=== PATIENT | female | born 1990 | race Hispanic/Latino ===

== ENCOUNTER 2018-09-20 14:11 | Inpatient (IN) | payer OTHER ==
[2018-09-23] MEDS ORDERED: METHYLERGONOVINE 0.2MG/ML AMP IM PRN ×2 (06:29→21:23)
[2018-09-23] MEDS ORDERED: CARBOPROST TROME 250 MCG/ML IM PRN ×2 (06:29→21:23)
[2018-09-23] MEDS ORDERED: PENICILLIN 5 MU in NA CHLORIDE 0.9% 100 ML IV ONE (06:29)
[2018-09-23] MEDS ORDERED: Ringers Lactate 1,000 ML IV PRN (06:29)
[2018-09-23] MEDS ORDERED: BUTORPHANOL 1 MG/ML INJ IV PRN (06:29)
[2018-09-23] MEDS ORDERED: PROMETHAZINE 25 MG/ML VIAL IV PRN (06:29)
[2018-09-23] MEDS ORDERED: PENICILLIN G POT 5 MU/100 ML BAG IV ONE (07:00)
[2018-09-23] MEDS ORDERED: Ringers Lactate 1,000 ML IV SCH (07:00)
[2018-09-23] MEDS ORDERED: OXYTOCIN/LR 20 UNIT/1,000 ML BAG IV SCH ×2 (07:00→22:00)
[2018-09-23 07:01] LABS: RPR Titer ND
[2018-09-23 07:04] LABS: Urine Appearance CLOUDY; Urine Bilirubin NEGATIVE (NEG); Urine Blood NEGATIVE (NEG); Urine Color YELLOW; Urine Glucose NEGATIVE (NEG); Urine Protein 1+ (NEG); Urine Specific Gravity 1.025 (1.005-1.030); Urine pH 6.5 (5.0-7.0)
[2018-09-23 07:11] LABS: Absolute Lymphocytes (CBC) 1.9 K/uL (0.7-4.9); Absolute Monocytes 0.8 K/uL (0.1-1.3); Absolute Neutrophil 6.7 K/uL (1.8-8.0); Basophils % 0.3 % (0-1.3); Eosinophils % 0.7 % (0-4.4); Monocytes % 8.7 % (3.3-12.3); RBC Red Blood Cell Count 4.43 M/uL (3.86-4.86)
[2018-09-23 07:25] LABS: Urine Bacteria 20-50 /HPF (<20); Urine Culture Reflex Order REFLEXED; Urine Microscopic Reflex ORDER UMIC; Urine Mucus 2+ /HPF (NONE SEEN); Urine RBC <5 /HPF (NONE SEEN)
--- NOTE | 2018-09-23 07:46 | P.PN ---
Date of Service: 09/23/18 Unable to perform AROM, pt unable to relax and vtx, minus 3 station. Will begin pitocin and attempt to AROM in an hour or two. First dose of PCN almost complete.
[2018-09-23 08:09] VITALS: BMI 33.9
[2018-09-23] MEDS ORDERED: FENTANYL CITR 100 MCG/2 ML IV ONE (10:23)
[2018-09-23] MEDS ORDERED: ROPIVACAINE HCL 100 ML IV PRN (10:23)
[2018-09-23] MEDS ORDERED: ROPIVACAINE HCL 2 MG/ML 100ML IV ONE (10:24)
[2018-09-23] MEDS ORDERED: PENICILLIN 2.5 MU in NA CHLORIDE 0.9% 100 ML IV SCH ×2 (10:30→11:00)
[2018-09-23] MEDS ORDERED: ROPIVACAINE HCL 20 ML ONE (10:58)
--- NOTE | 2018-09-23 12:53 | P.PN ---
CX now 4cm, 85% effaced, vtx still, minus 2 station with no descent. Will observe for progress.
--- NOTE | 2018-09-23 15:07 | P.PN ---
CX 5+cm, 90% effaced, vtx minus 2, reactive FHT's. Will continue induction and observe for continued progress.
[2018-09-23] MEDS ORDERED: LIDOCAINE 1% MPF 30 ML VIAL ONE (16:44)
[2018-09-23] MEDS ORDERED: METHYLERGONOVINE 0.2MG/ML AMP IM ONE (16:45)
[2018-09-23] MEDS ORDERED: CARBOPROST TROME 250 MCG/ML IM ONE (16:45)
[2018-09-23] MEDS ORDERED: CEFAZOLIN 2 GM in NA CHLORIDE 0.9% 100 ML IVPB SCH (19:25)
--- NOTE | 2018-09-23 19:30 | P.PN ---
Complete, pushing x2+ hours with no progress last 90 minutes. Vtx remains 0 station. Will proceed with for ftp, secondary to cpd.
[2018-09-23] MEDS ORDERED: NA CIT/CITRIC AC 30 ML ORAL UDC PO ONE (19:34)
[2018-09-23] MEDS ORDERED: METOCLOPRAMIDE 10 MG/2mL INJ IV SCH (20:00)
[2018-09-23] MEDS ORDERED: LIDOCAINE 2% MPF 5 ML VIAL ONE (20:05)
[2018-09-23] MEDS ORDERED: MORPHINE SULFATE/PF 1 MG/ML (10 ML AMP) ONE (20:17)
[2018-09-23] MEDS ORDERED: OXYTOCIN 10 UNIT/ML ML IV ONE (20:21)
[2018-09-23] MEDS ORDERED: LIDOCAINE 1% MPF 5 ML VIAL ONE (20:24)
[2018-09-23] MEDS ORDERED: PROPOFOL 200 MG/20 ML VIAL IV ONE (20:29)
[2018-09-23] MEDS ORDERED: SUCCINYLCHOLINE 20 MG/ML (10 ML) IV ONE ×2 (20:30→20:44)
[2018-09-23] MEDS ORDERED: ONDANSETRON 4 MG/2 ML VIAL ONE (20:39)
[2018-09-23] MEDS ORDERED: FENTANYL CITR 250 MCG/5 ML ONE (20:46)
[2018-09-23] MEDS ORDERED: Oxycodone HCl/Acetaminophen 1 TAB TAB PO PRN (21:23)
[2018-09-23] MEDS ORDERED: METHYLERGONOVINE 0.2 MG TAB PO PRN (21:23)
[2018-09-23] MEDS ORDERED: ONDANSETRON 4 MG (ODT) TAB PO PRN (21:23)
--- NOTE | 2018-09-23 21:27 | P.BOP ---
Preoperative diagnosis: 39+ week , failure to progress in labor, cpd Postoperative diagnosis: same, viable Line Controller: Milana Esparza Estimated blood loss: 1000ml Specimen: placenta Anesthesia: General Complications: None Drain(s): Urinary catheter Transferred to: Other (271) Condition: Good (271)
[2018-09-23] MEDS ORDERED: KETOROLAC 30 MG/ML INJ IV PRN (21:31)
[2018-09-23 23:24] LABS: RPR (Rapid Plasma Reagin) NON-REACT (NON-REACT)
[2018-09-24] MEDS: Oxycodone HCl/Acetaminophen 1 TAB TAB PO PRN ×3 (02:15→12:45)
[2018-09-24] MEDS ORDERED: Ringers Lactate 1,000 ML IV ONE (05:12)
[2018-09-24 05:42] LABS: Absolute Lymphocytes (CBC) 1.6 K/uL (0.7-4.9); Absolute Monocytes 1.5 K/uL (0.1-1.3); Absolute Neutrophil 12.7 K/uL (1.8-8.0); Basophils % 0.1 % (0-1.3); Eosinophils % 0.1 % (0-4.4); Hematocrit 35.2 % (36.0-45.0); Lymphocytes % 10.3 % (15.3-44.8); MPV 8.9 fL (7.6-11.3); Monocytes % 9.6 % (3.3-12.3)
--- NOTE | 2018-09-24 06:00 | P.PN ---
S- No complaints O-Afeb, vs stable, po h/h, bandage dry, abdomen not distended A-Satisfactory P-Post op care discussed. Ambulate, advance diet today.
[2018-09-24] MEDS ORDERED: FAMOTIDINE 20 MG/2 ML VIAL IV ONE (09:00)
--- NOTE | 2018-09-24 16:26 | OP ---
Surgeon: Terry Swanson MD Preoperative Diagnosis: Forty week , failure to progress in labor secondary to suspected ce phalopelvic disproportion. Procedure: General endotracheal anesthesia, primary section, delivery of viable female infa nt, macrosomic female . Postoperative Diagnosis: Forty week , failure to progress in labor secondary to suspected c ephalopelvic disproportion. Description Of Procedure: After the patient had progressed to complete cervical dilatation, had seco nd stage of labor of 2+ hours, vertex remained at no lower than 0 station, and because of this and declining mother's expulsive efforts, the patient has been counseled regarding the need for cathy nelly section secondary to failure to progress in labor with cephalopelvic disproportion. After the patient received 2 g of Ancef for antibiotic prophylaxis and with Roche catheter in place, she was prepped and draped in the usual fashion for abdominal surgery. Testing of the epidural anest hesia revealed it was not adequate for surgical anesthesia, so a general endotracheal anesthesia was employed. After this was instituted, a Pfannenstiel skin incision was made, carried down to the fasc ia, fascia incised with a combination of sharp and blunt dissection. This was from the und erlying rectus muscles. These were divided in the midline. The peritoneum identified and incised. Vesicouterine peritoneum incised. A low-transverse uterine incision was made. An 8-pound 15-ounce f emale , 9 and 9, was delivered with vertex deep in the pelvis, was easily elevated. Cord was clamped, cut, and the infant placed in a warmer. Cord blood was obtained. The placenta was man ually removed. The uterus was then exteriorized. The uterus was closed in 2 layers of unlocked runn ing suture of 0 Vicryl. Second layer used to imbricate the first. Good hemostasis was noted. Bladd er flap was reapproximated with running suture of 3-0 Vicryl. The uterus was returned to the periton eal cavity, which was cleaned of amniotic fluid, debris, and blood clot. The rectus muscles were harriett roximated in the midline with simple sutures of 0 Vicryl. The fascia was closed by running suture of #1 Vicryl from either margin to the middle. The skin was closed with subcutaneous sutures, interrup nadia sutures of 3-0 Vicryl, subdermal suture of 3-0 Vicryl, and subcuticular suture of 4-0 Monocryl. The patient was awakened, extubated, and taken to recovery room in satisfactory condition with Roche catheter in place. Estimated total blood loss was 1000 mL. She was given methargen IM post infant d elivery to ensure good contracture of the uterus after obstructed labor. Pet Feeder Surgeon: Dr. Esparza. Anesthesia: Dr. Delvis Toussaint. KOMAL/GONZALEZ Voice ID: [id number] Report ID: [id number]
[2018-09-24] MEDS: IBUPROFEN 200 MG TAB PO PRN ×2 (17:27→23:48)
[2018-09-25] MEDS: IBUPROFEN 200 MG TAB PO PRN (07:50)
--- NOTE | 2018-09-25 13:55 | DS ---
Final Hospital Discharge Diagnosis: 40 week , section for failure to progress in l abor with failure of descent. Complications: None. Procedures: Artificial rupture of membranes. Pitocin induction of labor. Placement of epidural cat heter. General endotracheal anesthesia. Primary section. Delivery of viable female , macrosomic female infant. Hospital Course: The patient is a 28-year-old female, 1, para 0, at 40 weeks gestat ion, admitted for induction at term secondary to favorable cervix and concerns about cephalopelvic di sproportion and macrosomia. She ended up with a primary section after 2-1/2 hours, se cond stage of labor and failure of descent and delivered an 8-pound 15-ounce female infant, 9 a nd 9 with general anesthesia when epidural anesthesia was not satisfactory. Lab work during this hos pital stay included an admission hemoglobin and hematocrit of 14.0 and 41.0, dismissal 12.0 and 35.2. She is Rh positive blood type and rubella immune. She will be dismissed with a prescription for Ty lenol No. 3 #15 for pain relief, to be seen back in my office in 1 week with usual post vaginal and p ost section activity restrictions, to continue taking her iron and vitamins. KOAML/GONZALEZ Voice ID: [id number] Report ID: [id number]
[2018-09-25 16:41] VITALS: BP 147/90; TEMP 97.4
[2018-09-25 21:23] LABS: HBsAG Nonreactive (Nonreactive)
== END 2018-09-25 17:40 | disposition home or self-care (01) | DRG 788 ==
LOC: 2ND-WC 09-23 06:25
PROVIDERS: ADMIT Specialist; ATTEND Specialist
PROC: 10907ZC Drainage of Amniotic Fluid, Therapeutic from Products of Conception, Via Natural or Artificial Opening (ICD-10-PCS; 2018-09-23)
PROC: 3E033VJ Introduction of Other Hormone into Peripheral Vein, Percutaneous Approach (ICD-10-PCS; 2018-09-23)
PROC: 10D00Z1 Extraction of Products of Conception, Low, Open Approach (ICD-10-PCS; principal; 2018-09-23 20:00)
DX: O62.0 Primary inadequate contractions (principal); O32.4XX0 Maternal care for high head at term, not applicable or unspecified; Z3A.40 40 weeks gestation of pregnancy; Z37.0 Single live birth
CPT/HCPCS: 36415; 81003; 81015; 85025; 86592; 86850; 86900; 86901; 87086; 87088; 87340; 88307; J0330; J2210; J2405; J2590; J2704; J2765; J2795; J3010

== ENCOUNTER 2020-11-16 15:13 | Emergency (ER) | payer SELFPAY ==
--- OUTSIDE RECORDS SUMMARY | 2020-11-16 15:15 | XMS REPORT | Continuity of Care Document ---
:1990 Author Organization [facility] t Address [address] [place] [address] Care Team Providers Name Role Phone Daniela Mckinnon MD Attending Clinician Problems This patient has no known problems. Allergies, Adverse Reactions, Alerts This patient has no known allergies or adverse reactions. Medications This patient has no known medications. Procedures This patient has no known procedures. Encounters Start End Encounter Admission Attending Care Care Encounter Source Date/Time Date/Time Type Type Clinicians Facility Department ID 2020-02-03 2020-02-03 Case [facility] [id number] 00:00:00 00:00:00 Management Sonia Ballard [id number] Amanda [id number] Juanita [phone] [facility] 134 Building 2020-02-01 2020-02-01 Office [facility] [id number] 11:20:04 12:15:55 Visit Sonia Ballard [id number] [place] [id number] Juanita [phone] [address] Results This patient has no known results.
--- NOTE | 2020-11-16 15:53 | ER ---
Nurse's Notes [facility] [place], [place] Name: Rosalva De La Rosa Age: 30 yrs Sex: Female : 1990 Arrival Date: 11/16/2020 Time: 15:14 Bed 27 Private MD: Diagnosis: Presentation: 11/16 15:25 Chief complaint: Patient states: Covid+ 11/12/2020. S/S started 11/07/2020. SOB with ca1 talking, breathing. Reports cough, worsening. No fever. Coronavirus screen: Client denies travel out of the [place] in the last 14 days. Client reports previous positive COVID test result. Date of collection: November 12, 2020 Staff notified of need for isolation. Ebola Screen: Patient negative for fever greater than or equal to 101.5 degrees Fahrenheit, and additional compatible Ebola Virus Disease symptoms Patient denies exposure to infectious person. Patient denies travel to an Ebola-affected area in the 21 days before illness onset. No symptoms or risks identified at this time. Initial Sepsis Screen: Does the patient meet any 2 criteria? No. Patient's initial sepsis screen is negative. Does the patient have a suspected source of infection? No. Patient's initial sepsis screen is negative. Risk Assessment: Do you want to hurt yourself or someone else? Patient reports no desire to harm self or others. Onset of symptoms was November 07, 2020. 15:25 Method Of Arrival: Wheelchair ca1 15:25 Method Of Arrival: Wheelchair ca1 15:25 Acuity: VELVET 2 ca1 15:51 Note Norma states, she left and went to [place]. ca1 BARN HAND: 15:29 LMP 10/24/2020 ca1 Historical: - Allergies: 15:29 No Known Allergies; ca1 - PMHx: 15:29 None; ca1 - PSHx: 15:29 None; ca1 - Immunization history:: Flu vaccine is up to date. - Social history:: Smoking status: Patient denies any tobacco usage or history of. Vital Signs: 15:25 BP 107 / 88; Pulse 137; Resp 20 S; Temp 98.5(TE); Pulse Ox 97% on R/A; Weight 95.25 kg ca1 (R); Height 5 ft. 8 in. (172.72 cm) (R); Pain 6/10; 15:25 Body Mass Index 31.93 (95.25 kg, 172.72 cm) ca1 ED Course: 15:14 Patient arrived in ED. am2 15:29 Triage completed. ca1 15:29 Arm band placed on right wrist. ca1 15:48 Ashley Smallwood, RN is Primary Nurse. vg1 15:51 Patient's name was called from ER lobby. No response. Unable to locate patient. Will ca1 disposition as left without being seen by a provider. Administered Medications: No medications were administered Outcome: 15:52 Patient left the ED. ca1 Signatures: Shelbi Patterson am2 Sharyn Tovar RN RN ca1 Ashley Smallwood, RN RN vg1
[2020-11-16 15:57] VITALS: BP 107/88; TEMP 98.5; O2SAT 97
== END 2020-11-16 15:52 | disposition left against medical advice (07) ==
LOC: ER 15:13
DX: Z53.21 Procedure and treatment not carried out due to patient leaving prior to being seen by health care provider (principal)
CPT/HCPCS: 99281

== ENCOUNTER 2020-11-19 11:44 | Inpatient (IN) | payer OTHER ==
--- OUTSIDE RECORDS SUMMARY | 2020-11-19 11:47 | XMS REPORT | Continuity of Care Document ---
:1990 Author Organization [facility] t Address [address] [place] [address] Care Team Providers Name Role Phone Daniela [...] Clinicians Facility Department ID 2020-02-03 2020-02-03 Case [facility] [id number] 00:00:00 00:00:00 Management Sonia Ballard [id number] [place] [id number] Juanita [phone] [facility] 134 Building 2020-02-01 2020-02-01 Office [facility] [id number] 11:20:04 12:15:55 Visit Sonia Ballard [id number] [place] [id number] Juanita [phone] [address] Results This patient has no known results.
[2020-11-19] MEDS ORDERED: ACETAMINOPHEN 500 MG TAB ONE (12:30)
[2020-11-19] MEDS ORDERED: NA CHLORIDE 0.9% 1,000 ML ONE (12:30)
--- NOTE | 2020-11-19 12:37 | EDPHYS ---
Physician Documentation [facility] Name: Rosalva De La Rosa Age: 30 yrs Sex: Female : 1990 Arrival Date: 11/19/2020 Time: 11:46 Bed 23 Private MD: ED Physician Celso Russo HPI: 11/19 12:37 This 30 yrs old Female presents to ER via Wheelchair with complaints of Covid jr8 + SOB, Fatigue. 12:37 The patient has shortness of breath at rest. Onset: The symptoms/episode began/occurred jr8 gradually, 7 day(s) ago, and became worse and became persistent. Duration: The symptoms are continuous. The patient's shortness of breath is aggravated by talking, walking. Associated signs and symptoms: Pertinent positives: non-productive cough, fever. Severity of symptoms: At their worst the symptoms were moderate in the emergency department the symptoms are unchanged. The patient has not experienced similar symptoms in the past. The patient has been recently seen by a physician:. Diagnosed with covid a week ago. Saw Celeste this past Thursday and was prescribed steroids and Abx. Came today for worsening of shortness of breath. Patient febrile with tachycardia, tachypnea, and hypoxia upon arrival . Historical: - Allergies: 12:03 No Known Allergies; ll1 - PMHx: 12:03 None; ll1 - PSHx: 12:03 None; ll1 - Immunization history:: Flu vaccine is up to date. - Social history:: Smoking status: Patient denies any tobacco usage or history of. ROS: 12:37 Eyes: Negative for injury, pain, redness, and discharge, ENT: Negative for injury, jr8 pain, and discharge, Neck: Negative for injury, pain, and swelling, Cardiovascular: Negative for chest pain, palpitations, and edema, Abdomen/GI: Negative for abdominal pain, nausea, vomiting, diarrhea, and constipation, Back: Negative for injury and pain, MS/Extremity: Negative for injury and deformity, Skin: Negative for injury, rash, and discoloration, Neuro: Negative for headache, weakness, numbness, tingling, and seizure. 12:37 Constitutional: Positive for fever, malaise. 12:37 Respiratory: Positive for cough, dyspnea on exertion, shortness of breath. Exam: 12:37 Eyes: Pupils equal round and reactive to light, extra-ocular motions intact. Lids and jr8 lashes normal. Conjunctiva and sclera are non-icteric and not injected. Cornea within normal limits. Periorbital areas with no swelling, redness, or edema. ENT: Nares patent. No nasal discharge, no septal abnormalities noted. Tympanic membranes are normal and external auditory canals are clear. Oropharynx with no redness, swelling, or masses, exudates, or evidence of obstruction, uvula midline. Mucous membranes moist. Neck: Trachea midline, no thyromegaly or masses palpated, and no cervical lymphadenopathy. Supple, full range of motion without nuchal rigidity, or vertebral point tenderness. No Meningismus. Abdomen/GI: Soft, non-tender, with normal bowel sounds. No distension or tympany. No guarding or rebound. No evidence of tenderness throughout. Back: No spinal tenderness. No costovertebral tenderness. Full range of motion. Skin: Warm, dry with normal turgor. Normal color with no rashes, no lesions, and no evidence of cellulitis. MS/ Extremity: Pulses equal, no cyanosis. Neurovascular intact. Full, normal range of motion. Neuro: Awake and alert, GCS 15, oriented to person, place, time, and situation. Cranial nerves II-XII grossly intact. Motor strength 5/5 in all extremities. Sensory grossly intact. 12:37 Constitutional: The patient appears alert, awake, obviously ill. 12:37 Cardiovascular: Rate: tachycardic, Rhythm: regular, Pulses: Pulses are 2+ in right radial artery and left radial artery. Heart sounds: normal, normal S1and S2, no S3 or S4, no murmur, no rub, no gallop, Edema: is not appreciated. 12:37 Respiratory: mild respiratory distress is noted, Respirations: tachypnea, that is moderate, Breath sounds: are clear throughout, no bronchial sounds, no decreased breath sounds, no rales, rhonchi, no stridor, no wheezing, Respiratory rate: 40 Vital Signs: 12:00 BP 104 / 80; Pulse 114; Resp 28; Pulse Ox 90% on 3 lpm NC; vg1 12:03 BP 115 / 76; Pulse 135; Resp 40; Temp 101.7; Pulse Ox 88% on R/A; Weight 95.25 kg; ll1 Height 5 ft. 8 in. (172.72 cm); 13:00 BP 99 / 64; Pulse 104; Resp 24; Pulse Ox 91% on 3 lpm NC; vg1 13:36 Temp 98.8; vg1 13:45 BP 98 / 68; Pulse 89; Resp 34; Pulse Ox 97% on 3 lpm NC; vg1 14:30 BP 103 / 68; Pulse 86; Resp 26; Pulse Ox 97% on 3 lpm NC; vg1 15:15 BP 97 / 67; Pulse 85; Resp 16; Pulse Ox 96% on 3 lpm NC; vg1 16:18 BP 100 / 68; Pulse 84; Resp 26; Pulse Ox 94% on 3 lpm NC; vg1 19:10 BP 109 / 76; Pulse 114; Resp 28; Temp 98.4; Pulse Ox 94% on 3 lpm NC; vg1 12:03 Body Mass Index 31.93 (95.25 kg, 172.72 cm) ll1 MDM: 11:59 Patient medically screened. jr8 12:40 Data reviewed: vital signs, nurses notes, lab test result(s), EKG, radiologic studies, jr8 plain films. Data interpreted: Pulse oximetry: on room air is 88 %. Interpretation: hypoxia. Counseling: I had a detailed discussion with the patient and/or guardian regarding: the historical points, exam findings, and any diagnostic results supporting the discharge/admit diagnosis, lab results, radiology results, the need for further work-up and treatment in the hospital. 11/19 12:04 Order name: BNP [facility] 11/19 12:04 Order name: Blood Culture Adult (2) [facility] 11/19 12:04 Order name: BMP [facility] 11/19 12:04 Order name: C-Reactive Protein [facility] 11/19 12:04 Order name: CBC with Diff [facility] 11/19 12:04 Order name: D-Dimer [facility] 11/19 12:04 Order name: Ferritin [facility] 11/19 12:04 Order name: Flu [facility] 11/19 12:04 Order name: Lactate [facility] 11/19 12:04 Order name: LFT's [facility] 11/19 12:04 Order name: Procalcitonin [facility] 11/19 12:04 Order name: PT-INR [facility] 11/19 12:04 Order name: Ptt, Activated; Complete Time: 13:16 [facility] 11/19 12:04 Order name: Troponin (emerg Dept Use Only); Complete Time: 14:13 8 11/19 12:05 Order name: NT PRO-BNP; Complete Time: 14:13 EDMS 11/19 12:05 Order name: Blood Culture EDID 11/19 12:05 Order name: Basic Metabolic Panel; Complete Time: 14:13 EDMS 11/19 12:05 Order name: C-Reactive Protein; Complete Time: 14:13 EDMS 11/19 12:05 Order name: CBC with Automated Diff; Complete Time: 13:28 EDMS 11/19 12:05 Order name: D-Dimer; Complete Time: 13:16 EDMS 11/19 12:05 Order name: Ferritin; Complete Time: 14:13 MS 11/19 12:05 Order name: Lactate; Complete Time: 13:16 EDMS 11/19 12:05 Order name: Liver (Hepatic) Function; Complete Time: 14:13 MS 11/19 12:05 Order name: Procalcitonin; Complete Time: 14:13 EDMS 11/19 12:05 Order name: Protime (+INR); Complete Time: 13:16 EDMS 11/19 13:02 Order name: CBC Smear Scan; Complete Time: 13:28 EDMS 11/19 13:42 Order name: COVID-19/FLU A+B; Complete Time: 14:13 MS 11/19 13:48 Order name: C-Reactive Protein [facility] 11/19 12:04 Order name: CXR XRAY; Complete Time: 14:45 [facility] 11/19 12:04 Order name: EKG; Complete Time: 12:06 [facility] 11/19 12:04 Order name: Cardiac monitoring; Complete Time: 12:44 8 11/19 12:04 Order name: Droplet/Contact Precautions; Complete Time: 12:44 [facility] 11/19 12:04 Order name: EKG - Nurse/Tech; Complete Time: 12:45 [facility] 11/19 12:04 Order name: IV Start; Complete Time: 12:45 [facility] 11/19 12:04 Order name: Labs collected and sent; Complete Time: 12:45 [facility] 11/19 12:04 Order name: O2 Per Protocol; Complete Time: 12:45 [facility] 11/19 12:04 Order name: O2 Sat Monitoring; Complete Time: 12:45 [facility] 11/19 12:04 Order name: Urine Dipstick-Ancillary (obtain specimen); Complete Time: 14:58 [facility] 11/19 13:17 Order name: CT Chest For PE Angio [facility] 11/19 13:48 Order name: CONS Physician Consult [facility] 11/19 13:48 Order name: Heart Healthy [facility] 11/19 13:48 Order name: C-Reactive Protein [facility] 11/19 13:48 Order name: CBC with Automated Diff [facility] 11/19 13:48 Order name: CBC with Automated Diff [facility] 11/19 13:48 Order name: Comprehensive Metabolic Panel [facility] 11/19 13:48 Order name: Comprehensive Metabolic Panel [facility] 11/19 13:48 Order name: Ferritin [facility] 11/19 13:48 Order name: Ferritin [facility] 11/19 14:36 Order name: CT; Complete Time: 14:45 EDID 11/19 14:42 Order name: Diet Regular; Complete Time: 14:42 [facility] 11/19 15:09 Order name: Urine Dipstick--Ancillary (enter results) 11/19 15:09 Order name: Urine --Ancillary (enter results) 11/19 15:36 Order name: Urine --Ancillary; Complete Time: 15:42 EDID 11/19 15:36 Order name: Urine Dipstick-Ancillary; Complete Time: 15:42 EDID 11/19 15:58 Order name: Lactate Sepsis 2 HR Follow-up; Complete Time: 16:40 EDMS Administered Medications: 12:44 Drug: Tylenol 1000 mg Route: PO; vg1 13:36 Follow up: Response: Temperature is decreased vg1 12:44 Drug: NS 0.9% 1000 ml Route: IV; Rate: 1000 ml; Site: right wrist; vg1 13:35 Follow up: IV Status: Completed infusion vg1 12:50 Drug: SOLU-Medrol 125 mg Route: IVP; Site: right wrist; vg1 13:35 Follow up: Response: No adverse reaction vg1 Disposition: 11/20 07:25 Co-signature as Attending Physician, Celso Russo MD. rn Disposition: 11/19/20 12:37 Hospitalization ordered by Lucy Viera for Inpatient Admission. Preliminary diagnosis are Pneumonia due to SARS-associated coronavirus, Acute respiratory failure with hypoxia. - Bed requested for Telemetry/MedSurg (Inpatient). - Status is Inpatient Admission. vg1 - Condition is Fair. - Problem is new. - Symptoms have improved. Signatures: Dispatcher [employer] EDMS Mine Love Celso Russo MD MD rn Jarerll, SHAHRAM Velasquez RN ss Craig Browne, PA PA jr8 Ashley Smallwood, SHAHRAM RN vg1 Bhavani Roland RN RN ll1 Corrections: (The following items were deleted from the chart) 11/19 12:47 12:05 Influenza Screen (A ordered. EDMS EDMS 12:47 12:06 CORONAVIRUS+MR.LAB.BRZ ordered. EDID EDMS 16:52 12:37 Hospitalization Ordered by Lucy Viera MD for Inpatient Admission. Preliminary ss diagnosis is Pneumonia due to SARS-associated coronavirus; Acute respiratory failure with hypoxia. Bed requested for Telemetry/MedSurg (Inpatient). Status is Inpatient Admission. Condition is Fair. Problem is new. Symptoms have improved. jr8 18:43 16:52 11/19/2020 12:37 Hospitalization Ordered by Lucy Viera MD for Inpatient bd Admission. Preliminary diagnosis is Pneumonia due to SARS-associated coronavirus; Acute respiratory failure with hypoxia. Bed requested for [facility] ER HOLD. Status is Inpatient Admission. Condition is Fair. Problem is new. Symptoms have improved. 18:44 18:43 11/19/2020 12:37 Hospitalization Ordered by Lucy Viera MD for Inpatient bd Admission. Preliminary diagnosis is Pneumonia due to SARS-associated coronavirus; Acute respiratory failure with hypoxia. Bed requested for Telemetry/MedSurg (Inpatient). Status is Inpatient Admission. Condition is Fair. Problem is new. Symptoms have improved. bd 20:10 18:44 11/19/2020 12:37 Hospitalization Ordered by Lucy Viera MD for Inpatient vg1 Admission. Preliminary diagnosis is Pneumonia due to SARS-associated coronavirus; Acute respiratory failure with hypoxia. Bed requested for Telemetry/MedSurg (Inpatient). Status is Inpatient Admission. Condition is Fair. Problem is new. Symptoms have improved. bd
--- NOTE | 2020-11-19 12:37 | ER ---
Nurse's Notes [facility] Name: Rosalva De La Rosa Age: 30 yrs Sex: Female : 1990 Arrival Date: 11/19/2020 Time: 11:46 Bed 23 Private MD: Diagnosis: Pneumonia due to SARS-associated coronavirus;Acute respiratory failure with hypoxia Presentation: 11/19 12:03 Chief complaint: Patient states: Covid positive since November 12. Symptoms began ll1 11/07/20. Went to [place] Thursday, steroids/antibiotics/inhaler not helping. SOB worse with exertion. + fever still. Coronavirus screen: Client denies travel out of the [place] in the last 14 days. cough unrelated to allergies, difficulty breathing, fatigue, fever, headache, muscle pain, shortness of breath, Client presents with at least one sign or symptom that may indicate coronavirus-19. Standard/surgical mask placed on the client. Ebola Screen: Patient denies travel to an Ebola-affected area in the 21 days before illness onset. Initial Sepsis Screen: Does the patient meet any 2 criteria? RR > 20 per min. Temp <36.0*C (96.8*F)) or > 38.3*C (100.9*F). HR > 90 bpm. Does the patient have a suspected source of infection? Yes: Productive cough/pneumonia If YES to both, name of provider notified: Craig APPLE. Risk Assessment: Do you want to hurt yourself or someone else? Patient reports no desire to harm self or others. Onset of symptoms was November 07, 2020. 12:03 Method Of Arrival: Wheelchair ll1 12:03 Acuity: VELVET 2 ll1 Historical: - Allergies: 12:03 No Known Allergies; ll1 - PMHx: 12:03 None; ll1 - PSHx: 12:03 None; ll1 - Immunization history:: Flu vaccine is up to date. - Social history:: Smoking status: Patient denies any tobacco usage or history of. Screenin:18 Abuse screen: Denies threats or abuse. Nutritional screening: No deficits noted. vg1 Tuberculosis screening: No symptoms or risk factors identified. Fall Risk No fall in past 12 months (0 pts). No secondary diagnosis (0 pts). IV access (20 points). Ambulatory Aid- None/Bed Rest/Nurse Assist (0 pts). Gait- Normal/Bed Rest/Wheelchair (0 pts) Mental Status- Oriented to own ability (0 pts). Total Resendez Fall Scale indicates No Risk (0-24 pts). Assessment: 12:00 General: Appears in no apparent distress. uncomfortable, Behavior is calm, cooperative. vg1 Pain: Complains of pain in pain with breathing Pain currently is 8 out of 10 on a pain scale. Neuro: Level of Consciousness is awake, alert, obeys commands, Oriented to person, place, time, situation. Cardiovascular: Patient's skin is warm and dry. Respiratory: Airway is patent Respiratory effort is even, labored, Respiratory pattern is regular, symmetrical, Breath sounds with crackles in right posterior middle lobe Breath sounds are diminished in right posterior lower lobe. Respiratory: Reports shortness of breath cough that is pain with cough. GI: Reports diarrhea, nausea, vomiting. : No signs and/or symptoms were reported regarding the genitourinary system. EENT: No signs and/or symptoms were reported regarding the EENT system. Derm: Skin is intact, is healthy with good turgor. Musculoskeletal: Circulation, motion, and sensation intact. 14:46 Reassessment: Patient appears in no apparent distress at this time. No changes from vg1 previously documented assessment. Patient and/or family updated on plan of care and expected duration. Pain level reassessed. Patient is alert, oriented x 3, equal unlabored respirations, skin warm/dry/pink. 15:37 Reassessment: Patient appears in no apparent distress at this time. No changes from vg1 previously documented assessment. Patient and/or family updated on plan of care and expected duration. Pain level reassessed. Patient is alert, oriented x 3, equal unlabored respirations, skin warm/dry/pink. Vital Signs: 12:00 BP 104 / 80; Pulse 114; Resp 28; Pulse Ox 90% on 3 lpm NC; vg1 12:03 BP 115 / 76; Pulse 135; Resp 40; Temp 101.7; Pulse Ox 88% on R/A; Weight 95.25 kg; ll1 Height 5 ft. 8 in. (172.72 cm); 13:00 BP 99 / 64; Pulse 104; Resp 24; Pulse Ox 91% on 3 lpm NC; vg1 13:36 Temp 98.8; vg1 13:45 BP 98 / 68; Pulse 89; Resp 34; Pulse Ox 97% on 3 lpm NC; vg1 14:30 BP 103 / 68; Pulse 86; Resp 26; Pulse Ox 97% on 3 lpm NC; vg1 15:15 BP 97 / 67; Pulse 85; Resp 16; Pulse Ox 96% on 3 lpm NC; vg1 16:18 BP 100 / 68; Pulse 84; Resp 26; Pulse Ox 94% on 3 lpm NC; vg1 19:10 BP 109 / 76; Pulse 114; Resp 28; Temp 98.4; Pulse Ox 94% on 3 lpm NC; vg1 12:03 Body Mass Index 31.93 (95.25 kg, 172.72 cm) ll1 ED Course: 11:46 Patient arrived in ED. ds1 11:58 Ashley Smallwood RN is Primary Nurse. vg1 11:58 Arm band placed on Patient placed in an exam room, on a stretcher. ll1 11:59 Craig Browne PA is PHCP. jr8 11:59 Celso Russo MD is Attending Physician. jr8 12:05 Triage completed. ll1 12:30 Inserted saline lock: 22 gauge in right wrist, using aseptic technique. Blood collected.vg1 12:30 Initial lab(s) drawn, by me, sent to lab. First set of blood cultures drawn by me. vg1 12:36 Lucy Viera MD is Hospitalizing Provider. jr8 12:45 First set of blood cultures drawn Second set of blood cultures drawn by me. vg1 13:14 Notified Nurse Practitioner and/or Physician Russet Repairer of a critical lab result(s), ss [id number]. 13:18 Patient has correct armband on for positive identification. Placed in gown. Bed in low vg1 position. Call light in reach. Side rails up X2. 13:48 CXR XRAY In Process Unspecified. EDMS 13:56 X-ray completed. Portable x-ray completed in exam room. Patient tolerated procedure sw well. 13:[address] via stretcher. vg1 15:37 Repeat lab(s) drawn. by ED staff, sent to lab. vg1 19:14 Primary Nurse role handed off by Ashley Smallwood, RN mw2 19:34 Ashley Smallwood, RN is Primary Nurse. vg1 19:42 No provider procedures requiring assistance completed. Patient admitted, IV remains in vg1 place. Administered Medications: 12:44 Drug: Tylenol 1000 mg Route: PO; vg1 13:36 Follow up: Response: Temperature is decreased vg1 12:44 Drug: NS 0.9% 1000 ml Route: IV; Rate: 1000 ml; Site: right wrist; vg1 13:35 Follow up: IV Status: Completed infusion vg1 12:50 Drug: SOLU-Medrol 125 mg Route: IVP; Site: right wrist; vg1 13:35 Follow up: Response: No adverse reaction vg1 Outcome: 12:37 Decision to Hospitalize by Provider. jr8 19:41 Admitted to Med/surg accompanied by tech, via wheelchair, room 407, with oxygen, with vg1 chart, Report called to SHAHRAM Torre 19:41 Condition: good 19:41 Instructed on the need for admit. 20:10 Patient left the ED. vg1 Signatures: Dispatcher [employer] EDID Rylee Gaona dsEva Ku RN RN Craig Browne PA PA jr8 Nelly Gonzales MyKena mw2 Ashley Smallwood, SHAHRAM RN vg1 Bhavani Roland RN RN ll1 Corrections: (The following items were deleted from the chart) 15:39 15:15 BP 97 / 67; Pulse 85bpm; Resp 24bpm; Pulse Ox 96% 3 lpm Nasal Cannula; vg1 vg1 19:38 19:16 Reassessment: Critical Result, glucose 469 vg1 vg1
[2020-11-19 12:52] LABS: Absolute Lymphocytes (CBC) 0.7 K/uL (0.7-4.9); Basophils % 0.1 % (0-1.3); Hematocrit 42.1 % (36.0-45.0); Lymphocytes % 6.9 % (15.3-44.8); RBC Red Blood Cell Count 4.63 M/uL (3.86-4.86)
[2020-11-19] MEDS ORDERED: METHYLPREDNISOLONE 125 MG INJ ONE (13:05)
[2020-11-19 13:12] LABS: Protime INR 1.06
[2020-11-19 13:24] LABS: Blood Morphology Comment NOT SEEN (NOT SEEN); Platelet Estimate ADEQ; White Blood Cell Scan OK (OK)
[2020-11-19] MEDS ORDERED: ACETAMINOPHEN 500 MG TAB PO PRN (13:35)
[2020-11-19] MEDS ORDERED: ONDANSETRON 4 MG/2 ML VIAL IV PRN (13:35)
[2020-11-19 13:40] LABS: ALT/SGPT 26 U/L (12-78); AST/SGOT 11 U/L (15-37); Albumin 3.3 g/dL (3.4-5.0); Alkaline Phosphatase 38 U/L (45-117); BUN Blood Urea Nitrogen 10 mg/dL (7-18); Bicarbonate 25 mmol/L (21-32); Bilirubin Direct 0.1 mg/dL (0-0.2); Bilirubin Total 0.4 mg/dL (0.2-1.0); Ferritin 131.9 ng/mL (8-388); Glucose Level 131 mg/dL (74-106); NT PRO-BNP 45 pg/mL (<125); Potassium 3.8 mmol/L (3.5-5.1); Protein, Total 8.4 g/dL (6.4-8.2); Sodium Level 137 mmol/L (136-145); Troponin (Emerg Dept Use Only) < 0.02 ng/mL (0.0-0.045)
[2020-11-19 13:42] LABS: SARS-COV-2 RT PCR POSITIVE (NEGATIVE)
[2020-11-19] MEDS: ALBUTEROL 2.5 MG/3 ML NEB SOL NEB SCH ×2 (14:00→21:15)
[2020-11-19] MEDS: IPRATROPIUM BROM 0.5MG/2.5ML NEB SCH ×2 (14:00→21:15)
--- NOTE | 2020-11-19 14:25 | RAD REPORT ---
EXAM DESCRIPTION: Dorie Single View11/19/2020 1:48 pm CLINICAL HISTORY: Shortness breath COMPARISON: none FINDINGS: Moderate bilateral pulmonary opacities. Heart is normal sized IMPRESSION: Moderate bilateral pulmonary opacities may indicate Covid pneumonia
--- NOTE | 2020-11-19 14:36 | RAD REPORT ---
EXAM DESCRIPTION: CT - Chest For Pe Angio - 11/19/2020 2:20 pm CLINICAL HISTORY: Shortness of breath COMPARISON: None. TECHNIQUE: Dynamically enhanced axial 3 mm thick images of the chest were obtained during administra tion of <100> mL Isovue 370 IV contrast. Coronal and oblique reconstruction images were generated and reviewed. Exam utilizes a protocol for optimal evaluation of pulmonary arterial tree. Maximum intensity projections 3D imaging was utilized All CT scans are performed using dose optimization technique as appropriate and may include automated exposure control or mA/KV adjustment according to patient size. FINDINGS: A pulmonary embolus is not seen. A thoracic aortic aneurysm is not noted. A pleural effusion is not seen. A pericardial effusion is not seen. Moderate bilateral alveolar lung opacities Fatty liver IMPRESSION: Negative for a pulmonary embolism. Moderate bilateral alveolar lung opacities may indicate Covid pneumonia
[2020-11-19 15:36] LABS: Urine Blood 3+ (NEG); Urine Glucose NEGATIVE (NEG); Urine Protein 1+ (NEG); Urine Specific Gravity 1.015 (1.005-1.030)
[2020-11-19 18:06] VITALS: BMI 31.9
[2020-11-19] MEDS: METHYLPREDNISOLONE 40 MG INJ IV SCH (21:10)
[2020-11-19] MEDS: FAMOTIDINE 20 MG/2 ML VIAL IV SCH (21:11)
[2020-11-19] MEDS: APIXABAN 5 MG TABLET PO SCH (21:11)
[2020-11-20] MEDS: ALBUTEROL 2.5 MG/3 ML NEB SOL NEB SCH ×2 (02:25→07:18)
[2020-11-20] MEDS: IPRATROPIUM BROM 0.5MG/2.5ML NEB SCH ×4 (02:25→20:35)
[2020-11-20 04:07] LABS: Absolute Lymphocytes (CBC) 0.9 K/uL (0.7-4.9); Basophils % 0.1 % (0-1.3); Hematocrit 38.4 % (36.0-45.0); Lymphocytes % 9.5 % (15.3-44.8); RBC Red Blood Cell Count 4.24 M/uL (3.86-4.86)
[2020-11-20 04:23] LABS: ALT/SGPT 22 U/L (12-78); AST/SGOT 11 U/L (15-37); Alkaline Phosphatase 33 U/L (45-117); BUN Blood Urea Nitrogen 12 mg/dL (7-18); Bicarbonate 25 mmol/L (21-32); Bilirubin Total 0.3 mg/dL (0.2-1.0); Ferritin 132.3 ng/mL (8-388); Glucose Level 174 mg/dL (74-106); Potassium 3.9 mmol/L (3.5-5.1); Protein, Total 7.7 g/dL (6.4-8.2); Sodium Level 139 mmol/L (136-145)
--- NOTE | 2020-11-20 06:21 | EKG ---
Test Date: 2020-11-19 Test Time: 11:40:09 Blend Technician: LELIA MEASUREMENT RESULTS: Intervals: Rate: 108 DC: 138 QRSD: 76 QT: 336 QTc: 450 Burden: P: 13 DC: 138 QRS: 40 T: 29 INTERPRETIVE STATEMENTS: Sinus tachycardia Otherwise normal ECG No previous ECG available for comparison Electronically Signed On 11-20-20 06:19:43 CDT by Ray Plunkett
--- NOTE | 2020-11-20 07:24 | RAD REPORT ---
EXAM DESCRIPTION: RAD - Chest Single View - 11/20/2020 7:03 am CLINICAL HISTORY: PNEUMONIA COMPARISON: November 19 TECHNIQUE: AP portable chest image was obtained 11/20/2020 7:03 am . FINDINGS: Moderate severity bilateral airspace opacification not substantially different from compar cecelia. No progressive disease. Heart and vasculature are normal. No measurable pleural effusion and no pneumothorax. No acute bony abnormality seen. No acute aortic findings suspected. IMPRESSION: Stable bilateral pneumonia pattern.
[2020-11-20] MEDS: METHYLPREDNISOLONE 40 MG INJ IV SCH ×2 (09:53→20:42)
[2020-11-20] MEDS: APIXABAN 5 MG TABLET PO SCH ×2 (09:54→20:41)
[2020-11-20] MEDS: FAMOTIDINE 20 MG/2 ML VIAL IV SCH ×2 (09:54→20:42)
[2020-11-20] MEDS ORDERED: ALBUTEROL 2.5 MG/3 ML NEB SOL NEB PRN (12:42)
--- NOTE | 2020-11-20 12:42 | P.CNS ---
Date of Consult: 11/20/20 Reason for Consult: Haley virus pneumonia Chief Complaint: Shortness of breath and cough History of Present Illness: Patient is 30 years of age complaining of worsening dyspnea for the past 7 days in addition to cough diagnosed with haley virus a week ago she went to [facility] emergency room and was prescribed steroids and antibiotics came in worse still coughing Allergies No Known Allergies Allergy (Unverified 10/06/11 16:11) Home Medications: Escitalopram [Lexapro] 10 mg PO DAILYPRN PRN 11/20/20 - Social History Alcohol use: No CD- Drugs: No Caffeine use: Yes Place of Residence: Home Review of Systems General: Weakness Respiratory: Cough, Shortness of Breath Physical Examination Temp Pulse Resp BP Pulse Ox 96.8 F 64 26 H 103/70 96 11/20/20 08:00 11/20/20 08:00 11/20/20 08:00 11/20/20 08:00 11/20/20 08:00 General: Other (Deferred due to active haley virus) Laboratory Data (last 24 hrs) 11/19/20 12:30: PT 12.2, INR 1.06, APTT 24.6 11/19/20 12:30: WBC 10.40, Hgb 14.1, Hct 42.1, Plt Count 231 11/19/20 12:30: Sodium 137, Potassium 3.8, BUN 10, Creatinine 0.65, Glucose 131 H, Total Bilirubin 0.4, AST 11 L, ALT 26, Alkaline Phosphatase 38 L - Problems (1) Acute respiratory failure due to severe acute respiratory syndrome cor onavirus 2 (SARS-CoV-2) infection Current Visit: Yes Status: Acute Plan: Patient admitted with acute respiratory failure from haley virus continue with steroids REMDesmir chemistries reviewed chest x-ray consistent with haley virus pneumonia oxygenation satisfactory chemistries reviewed
[2020-11-20] MEDS: MORPHINE 2 MG/ML SYR IV PRN (20:43)
[2020-11-20] MEDS: DULERA 200/5 (MOMETASONE/FORMOTEROL) INHALER IH SCH (20:49)
[2020-11-21] MEDS: IPRATROPIUM BROM 0.5MG/2.5ML NEB SCH ×4 (02:30→20:00)
[2020-11-21] MEDS: METHYLPREDNISOLONE 40 MG INJ IV SCH (09:06)
[2020-11-21] MEDS: DULERA 200/5 (MOMETASONE/FORMOTEROL) INHALER IH SCH ×2 (09:06→21:00)
[2020-11-21] MEDS: MORPHINE 2 MG/ML SYR IV PRN ×3 (09:06→23:39)
[2020-11-21] MEDS: APIXABAN 5 MG TABLET PO SCH ×2 (09:07→20:52)
[2020-11-21] MEDS: FAMOTIDINE 20 MG/2 ML VIAL IV SCH ×2 (09:07→20:52)
--- NOTE | 2020-11-21 10:17 | P.HP ---
Certification for Inpatient Patient admitted to: Inpatient With expected LOS: >2 Midnights Patient will require the following post-hospital care: None Practitioner: I am a practitioner with admitting privileges, knowledge of patient current condition, hospital course, and medical plan of care. Services: Services provided to patient in accordance with Admission requirements found in Title 42 Section 412.3 of the Code of Federal Regulations Patient History Date of Service: 11/19/20 Reason for admission: Shortness of breath and cough History of Present Illness: Patient is a 30-year-old female came to the hospital with difficulty breathing. Patient was found have COVID-19 pneumonia. Patient was started on IV steroids. She is a little hypoxic. However, she does recover well. Patient is taking very short shallow breaths. She has a questionable history of asthma in the past. However, she is not needed treatment for quite a while. I will go ahead and put her on some neb treatments and see if that helps her. Continue IV steroids. Some pain medication as well. Allergies No Known Allergies Allergy (Unverified 10/06/11 16:11) Home Medications: Escitalopram [Lexapro] 10 mg PO DAILYPRN PRN 11/20/20 - Past Medical/Surgical History -: Asthma Past Surgical History: Patient denies surgical history - Family History Father Family History: Reviewed- Non-Contributory - Social History Smoking Status: Never smoker Alcohol use: No CD- Drugs: No Caffeine use: Yes Place of Residence: Home Review of Systems 10-point ROS is otherwise unremarkable Physical Examination - Vital Signs Temperature: 97 F Blood Pressure: 115/79 Pulse: 61 Respirations: 30 Pulse Ox (%): 93 - Physical Exam General: Alert, In no apparent distress, Oriented x3 HEENT: Atraumatic, PERRLA, Mucous membr. moist/pink, EOMI, Sclerae nonicteric Neck: Supple, 2+ carotid pulse no bruit, No LAD, Without JVD or thyroid abnormality Respiratory: Diminished, Other (Short shallow breaths with some mild wheezing) Cardiovascular: Regular rate/rhythm, Normal S1 S2, No murmurs Gastrointestinal: Normal bowel sounds, Soft and benign, Non-distended, No tenderness Musculoskeletal: No clubbing, No swelling, No tenderness Integumentary: No rashes Neurological: Normal gait, Normal speech, Normal strength at 5/5 x4 extr, Normal tone, Sensation intact, Cranial nerves 3-12 intact, Normal affect Lymphatics: No axilla or inguinal lymphadenopathy Assessment & Plan - Problems (Diagnosis) (1) Pneumonia due to COVID-19 virus Current Visit: Yes Status: Acute (2) History of asthma Current Visit: Yes Status: Acute (3) Acute respiratory failure due to severe acute respiratory syndrome coronavirus 2 (SARS-CoV-2) infection Current Visit: Yes Status: Acute - Plan 1. Continue with IV steroids 2. Monitor inflammatory markers 3. Repeat chest x-ray is symptoms are progressively worsening 4. O2 per protocol 5. Pulmonary consultation 6. Continue with albuterol inhaler therapy; also supportive care 7. Monitor LFTs 8. GI and DVT prophylaxis Discharge Plan: Home Plan to discharge in: Greater than 2 days - Advance Directives Does patient have a Living Will: No Does patient have a Durable POA for Healthcare: No - Code Status/Comfort Care Code Status Assessed: Yes Code Status: Full Code Critical Care: No Time Spent Managing PTS Care (In Minutes): 50
--- NOTE | 2020-11-21 10:19 | P.PN ---
Subjective Date of Service: 11/20/20 Subjective: No new changes, No C/O voiced, Improving Review of Systems 10-point ROS is otherwise unremarkable Physical Examination - Vital Signs Temperature: 97 F Blood Pressure: 115/79 Pulse: 61 Respirations: 30 Pulse Ox (%): 93 - Physical Exam General: Alert, In no apparent distress, Oriented x3 Respiratory: Diminished, Expiratory wheezes Cardiovascular: Regular rate/rhythm, Normal S1 S2, No murmurs Gastrointestinal: Normal bowel sounds, Soft and benign, Non-distended, No tenderness Musculoskeletal: No clubbing, No swelling, No tenderness Integumentary: No rashes Neurological: Sensation intact, Cranial nerves 3-12 intact - Studies Medications List Reviewed: Yes Assessment & Plan - Problems (Diagnosis) (1) Pneumonia due to COVID-19 virus Current Visit: Yes Status: Acute (2) History of asthma Current Visit: Yes Status: Acute (3) Acute respiratory failure due to severe acute respiratory syndrome coronavirus 2 (SARS-CoV-2) infection Current Visit: Yes Status: Acute - Plan Continue with plan of care as mentioned below but will also start nebulizer treatments and morphine for pain; encouraged incentive spirometers use 1. Continue with IV steroids 2. Monitor inflammatory markers 3. Repeat chest x-ray is symptoms are progressively worsening 4. O2 per protocol 5. Pulmonary consultation 6. Continue with albuterol inhaler therapy; also supportive care 7. Monitor LFTs 8. GI and DVT prophylaxis - Advance Directives Does patient have a Living Will: No Does patient have a Durable POA for Healthcare: No - Code Status/Comfort Care Code Status: Full Code
[2020-11-21 11:48] LABS: Absolute Lymphocytes (CBC) 0.9 K/uL (0.7-4.9); Hematocrit 40.8 % (36.0-45.0); Lymphocytes % 8.3 % (15.3-44.8); MPV 7.8 fL (7.6-11.3); RBC Red Blood Cell Count 4.48 M/uL (3.86-4.86)
[2020-11-21 12:15] LABS: ALT/SGPT 22 U/L (12-78); AST/SGOT 7 U/L (15-37); Alkaline Phosphatase 36 U/L (45-117); BUN Blood Urea Nitrogen 18 mg/dL (7-18); Bicarbonate 25 mmol/L (21-32); Bilirubin Total 0.3 mg/dL (0.2-1.0); Ferritin 127.1 ng/mL (8-388); Glucose Level 142 mg/dL (74-106); Magnesium 2.6 mg/dL (1.8-2.4); NT PRO-BNP 80 pg/mL (<125); Potassium 4.4 mmol/L (3.5-5.1); Protein, Total 7.7 g/dL (6.4-8.2); Sodium Level 141 mmol/L (136-145)
[2020-11-21] MEDS: AZITHROMYCIN IV 250 MG in NA CHLORIDE 0.9% 250 ML IVPB SCH (20:00)
[2020-11-21] MEDS: CEFTRIAXONE/SWI 1gm 1 GM/10 ML SYR IV SCH (20:52)
[2020-11-21] MEDS ORDERED: AZITHROMYCIN 500 MG INJ IVPB ONE (22:14)
[2020-11-21] MEDS ORDERED: NA CHLORIDE 0.9% 250 ML ONE (22:35)
[2020-11-22] MEDS: IPRATROPIUM BROM 0.5MG/2.5ML NEB SCH ×4 (02:00→20:40)
[2020-11-22] MEDS ORDERED: CEFTRIAXONE 1 GM/NS 50 ML 1 GM/50 ML BAG IV SCH (09:00)
[2020-11-22] MEDS: FAMOTIDINE 20 MG/2 ML VIAL IV SCH ×2 (09:23→20:16)
[2020-11-22] MEDS: APIXABAN 5 MG TABLET PO SCH ×2 (09:23→20:17)
[2020-11-22] MEDS: MORPHINE 2 MG/ML SYR IV PRN ×2 (09:24→18:01)
[2020-11-22] MEDS: DULERA 200/5 (MOMETASONE/FORMOTEROL) INHALER IH SCH ×2 (09:25→20:17)
[2020-11-22] MEDS: CEFTRIAXONE/SWI 1gm 1 GM/10 ML SYR IV SCH (18:00)
--- NOTE | 2020-11-22 19:51 | RAD REPORT ---
EXAM DESCRIPTION: Ribs Right - 11/22/2020 7:11 pm CLINICAL HISTORY: pleuritic chest pain COMPARISON: Chest Single View dated 11/20/2020; Chest For Pe Angio dated 11/19/2020 FINDINGS: No displaced rib fracture is evident. No non-displaced rib fracture suspected. No aggressive rib lesion. No underlying pneumothorax, effusion, infiltrate or pulmonary contusion. IMPRESSION: Negative right rib series.
[2020-11-22] MEDS: AZITHROMYCIN IV 250 MG in NA CHLORIDE 0.9% 250 ML IVPB SCH (20:16)
[2020-11-22] MEDS: METHYLPREDNISOLONE 125 MG INJ IV SCH (20:16)
[2020-11-22] MEDS: BENZONATATE 100 MG CAP PO PRN (22:29)
[2020-11-23] MEDS ORDERED: FENTANYL CITR 100 MCG/2 ML IV ONE (01:01)
[2020-11-23] MEDS: METHYLPREDNISOLONE 125 MG INJ IV SCH ×3 (01:21→20:29)
[2020-11-23] MEDS: IPRATROPIUM BROM 0.5MG/2.5ML NEB SCH ×2 (01:33→08:40)
--- NOTE | 2020-11-23 05:55 | P.PN ---
Date of Service: 11/21/20 Subjective Subjective: A lot of pleuritic chest pain. Otherwise, no new changes, No C/O voiced, Improving Review of Systems 10-point ROS is otherwise unremarkable Physical Examination - Vital Signs Reviewed - Physical Exam General: Alert, In no apparent distress, Oriented x3 Respiratory: Diminished, Expiratory wheezes Cardiovascular: Regular rate/rhythm, Normal S1 S2, No murmurs Gastrointestinal: Normal bowel sounds, Soft and benign, Non-distended, No tenderness Musculoskeletal: No clubbing, No swelling, No tenderness Integumentary: No rashes Neurological: Sensation intact, Cranial nerves 3-12 intact - Studies Medications List Reviewed: Yes Assessment & Plan - Problems (Diagnosis) (1) Pneumonia due to COVID-19 virus Current Visit: Yes Status: Acute (2) History of asthma Current Visit: Yes Status: Acute (3) Acute respiratory failure due to severe acute respiratory syndrome coronavirus 2 (SARS-CoV-2) infection Current Visit: Yes Status: Acute - Plan Continue with plan of care as mentioned below but will also start nebulizer treatments and morphine for pain; encouraged incentive spirometers use 1. Continue with IV steroids 2. Monitor inflammatory markers 3. Repeat chest x-ray is symptoms are progressively worsening 4. O2 per protocol 5. Pulmonary consultation 6. Continue with albuterol inhaler therapy; also supportive care 7. Monitor LFTs 8. Morphine for pain 9. GI and DVT prophylaxis
--- NOTE | 2020-11-23 05:56 | P.PN ---
Date of Service: 11/22/20 Subjective Subjective: Patient was some point tenderness underneath the breast. Will get a rib x-ray to make sure there is no fracture from her coughing. She is only taking some short shallow breaths. She does feel much better. Review of Systems 10-point ROS is otherwise unremarkable Physical Examination - Vital Signs Reviewed - Physical Exam General: Alert, In no apparent distress, Oriented x3 Respiratory: End-expiratory wheezing Cardiovascular: Regular rate/rhythm, Normal S1 S2, No murmurs Gastrointestinal: Normal bowel sounds, Soft and benign, Non-distended, No tenderness Musculoskeletal: Point tenderness underneath the breast and below the collar bone Integumentary: No rashes Neurological: Sensation intact, Cranial nerves 3-12 intact - Studies Medications List Reviewed: Yes Assessment & Plan - Problems (Diagnosis) (1) Pneumonia due to COVID-19 virus Current Visit: Yes Status: Acute (2) History of asthma Current Visit: Yes Status: Acute (3) Acute respiratory failure due to severe acute respiratory syndrome coron avirus 2 (SARS-CoV-2) infection Current Visit: Yes Status: Acute - Plan Continue with plan of care as mentioned below but will also start nebulizer treatments and morphine for pain; encouraged incentive spirometers use 1. Continue with IV steroids 2. Monitor inflammatory markers 3. Repeat chest x-ray and also do rib x-rays 4. O2 per protocol 5. Pulmonary consultation appreciated 6. Continue with albuterol inhaler therapy; also supportive care 7. Monitor LFTs 8. Morphine for pain 9. GI and DVT prophylaxis
--- NOTE | 2020-11-23 08:36 | RAD REPORT ---
EXAM DESCRIPTION: RAD - Chest Single View - 11/23/2020 5:49 am CLINICAL HISTORY: pneumonia Chest pain. COMPARISON: Chest Single View dated 11/20/2020; Chest Single View dated 11/19/2020 FINDINGS: Portable technique limits examination quality. Since 11/20/2020, slight improvement is seen in lung aeration bilaterally. The heart is upper limit n ormal in size. No displaced fractures. IMPRESSION: Slight improvement in lung aeration is seen since comparative study.
[2020-11-23] MEDS: ALBUTEROL 2.5 MG/3 ML NEB SOL NEB SCH ×2 (08:40→13:00)
[2020-11-23] MEDS: MORPHINE 2 MG/ML SYR IV PRN ×2 (09:32→19:07)
[2020-11-23] MEDS: FAMOTIDINE 20 MG/2 ML VIAL IV SCH (09:32)
[2020-11-23] MEDS: APIXABAN 5 MG TABLET PO SCH ×2 (09:33→20:29)
[2020-11-23] MEDS: DULERA 200/5 (MOMETASONE/FORMOTEROL) INHALER IH SCH ×2 (09:33→20:30)
--- NOTE | 2020-11-23 09:34 | P.PN ---
Date of Service: 11/23/20 seen today. looks well. has less sob and chest discomfort. CXR shows better aeration in lung bar. Review of Systems 10-point ROS is otherwise unremarkable Physical Examination - Vital Signs Reviewed - Physical Exam General: Alert, In no apparent distress, Oriented x3 Respiratory: reduced air entry globally. Cardiovascular: Regular rate/rhythm, Normal S1 S2, No murmurs Gastrointestinal: Normal bowel sounds, Soft and benign, Non-distended, No tenderness Musculoskeletal: Point tenderness underneath the breast and below the collar bone Integumentary: No rashes Neurological: Sensation intact, Cranial nerves 3-12 intact - Studies Medications List Reviewed: Yes Assessment & Plan - Problems (Diagnosis) (1) Pneumonia due to COVID-19 virus Current Visit: Yes Status: Acute (2) History of asthma Current Visit: Yes Status: Acute (3) Acute respiratory failure due to severe acute respiratory syndrome coronavirus 2 (SARS-CoV-2) infection Current Visit: Yes Status: Acute - Plan Much improved symptom zambrano. CXR shows better aeration. we will continue steroid and remdesivir. we will continue other supportive care with pain control and breathing treatment. incentive spirometry will be continued. GI and DVT prophylaxis
[2020-11-23] MEDS ORDERED: IVERMECTIN 3 MG TABLET PO ONE (12:00)
--- NOTE | 2020-11-23 12:23 | P.PN ---
Subjective Date of Service: 11/23/20 Chief Complaint: Respiratory failure from aaron virus Subjective: Improving (Patient is improving although the nurse states that she is significant desaturation on slight movement) Review of Systems Respiratory: Shortness of Breath Physical Examination - Vital Signs Temperature: 96.5 F Blood Pressure: 107/67 Pulse: 76 Respirations: 16 Pulse Ox (%): 94 - Studies Medications List Reviewed: Yes Assessment & Plan - Problems (Diagnosis) (1) Acute respiratory failure due to severe acute respiratory syndrome coronavirus 2 (SARS-CoV-2) infection Current Visit: Yes Status: Acute Plan: Respiratory failure patient is subjectively improving will have the nurse ambulate the patient did patient did not qualify rupesh. I have added a dose of ivermectin oxygen ordered Dc antibiotics still continues to complain of cough possible discharge tomorrow she is able to ambulate on oxygen another dose of ivermectin at home continue with steroids and low-dose anticoagulation right now saturation is satisfactory on 2 L of nasal cannula oxygen
[2020-11-24] MEDS: MORPHINE 2 MG/ML SYR IV PRN ×2 (00:25→08:59)
[2020-11-24] MEDS: BENZONATATE 100 MG CAP PO PRN ×2 (00:34→08:59)
[2020-11-24] MEDS: ALBUTEROL 2.5 MG/3 ML NEB SOL NEB SCH (08:43)
[2020-11-24] MEDS: METHYLPREDNISOLONE 125 MG INJ IV SCH (08:58)
[2020-11-24] MEDS: APIXABAN 5 MG TABLET PO SCH (08:59)
[2020-11-24] MEDS: DULERA 200/5 (MOMETASONE/FORMOTEROL) INHALER IH SCH (09:03)
[2020-11-24 12:24] VITALS: BP 105/67; TEMP 97.3
--- NOTE | 2020-11-24 12:48 | P.DS ---
Admission Date: 11/19/20 Discharge Date: 11/24/20 Disposition: ROUTINE DISCHARGE Discharge Condition: FAIR Reason for Admission: Respiratory failure from aaron virus Brief History of Present Illness: See HPI Hospital Course: 30-year-old female with remote history of asthma but not on any medication admitted for shortness of breath with intermittent wheezing. Noted with covid pneumonia . She has intermittent hypoxia requiring supplemental oxygen. Her hospital course was complicated with intermittent palpitations while ambulating. O2 need has been weaned down to 2 L / min now. She was not a candidate for Remdesivir but did receive doses of ivermectin. She will be discharged home on home oxygen continuation of p.o. steroids. She will follow with Pulmonary in outpatient in 2-3 days. Vital Signs/Physical Exam: Temp Pulse Resp BP Pulse Ox 97.3 F 74 24 H 105/67 95 11/24/20 12:00 11/24/20 12:00 11/24/20 12:00 11/24/20 12:00 11/24/20 12:00 General: Alert, In no apparent distress, Oriented x3, Cooperative HEENT: Atraumatic, Normocephalic, PERRLA Neck: Supple, 2+ carotid pulse no bruit, JVD not distended Respiratory: Clear to auscultation bilaterally, Normal air movement Cardiovascular: No edema, Regular rate/rhythm, Normal S1 S2 Capillary refill: <2 Seconds Gastrointestinal: Normal bowel sounds, Soft and benign, Non-distended, No tenderness Musculoskeletal: No clubbing, No swelling Neurological: Normal speech, Normal strength at 5/5 x4 extr, Cranial nerves 3-12 intact Laboratory Data at Discharge: WBC 11.30 K/uL (4.3-10.9) H D 11/21/20 11:12 Hgb 13.5 g/dL (12.0-15.0) 11/21/20 11:12 Hct 40.8 % (36.0-45.0) 11/21/20 11:12 Plt Count 337 K/uL (152-406) D 11/21/20 11:12 PT 12.2 SECONDS (9.5-12.5) 11/19/20 12:30 INR 1.06 11/19/20 12:30 APTT 24.6 SECONDS (24.3-36.9) 11/19/20 12:30 Sodium 141 mmol/L (136-145) 11/21/20 11:12 Potassium 4.4 mmol/L (3.5-5.1) 11/21/20 11:12 BUN 18 mg/dL (7-18) 11/21/20 11:12 Creatinine 0.50 mg/dL (0.55-1.3) L 11/21/20 11:12 Glucose 142 mg/dL (74-106) H 11/21/20 11:12 Magnesium 2.6 mg/dL (1.8-2.4) H 11/21/20 11:12 Total Bilirubin 0.3 mg/dL (0.2-1.0) 11/21/20 11:12 AST 7 U/L (15-37) L 11/21/20 11:12 ALT 22 U/L (12-78) 11/21/20 11:12 Alkaline Phosphatase 36 U/L (45-117) L 11/21/20 11:12 Home Medications: Escitalopram [Lexapro*] 10 mg PO DAILYPRN PRN 11/20/20 Benzonatate [Tessalon Perle*] 100 mg PO TID PRN #30 cap 11/24/20 Dexamethasone [Decadron] 6 mg PO DAILY #5 tablet 11/24/20 New Medications: Dexamethasone [Decadron] 6 mg PO DAILY #5 tablet Benzonatate [Tessalon Perle*] 100 mg PO TID PRN #30 cap PRN Reason: Cough Physician Discharge Instructions: - do light activity as tolerated - wear oxygen continuously for now until follow with Pulmonary team Diet: Regular Activity: Ad mina Followup: Aaron Morrow MD [ACTIVE - CAN ADMIT] - 2-3 Days Time spent managing pt's care (in minutes): 35
[2020-11-24 13:22] VITALS: O2SAT 97
[2020-11-24 13:40] LABS: BUN Blood Urea Nitrogen 17 mg/dL (7-18); Bicarbonate 24 mmol/L (21-32); Glucose Level 153 mg/dL (74-106); Magnesium 2.6 mg/dL (1.8-2.4); Potassium 4.1 mmol/L (3.5-5.1); Sodium Level 139 mmol/L (136-145)
[2020-11-24] MEDS ORDERED: ALBUTEROL 2.5 MG/3 ML NEB SOL NEB SCH (14:00)
== END 2020-11-24 14:46 | disposition home or self-care (01) | DRG 177 ==
LOC: ER 11:44 → ERHOLD 13:36 → 4TH 19:43
PROVIDERS: ADMIT Hospitalist; ATTEND Internal Medicine
DX: U07.1 COVID-19 (principal); J96.01 Acute respiratory failure with hypoxia; J12.82 Pneumonia due to coronavirus disease 2019; R00.0 Tachycardia, unspecified; J45.909 Unspecified asthma, uncomplicated; Z79.899 Other long term (current) drug therapy
CPT/HCPCS: 0240U; 36415; 71045; 71275; 80048; 80053; 80076; 81003; 81025; 82728; 83605; 83735; 83880; 84145; 84484; 85025; 85379; 85610; 85730; 86140; 87040; 93005; 94640; 96361; 96374; 99285; J0456; J0696; J2270; J2920; J2930; J3010; J7030; J7050; J7606; Q9967

== ENCOUNTER 2021-04-29 05:57 | Emergency (ER) | payer OTHER ==
--- OUTSIDE RECORDS SUMMARY | 2021-04-29 06:00 | XMS REPORT | Continuity of Care Document ---
:1990 Author Organization [facility] t Address [address] [place] [address] [address] [place] [address] Care Team Providers Name Role Phone Pratibha VERA L Attending Clinician Problems Condition Condition Condition Status Onset Resolution Last Treating Co mments Source Name Details Category Date Date Treatment Clinician Date Migraine Migraine Problem Active [facility] 03[facility]14 da 00:00: [facility] 00 Group Allergies, Adverse Reactions, Alerts This patient has no known allergies or adverse reactions. Social History Smoking Status Start Date Stop Date Source Never Smoker [facility] Medications Ordered Filled Start Stop Current Ordering Indication Dosage Frequency Signature Comments Components Source Medication Medication Date Date Medication? Clinician (SIG) Name Name sumatriptan sumatriptan No sumatripta [facility] 100 mg 100 mg n 100 mg da tablet TAKE tablet TAKE tablet Medical 1 TABLET BY 1 TABLET BY TAKE 1 Group MOUTH EVERY MOUTH EVERY TABLET BY DAY IF DAY IF MOUTH NEEDED FOR NEEDED FOR EVERY DAY MIGRAINE MIGRAINE IF NEEDED FOR MIGRAINE Vital Signs Vital Name Observation Time Observation Value Comments Source BP Diastolic 2021-03-14 00:00:00 70 mm[Hg] [facility] Height 2021-03-14 00:00:00 68 [in_i] [facility] BMI (Body Mass 2021-03-14 00:00:00 33.2 kg/m2 [facility]) Group BP Systolic 2021-03-14 00:00:00 122 mm[Hg] [facility] Body Weight 2021-03-14 00:00:00 218.2 [lb_av] [facility] Procedures This patient has no known procedures. Plan of Care Planned Activity Planned Date Details Comments Source Diagnostic Test 2021-03-14 iron + total [facility] 00:00:00 iron-binding Group capacity (TIBC), serum [code = iron + total iron-binding capacity (TIBC), serum] Diagnostic Test 2021-03-14 vitamin B12, serum [facility] Pending 00:00:00 [code = vitamin Group B12, serum] Diagnostic Test 2021-03-14 ferritin, serum or [facility] Pending 00:00:00 plasma [code = Group ferritin, serum or plasma] Diagnostic Test 2021-03-14 folate, serum [facility] 00:00:00 [code = folate, Group serum] Diagnostic Test 2021-03-14 retic count, blood [facility] Pending 00:00:00 [code = retic Group count, blood] Diagnostic Test 2021-03-14 CBC w/ auto diff [facility]ending 00:00:00 [code = CBC w/ Group auto diff] Diagnostic Test 2021-03-14 TSH, serum or [facility] 00:00:00 plasma [code = Group TSH, serum or plasma] Diagnostic Test 2021-03-14 CMP, serum or [facility] 00:00:00 plasma [code = Group CMP, serum or plasma] Diagnostic Test 2021-03-14 lipid panel, serum [facility] Pending 00:00:00 [code = lipid Group panel, serum] Diagnostic Test 2021-03-14 HbA1c (hemoglobin [facility] Pending 00:00:00 A1c), blood [code Group = HbA1c (hemoglobin A1c), blood] Diagnostic Test 2021-03-14 prealbumin, serum [facility] Pending 00:00:00 [code = Group prealbumin, serum] Encounters Start End Encounter Admission Attending Care Care Encounter Source Date/Time Date/Time Type Type Clinicians Facility Department ID 2021-03-14 2021-03-14 Efrain CABRERA [place] - [id number] [facility] 00:00:00 00:00:00 Terry Pritchard MD: [facility] [address], [place] [address] , Ph. [phone] 2020-02-03 2020-02-03 [facility] [id number] 00:00:00 00:00:00 Management Sonia Ballard [id number] [place] [id number] Professio [phone] nal [address] Building 2020-02-01 2020-02-01 Office Ad, [facility] [id number] 11:20:04 12:15:55 Visit Sonia Ballard [id number] [place] [phone] [facility] [address] Building Results This patient has no known results.
[2021-04-29 07:11] LABS: Absolute Lymphocytes (CBC) 1.5 K/uL (0.7-4.9); Basophils % 0.4 % (0-1.3); Hematocrit 41.3 % (36.0-45.0); Lymphocytes % 19.6 % (15.3-44.8); MPV 7.9 fL (7.6-11.3); RBC Red Blood Cell Count 4.58 M/uL (3.86-4.86)
[2021-04-29 07:19] LABS: Urine Blood 3+ (Negative); Urine Glucose Negative (Negative); Urine Protein 1+ (Negative); Urine Specific Gravity 1.025 (1.005-1.030); Urine pH 5.5 (5.0-7.0)
[2021-04-29 07:22] LABS: ALT/SGPT 78 U/L (12-78); AST/SGOT 25 U/L (15-37); Albumin 3.6 g/dL (3.4-5.0); Alkaline Phosphatase 70 U/L (45-117); BUN Blood Urea Nitrogen 10 mg/dL (7-18); Bicarbonate 25 mmol/L (21-32); Bilirubin Direct 0.1 mg/dL (0-0.2); Bilirubin Total 0.4 mg/dL (0.2-1.0); Glucose Level 130 mg/dL (74-106); Lipase 84 U/L (73-393); Potassium 3.7 mmol/L (3.5-5.1); Protein, Total 7.1 g/dL (6.4-8.2); Sodium Level 139 mmol/L (136-145)
--- NOTE | 2021-04-29 07:50 | RAD REPORT ---
EXAM DESCRIPTION: CT - Abdomen Pelvis W Contrast - 04/29/2021 7:43 am CLINICAL HISTORY: ABD PAIN, left flank pain, nausea and vomiting progressive since prior day, persis tent diarrhea over 3 weeks COMPARISON: No comparisons TECHNIQUE: Biphasic, helical CT imaging of the abdomen and pelvis was performed following 100 ml non -ionic IV contrast. No oral contrast was administered. All CT scans are performed using dose optimization technique as appropriate and may include automated exposure control or mA/KV adjustment according to patient size. FINDINGS: No suspicious findings in the lung bases. Patient has pronounced diffuse fatty infiltration of the liver. No focal liver lesion or portal vein abnormality. There is spared parenchyma near the keenan hepatis. Pancreas and spleen show no suspiciou s findings. Gallbladder and biliary tree are also without suspicious finding. Gallstones can be occul t. Symmetric renal function is seen with no hydronephrosis or suspicious renal mass. No pyelonephritis o r acute parenchymal process. No bladder abnormalities. No adrenal abnormalities. Uterus and ovaries a re unremarkable. No dilated bowel loops or bowel wall thickening. Appendix is normal. There are several fluid-filled s mall bowel loops in a nonspecific pattern. No free air, free fluid or inflammatory stranding. No bul ky lymphadenopathy, mass or abdominal wall hernia seen. The patient does have numerous small mesenter ic lymph nodes present, greater in number than typically seen. No suspicious bony findings. IMPRESSION: Patient has a mesenteric adenitis or nonspecific enteritis pattern with numerous small m esenteric lymph nodes greater in number than typically seen. No appendicitis, bowel obstruction or other emergent process.
[2021-04-29 08:25] LABS: Urine Specific Gravity/Preg 1.025 (1.005-1.030)
--- NOTE | 2021-04-29 09:17 | ER ---
Nurse's Notes [facility] Name: Rosalva De La Rosa Age: 31 yrs Sex: Female : 1990 Arrival Date: 04/29/2021 Time: 05:58 Bed 23 Private MD: Diagnosis: Abdominal pain, Generalized;Diarrhea, unspecified;Nonspecific mesenteric lymphadenitis Presentation: 04/29 06:34 Chief complaint: Patient states: she is having left lower back pain which started this bb morning but she has had diarrhea x 3 weeks and vomiting which started two weeks ago. She is having difficulty eating but this morning the pain in her back got worse denies dysuria. She was scheduled for an EGD but it was cancelled due to Covid. Coronavirus screen: At this time, the client does not indicate any symptoms associated with coronavirus-19. Ebola Screen: No symptoms or risks identified at this time. Initial Sepsis Screen: Does the patient meet any 2 criteria? No. Patient's initial sepsis screen is negative. Does the patient have a suspected source of infection? No. Patient's initial sepsis screen is negative. Risk Assessment: Do you want to hurt yourself or someone else? Patient reports no desire to harm self or others. Onset of symptoms was March 2021. 06:34 Method Of Arrival: Ambulatory bb 06:34 Acuity: VELVET 3 bb Triage Assessment: 06:38 General: Appears in no apparent distress. uncomfortable, Behavior is calm, cooperative. bb Pain: Complains of pain in back Pain currently is 9 out of 10 on a pain scale. Neuro: Level of Consciousness is awake, alert, obeys commands, Oriented to person, place, time, situation. Cardiovascular: Capillary refill < 3 seconds Patient's skin is warm and dry. Respiratory: Respiratory effort is even, unlabored. GI: Abdomen is distended, Reports lower abdominal pain, upper abdominal pain, diarrhea, vomiting. : Denies burning with urination. Derm: Skin is pink, warm \T\ dry. Musculoskeletal: Circulation, motion, and sensation intact. 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 - Social history:: Smoking status: Patient denies any tobacco usage or history of. - Family history:: not pertinent. - Code Status:: Full code unknown. Screenin:37 Abuse screen: Denies threats or abuse. Denies injuries from another. Nutritional aj2 screening: No deficits noted. Tuberculosis screening: No symptoms or risk factors identified. Fall Risk None identified. Assessment: 07:30 General: Appears in no apparent distress. uncomfortable, well groomed, well nourished. aj2 Vital Signs: 06:34 BP 123 / 89; Pulse 76; Resp 18 S; Temp 98.4(O); Pulse Ox 97% on R/A; Weight 95.25 kg bb (R); Height 5 ft. 8 in. (172.72 cm) (R); Pain 9/10; 07:30 BP 123 / 89; Pulse 76; Resp 20; Temp 98.4; Pulse Ox 98% ; aj2 06:34 Body Mass Index 31.93 (95.25 kg, 172.72 cm) bb ED Course: 05:58 Patient arrived in ED. wm 06:38 Triage completed. bb 06:38 Arm band placed on. bb 06:49 Craig Browne PA is PHCP. jr8 06:49 Cedrick Owens MD is Attending Physician. jr8 06:55 Initial lab(s) drawn, by dc, sent to lab. Inserted saline lock: 20 gauge in left bb antecubital area, using aseptic technique. Blood collected. 07:00 Urine collected: clean catch specimen, clear. bb 07:30 Mile Tamayo is Primary Nurse. aj2 07:37 Patient has correct armband on for positive identification. aj2 07:37 No provider procedures requiring assistance completed. Patient did not have IV access aj2 during this emergency room visit. 07:43 CT Abd/Pelvis - IV Contrast Only In Process Unspecified. EDMS 08:03 Urine --Ancillary Sent. aj2 08:17 Urine --Ancillary (enter results) Sent. aj2 Administered Medications: No medications were administered Outcome: 09:17 Discharge ordered by . jr8 10:19 Discharged to home ambulatory. iw 10:19 Condition: good 10:19 Discharge instructions given to patient, Instructed on discharge instructions, follow up and referral plans. medication usage, Demonstrated understanding of instructions, follow-up care, medications, Prescriptions given X 4. 10:20 Patient left the ED. iw Signatures: Dispatcher [employer] Natalie Galvan RN RN bb Williams, Irene, RN RN iw Roszak, Josh, PA PA jr8 Frida Bolivar Angelea aj2
--- NOTE | 2021-04-29 09:17 | EDPHYS ---
Physician Documentation [facility] Name: Rosalva De La Rosa Age: 31 yrs Sex: Female : 1990 Arrival Date: 04/29/2021 Time: 05:58 Bed 23 Private MD: ED Physician Cedrick Owens HPI: 04/29 07:20 This 31 yrs old Female presents to ER via Ambulatory with complaints of jr8 Abdominal Pain, Nausea/Vomiting/Diarrhea. 07:20 The patient presents with abdominal pain. Onset: The symptoms/episode began/occurred jr8 acutely, today. The symptoms do not radiate. Associated signs and symptoms: Pertinent positives: nausea, vomiting, and diarrhea. The symptoms are described as sharp. Modifying factors: The symptoms are alleviated by nothing, the symptoms are aggravated by nothing. Severity of pain: At its worst the pain was moderate in the emergency department the pain is unchanged. The patient has not experienced similar symptoms in the past. The patient has not recently seen a physician. This is a 31-year-old female that presented to the emergency room with sudden onset left flank pain that started this morning. Patient stated for the past 4 weeks has been having nausea vomiting and diarrhea. Was scheduled for a colonoscopy but had to be canceled secondary to Covid flare. Patient stated that she originally started with bowel movement problems after having Covid. Denies blood or mucus in the stools but consistently has watery stools without change. Denies urinary symptoms.. 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 - Social history:: Smoking status: Patient denies any tobacco usage or history of. - Family history:: not pertinent. - Code Status:: Full code unknown. ROS: 07:20 Eyes: Negative for injury, pain, redness, and discharge, ENT: Negative for injury, jr8 pain, and discharge, Neck: Negative for injury, pain, and swelling, Cardiovascular: Negative for chest pain, palpitations, and edema, Respiratory: Negative for shortness of breath, cough, wheezing, and pleuritic chest pain, MS/Extremity: Negative for injury and deformity, Skin: Negative for injury, rash, and discoloration, Neuro: Negative for headache, weakness, numbness, tingling, and seizure. 07:20 Abdomen/GI: Positive for abdominal pain, nausea, vomiting, and diarrhea. 07:20 Back: Positive for flank pain, on the left. Exam: 07:20 Cardiovascular: Regular rate and rhythm with a normal S1 and S2. No gallops, murmurs, jr8 or rubs. Normal PMI, no JVD. No pulse deficits. Respiratory: Lungs have equal breath sounds bilaterally, clear to auscultation and percussion. No rales, rhonchi or wheezes noted. No increased work of breathing, no retractions or nasal flaring. Skin: Warm, dry with normal turgor. Normal color with no rashes, no lesions, and no evidence of cellulitis. MS/ Extremity: Pulses equal, no cyanosis. Neurovascular intact. Full, normal range of motion. Neuro: Awake and alert, GCS 15, oriented to person, place, time, and situation. Cranial nerves II-XII grossly intact. Motor strength 5/5 in all extremities. Sensory grossly intact. 07:20 Constitutional: The patient appears alert, awake, uncomfortable. 07:20 Abdomen/GI: Inspection: obese Bowel sounds: active, all quadrants, Palpation: soft, in all quadrants, mild abdominal tenderness, in the right upper quadrant and right lower quadrant, mass, is not appreciated, rebound tenderness, is not appreciated, voluntary guarding, is not appreciated, involuntary guarding, is not appreciated, no appreciated organomegaly, Indicators: McBurney's point is not tender, Echevarria's sign is negative, Liver: tenderness, is not appreciated. 07:20 Back: pain, that is moderate, of the left flank, ROM is normal, normal spinal alignment noted, CVA tenderness, that is moderate, is noted on the left. Vital Signs: 06:34 BP 123 / 89; Pulse 76; Resp 18 S; Temp 98.4(O); Pulse Ox 97% on R/A; Weight 95.25 kg bb (R); Height 5 ft. 8 in. (172.72 cm) (R); Pain 9/10; 07:30 BP 123 / 89; Pulse 76; Resp 20; Temp 98.4; Pulse Ox 98% ; aj2 06:34 Body Mass Index 31.93 (95.25 kg, 172.72 cm) bb MDM: 06:50 Patient medically screened. jr8 08:52 Data reviewed: vital signs, nurses notes, lab test result(s), radiologic studies, CT jr8 scan. Data interpreted: Pulse oximetry: on room air is 98 %. Interpretation: normal. 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 08:53 Differential diagnosis: appendicitis, diverticulitis, Dysmenorrhea, Endometriosis, jr8 Irritable bowel syndrome, non-specific abd pain, Ovarian Torsion, Pelvic Inflammatory Disease, Pyelonephritis, Tubal Ovarian Abcess, Ureterolithiasis, urinary tract infection. ED course: Discussed with patient that there was no acute findings of infectious or obstructive pathology on the CT. There was several nonspecific lymph node enlargement without the mesentery. Patient was unable to provide stool sample. Vitals have remained hemodynamically stable. No active vomiting. Discussed with patient that at this point would put her on antibiotics as this has not been done for her diarrhea. Needs to continue to follow-up with GI. If patient were to worsen or new symptoms were to develop that she return to the emergency room for reevaluation. Patient good with this plan at this time.. 04/29 06:48 Order name: Basic Metabolic Panel 04/29 06:48 Order name: CBC with Diff 04/29 06:48 Order name: Hepatic Function 04/29 06:48 Order name: Lipase; Complete Time: 07:23 04/29 06:48 Order name: Basic Metabolic Panel; Complete Time: 07:23 EDMS 04/29 06:48 Order name: CBC with Automated Diff; Complete Time: 08:47 EDMS 04/29 06:48 Order name: IV Saline Lock; Complete Time: 06:59 04/29 06:48 Order name: Labs collected and sent; Complete Time: 06:58 04/29 06:48 Order name: Urine Dipstick-Ancillary (obtain specimen); Complete Time: 07:21 bb 04/29 06:48 Order name: CT Abd/Pelvis - IV Contrast Only; Complete Time: 08:00 04/29 06:48 Order name: Liver (Hepatic) Function; Complete Time: 07:23 EDMS 04/29 07:19 Order name: Urine Dipstick-Ancillary; Complete Time: 07:23 EDMI 04/29 07:22 Order name: Urine --Ancillary (enter results) 04/29 07:22 Order name: Urine --Ancillary; Complete Time: 08:47 EDMS 04/29 06:48 Order name: Urine Test (obtain specimen); Complete Time: 07:21 bb Administered Medications: No medications were administered Disposition Summary: 04/29/21 09:17 Discharge Ordered Location: Home jr8 Problem: new jr8 Symptoms: have improved jr8 Condition: Stable jr8 Diagnosis - Abdominal pain, Generalized jr8 - Diarrhea, unspecified jr8 - Nonspecific mesenteric lymphadenitis jr8 Followup: jr8 - With: Private Physician - When: 2 - 3 days - Reason: Recheck today's complaints, Continuance of care, Re-evaluation by your physician Discharge Instructions: - Discharge Summary Sheet jr8 - Abdominal Pain, Adult jr8 - Diarrhea, Adult jr8 Forms: - Medication Reconciliation Form jr8 - Thank You Letter jr8 - Antibiotic Education jr8 - Prescription Opioid Use jr8 Prescriptions: - Cipro 500 mg Oral Tablet - take 1 tablet by ORAL route every 12 hours for 10 days; 20 tablet; Refills: 0, jr8 Product Selection Permitted - Flagyl 500 mg Oral Tablet - take 1 tablet by ORAL route every 6 hours for 10 days; 40 tablet; Refills: 0, jr8 Product Selection Permitted - promethazine 25 mg Oral Tablet - take 1 tablet by ORAL route every 6 hours As needed; 20 tablet; Refills: 0, jr8 Product Selection Permitted - dicyclomine 20 mg Oral Tablet - take 1 tablet by ORAL route 3 times per day As needed; 20 tablet; Refills: 0, jr8 Product Selection Permitted Signatures: Dispatcher [employer] Natalie Galvan RN RN bb Craig Browne PA PA jr8 Mile Tamayo
[2021-04-29 10:27] VITALS: BP 123/89; TEMP 98.4
[2021-04-29 10:28] VITALS: O2SAT 98
== END 2021-04-29 10:20 | disposition home or self-care (01) ==
LOC: ER 05:57
DX: I88.0 Nonspecific mesenteric lymphadenitis (principal); R19.7 Diarrhea, unspecified; Z86.16 Personal history of COVID-19; Z87.898 Personal history of other specified conditions
CPT/HCPCS: 85025; 80048; 36415; 81025; 80076; 81003; 83690; 74177; 99284; Q9967

== ENCOUNTER 2022-07-08 12:13 | Emergency (ER) | payer OTHER ==
--- OUTSIDE RECORDS SUMMARY | 2022-07-08 12:17 | XMS REPORT | Continuity of Care Document ---
:1990 Author Organization [facility] t Address [address] [place] [address] Care Team Providers Name Role Phone Unknown, Physician Primary Care Physician Unavailable IHDE_G Attending Clinician Unavailable Buck Powell Attending Clinician Unavailable Myranda Pelaez RN Attending Clinician Unavailable Olive Fagan RN Attending Clinician Unavailable Sia Cobos MD Attending Clinician Doctor Unassigned, [place] Attending Clinician Unavailable Zayra Greene MD Attending Clinician GOOD YANG Attending Clinician Unavailable GOOD YANG Attending Clinician Unavailable KUNAL SPENCER Attending Clinician Unavailable SIA COBOS Attending Clinician Unavailable SONIA MCKINNON Attending Clinician Unavailable Sonia Mckinnon MD Attending Clinician IHDE_G Admitting Clinician Unavailable Buck Powell Admitting Clinician Unavailable Payers Payer Name Policy Type Policy Number Effective Date Expiration Date S ource AETNA CHOICE POS [id number] 2018 00:00:00 II AETNA [id number] 2018 00:00:00 Problems Condition Condition Condition Status Onset Resolution Last Treating Co mments Source Name Details Category Date Date Treatment Clinician Date Migraine Migraine Problem Active [place] 7-15 da 00:00: Medical 00 Group Obesity Obesity Disease Active Univers (BMI (BMI 6-03 ity of 30-39.9) 30-39.9) 00:00: [place] 00 Medical Branch Family Family Disease Active Univers history of history of 7 it y of colon colon 00:00: [place] cancer cancer 00 Medical Branch Enlarged Enlarged Disease Active Unive rs thyroid thyroid 7 ity of 00:00: [place] 00 Medical Branch General General Disease Active 2013-08 Overview: Univ ers counseling counseling 0-29 Formattin ity of and advice and advice 00:00: g of this [place] for for 00 note Medical contracept contracept might be Branch luis armando luis armando different management management from the original. 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 UTI UTI Disease Active 2013-08 Univers (urinary (urinary 0-29 ity of tract tract 00:00: [place] infection) infection) 00 Me dical Branch Hematuria Hematuria Disease Active 2013-08 Uni vers 0-29 ity of 00:00: [place] 00 Medical Branch Dysuria Dysuria Disease Active 2013-08 Univers 0-28 ity of 00:00: [place] 00 Medical Branch Allergies, Adverse Reactions, Alerts Allergy Allergy Status Severity Reaction(s) Onset Inactive Treating Comm ents Source Name Type Date Date Clinician No Known DA Active [facility] All[facility]ie 719 [facility] 00[facility] [place] NO KNOWN Drug Active Univers ALLERGIE Class ity of S [place] [facility] Social History Social Habit Start Date Stop Date Quantity Comments Source History SDOH University o f Alcohol Frequency [place] M edical [facility] History SDOH University o f Alcohol Std [place] Medical Drinks Branch History SDOH University o f Alcohol Binge [place] [facility] ASSERTION [facility] Exposure to 2022-01-05 2022-02-04 Not sure [facility] SARS-CoV-2 00:00:00 13:42:00 (event) Cigarette 2021-11-21 2021-11-21 [facility] pack-years 00:00:00 00:00:00 Tobacco use and 2021-11-21 2021-11-21 Smokeless tobacco [facility] exposure 00:00:00 00:00:00 non-user Alcohol intake 2021-11-21 2021-11-21 Ex-drinker [facility] 00:00:00 00:00:00 (finding) Alcohol Comment 2013-08-03 2013-08-03 socially Universit y of 00:00:00 00:00:00 [facility] Sex Assigned At [birth year] [facility] 00:00:00 00:00:00 Smoking Status Start Date Stop Date Source Never smoked tobacco [facility] Medications Ordered Filled Start Stop Current Ordering Indication Dosage Frequency Signature Comments Components Source Medication Medication Date Date Medication? Clinician (SIG) Name Name Yes Take by [facility]-Min-Fe 3-24 mouth. Health Fum-FA-DHA 11:26: ( 1 23 PO) Yes Take by [facility]-Min-Fe 3-24 mouth. Health Fum-FA-DHA 11:26: ( 1 23 PO) Yes Take by [facility] MV-Min-Fe 3-24 mouth. Health Fum-FA-DHA 11:26: ( 1 23 PO) Yes Take by [facility] MV-Min-Fe 3-24 mouth. Health Fum-FA-DHA 11:26: ( 1 23 PO) Acetaminoph Yes 500mg Take 500 U T en (TYLENOL 3-24 mg by Health PO) 11:26: mouth. 08 Acetaminoph 2021-0 Yes 500mg Take 500 U T en (TYLENOL 3-24 mg by Health PO) 11:26: mouth. 08 Acetaminoph 2021-0 Yes 500mg Take 500 U T en (TYLENOL 3-24 mg by Health PO) 11:26: mouth. 08 Acetaminoph 2021-0 Yes 500mg Take 500 U T en (TYLENOL 3-24 mg by Health PO) 11:26: mouth. 08 cetirizine- 2020-2021- No 1{tbl} Q.5D Take 1 U T pseudoephed 05-24 tablet by Shantanu paz 00:00: 04:59 mouth (ZyrTEC-D) 00 :00 twice a 5-120 MG 12 day. hr tablet cetirizine- 2021- No 1{tbl} Q.5D Take 1 U T pseudoephed 05-24 tablet by He alth rine 00:00: 04:59 mouth (ZyrTEC-D) 00 :00 twice a 5-120 MG 12 day. hr tablet cetirizine- 2021- No 1{tbl} Q.5D Take 1 U T pseudoephed 05-24 tablet by He alth rine 00:00: 04:59 mouth (ZyrTEC-D) 00 :00 twice a 5-120 MG 12 day. hr tablet cetirizine- 2021- No 1{tbl} Q.5D Take 1 U T pseudoephed 05-24 tablet by He alth rine 00:00: 04:59 mouth (ZyrTEC-D) 00 :00 twice a 5-120 MG 12 day. hr tablet metroNIDAZO 2020-0 Yes [id number] 500mg Take 1 Univers LE 500 mg 6-05 tablet by ity o f tablet 00:00: mouth [place] 00 every 12 Medical (twelve) Branch hours. metroNIDAZO 2020-0 Yes [id number] 500mg Take 1 Univers LE 500 mg 6-05 tablet by ity o f tablet 00:00: mouth [place] 00 every 12 Medical (twelve) Branch hours. SUMATRIPTAN 2020-0 Yes Take by Uni vers SUCCINATE 6-03 mouth. ity of ORAL 12:00: [place] 00 Medical Branch SUMATRIPTAN 2020-0 Yes Take by Uni vers SUCCINATE 6-03 mouth. ity of ORAL 12:00: [place] 00 Medical Branch [facility] 2013-0 Yes [id number] [facility] 7days ity of Supply 00:00: [place] (PRO-CEPTIO 00 Medical N) [facility] Branch Counts [facility]- Yes [id number] [facility]HS [facility] 5-12 7days ity of Supply 00:00: [place] (PRO-CEPTIO 00 Medical N) [facility] Branch escitalopra escitalopra No escitalopr [place] 10 mg m 10 mg am 10 mg da tablet tablet tablet Medical Group sumatriptan sumatriptan No sumatripta [place] 100 mg 100 mg n 100 mg da tablet TAKE tablet TAKE tablet Medical 1 TABLET BY 1 TABLET BY TAKE 1 Group MOUTH EVERY MOUTH EVERY TABLET BY DAY IF DAY IF MOUTH NEEDED FOR NEEDED FOR EVERY DAY MIGRAINE MIGRAINE IF NEEDED FOR MIGRAINE sumatriptan sumatriptan No sumatripta [place] 100 mg 100 mg n 100 mg da tablet TAKE tablet TAKE tablet Medical 1 TABLET BY 1 TABLET BY TAKE 1 Group MOUTH EVERY MOUTH EVERY TABLET BY DAY IF DAY IF MOUTH NEEDED FOR NEEDED FOR EVERY DAY MIGRAINE MIGRAINE IF NEEDED FOR MIGRAINE Immunizations Ordered Filled Immunization Date Status Comments Sourc e Immunization Name Name [facility] 2017-03-27 Completed University of 00:00:00 [facility] 2017-03-27 Completed University 00:00:00 [facility] 2010-08-31 Completed University 00:00:00 [facility] 2010-08-31 Completed University 00:00:00 [facility] 2009-05-31 Completed University 00:00:00 [facility] 2009-05-31 Completed [facility] 00:00:00 [facility] Vital Signs Vital Name Observation Time Observation Value Comments Source BP Diastolic 2022-05-22 00:00:00 70 [facility]Hg[facility] Height 2022-05-22 00:00:00 68 [facility]in_i[facility] BMI (Body Mass 2022-05-22 00:00:00 31.9 kg/m2 [facility] 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 Index) Group BP Systolic 2022-05-22 00:00:00 120 mm[Hg] [facility] Body Weight 2022-05-22 00:00:00 209.5 [lb_av] [facility] Systolic blood 2021-11-21 16:22:00 116 mm[facility]Hg[facility] Diastolic blood 2021-11-21 16:22:00 78 mm[Hg] [facility] Heart rate 2021-11-21 16:22:00 96 [facility] Body temperature 2021-11-21 16:22:00 36.67 [facility] Body height 2021-11-21 16:22:00 172.7 cm [facility] Body weight 2021-11-21 16:22:00 [facility].054 [facility] BMI 2021-11-21 16:22:00 33.20 kg/m2 [facility] Oxygen saturation in 2021-11-21 16:22:00 98 /min [facility] Arterial blood by Pulse oximetry BP Diastolic 2021-03-14 00:00:00 70 mm[Hg] [facility] Height 2021-03-14 00:00:00 68 [in_i] [facility] BMI (Body Mass 2021-03-14 00:00:00 33.2 kg/m2 [facility] 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 Pending 00:00:00 plasma [code = Group ferritin, serum or plasma] Diagnostic Test 2022-05-22 folate, serum [facility] Twan peñaloza Pending 00:00:00 [code = folate, Group serum] Diagnostic Test 2022-05-22 retic count, blood [facility] 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 Pending 00:00:00 [code = retic Group count, blood] Diagnostic Test 2022-05-22 CBC w/ auto diff [facility] [facility] Pending 00:00:00 [code = CBC w/ Group auto diff] Diagnostic Test 2022-05-22 TSH, serum or [facility] edical Pending 00:00:00 plasma [code = Group TSH, serum or plasma] Diagnostic Test 2022-05-22 CMP, serum or [facility] ed[facility] Pending 00:00:00 plasma [code = Group CMP, serum or plasma] Diagnostic Test 2022-05-22 lipid panel, serum [facility] 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 Pending 00:00:00 [code = lipid Group panel, serum] Diagnostic Test 2022-05-22 HbA1c (hemoglobin [facility] [facility] Pending 00:00:00 A1c), blood [code Group = HbA1c (hemoglobin A1c), blood] Diagnostic Test 2022-05-22 prealbumin, serum [facility] Pending 00:00:00 [code = Group prealbumin, serum] Instructions [facility] Encounters Start End Encounter Admission Attending Care Care Encounter Source Date/Time Date/Time Type Type Clinicians Facility Department ID 2021-10-03 Outpatient [facility] [id number] [place] 11:45:52 Health 2022-05-22 2022-05-22 Outpatient IHDE_G [facility] [id number] [place] 00:00:00 00:00:00 0922 da Medical Group 2022-05-22 2022-05-22 Efrain [facility] [place] - [id number] M atagor 00:00:00 00:00:00 Terry Pritchard MD: Medical Medica [address], [place] [address] , Ph. [phone] 2022-05-19 2022-05-19 Outpatient IHDE_G [facility] [id number] [place] 00:00:00 00:00:00 0919 da Medical Group 2022-03-18 2022-03-21 Inpatient NORMAN Wagner [facility] [id number] [facility] 13:40:00 16:05:00 [place], [id number] Woman' [facility] 2022-03-18 2022-03-21 Inpatient NORMAN Wagner [facility] [id number] [facility] 13:40:00 16:05:00 [place], 02 Woman' [facility] 2022-02-12 2022-02-12 Telephone Benigno Myranda GERALD [id number] [place] 00:00:00 00:00:00 Myranda Pelaez RENNY [id number] Health STATION [id number] BUILDING [id number] 2022-02-11 2022-02-11 Telephone Olive Fagan GERALD 1.2.84 0.114 [id number] [place] 00:00:00 00:00:00 Olive Fagan [id number] Health STATION [id number] [facility] [id number] 2022-01-30 2022-01-30 Telephone Olive Fagan GERALD 1.2.84 0.114 [id number] [place] 00:00:00 00:00:00 Olive Fagan [id number] Health STATION [id number] [facility] [id number] 2022-01-22 2022-01-22 Outpatient NORMAN Wagner [facility] [id number] [facility] 13:30:00 13:30:00 Mass, 16 Woman' s [facility] 2021-12-04 2021-12-04 Telephone Papito Sia [facility] 1.2.840.11 [id number] [facility] 00:00:00 00:00:00 ANTONIA [id number] it y of W[place] 4[place]7.2.686 [place] [id number] [facility] 134 Branch 2021-12-04 2021-12-04 Orders Doctor PRISCILLA [id number] Univers 00:00:00 00:00:00 Only Unassigned, MEEK [id number] ity of [place] [facility] 4.2.7.2.686 Jer as [id number] [facility] 009 Branch 2021-11-21 2021-11-21 Consult GERALD Greene 1.2.840.114 [id number] [place] 11:00:00 12:46:23 Zayra LAWSON 350.1.13.58 [facility] 9.2.7.2.686 BUILDING [id number] 2021-07-31 2021-07-31 Outpatient IHDE_G MMG [facility] [id number] [place] 00:00:00 00:00:00 1201 Medical Group 2021-06-20 2021-06-20 Outpatient IHDE_G MMG [facility] [id number] [place] 02:04:00 02:04:00 1021 Medical Group 2021-05-16 2021-05-16 Outpatient IHDE_G MMG [facility] [id number] [place] 02:08:00 02:08:00 0916 Medical [facility] 2021-04-11 2021-04-11 Outpatient IHDE_G MMG [facility] [id number] [place] 01:21:00 01:21:00 0812 da Medical Group 2021-03-15 2021-03-15 Outpatient IHDE_G MMG G [id number] [place] 12:24:00 12:24:00 0716 Medical Group 2021-03-14 2021-03-14 Efrain IHDE_G [place]G [place] - [id number] [place] 00:00:00 00:00:00 Terry Becerra 0715 aleyda Ahumada MD: Medical Medica [address], [place] [address] , Ph. [phone] 2021-03-11 2021-03-[address] [facility] [id number] Univers 10:00:00 10:00:00 GOOD YANG [facility] 2021-03-06 2021-03-06 Outpatient IHDE_G MMG MMG [id number] [place] 12:05:00 12:05:00 0707 Medical [facility] 2020-11-29 2020-11-[address] [facility] [id number] Univers 08:00:00 08:00:00 KUNAL schroeder [facility] 2020-09-13 2020-09-13 [address] [facility] [id number] Univers 15:00:00 15:00:00 itsami [facility] 2020-05-25 2020-05-25 Outpatient R ADUM, [facility] [id number] Univers 15:30:00 15:30:00 SONIA schroeder [facility] 2020-05-23 2020-05-23 Outpatient R ADUM, [facility] [id number] Univers 11:00:00 11:00:00 SONIA itsami [facility] 2020-05-15 2020-05-15 Outpatient R ADUM, [facility] [id number] Univers 09:30:00 09:30:00 SONIA schroeder [facility] 2020-02-17 2020-02-17 Outpatient R ADUM, [facility] [id number] Univers 09:00:00 09:00:00 SONIA schroeder [facility] 2020-02-13 2020-02-13 Outpatient R ADUM, [facility] [id number] Univers 10:00:00 10:00:00 SONIA schroeder [facility] 2020-02-08 2020-02-08 Outpatient R ADUM, [facility] [id number] Univers 13:00:00 13:00:00 SONIA sami [facility] 2020-02-03 2020-02-03 [facility] 1.2.840.114 [id number] 00:00:00 00:00:00 Management Sonia Daniela Ballard [id number] [place] 4.2.7.2.686 Professio [id number] [address] 2020-02-01 2020-02-01 Outpatient R ADUM, [facility] [id number] Univers 15:00:00 15:00:00 SONIA sami [facility] 2020-02-01 2020-02-01 Office Ad, [facility] 1.2.840.114 [id number] 11:20:04 12:15:55 Visit Sonia Suarez Nellie 350.1.13.10 [place] [id number] Professio [id number] [address] 2020-02-01 2020-02-01 Outpatient R ADUM, [facility] [id number] Univers 11:00:00 11:00:00 SONIA schroeder of [facility] Results Test Description Test Time Test Comments Results Result Comments Source SURGICAL 2022-04-08 16:34:00 Test Item Value Reference Range Interpretation Oli cuello SURGICAL RUN DATE: (test 04/08/22 [facility] - [facility]ator y PAGE 1 RUN TIME: 1635 Specimen Inquiry RUN USER: INTERFACE code = PATIENT: MAMADOU FERRISNEREYDA SANDRINE ACCT #: [id number] LOC: VAN U #: [id number] AGE/SX: 32/F ROOM: [facility] RE03/18/22SHELLEY DR: Buck Powell : 89 BED: A DIS: 03/21/22 STATUS: DIS IN TLOC: SPEC #: [id number] RECD: STATUS: NERISSA SANFORD #: [id number] JASEN: 03/18/221624 SUBM DR: Buck Powell MD ENTERED: SP TYPE: SURGICAL OTHR DR: DOES_NOT KNOW ORDERED: ANATOMIC SPEC/3, SPEC TRACK, 45387/2, 81140/2, 64294/2, 20510 COPIES TO: DOES_NOT KNOW Buck Powell MD 1 [facility] # [id number] [place], [place] [id number] PROCEDURES: [id number] (03/19/22902) [id number] (03/19/22) 21638 (04/08) 37783 (04/08/22) TISSUES: A. PLACENTA, THIRD TRIMESTER (28 + WEEKS) B. FALLOPIAN TUBE, RI GHT C. FALLOPIAN TUBE, LEFT FINAL DIAGNOSIS A. TWIN PLACENTA, DELIVERY: - Diamniotic dichorionic twin placenta present as two separate discs - Weight Placenta "A" 556 grams; Weight Placenta "B" 509 gram s - Large for gestational age A. Placenta "A" - Third trimester villous development, at early term - Trivascular umbilical cord, no pathologic alteration - Chorioamnionic membranes, no pathologic alt eration - Placental weight 556 g A. Placenta "B" - Third trimester villous development, at term - Triva scular umbilical cord, no pathologic alteration - Chorioamnionic membranes, no pathologic alteration - P lacental weight 509 g B. FALLOPIAN TUBE, RIGHT, EXCISION: - Complete luminal cross-section present - Hemangioma, benign CONTINU ED ON NEXT PAGE RUN DATE: 04/08/22 [facility] - [facility] y PAGE 2 RUN TIME: 1635 Specimen Inquiry RUN USER: INTERFACE SPEC #: [id number] PATIENT: NEREYDA FERRIS ANID #[id number] (Continued) FINAL DIAGNOSIS (Continued) C. FALLOPIAN TUBE, LEFT, EXCISION: - complete luminal cross-section present Note:A combined twin placent a weight of 1065 grams corresponds to above the 90th percentile forcombined twin placental weight at 37 weeks. GROSS DESCRIPTION A. Received in formalin is a twin placenta with the separate placental discs cate suring 28 x22 x 2.3 cm in aggregate, 1065 grams in aggregate grossly thick shared membranes. There aren o vascular anastomosis present. Twin A (1 clamp): The placental disk for twin A has a 31 cm in length x 1.2 cm in diameter with eccentricinsertion 5 cm from the placental edge, three vessel cord and has 4 coils per 10 cm ofcord. The membranes are ramirez and translucent with marginal insertion. The placental dis c hasa blue surface and a complete maternal surface. The placental disk is ovoid, [id number] x 14 x 2.3 cm, and weighs 556 grams without the membranes and cord. The surface isblue with unremark able vasculature. Serial sectioning of the disc shows ramirez-red beefy cutsurface. Twin B (2 clamps ): The placental disk for twin B has a 39 cm in length x 1.1 cm in diameter, centrallyinserted 5 cm from the placental edge, three vessel cord with 5 coils per 10 cm of cord.The membranes are ramirez and transl ucent with marginal insertion ruptured at the placentaledge. The placental disc has a blue surfac e and a complete maternal surface. Theplacental disk is ovoid, measures 16 x 14 x 2.3 cm, and weighs 509 grams without themembranes and cord. The surface is blue with unremarkable vasculature. Se rialsectioning of the disc shows ramirez-red beefy cut surface. Sections code: A1: Shared Membrane A2: Twin "A" Membrane and Cord A3-A4: Twin A Placenta Cross Section A5: Twin "B" Cord and Membrane A6-A7: Twi n B Placenta Cross Section B. Received in formalin labeled with patient's name and , designated "Ri ght FallopianTube" consists of a fimbriated fallopian tube measuring 4.3 cm in total length x 1.0 cm ind iameter. The specimen is sectioned, revealing a pinpoint lumen. The specimen is submittedrepresentatively in B1. C. Received in formalin labeled with patient's name and , designated "Left FallopianTu be" consists of a fimbriated fallopian tube measuring 4.3 cm in total length x 0.9 cm indiameter. The spe cimen is sectioned, revealing a pinpoint lumen. The specimen is submittedrepresentatively in C1. (ARACELI 04/03/22) CONT INUED ON NEXT PAGE RUN DATE: 04/08/22 [facility] - [facility] y PAGE 3 RUN TIME: 1635 Specimen Inquiry RUN USER: INTERFACE SPEC #: [id number] PATIENT: NEREYDA FERRIS ANID #[id number] (Continued) GROSS DESCRIPTION (Continued ) Technical component performed at [employer],[id number] , [place] [address] Unless gross only, the diagnosis is based upon microscopic examination.Immunohistochemistry: This test was developed and its performance characteristicsdetermined by this laboratory. It has not been approved nor does it ne ed approval by [place] FDA. Appropriate positive and negative controls are reviewed and judged to beacc eptable. This laboratory is certified under the Clinical Laboratory ImprovementAmendments (CLIA- 88) as qualified to perform high complexity clinical laboratory testing. MICROSCOPIC DESCRIPTION The right fallopian tube has a 2 x 1 mm well circumscribed proliferation of bland spindledand rounded ce lls in a fibrous stroma around vascular channels. Immunohistochemistry wasperformed to clarify the diagnosis, and demonstrates CD31(+) staining along the channelsand negative staining for calretinin and CK AE1/3. The endothelial cells lining thechannels show minimal atypia, and abnormal anastomoses are not seen. Mitotic activity isabsent. The lesion is not infiltrative. These results confirm the diagnosi s of benignvascular proliferation, hemangioma. CLINICAL INFORMATION IUP @ 37.0 WEEKS, REPEAT C/S, GDM- INSULIN, 2 CLAMPS ON BABY B Signed SIGNATURE ON FILE Christopher Hobson 04/08/22 1634 END OF REPORT [id number] 06:52:00 Test Item Value Reference Range Interpretation Comments GLUBED (test code = GLUBED) 85 mg/dL 65-110 N [id number] 22:13:00 Test Item Value Reference Range Interpretation Comments GLUBED (test code = GLUBED) 136 mg/dL 65-110 H [id number] 17:05:00 Test Item Value Reference Range Interpretation Comments GLUBED (test code = GLUBED) 166 mg/dL 65-110 H [id number] 11:51:00 Test Item Value Reference Range Interpretation Comments GLUBED (test code = GLUBED) 108 mg/dL 65-110 N [id number] 06:41:00 Test Item Value Reference Range Interpretation Comments GLUBED (test code = GLUBED) 87 mg/dL 65-110 N [id number] 23:44:00 Test Item Value Reference Range Interpretation Comments GLUBED (test code = GLUBED) 170 mg/dL 65-110 H [id number] 14:36:00 Test Item Value Reference Range Interpretation Comments GLUBED (test code = GLUBED) 162 mg/dL 65-110 H CBC W/AUTO [id number] 09:41:00 Test Item Value Reference Range Interpretation Comments WHITE BLOOD CELL (test code = WBC) 7.5 K/mm3 6.5-12.3 N RED BLOOD CELL (test code = RBC) 3.06 M/mm3 3.51-4.69 L HEMOGLOBIN (test code = HGB) 9.3 g/dL 10.1-13.8 L HEMATOCRIT (test code = HCT) 28.1 % 32.5-41.8 L MEAN CELL VOLUME (test code = MCV) 91.8 fL 84.6-96.6 N MEAN CELL HGB (test code = MCH) 30.4 pg 27.3-33.9 N MEAN CELL HGB CONCETRATION (test 33.1 gm/dL 32.0-34.2 N code = MCHC) RED CELL DISTRIBUTION WIDTH (test 17.5 % 12.2-16.3 H code = RDW) PLATELET COUNT (test code = PLT) 140 K/mm3 134-363 N MEAN PLATELET VOLUME (test code = 10.5 fL 9.2-12.7 N MPV) NEUTROPHIL % (test code = NT%) 75.0 % 57.9-77.3 N LYMPHOCYTE % (test code = LY%) 15.0 % 14.5-29.7 N MONOCYTE % (test code = MO%) 8.4 % 3.6-10.2 N EOSINOPHIL % (test code = EO%) 1.2 % 0.0-3.0 N BASOPHIL % (test code = BA%) 0.1 % 0.1-0.9 N NEUTROPHIL # (test code = NT#) 5.6 K/mm3 LYMPHOCYTE # (test code = LY#) 1.1 K/mm3 MONOCYTE # (test code = MO#) 0.6 K/mm3 EOSINOPHIL # (test code = EO#) 0.09 K/mm3 BASOPHIL # (test code = BA#) 0.0 K/mm3 RBC MORPHOLOGY REQUIRED (test code NORMAL NORMAL = RBCM) PLATELET MORPHOLOGY REQUIRED (test NORMAL NORMAL code = PLTMR) [id number] 09:39:00 Test Item Value Reference Range Interpretation Comments GLUBED (test code = GLUBED) 153 mg/dL 65-110 H [id number] 07:18:00 Test Item Value Reference Range Interpretation Comments GLUBED (test code = GLUBED) 152 mg/dL 65-110 H [id number] 02:30:00 Test Item Value Reference Range Interpretation Comments GLUBED (test code = GLUBED) 164 mg/dL 65-110 H - XR CHEST 2 [id number] 00:00:00 [facility] SANDRINE : 1990 Sex: F Patient Name: NEREYDA FERRIS Unit No: [id number] EXAMS: CPT CODE: [id number] XR CHEST 2 V [id number] PROCEDURE INFORMATION: Exam: XR Chest Exam date and time: 03/19/2022 11:05 AM Age: 32 years old Clinical indication: Dyspnea; Additional info: Dyspnea on exertion, S/P TECHNIQUE: Imaging protocol: Radiologic exam of the chest. Views: 2 views. PA and Lateral COMPARISON: No relevant prior studies amy ilable. FINDINGS: Lungs: There are normal lung volumes without consolidation or interstitial oppacities. Pleural spaces: Unremarkable. No pleural effusion. No pneumothorax. Heart/Mediastinum: The cardiac silhouette is not enlarged. Bones/joints: No acute abnormality seen. IMPRESSION: No acute cardiopulmonary findings at 1153 Reported and signed by: Benitez Skelton MD CC: Buck So MD Technologist: MARITA MARINELLI RT(R) Trnscrbd D/ (1153) GCD.CPS Orig Print D/T: S: 03/19/2022 (1154) [facility] NAME: NEREYDA FERRIS Radiology Department PHYS: [id number] - Buck Powell [address] : 1990 AGE: 32 SEX: F [place], [place] [address] LOC: [id number] PHONE #: [phone] EXAM DATE: 03/19/2022 STATUS: ADM IN FAX #: [phone] RAD NO: Page 1 Signed [id number] 14:14:00 Test Item Value Reference Range Interpretation Comments GLUBED (test code = GLUBED) 80 mg/dL 65-110 N AG HEPATITIS B [id number] 13:55:00 Test Item Value Reference Range Interpretation Comments AG HEPATITIS B SURFACE (test code NONREACTIVE NONREACTIVE = HBSAG) AB HEPATITIS C [id number] 13:55:00 Test Item Value Reference Range Interpretation Comments AB HEPATITIS C (test code = NONREACTIVE NONREACTIVE HCVAB) SIGNAL TO CUTOFF (test code = 0.15 <0.80 N CUTOFF) AB [id number] 13:55:00 Test Item Value Reference Range Interpretation Comments AB TREPONEMA (test code = TREPAB) NONREACTIVE NONREACTIVE AB HIV 1 13:55:00 Test Item Value Reference Range Interpretation Comments AB HIV 1 2 (test NONREACTIVE NONREACTIVE Done by [facility] code = [id number]) 4th Gen HIV Ag/Ab Combo Screen COVID 19 Asymptomatic IH [id number] 13:23:00 Test Item Value Reference Range Interpretation Comments COVID 19 NEGATIVE NEGATIVE This test has b een Asymptomatic IH AG authorize d only for the (test code = detection ofpro teins from COVNONPUIAG) SARS-CoV-2, not for any other viruses orpathogens. Ne gative results should be treated as presumptive andconfirmed wi th a molecular assay , if necessary for patientmanageme nt. Negative result s do not rule out COVID- 19 andshould not b e used as the sole basis for treatment orpat ient management deci sions, including infec tion controldecision s. Negative result s should be considered i n thecontext of a patient's recent exposure s, history and thepresence of clinical signs and symptoms consis tent withCOVID-19. T his test has not been FD A cleared or approved; th e test hasbeen authori jessee by FDA under an Emerge ncy Use Authorization(E UA) for use by laborato swapna certified under the CLIA thatmeet the re quirements to perform mode rate, high or waivedcomple xity tests. This tricia t is authorized for use at thePoint of Car e (POC), i.e., in patien t care settingsoperati ng under a CLIA Certificat e of Waiver, Certifi robert ofCompliance, o r Certificate of Accreditation. This test is only authori zed for the duration of thedeclaration that circumstances e xist justifying theauthorizatio n of emergency use o f in vitro diagnostic test sfor detection and/o r diagnosis of CO VID-19 under Acnnweh90 4(b)(1) of the Act, 21 U.S .C. 360bbb-3(b)(1), unless theauthorizatio n is terminated or r evoked sooner. URINALYSIS W/O [id number] 13:00:00 Test Item Value Reference Range Interpretation Comments UA GLUCOSE DIPSTICK (test code = NEGATIVE NEG DGLUU) UA KETONE DIPSTICK (test code = NEGATIVE NEG KETU) UA PROTEIN DIPSTICK (test code = 1+ NEG A PROU) IS NURSE PERFORMING TEST? NCBC W/AUTO [id number] 12:48:00 Test Item Value Reference Range Interpretation Comments WHITE BLOOD CELL (test code = WBC) 7.0 K/mm3 6.5-12.3 N RED BLOOD CELL (test code = RBC) 3.96 M/mm3 3.51-4.69 N HEMOGLOBIN (test code = HGB) 12.1 g/dL 10.1-13.8 N HEMATOCRIT (test code = HCT) 37.3 % 32.5-41.8 N MEAN CELL VOLUME (test code = MCV) 94.2 fL 84.6-96.6 N MEAN CELL HGB (test code = MCH) 30.6 pg 27.3-33.9 N MEAN CELL HGB CONCETRATION (test 32.4 gm/dL 32.0-34.2 N code = MCHC) RED CELL DISTRIBUTION WIDTH (test 17.6 % 12.2-16.3 H code = RDW) PLATELET COUNT (test code = PLT) 191 K/mm3 134-363 N MEAN PLATELET VOLUME (test code = 10.8 fL 9.2-12.7 N MPV) NEUTROPHIL % (test code = NT%) 72.9 % 57.9-77.3 N LYMPHOCYTE % (test code = LY%) 18.1 % 14.5-29.7 N MONOCYTE % (test code = MO%) 7.7 % 3.6-10.2 N EOSINOPHIL % (test code = EO%) 0.7 % 0.0-3.0 N BASOPHIL % (test code = BA%) 0.3 % 0.1-0.9 N NEUTROPHIL # (test code = NT#) 5.1 K/mm3 LYMPHOCYTE # (test code = LY#) 1.3 K/mm3 MONOCYTE # (test code = MO#) 0.5 K/mm3 EOSINOPHIL # (test code = EO#) 0.05 K/mm3 BASOPHIL # (test code = BA#) 0.0 K/mm3 RBC MORPHOLOGY REQUIRED (test code NORMAL NORMAL = RBCM) PLATELET MORPHOLOGY REQUIRED (test NORMAL NORMAL code = PLTMR)
[2022-07-08 12:50] LABS: Absolute Lymphocytes (CBC) 2.7 K/uL (0.7-4.9); Hematocrit 42.3 % (36.0-45.0); Lymphocytes % 22.7 % (15.3-44.8); MCV 92.4 fL (80-100); MPV 7.7 fL (7.6-11.3); RBC Red Blood Cell Count 4.58 M/uL (3.86-4.86)
[2022-07-08] MEDS ORDERED: ONDANSETRON 4 MG/2 ML VIAL ONE (13:00)
[2022-07-08] MEDS ORDERED: KETOROLAC 30 MG/ML INJ ONE (13:00)
[2022-07-08] MEDS ORDERED: NA CHLORIDE 0.9% 1,000 ML ONE (13:01)
[2022-07-08 13:08] LABS: Albumin 3.8 g/dL (3.4-5.0); Bilirubin Total 0.4 mg/dL (0.2-1.0); Potassium 3.8 mmol/L (3.5-5.1)
[2022-07-08] MEDS ORDERED: MORPHINE 4 MG/ML SYR ONE (14:01)
[2022-07-08 14:06] LABS: Urine Blood 3+ (Negative); Urine Glucose Negative (Negative); Urine Protein 2+ (Negative); Urine Specific Gravity >=1.030 (1.005-1.030); Urine pH 5.5 (5.0-7.0)
--- NOTE | 2022-07-08 14:32 | RAD REPORT ---
EXAM DESCRIPTION: CTAbdomen Pelvis W Contrast - 07/08/2022 2:16 pm CLINICAL HISTORY: Abdominal pain. abd pain COMPARISON: Abdomen Pelvis W Contrast dated 04/29/2021 TECHNIQUE: Biphasic CT imaging of the abdomen and pelvis was performed with 100 ml non-ionic IV cont rast. All CT scans are performed using dose optimization technique as appropriate and may include automated exposure control or mA/KV adjustment according to patient size. FINDINGS: The lung bases are clear. The liver is diffusely fatty. Spleen, pancreas, adrenal glands are within normal limits. 4 mm stone i s present proximal left ureter with mild left hydronephrosis. Small nonobstructing calculus midpole r ight kidney measuring 4-5 mm. No bowel obstruction, free air, free fluid or abscess. Moderate fat containing umbilical hernia. The appendix is normal. No evidence of significant lymphadenopathy. No suspicious bony findings. IMPRESSION: 4 mm stone is seen proximal left ureter with mild left hydronephrosis.
[2022-07-08] MEDS ORDERED: TAMSULOSIN 0.4 MG SR CAP ONE (15:17)
[2022-07-08] MEDS ORDERED: HYDROCODONE/APAP 10/325 TAB ONE (15:17)
[2022-07-08] MEDS ORDERED: MAGNESIUM SULFATE 1 gm IVPB 1 GM/100 ML BAG IV ONE (15:18)
--- NOTE | 2022-07-08 15:41 | ER ---
Nurse's Notes [facility] Name: Rosalva De La Rosa Age: 32 yrs Sex: Female : 1990 Arrival Date: 07/08/2022 Time: 12:16 Bed 15 Private MD: Diagnosis: Calculus of ureter Presentation: 07/08 12:36 Chief complaint: Patient states: AT BREAKFAST AT 9, HAS HAD FLANK AND ABDOMINAL SINCE [facility] AND NOTHING IS HELPING. Coronavirus screen: Vaccine status: Patient reports receiving the 2nd dose of the covid vaccine. Client denies travel out of the [place] in the last 14 days. Ebola Screen: Patient negative for fever greater than or equal to 101.5 degrees Fahrenheit, and additional compatible Ebola Virus Disease symptoms Patient denies exposure to infectious person. Patient denies travel to an Ebola-affected area in the 21 days before illness onset. Initial Sepsis Screen: Does the patient meet any 2 criteria? No. Patient's initial sepsis screen is negative. Does the patient have a suspected source of infection? No. Patient's initial sepsis screen is negative. Risk Assessment: Do you want to hurt yourself or someone else? Patient reports no desire to harm self or others. 12:36 Method Of Arrival: Ambulatory [facility] 12:36 Acuity: VELVET 3 [facility] 12:36 Onset of symptoms was July 07, 2022 at 22:00. bp Triage Assessment: 12:37 General: Appears distressed, uncomfortable, obese, Behavior is cooperative, anxious, [facility] crying. Pain: Complains of pain in back and abdomen. GI: Reports lower abdominal pain, cramping, nausea. 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 - Social history:: Smoking status: Patient denies any tobacco usage or history of. Screenin:00 Abuse screen: Denies threats or abuse. Denies injuries from another. Nutritional bp screening: No deficits noted. Tuberculosis screening: No symptoms or risk factors identified. Fall Risk None identified. Assessment: 12:45 General: SEE TRIAGE NOTE. bp 13:00 GI: Abdomen is non-distended. bp 14:07 Reassessment: PT TO CT. bp 15:49 Reassessment: DC ON HOLD FOR MAGNESIUM COMPLETION. bp Vital Signs: 12:36 BP 145 / 100; Pulse 72; Resp 18; Temp 98.7; Pulse Ox 100% ; Weight 94.35 kg; Height 5 5 ft. 8 in. (172.72 cm); Pain 10/10; 14:08 BP 133 / 96; Pulse 65; Resp 16; Pulse Ox 100% ; bp 15:49 BP 138 / 86; Pulse 65; Resp 16; Pulse Ox 100% ; bp 12:36 Body Mass Index 31.63 (94.35 kg, 172.72 cm) 5 ED Course: 12:16 Patient arrived in ED. am2 12:17 Alesia Diaz FNP-C is PHCP. kb 12:17 Celso Russo MD is Attending Physician. kb 12:37 Triage completed. 5 12:37 Arm band placed on right wrist. [facility] 12:45 Inserted saline lock: 20 gauge in left antecubital area, using aseptic technique. Blood bp collected. 12:56 Avelino López, RN is Primary Nurse. bp 13:00 Patient has correct armband on for positive identification. Bed in low position. Call bp light in reach. Side rails up X2. Adult w/ patient. 14:18 CT Abd/Pelvis - IV Contrast Only In Process Unspecified. EDMS 16:19 No provider procedures requiring assistance completed. IV discontinued, intact, bp bleeding controlled, No redness/swelling at site. Pressure dressing applied. Administered Medications: 13:00 Drug: NS 0.9% 1000 ml Route: IV; Rate: 1 bolus; Site: left antecubital; bp 16:24 Follow up: IV Status: Completed infusion; IV Intake: 1000ml bp 13:00 Drug: Zofran (Ondansetron) 4 mg Route: IVP; Site: left antecubital; bp 14:57 Follow up: Response: No adverse reaction bp 13:00 Drug: Ketorolac 15 mg Route: IVP; Site: left antecubital; bp 14:57 Follow up: Response: No adverse reaction bp 14:06 Drug: morphine 4 mg Route: IVP; Infused Over: 4 mins; Site: left antecubital; bp 14:57 Follow up: Response: Pain is decreased bp 15:00 Drug: Magnesium Sulfate 1 grams Route: IVPB; Infused Over: 1 hrs; Site: left bp antecubital; 16:23 Follow up: IV Status: Completed infusion; IV Intake: 100ml bp 15:00 Drug: Flomax (tamsulosin) 0.4 mg Route: PO; bp 16:23 Follow up: Response: No adverse reaction bp 15:22 Drug: [place] (HYDROcodone-acetaminophen) 10 mg-325 mg 1 tabs Route: PO; bp 16:23 Follow up: Response: No adverse reaction; Pain is decreased bp Medication: 13:00 VIS not applicable for this client. bp Intake: 16:23 IV: 100ml; Total: 100ml. bp 16:24 IV: 1000ml; Total: 1100ml. bp Outcome: 15:40 Discharge ordered by . kb 16:19 Discharged to home ambulatory, with family. bp 16:19 Condition: stable 16:19 Discharge instructions given to patient, Instructed on discharge instructions, follow up and referral plans. Demonstrated understanding of instructions, follow-up care, medications, Prescriptions given X 4. 16:24 Patient left the ED. bp Signatures: Dispatcher [employer] EDMS Alesia Diaz, JORDANAC CYTOLOGY SUPERVISOR-Shelbi Stevens am2 Avelino López, RN RN bp Natalia Phillips, RN RN jh5
--- NOTE | 2022-07-08 15:41 | EDPHYS ---
Physician Documentation [facility] Name: Rosalva De La Rosa Age: 32 yrs Sex: Female : 1990 Arrival Date: 07/08/2022 Time: 12:16 Bed 15 Private MD: ED Physician Celso Russo HPI: 07/08 15:02 This 32 yrs old Female presents to ER via Ambulatory with complaints of Flank kb Pain, Nausea/Vomiting. 15:02 The patient complains of pain in the left flank. The pain radiates to the abdomen. kb Onset: The symptoms/episode began/occurred this morning. Modifying factors: The symptoms are alleviated by nothing. the symptoms are aggravated by movement, palpation/percussion. Associated signs and symptoms: Pertinent positives: nausea, vomiting. Severity of pain: At its worst the pain was moderate in the emergency department the pain is unchanged. The patient has not experienced similar symptoms in the past. The patient has not recently seen a physician. Pt reports left flank and abd pain that started this morning. REports nausea and vomiting. Denies fever, urinary symptoms. . 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 - Social history:: Smoking status: Patient denies any tobacco usage or history of. ROS: 14:57 Constitutional: Negative for fever, chills, and weight loss. kb 14:57 Abdomen/GI: Positive for abdominal pain, nausea and vomiting, Negative for diarrhea, constipation. 14:57 : Positive for flank pain. 14:57 All other systems are negative. Exam: 14:58 Constitutional: This is a well developed, well nourished patient who is awake, alert, kb and in no acute distress. Head/Face: Normocephalic, atraumatic. ENT: Moist Mucous membranes Cardiovascular: Regular rate and rhythm with a normal S1 and S2. No gallops, murmurs, or rubs. No pulse deficits. Respiratory: Respirations even and unlabored. No increased work of breathing. Talking in full sentences Skin: Warm, dry with normal turgor. Normal color. MS/ Extremity: Pulses equal, no cyanosis. Neurovascular intact. Full, normal range of motion. Neuro: Awake and alert, GCS 15, oriented to person, place, time, and situation. Moves all extremities. Normal gait. Psych: Awake, alert, with orientation to person, place and time. Behavior, mood, and affect are within normal limits. 14:58 Abdomen/GI: Inspection: abdomen appears normal, Bowel sounds: normal, Palpation: soft, in all quadrants, moderate abdominal tenderness, in all quadrants. Vital Signs: 12:36 BP 145 / 100; Pulse 72; Resp 18; Temp 98.7; Pulse Ox 100% ; Weight 94.35 kg; Height 5 jh5 ft. 8 in. (172.72 cm); Pain 10/10; 14:08 BP 133 / 96; Pulse 65; Resp 16; Pulse Ox 100% ; bp 15:49 BP 138 / 86; Pulse 65; Resp 16; Pulse Ox 100% ; bp 12:36 Body Mass Index 31.63 (94.35 kg, 172.72 cm) jh5 MDM: 12:21 Patient medically screened. kb 14:40 Data reviewed: vital signs, nurses notes. Data interpreted: Pulse oximetry: on room air kb is 100 %. Interpretation: normal. 14:57 Counseling: I had a detailed discussion with the patient and/or guardian regarding: the kb historical points, exam findings, and any diagnostic results supporting the discharge/admit diagnosis, lab results, radiology results, the need for outpatient follow up, a urologist, to return to the emergency department if symptoms worsen or persist or if there are any questions or concerns that arise at home. 07/08 12:34 Order name: CBC with Diff; Complete Time: 13:09 kb 07/08 12:34 Order name: CMP; Complete Time: 13:09 kb 07/08 12:34 Order name: Lipase; Complete Time: 13:09 kb 07/08 12:34 Order name: CT Abd/Pelvis - IV Contrast Only; Complete Time: 14:36 kb 07/08 14:06 Order name: Urine Dipstick-Ancillary; Complete Time: 14:12 EDMS 07/08 12:34 Order name: IV Saline Lock; Complete Time: 12:45 kb 07/08 12:34 Order name: Labs collected and sent; Complete Time: 13:06 kb 07/08 12:34 Order name: Urine Dipstick-Ancillary (obtain specimen); Complete Time: 14:09 kb 07/08 12:34 Order name: Urine Test (obtain specimen); Complete Time: 14:09 kb Administered Medications: 13:00 Drug: NS 0.9% 1000 ml Route: IV; Rate: 1 bolus; Site: left antecubital; bp 16:24 Follow up: IV Status: Completed infusion; IV Intake: 1000ml bp 13:00 Drug: Zofran (Ondansetron) 4 mg Route: IVP; Site: left antecubital; bp 14:57 Follow up: Response: No adverse reaction bp 13:00 Drug: Ketorolac 15 mg Route: IVP; Site: left antecubital; bp 14:57 Follow up: Response: No adverse reaction bp 14:06 Drug: morphine 4 mg Route: IVP; Infused Over: 4 mins; Site: left antecubital; bp 14:57 Follow up: Response: Pain is decreased bp 15:00 Drug: Magnesium Sulfate 1 grams Route: IVPB; Infused Over: 1 hrs; Site: left bp antecubital; 16:23 Follow up: IV Status: Completed infusion; IV Intake: 100ml bp 15:00 Drug: Flomax (tamsulosin) 0.4 mg Route: PO; bp 16:23 Follow up: Response: No adverse reaction bp 15:22 Drug: [place] (HYDROcodone-acetaminophen) 10 mg-325 mg 1 tabs Route: PO; bp 16:23 Follow up: Response: No adverse reaction; Pain is decreased bp Disposition: 17:33 Co-signature as Attending Physician, Celso Russo MD. rn Disposition Summary: 07/08/22 15:40 Discharge Ordered Location: Home kb Condition: Stable kb Diagnosis - Calculus of ureter kb Followup: kb - With: Emergency Department - When: As needed - Reason: Worsening of condition Followup: kb - With: Private Physician - When: 2 - 3 days - Reason: Recheck today's complaints, Continuance of care, Re-evaluation by your physician Discharge Instructions: - Discharge Summary Sheet kb - Kidney Stones, [id number] kb - Dietary Guidelines to Help Prevent Kidney Stones kb Forms: - Medication Reconciliation Form kb - Thank You Letter kb - Antibiotic Education kb - Prescription Opioid Use kb Prescriptions: - Flomax 0.4 mg Oral capsule - take 1 capsule by ORAL route once daily 1/2 hour following the same meal each kb day; 10 capsule; Refills: 0, Product Selection Permitted - Zofran 4 mg Oral Tablet - take 1 tablet by ORAL route every 6 hours As needed; 20 tablet; Refills: 0, kb Product Selection Permitted - Augmentin 875-125 mg Oral Tablet - take 1 tablet by ORAL route every 12 hours for 10 days; 20 tablet; Refills: 0, kb Product Selection Permitted - Diclofenac Sodium 75 mg Oral tablet,delayed release (DR/EC) - take 1 tablet by ORAL route 2 times per day As needed; 30 tablet; Refills: 0, kb Product Selection Permitted Signatures: Dispatcher [employer] Alesia Shell, SOLE ST[employer]ER WELT-C SOLE ST[employer] WELT-Ckb Celso Russo MD MD rn Peltier, Brian RN RN bp Natalia Phillips RN RN jh5
== END 2022-07-08 16:24 | disposition home or self-care (01) ==
LOC: ER 12:13
DX: N20.1 Calculus of ureter (principal)
CPT/HCPCS: 96365; 96361; 85025; 36415; 81003; 83690; 80053; 74177; 96375; 99284; Q9967; J3475; J7030; J2405

== ENCOUNTER 2022-07-11 11:38 | Emergency (ER) | payer OTHER ==
--- OUTSIDE RECORDS SUMMARY | 2022-07-11 11:41 | XMS REPORT | Continuity of Care Document ---
:1990 Author Organization [facility] t Address [address] [place] [address] Care Team Providers Name Role Phone Unknown, Physician Primary Care Physician Unavailable IHDE_G Attending Clinician Unavailable Buck Powell Attending Clinician Unavailable Myranda Pelaez RN Attending Clinician Unavailable Olive Fagan RN Attending Clinician Unavailable Sia Cobos MD Attending Clinician Doctor Unassigned, [place] Attending Clinician Unavailable Zayra Greene MD Attending Clinician GOOD YANG Attending Clinician Unavailable GOOD YANG Attending Clinician Unavailable KUNAL SPENCER Attending Clinician Unavailable SIA COBOS Attending Clinician Unavailable SONIA MCKINNON Attending Clinician Unavailable Sonia Mckinnon MD Attending Clinician IHDE_G Admitting Clinician Unavailable Buck Powell Admitting Clinician Unavailable Payers Payer Name Policy Type Policy Number Effective Date Expiration Date S ource AETNA CHOICE POS [id number] 2018 00:00:00 II AETNA [id number] 2018 00:00:00 Problems Condition Condition Condition Status Onset Resolution Last Treating Co mments Source Name Details Category Date Date Treatment Clinician Date Migraine Migraine Problem Active [place] 7-15 da 00:00: Medical 00 Group Obesity Obesity Disease Active Univers (BMI (BMI 6-03 ity of 30-39.9) 30-39.9) 00:00: [place] 00 Medical Branch Family Family Disease Active Univers history of history of 03-27 it y of colon colon 00:00: [place] cancer cancer 00 Medical Branch Enlarged Enlarged Disease Active Unive rs thyroid thyroid 03-27 ity of 00:00: [place] 00 Medical Branch General General Disease Active 2013-08 Overview: Univ ers counseling counseling 0-29 Formattin ity of and advice and advice 00:00: g of this [place] for for 00 note Medical contracept contracept might be Branch luis armando luis armando different management management from the original. 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 Social History Social Habit Start Date Stop Date Quantity Comments Source ASSERTION [facility] History SDOH University o f Alcohol Frequency [place] M edical Branch History SDOH University o f Alcohol Std [place] Medical Drinks Branch History [facility] University o f Alcohol Binge [place] Medic al Branch Exposure to 2022-01-05 2022-02-04 Not sure [facility] SARS-CoV-2 00:00:00 13:42:00 (event) Cigarette 2021-11-21 2021-11-21 [facility] pack-years 00:00:00 00:00:00 Tobacco use and 2021-11-21 2021-11-21 Smokeless tobacco [facility] exposure 00:00:00 00:00:00 non-user Alcohol intake 2021-11-21 2021-11-21 Ex-drinker [facility] 00:00:00 00:00:00 (finding) Alcohol Comment 2013-08-03 2013-08-03 socially Universit y of 00:00:00 00:00:00 [facility] Sex Assigned At [birth year] [facility] 00:00:00 00:00:00 Smoking Status Start Date Stop Date Source Never smoked tobacco [facility] Medications Ordered Filled Start Stop Current Ordering [...] by Health PO) 11:26: mouth. 08 cetirizine- 2021- No 1{tbl} Q.5D Take 1 U T pseudoephed 05-24 tablet by Shantanu paz 00:00: 04:59 mouth (ZyrTEC-D) 00 :00 twice a 5-120 MG 12 day. hr tablet cetirizine- 2020-0 2021- No 1{tbl} Q.5D Take 1 U T pseudoephed 05-24 tablet by He alth rine 00:00: 04:59 mouth (ZyrTEC-D) 00 :00 twice a 5-120 MG 12 day. hr tablet cetirizine- 2020-0 2021- No 1{tbl} Q.5D Take 1 U T pseudoephed 05-24 tablet by He alth rine 00:00: 04:59 mouth (ZyrTEC-D) 00 :00 twice a 5-120 MG 12 day. hr tablet cetirizine- 2020-0 2021- No 1{tbl} Q.5D Take 1 U T pseudoephed 05-24 tablet by He alth rine 00:00: 04:59 mouth (ZyrTEC-D) 00 :00 twice a 5-120 MG 12 day. hr tablet metroNIDAZO 2020-0 Yes [id number] 500mg Take 1 Univers LE 500 mg 6-05 tablet by ity o f tablet 00:00: mouth [place] 00 every 12 Medical (twelve) Branch hours. metroNIDAZO 2020-0 Yes [id number] 500mg Take 1 Univers LE 500 mg 6-05 tablet by ity o f tablet 00:00: mouth [place] 00 every 12 Medical (twelve) Branch hours. SUMATRIPTAN 2020-0 Yes Take by Uni vers SUCCINATE 6-03 mouth. ity of ORAL 12:00: [place] 00 Medical Branch SUMATRIPTAN 2020-0 Yes Take by Uni vers SUCCINATE 6-03 mouth. ity of ORAL 12:00: [place] 00 Medical Branch Miscellaneo 2013-0 Yes [id number] QHS X U [employer] Medical 5-12 7days ity of Supply 00:00: [place] (PRO-CEPTIO 00 Medical N) [facility] Miscellaneo 2013- Yes [id number] QHS X U nivers Medical 5-12 7days ity of Supply 00:00: [place] (PRO-CEPTIO 00 Medical N) [facility] escitalopra escitalopra No escitalopr [place] [facility] [...] NEEDED FOR MIGRAINE sumatriptan sumatriptan No sumatripta [place] 100 mg 100 mg n 100 mg da tablet TAKE tablet TAKE tablet Medical 1 TABLET BY 1 TABLET BY TAKE 1 Group MOUTH EVERY MOUTH EVERY TABLET BY DAY IF DAY IF MOUTH NEEDED FOR NEEDED FOR EVERY DAY MIGRAINE MIGRAINE IF NEEDED FOR MIGRAINE Immunizations Ordered Filled Immunization Date Status Comments [facility] e Immunization Name Name [facility] 2017-03-27 Completed University 00:00:00 [facility] 2017-03-27 Completed University 00:00:00 [facility] 2010-08-31 Completed University of 00:00:00 [facility] 2010-08-31 Completed [facility] 2009-05-31 Completed University 00:00:00 [facility] 2009-05-[address] [facility] 00:00:00 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) Group BP Systolic 2022-05-22 00:00:00 120 mm[Hg] [facility] Body Weight 2022-05-22 00:00:00 209.5 [facility]lb_av[facility] Systolic blood 2021-11-21 16:22:00 116 mm[facility]Hg[facility] Diastolic blood 2021-11-21 16:22:00 78 mm[Hg] [facility] Heart rate 2021-11-21 16:22:00 96 [facility]min [facility] Body temperature 2021-11-21 16:22:00 36.67 [facility] Body height 2021-11-21 16:22:00 172.7 cm [facility] Body weight 2021-11-21 16:22:00 99.054 kg [facility] BMI 2021-11-21 16:22:00 33.20 kg/m2 [facility] Oxygen saturation in 2021-11-21 16:22:00 98 /min [facility] Arterial blood by Pulse oximetry BP Diastolic 2021-03-14 00:00:00 70 mm[Hg] [facility] Height 2021-03-14 00:00:00 68 [in_i] [facility] BMI (Body Mass 2021-03-14 00:00:00 33.2 kg/m2 [facility]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 [id number] 2022-03-18 00:00:[address] [facility] [id number] 2022-03-18 00:00:[address] [facility] AUTHORIZATION FOR 2021-12-04 05:01:00 Doctor Unassigned, No [facility] RELEASE OF PHI Name Medical Branch Delivery [facility] Plan of Care Planned Activity Planned Date Details Comments Source Diagnostic Test 2022-05-22 CBC w/ auto diff [facility] Pending 00:00:00 [code = CBC w/ Group auto diff] Diagnostic Test 2022-05-22 TSH, serum or [facility] Pending 00:00:00 plasma [code = Group TSH, serum or plasma] Diagnostic Test 2022-05-22 CMP, serum or [facility] Pending 00:00:00 plasma [code = Group CMP, serum or plasma] Diagnostic Test 2022-05-22 lipid panel, serum [facility] air traffic coordinator Medical Pending 00:00:00 [code = lipid Group panel, serum] Diagnostic Test 2022-05-22 HbA1c (hemoglobin [facility] Pending 00:00:00 A1c), blood [code Group = HbA1c (hemoglobin A1c), blood] Diagnostic Test 2022-05-22 prealbumin, serum [facility] 00:00:00 [code = Group prealbumin, serum] Diagnostic Test 2022-05-22 iron + total [facility] Pending 00:00:00 iron-binding Group capacity (TIBC), serum [code = iron + total iron-binding capacity (TIBC), serum] Diagnostic Test 2022-05-22 vitamin B12, serum [facility] air traffic coordinator Medical Pending 00:00:00 [code = vitamin Group B12, serum] Diagnostic Test 2022-05-22 ferritin, serum or [facility] air traffic coordinator Medical Pending 00:00:00 plasma [code = Group ferritin, serum or plasma] Diagnostic Test 2022-05-22 folate, serum [facility] Pending 00:00:00 [code = folate, Group serum] Diagnostic Test 2022-05-22 retic count, blood [facility] air traffic coordinator Medical Pending 00:00:00 [code = retic Group count, blood] Instructions [facility] Encounters Start End Encounter Admission Attending Care Care Encounter Source Date/Time Date/Time Type Type Clinicians Facility Department ID 2021-10-03 Outpatient [facility] [id number] [place] 11:45:52 Health 2022-05-22 2022-05-22 Outpatient IHDE_G [facility] [id number] [place] 00:00:00 00:00:00 921 da Medical Group 2022-05-22 2022-05-22 Efrain [facility] [place] - [id number] M atagor 00:00:00 00:00:00 Terry Pritchard MD: Medical Medica l [address] [place] [address] [address], [place] [address] , Ph. [phone] 2022-05-19 2022-05-19 Outpatient IHDE_G [facility] [id number] [place] 00:00:00 00:00:00 0919 da Medical Group 2022-03-18 2022-03-21 Inpatient NORMAN Wagner [facility] OB [id number] [facility] 13:40:00 16:05:00 [place], [id number] [facility] 2022-03-18 2022-03-21 Inpatient NORMAN Wagner [facility] OBPP [id number] [facility] 13:40:00 16:05:00 [place], 02 [facility] [place] 2022-02-12 2022-02-12 Telephone Myranda Pelaez GERALD 1.2.840.1 [id number] MT 00:00:00 00:00:00 Myranda PelaezMERVIN 350.1.13.58 Health STATION 9.2.7.2.686 BUILDING [id number] 2022-02-11 2022-02-11 Telephone Olive Fagan UTP 1.2.84 0.114 [id number] MT 00:00:00 00:00:00 Olive Fagan [id number] Health STATION 9.2.7.2.686 [facility] [id number] 2022-01-30 2022-01-30 Telephone Olive Fagan UTP 1.2.84 0.114 [id number] MT 00:00:00 00:00:00 Olive Fagan [id number] Health STATION 9.2.7.2.686 [facility] [id number] 2022-01-22 2022-01-22 Outpatient NORMAN Wagner [facility] [id number] [facility] 13:30:00 13:30:00 Judah, 16 [facility] [place] 2021-12-04 2021-12-04 [facility] 1.2.840.[id number] [facility] 00:00:00 00:00:00 ANTONIA 350.1.13.10 it y of [place] 4[place]7.2.686 [place] [facility] [id number] [facility] 134 Branch 2021-12-04 2021-12-04 Orders Doctor PRISCILLA 1.2.840.114 [id number] Univers 00:00:00 00:00:00 Only Unassigned, MEEK 350.1.13.10 ity of [place] [facility] 4.2.7.2.[id number] [place] [address] 2021-11-21 2021-11-21 Consult GERALD Greene 1.2.840.114 [id number] MT 11:00:00 12:46:23 Zayra LAWSON 350.1.13.58 H [facility] 9.2.7.2.686 BUILDING [id number] 2021-07-31 2021-07-31 Outpatient IHDE_G MMG [facility] [id number] [place] 00:00:00 00:00:00 1201 Medical Group 2021-06-20 2021-06-20 [place]HDE_[place] [id number] [place] 02:04:00 02:04:00 1021 Medical [facility] 2021-05-16 2021-05-16 Outpatient IHDE_G MMG G [id number] [place] 02:08:00 02:08:00 0916 Medical [facility] 2021-04-11 2021-04-11 Outpatient IHDE_G MMG [facility] [id number] [place] 01:21:00 01:21:00 0812 Medical Group 2021-03-15 2021-03-15 Outpatient IHDE_G MMG MMG [id number] [place] 12:24:00 12:24:00 0716 Medical [facility] 2021-03-14 2021-03-14 Efrain IHDE_G [place]G [place] - [id number] [place] 00:00:00 00:00:00 Terry Pritchard MD: Medical Medica [address], [place] [address] , Ph. [phone] 2021-03-11 2021-03-11 Outpatient GOOD [place] [facility] [id number] Univers 10:00:00 10:00:00 GOOD YANG [facility] 2021-03-06 2021-03-06 Outpatient IHDE_G MMG MMG [id number] [place] 12:05:00 12:05:00 0707 [facility] 2020-11-29 2020-11-29 Outpatient Javy SPENCER [facility] [id number] Univers 08:00:00 08:00:00 KUNAL schroeder [facility] 2020-09-13 2020-09-13 Outpatient R SIA COBOS [facility] [id number] Univers 15:00:00 15:00:00 itsami [facility] 2020-05-25 2020-05-25 Outpatient R ADUM, [facility] [id number] Univers 15:30:00 15:30:00 SONIA schroeder [facility] 2020-05-23 2020-05-23 Outpatient R ADUM, [facility] [id number] Univers 11:00:00 11:00:00 SOINA schroeder [facility] 2020-05-15 2020-05-15 Outpatient R ADUM, [facility] [id number] Univers 09:30:00 09:30:00 [facility] 2020-02-17 2020-02-17 Outpatient R ADUM, [facility] [id number] Univers 09:00:00 09:00:00 SONIA [facility] 2020-02-13 2020-02-13 Outpatient R ADUM, [facility] [id number] Univers 10:00:00 10:00:00 SONIA [facility] 2020-02-08 2020-02-08 Outpatient R ADUM, [facility] [id number] Univers 13:00:00 13:00:00 SONIA schroeder [facility] 2020-02-03 2020-02-03 Case Adum, [facility] 1.2.840.114 [id number] 00:00:00 00:00:00 Management Sonia Ballard 350.1.13.10 [place] 4.2.7.2.686 Professio [id number] [address] 2020-02-01 2020-02-01 Outpatient R ADUM, [facility] [id number] Univers 15:00:00 15:00:00 SONIA schroeder [facility] 2020-02-01 2020-02-01 Office Adum, [facility] 1.2.840.114 [id number] 11:20:04 12:15:55 Visit Sonia Ballard 350.1.13.10 [place] 4.2.7.2.686 Professio [id number] [facility] 2020-02-01 2020-02-01 Outpatient R COMFORT, [facility] [id number] Univers 11:00:00 11:00:[address] [facility] Results Test Description Test Time Test Comments Results Result Comments Source SURGICAL 2022-04-08 16:34:00 Test Item Value Reference Range Interpretation Comme nts SURGICAL RUN DATE: (test 04/08/22 [facility] PAGE 1 RUN TIME: 1635 Specimen Inquiry RUN USER: INTERFACE code = PATIENT: NEREYDA MCGHEE ACCT #: [id number] LOC: VAN U #: [id number] AGE/SX: 32/F ROOM: [facility] RE03/18/22REG DR: Buck Powell : [birth year] BED: A DIS: 03/21/22 STATUS: DIS IN TLOC: SPEC #: [id number] RECD: STATUS: NERISSA SANFORD #: [id number] JASEN: 03/18/221624 [facility] DR: Buck Powell MD ENTERED: SP TYPE: SURGICAL OTHR DR: DOES_NOT KNOW ORDERED: ANATOMIC SPEC/3, SPEC TRACK, 06070/2, 22871/2, 36715/2, 50012 COPIES TO: DOES_NOT KNOW Buck Powell MD [facility] # [id number] [place] [address] PROCEDURES: 10693 (03/19/22902) 29922 (03/19/22) 44907 (04/08) 66211 (04/08/22) TISSUES: A. PLACENTA, THIRD TRIMESTER (28 [...] Complete luminal cross-section present - Hemangioma, benign CONTINUE D ON NEXT PAGE RUN DATE: 04/08/22 [facility] PAGE 2 RUN TIME: 1635 Specimen Inquiry RUN USER: INTERFACE SPEC #: [id number] PATIENT: NEREYDA FERRIS ANID #[id number] (Continued) FINAL DIAGNOSIS (Continued) C. FALLOPIAN [...] maternal surface. The placental disk is ovoid, hvflykiz52 x 14 x 2.3 cm, and weighs [...] Specimen Inquiry RUN USER: INTERFACE SPEC #: [id number] PATIENT: NEREYDA FERRIS ANID #[id number] (Continued) GROSS DESCRIPTION (Continued ) Technical component performed at [facility], [place] [address] Unless gross only, the diagnosis is based [...] ON BABY B Signed SIGNATURE ON FILE JazlynBrooksasa 04/08/22 9940 END OF REPORT [id number] 06:52:00 Test Item Value Reference Range Interpretation Comments GLUBED (test code = GLUBED) 85 mg/dL 65-110 N [id number] 22:13:00 Test Item Value Reference Range Interpretation Comments GLUBED (test code = GLUBED) 136 mg/dL 65-110 H [id number] 17:05:00 Test Item Value Reference Range Interpretation Comments GLUBED (test code = GLUBED) 166 mg/dL 65-110 H [id number] 11:51:00 Test Item Value Reference Range Interpretation Comments GLUBED (test code = GLUBED) 108 mg/dL 65-110 N [id number] 06:41:00 Test Item Value Reference Range Interpretation Comments GLUBED (test code = GLUBED) 87 mg/dL 65-110 N [id number] 23:44:00 Test Item Value Reference Range Interpretation Comments GLUBED (test code = GLUBED) 170 mg/dL 65-110 H [id number] 14:36:00 Test Item Value Reference Range Interpretation Comments GLUBED (test code = GLUBED) 162 mg/dL 65-110 H CBC W/AUTO [id number] 09:41:00 Test Item Value Reference Range Interpretation [...] REQUIRED (test NORMAL NORMAL code = PLTMR) [id number] 09:39:00 Test Item Value Reference Range Interpretation Comments GLUBED (test code = GLUBED) 153 mg/dL 65-110 H [id number] 07:18:00 Test Item Value Reference Range Interpretation Comments GLUBED (test code = GLUBED) 152 mg/dL 65-110 H [id number] 02:30:00 Test Item Value Reference Range Interpretation Comments GLUBED (test code = GLUBED) 164 mg/dL 65-110 H - XR CHEST 2 [id number] 00:00:00 [facility] : 1990 Sex: F Patient Name: NEREYDA FERRIS Unit No: [id number] EXAMS: CPT CODE: [id number] XR CHEST 2 V 32432 PROCEDURE INFORMATION: Exam: XR Chest Exam date and time: 03/19/2022 11:05 AM Age: 32 years old Clinicalindication: Dyspnea; Additional info: Dyspnea on exertion, S/P TECHNIQUE: Imaging protocol:Radiologic exam of the chest. Views: 2 views. PA and Lateral COMPARISON: No relevant prior studies available. FINDINGS: Lungs: There are normal lung volumes without consolidation or interstitial oppacities. Pleural spaces: Unremarkable. No pleural effusion. No pneumothorax. Heart/Mediastinum: The cardiac silhouette is not enlarged. Bones/joints: No acute abnormality seen. IMPRESSION: No acute cardiopulmonary findings at 1153 Reported and signed by: Benitez Skelton MD CC: Buck So MD Technologist: MARITA SEPULVEDA(R) Trnscrbd D/ (1153) GCD.CPS Orig Print D/T: S: 03/19/2022 (1154) [facility] NAME: NEREYDA FERRIS Radiology Department PHYS: DINORA.01 - Buck Powell [address] : 1990 AGE: 32 SEX: F [place], [place] [address] LOC: F.4620 A PHONE #:[phone] EXAM DATE: 03/19/2022 STATUS: ADM IN FAX #: [phone] RAD NO: Page 1 Signed [id number] 14:14:00 Test Item Value Reference Range Interpretation Comments GLUBED (test code = GLUBED) 80 mg/dL 65-110 N AG HEPATITIS B [id number] 13:55:00 Test Item Value Reference Range Interpretation Comments AG HEPATITIS B SURFACE (test code NONREACTIVE NONREACTIVE = HBSAG) AB HEPATITIS C [id number] 13:55:00 Test Item Value Reference Range Interpretation Comments AB HEPATITIS C (test code = NONREACTIVE NONREACTIVE HCVAB) SIGNAL TO CUTOFF (test code = 0.15 <0.80 N CUTOFF) AB [id number] 13:55:00 Test Item Value Reference Range Interpretation Comments AB TREPONEMA (test code = TREPAB) NONREACTIVE NONREACTIVE AB HIV 1 13:55:00 Test Item Value Reference Range Interpretation Comments AB HIV 1 2 (test NONREACTIVE NONREACTIVE Done by [facility] code = [id number]) 4th Gen HIV Ag/Ab Combo Screen COVID 19 Asymptomatic IH [id number] 13:23:00 Test Item Value Reference Range Interpretation [...] and/o r diagnosis of CO VID-19 under Zncarwg98 4(b)(1) of the Act, 21 U.S .C. 360bbb-3(b)(1), unless theauthorizatio n is terminated or r evoked sooner. URINALYSIS W/O [id number] 13:00:00 Test Item Value Reference Range Interpretation Comments UA GLUCOSE DIPSTICK (test code = NEGATIVE NEG DGLUU) UA KETONE DIPSTICK (test code = NEGATIVE NEG KETU) UA PROTEIN DIPSTICK (test code = 1+ NEG A PROU) IS NURSE PERFORMING TEST? NCBC W/AUTO [id number] 12:48:00 Test Item Value Reference Range Interpretation [...]
[2022-07-11] MEDS ORDERED: NA CHLORIDE 0.9% 1,000 ML ONE (12:29)
[2022-07-11] MEDS ORDERED: MORPHINE 2 MG/ML SYR ONE ×2 (12:29→13:12)
[2022-07-11] MEDS ORDERED: ONDANSETRON 4 MG/2 ML VIAL ONE (12:29)
[2022-07-11] MEDS ORDERED: KETOROLAC 30 MG/ML INJ ONE (12:29)
[2022-07-11 12:30] LABS: Absolute Lymphocytes (CBC) 2.8 K/uL (0.7-4.9); Hematocrit 40.7 % (36.0-45.0); Lymphocytes % 30.5 % (15.3-44.8); MPV 7.6 fL (7.6-11.3); RBC Red Blood Cell Count 4.43 M/uL (3.86-4.86)
[2022-07-11] MEDS ORDERED: PROMETHAZINE INJ 25 MG/ML AMP ONE (13:11)
[2022-07-11 13:17] LABS: Albumin 3.8 g/dL (3.4-5.0); Bilirubin Total 0.4 mg/dL (0.2-1.0)
[2022-07-11 13:50] LABS: Urine Blood Negative (Negative); Urine Glucose Negative (Negative); Urine Protein Negative (Negative); Urine Specific Gravity 1.025 (1.005-1.030)
--- NOTE | 2022-07-11 14:07 | RAD REPORT ---
EXAM DESCRIPTION: CTAbdomen Pelvis Wo Contrast - 07/11/2022 1:57 pm CLINICAL HISTORY: Flank pain, kidney stone suspected COMPARISON: Abdomen Pelvis W Contrast dated 07/08/2022; Abdomen Pelvis W Contrast dated 04/29/2021 TECHNIQUE: CT of the abdomen and pelvis was performed without contrast. All CT scans are performed using dose optimization technique as appropriate and may include automated exposure control or mA/KV adjustment according to patient size. FINDINGS: Lower chest: No acute abnormality. Liver: Hepatic steatosis. Biliary: No biliary ductal dilatation. Stomach: No significant focal abnormality. Duodenum: No significant focal abnormality. Pancreas: No significant abnormality. Spleen: No significant abnormality. Adrenal: No suspicious lesions. Kidney/ureter: Bilateral renal calculi. 5 mm stone in the left proximal ureter is in similar position ing to 07/08/2022. Mild left-sided hydronephrosis persists. Retroperitoneum: No retroperitoneal adenopathy. Vascular: No aneurysm. Bowel: Normal appendix.. Peritoneum: No ascites or free air. Fat containing periumbilical hernia. Bladder: Grossly unremarkable. Reproductive: No adnexal masses. Bones: No acute fracture. Other: n/a IMPRESSION: Similar positioning of the 5 mm left proximal ureteral stone with mild left-sided hydron ephrosis.
--- NOTE | 2022-07-11 15:39 | ER ---
Nurse's Notes [facility] Name: Rosalva De La Rosa Age: 32 yrs Sex: Female : 1990 Arrival Date: 07/11/2022 Time: 11:40 Bed 23 Private MD: Diagnosis: Kidney Stone/ Calculus in urethra Presentation: 07/11 11:57 Chief complaint: Patient states: DX with a kidney stone a week ago in the ED, but was ss told to come back if symptoms worsen or are ongoing. PT was able to get a follow up appointment with urology, but not until Thursday. C/o L sided flank/ abd pain, nausea/ vomiting. Coronavirus screen: Client denies travel out of the [place] in the last 14 days. Ebola Screen: Patient denies exposure to infectious person. Patient denies travel to an Ebola-affected area in the 21 days before illness onset. Initial Sepsis Screen: Does the patient meet any 2 criteria? No. Patient's initial sepsis screen is negative. Does the patient have a suspected source of infection? No. Patient's initial sepsis screen is negative. Risk Assessment: Do you want to hurt yourself or someone else? Patient reports no desire to harm self or others. Onset of symptoms was July 04, 2022. 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 - Social history:: Smoking status: Patient denies any tobacco usage or history of. Screenin:08 Abuse screen: Denies threats or abuse. Nutritional screening: No deficits noted. em6 Tuberculosis screening: No symptoms or risk factors identified. 12:26 Fall Risk IV access (20 points). Total Resendez Fall Scale indicates No Risk (0-24 pts). em6 Assessment: 12:25 General: Appears uncomfortable, Behavior is cooperative, crying. Pain: Complains of em6 pain in posterior aspect of left lateral abdomen and anterior aspect of left lateral abdomen Pain does not radiate. Pain currently is 10 out of 10 on a pain scale. Quality of pain is described as sharp. Neuro: Level of Consciousness is awake, alert, obeys commands, Oriented to person, place, time, situation. Cardiovascular: Patient's skin is warm and dry. Respiratory: Airway is patent Respiratory effort is even, unlabored, Respiratory pattern is regular, symmetrical. GI: Abdomen is non-distended, Abd is soft and non tender X 4 quads. Reports nausea, vomiting. : No signs and/or symptoms were reported regarding the genitourinary system. EENT: No signs and/or symptoms were reported regarding the EENT system. Derm: No signs and/or symptoms reported regarding the dermatologic system. Musculoskeletal: Circulation, motion, and sensation intact. Range of motion: intact in all extremities. 13:18 Reassessment: patient states pain in the left lower back. 10 out of 10 provider em6 notified. new order given. 14:25 Reassessment: No changes from previously documented assessment. Patient and/or family em6 updated on plan of care and expected duration. Pain level reassessed. Patient is alert, oriented x 3, equal unlabored respirations, skin warm/dry/pink. Patient states symptoms have improved. 15:25 Reassessment: No changes from previously documented assessment. Patient and/or family em6 updated on plan of care and expected duration. Pain level reassessed. Patient is alert, oriented x 3, equal unlabored respirations, skin warm/dry/pink. Vital Signs: 11:57 BP 141 / 103; Pulse 78; Resp 16; Temp 97.9(TE); Pulse Ox 100% on R/A; Weight 94.35 kg; ss Height 5 ft. 8 in. (172.72 cm); Pain 10/10; 12:25 BP 143 / 105; Pulse 73; Resp 18; Pulse Ox 100% on R/A; em6 13:15 BP 128 / 91; Pulse 63; Resp 18; Pulse Ox 98% on R/A; em6 14:00 BP 117 / 71; Pulse 60; Resp 16; Pulse Ox 96% on R/A; em6 14:45 BP 111 / 68; Pulse 60; Resp 18; Pulse Ox 95% on R/A; em6 15:30 BP 121 / 73; Pulse 66; Resp 18; Pulse Ox 96% on R/A; em6 11:57 Body Mass Index 31.63 (94.35 kg, 172.72 cm) ED Course: 11:40 Patient arrived in ED. am2 11:59 Triage completed. ss 11:59 Arm band placed on right wrist. ss 12:07 Marianela Willis, RN is Primary Nurse. em6 12:15 Salvatore Sotomayor is PHCP. jl9 12:15 Shon Boyce MD is Attending Physician. jl9 12:26 Bed in low position. Call light in reach. Side rails up X 1. Pulse ox on. NIBP on. Warm em6 blanket given. 12:26 Inserted saline lock: 22 gauge in left wrist, using aseptic technique. Blood collected. em6 12:26 CMP Sent. em6 12:26 CBC with Diff Sent. em6 13:58 CT Abd/Pelvis - Without Contrast In Process Unspecified. EDMS 15:38 Nic Gonzalez MD is Referral Physician. jl9 15:58 No provider procedures requiring assistance completed. IV discontinued, intact, em6 bleeding controlled, No redness/swelling at site. Pressure dressing applied. Administered Medications: 12:37 Drug: NS 0.9% 1000 ml Route: IV; Rate: 1000 ml; Site: left wrist; em6 14:00 Follow up: Response: No adverse reaction; IV Status: Completed infusion; IV Intake: em6 1000ml 12:37 Drug: Ketorolac 30 mg Route: IVP; Site: left wrist; em6 13:00 Follow up: Response: No adverse reaction em6 12:37 Drug: morphine 2 mg Route: IVP; Infused Over: 4 mins; Site: left wrist; em6 13:00 Follow up: Response: No adverse reaction; RASS: Alert and Calm (0) em6 12:37 Drug: Ondansetron 4 mg Route: IVP; Site: left wrist; em6 13:00 Follow up: Response: No adverse reaction em6 13:18 Drug: morphine 2 mg Route: IVP; Infused Over: 4 mins; Site: left wrist; em6 14:00 Follow up: Response: No adverse reaction; RASS: Alert and Calm (0) em6 13:18 Drug: Phenergan (promethazine) 12.5 mg Route: IVP; Site: left wrist; em6 14:00 Follow up: Response: No adverse reaction em6 Medication: 15:58 VIS not applicable for this client. em6 Intake: 14:00 IV: 1000ml; Total: 1000ml. em6 Outcome: 15:38 Discharge ordered by MD. mendoza 15:58 Discharged to home ambulatory, with significant other. em6 15:58 Condition: stable 15:58 Discharge instructions given to patient, significant other, Instructed on discharge instructions, follow up and referral plans. medication usage, Demonstrated understanding of instructions, follow-up care, medications, Prescriptions given X 2. 15:58 Patient left the ED. em6 Signatures: Dispatcher [employer] EDMS Eva Vieyra RN RN Shelbi Wills John jl9 Martinez, Erika, RN RN em6
--- NOTE | 2022-07-11 15:40 | EDPHYS ---
[facility] Name: Rosalva De La Rosa Age: 32 yrs Sex: Female : 1990 Arrival Date: 07/11/2022 Time: 11:40 Bed 23 Private MD: ED Physician Shon Boyce HPI: 07/11 15:34 This 32 yrs old Female presents to ER via Ambulatory with complaints of flank jl9 pain. Patient diagnosed with a kidney stone recently but states pain has returned. Patient has upcoming appointment with urology. . 15:34 The patient presents to the emergency department with nausea. Onset: The jl9 symptoms/episode began/occurred this morning. The symptoms are aggravated by nothing. The symptoms are alleviated by nothing. Associated signs and symptoms: Pertinent positives: nausea. Severity of symptoms: Pain is currently a 6 / 10. The patient has experienced a previous episode. 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 - Social history:: Smoking status: Patient denies any tobacco usage or history of. ROS: 15:36 Constitutional: Negative for fever, chills, and weight loss, Eyes: Negative for injury, jl9 pain, redness, and discharge, ENT: Negative for injury, pain, and discharge, Neck: Negative for injury, pain, and swelling, Cardiovascular: Negative for chest pain, palpitations, and edema, Respiratory: Negative for shortness of breath, cough, wheezing, and pleuritic chest pain, Abdomen/GI: Negative for abdominal pain, nausea, vomiting, diarrhea, and constipation. 15:36 : Negative for injury, bleeding, discharge, and swelling, MS/Extremity: Negative for injury and deformity, Skin: Negative for injury, rash, and discoloration, Neuro: Negative for headache, weakness, numbness, tingling, and seizure, Psych: Negative for depression, anxiety, suicide ideation, homicidal ideation, and hallucinations, Allergy/Immunology: Negative for hives, rash, and allergies, Endocrine: Negative for neck swelling, polydipsia, polyuria, polyphagia, and marked weight changes, Hematologic/Lymphatic: Negative for swollen nodes, abnormal bleeding, and unusual bruising. 15:36 Back: Positive for flank pain, on the left. Exam: 15:37 Constitutional: This is a well developed, well nourished patient who is awake, alert, jl9 and in no acute distress. Head/Face: Normocephalic, atraumatic. Eyes: Pupils equal round and reactive to light, extra-ocular motions intact. Lids and lashes normal. Conjunctiva and sclera are non-icteric and not injected. Cornea within normal limits. Periorbital areas with no swelling, redness, or edema. ENT: Mucous membranes moist. Neck: Trachea midline, no thyromegaly or masses palpated, and no cervical lymphadenopathy. Supple, full range of motion without nuchal rigidity, or vertebral point tenderness. No Meningismus. Chest/axilla: Normal chest wall appearance and motion. Nontender with no deformity. No lesions are appreciated. Cardiovascular: Regular rate and rhythm with a normal S1 and S2. No gallops, murmurs, or rubs. Normal PMI, no JVD. No pulse deficits. Respiratory: Lungs have equal breath sounds bilaterally, clear to auscultation and percussion. No rales, rhonchi or wheezes noted. No increased work of breathing, no retractions or nasal flaring. Abdomen/GI: Soft, non-tender, with normal bowel sounds. No distension or tympany. No guarding or rebound. No evidence of tenderness throughout. 15:37 Skin: Warm, dry with normal turgor. Normal color with no rashes, no lesions, and no evidence of cellulitis. MS/ Extremity: Pulses equal, no cyanosis. Neurovascular intact. Full, normal range of motion. Neuro: Awake and alert, GCS 15, oriented to person, place, time, and situation. Cranial nerves II-XII grossly intact. Motor strength 5/5 in all extremities. Sensory grossly intact. Cerebellar exam normal. Normal gait. Psych: Awake, alert, with orientation to person, place and time. Behavior, mood, and affect are within normal limits. 15:37 Back: pain, that is moderate, ROM is normal, normal spinal alignment noted, CVA tenderness, is absent, muscle spasm, is not present. Vital Signs: 11:57 BP 141 / 103; Pulse 78; Resp 16; Temp 97.9(TE); Pulse Ox 100% on R/A; Weight 94.35 kg; ss Height 5 ft. 8 in. (172.72 cm); Pain 10/10; 12:25 BP 143 / 105; Pulse 73; Resp 18; Pulse Ox 100% on R/A; em6 13:15 BP 128 / 91; Pulse 63; Resp 18; Pulse Ox 98% on R/A; em6 14:00 BP 117 / 71; Pulse 60; Resp 16; Pulse Ox 96% on R/A; em6 14:45 BP 111 / 68; Pulse 60; Resp 18; Pulse Ox 95% on R/A; em6 15:30 BP 121 / 73; Pulse 66; Resp 18; Pulse Ox 96% on R/A; em6 11:57 Body Mass Index 31.63 (94.35 kg, 172.72 cm) ss MDM: 12:15 Patient medically screened. jl9 15:37 Data reviewed: vital signs, nurses notes. Counseling: I had a detailed discussion with jl9 the patient and/or guardian regarding: the historical points, exam findings, and any diagnostic results supporting the discharge/admit diagnosis, lab results, radiology results, the need for outpatient follow up, to return to the emergency department if symptoms worsen or persist or if there are any questions or concerns that arise at home. 15:37 Differential diagnosis: cholecystitis, pancreatitis, Kidney stone. Response to jl9 treatment: the patient's symptoms have resolved after treatment, the patient's pain is gone. 15:38 ED course: Discussed admission vs discharge. Patient would like to be discharged since jl9 pain has resolved. . 07/11 12:01 Order name: CBC with Diff; Complete Time: 12:54 ss 07/11 12:01 Order name: CMP; Complete Time: 13:20 ss 07/11 13:21 Order name: CT Abd/Pelvis - Without Contrast; Complete Time: 14:08 jl9 07/11 13:51 Order name: Urine Dipstick-Ancillary; Complete Time: 14:08 EDMS 07/11 13:43 Order name: Urine Dipstick-Ancillary (obtain specimen); Complete Time: 14:06 jl9 07/11 13:43 Order name: Urine Test (obtain specimen); Complete Time: 14:06 jl9 Administered Medications: 12:37 Drug: NS 0.9% 1000 ml Route: IV; Rate: 1000 ml; Site: left wrist; em6 14:00 Follow up: Response: No adverse reaction; IV Status: Completed infusion; IV Intake: em6 1000ml 12:37 Drug: Ketorolac 30 mg Route: IVP; Site: left wrist; em6 13:00 Follow up: Response: No adverse reaction em6 12:37 Drug: morphine 2 mg Route: IVP; Infused Over: 4 mins; Site: left wrist; em6 13:00 Follow up: Response: No adverse reaction; RASS: Alert and Calm (0) em6 12:37 Drug: Ondansetron 4 mg Route: IVP; Site: left wrist; em6 13:00 Follow up: Response: No adverse reaction em6 13:18 Drug: morphine 2 mg Route: IVP; Infused Over: 4 mins; Site: left wrist; em6 14:00 Follow up: Response: No adverse reaction; RASS: Alert and Calm (0) em6 13:18 Drug: Phenergan (promethazine) 12.5 mg Route: IVP; Site: left wrist; em6 14:00 Follow up: Response: No adverse reaction em6 Disposition Summary: 07/11/22 15:38 Discharge Ordered Location: Home jl9 Condition: Stable jl9 Diagnosis - Kidney Stone/ Calculus in urethra jl9 Followup: jl9 - With: Nic Gonzalez MD - When: 1 - 2 days - Reason: Recheck today's complaints, Continuance of care, Re-evaluation by your physician Discharge Instructions: - Discharge Summary Sheet jl9 Forms: - Medication Reconciliation Form jl9 - Thank You Letter jl9 - Antibiotic Education jl9 - Prescription Opioid Use jl9 Prescriptions: - ketorolac 10 mg Oral tablet - take 1 tablet by ORAL route every 6 hours not to exceed 40mg in 24hrs for up to jl9 5 days total use; 20 tablet; Refills: 0, Product Selection Permitted - Tylenol-Codeine #3 300 mg-30 mg Oral - take 1 tablet by ORAL route every 6 hours; 20 tablet; Refills: 0, Product jl9 Selection Permitted Signatures: Dispatcher [facility] Eva Gonzalez RN RN ss Linares, John 9 Marianela Willis RN RN em6
[2022-07-11 16:22] VITALS: TEMP 97.9
[2022-07-11 16:27] VITALS: BP 121/73; O2SAT 96
== END 2022-07-11 15:58 | disposition home or self-care (01) ==
LOC: ER 11:38
DX: N20.0 Calculus of kidney (principal); N21.1 Calculus in urethra; Z87.442 Personal history of urinary calculi
CPT/HCPCS: 96361; 85025; 36415; 81003; 80053; 74176; 96375; 96374; 99284; J2550; J2270 ×2; J7030; J2405

== ENCOUNTER 2022-08-12 10:27 | Day surgery (SDC) | payer OTHER ==
[2022-08-08 10:23] LABS: Absolute Lymphocytes (CBC) 2.2 K/uL (0.7-4.9); Hematocrit 40.9 % (36.0-45.0); Lymphocytes % 24.7 % (15.3-44.8); MCV 93.3 fL (80-100); MPV 7.9 fL (7.6-11.3); RBC Red Blood Cell Count 4.38 M/uL (3.86-4.86)
[2022-08-08 10:25] LABS: Protime INR 1.03
--- NOTE | 2022-08-08 17:36 | EKG ---
Test Date: 2022-08-08 Test Time: 10:08:47 Incident Response Consultant: COLBY MEASUREMENT RESULTS: Intervals: Rate: 75 TN: 130 QRSD: 82 QT: 412 QTc: 460 [place]: P: 31 TN: 130 QRS: 32 T: 35 INTERPRETIVE STATEMENTS: Normal sinus rhythm Normal ECG Compared to ECG 11/19/2020 11:40:09 Sinus tachycardia no longer present Electronically Signed On 08-08-22 17:35:48 GEAR MACHINE OPERATOR GENERAL by Lan Fregoso
--- NOTE | 2022-08-11 15:07 | EKG ---
Test Date: 2022-08-08 Test Time: 10:47:35 Pupil Personnel Worker: COLBY MEASUREMENT RESULTS: Intervals: Rate: 60 KS: 164 QRSD: 152 QT: 462 QTc: 462 [place]: P: 71 KS: 164 QRS: -59 T: 85 INTERPRETIVE STATEMENTS: Normal sinus rhythm Left axis deviation Left ventricular hypertrophy with QRS widening and repolarization abnormality Abnormal ECG Compared to ECG 08/08/2022 10:08:47 Left-axis deviation now present Left ventricular hypertrophy now present Early repolarization now present Electronically Signed On 08-11-22 14:59:04 ECOLOGICAL RISK ASSESSOR by Lan Fregoso
[2022-08-12] MEDS ORDERED: AMPICILLIN SODIUM 2 GM/VIAL VIAL ONE (10:58)
[2022-08-12] MEDS ORDERED: Ringers Lactate 1,000 ML IV ONE (10:58)
[2022-08-12] MEDS ORDERED: Gentamicin Inj 160 MG in NA CHLORIDE 0.9% 100 ML IV ONE (11:15)
[2022-08-12] MEDS ORDERED: propofoL 200 MG/20 ML VIAL IV ONE (11:41)
[2022-08-12] MEDS ORDERED: FENTANYL CITR 100 MCG/2 ML ONE (11:41)
[2022-08-12] MEDS ORDERED: MIDAZOLAM HCL 2 MG/2 ML INJ ONE (12:05)
[2022-08-12] MEDS ORDERED: dexAMETHasone 10 MG/ML VIAL ONE (12:40)
[2022-08-12] MEDS ORDERED: KETOROLAC 30 MG/ML INJ ONE (12:41)
[2022-08-12] MEDS ORDERED: ONDANSETRON 4 MG/2 ML VIAL ONE (12:43)
[2022-08-12] MEDS ORDERED: Mastisol Adhesive Liq ONE (12:50)
--- NOTE | 2022-08-12 13:20 | RAD REPORT ---
EXAM DESCRIPTION: RAD - Urethrocystogrphy Retrograde - 08/12/2022 1:14 pm CLINICAL HISTORY: LEFT STENT PLACEMENT COMPARISON: No comparisons FINDINGS: Total fluoro time: 0.12 minutes
[2022-08-12] MEDS ORDERED: PHENAZOPYRIDINE 100MG TAB PO ONE ×2 (13:39→14:28)
[2022-08-12] MEDS ORDERED: CODEINE 30MG/APAP 300MG TAB PO PRN (13:39)
[2022-08-12] MEDS ORDERED: CODEINE 30MG/APAP 300MG TAB ONE (14:28)
[2022-08-12 14:53] VITALS: BP 121/68; TEMP 97; O2SAT 98
--- NOTE | 2022-08-13 09:48 | OP ---
Surgeon: JANIA MTZ Preoperative Diagnosis: 4.5 mm left proximal ureteral calculus. Postoperative Diagnosis: 4.5 mm left proximal ureteral calculus. Procedures: 1.Cystoscopy. 2.Left retrograde pyelography. 3.Left ureteroscopy with stone basketing. 4.Left tethered ureteral stent placement. Indication For Procedure: Ms. Wright is a 32-year-old woman who [facility] in the Emergency Department with flank pain associated with the presence of an obs tructing proximal ureteral calculus. While her pain had resolved, she was straining her urine, but n ever saw passage of the stone. Her only symptom ongoing was increased urinary frequency. I counsele d her though that there was a 90% likelihood that the stone was still present, just only partially ob structing in the ureter and therefore not causing a significant degree of obstruction and pain. As a result, I recommended operative evaluation. Procedure In Detail: The patient was consented in the preoperative holding area before being transfe rred to the operative suite, where general anesthesia was induced. She was given ampicillin and gent amicin 2-3 mg/kg IV antimicrobial prophylaxis and Pneumoboots were provided for DVT prophylaxis. She was placed in the lithotomy position, padded and secured to the table appropriately, and her genital ia were prepped with Hibiclens and draped in standard fashion. The case was begun using a 22-Senegalese rigid cystoscope to traverse the urethra and into the bladder with ease. The bladder was decompresse d off fluid and urine, and surveyed in its entirety. There were no papillary mucosal lesions, foreig n bodies, or stones noted throughout. The ureteral orifices were orthotopic in location, and I cannu lated the left ureteral orifice using the tip of the Sensor wire and a 5-Senegalese ureteral access jennifer ter. I was able to navigate the 5-Senegalese ureteral access catheter into the distal ureter where a ret rograde pyelogram was then performed. Left retrograde pyelography: Using a 70:30 mixture of Omnipaque and saline, contrast was injected vi a the lumen of the 5-Senegalese ureteral access catheter and did propagate up a moderately dilated mid di stal ureter before entering a mild dilated pelviectasis without significant caliectasis. However, gi alexx the clinical suspicion, I went ahead and placed a Sensor wire via the 5-Senegalese ureteral access ca theter and coiled it within the putative upper pole of the kidney. I then passed a dual-lumen cathet er into her distal ureter to dilate the ureteral orifice. Then, using the semirigid ureteroscope, al theresa with pressurized saline, I passed the scope under direct vision via the urethra and into the uret eral orifice, navigating it up the distal into the mid ureter before entering the proximal ureter whe re the stone was noted. Because it was at the very extent of the reach of the ureteral scope, beyond which I would not be comfortable pressing forward due to the distortion required to get it to that p oint, I then utilized a 1.9-Senegalese 0 tip Nitinol basket passed via the semirigid ureteroscope to gras p the stone and bring it down into the distal ureter. Because it was continuing to pass and the uret er was dilated nicely, I was able to simply remove the calculus intact without requiring laser lithot ripsy. This was sent for pathologic analysis. I then back loaded the cystoscope over the safety wir e and passed a 6-Senegalese x 26 cm double-J ureteral stent with a coil observed fluoroscopically within the renal pelvis and one cystoscopically formed in the bladder. The stent was tethered to a string, which was secured to her introitus using Mastisol and Steri-Strips after I decompressed her bladder o ff fluid and urine. She was then taken out of the lithotomy position, awakened from general anesthes ia, transferred to a stretcher, and then transferred to the recovery room in good condition. Complications: None. Discharge Disposition: If she is a first time stone former, she will be instructed to increase the v olume of her fluid intake such that she voids at least every 3-4 hours during the day with a full amari dder to decrease her risk of future stone formation by producing at least 2 L of urine. If she ia re current stone former, she should be set up with [facility] metabolic analysis to be performed about 1 month after the stent is removed on Thursday. A dose of antimicrobial prophylaxis may be provided like ly with Macrobid, if no allergies at the time of stent removal on Thursday. Subsequent followup should then be established with me in about 2 months, if she is a recurrent stone former. WR/MODL Voice ID: [id number] Report ID: [id number]
== END 2022-08-12 14:50 | disposition home or self-care (01) ==
LOC: OR 10:27
PROVIDERS: ATTEND Urology
PROC: 0T9780Z Drainage of Left Ureter with Drainage Device, Via Natural or Artificial Opening Endoscopic (ICD-10-PCS; 2022-08-12)
PROC: 0TC78ZZ Extirpation of Matter from Left Ureter, Via Natural or Artificial Opening Endoscopic (ICD-10-PCS; principal; 2022-08-12 11:30)
DX: N20.1 Calculus of ureter (principal); F41.9 Anxiety disorder, unspecified; E66.9 Obesity, unspecified; N23 Unspecified renal colic
CPT/HCPCS: 93005 ×2; 87088; 85025; 87086; 80048; 36415; 85610; 88300; 82360; 74450; 51610; 52352; 52332; J2704; J1580; J2250; J3010; J1100; J7120; J2405; J0290

== ENCOUNTER 2022-08-13 08:56 | Emergency (ER) | payer OTHER ==
--- OUTSIDE RECORDS SUMMARY | 2022-08-13 09:00 | XMS REPORT | Continuity of Care Document ---
:1990 Author Organization [facility] t Address [address] [place] [address] Care Team Providers Name Role Phone Unknown, Physician Primary Care Physician Unavailable IHDE_G Attending Clinician Unavailable Buck Powell Attending Clinician Unavailable Myranda Pelaez RN Attending Clinician Unavailable Olive Fagan RN Attending Clinician Unavailable Sia Cobos MD Attending Clinician Doctor Unassigned, [place] Attending Clinician Unavailable Zayra Greene MD Attending Clinician GOOD YANG Attending Clinician Unavailable GOOD YANG Attending Clinician Unavailable KUNAL SPENCER Attending Clinician Unavailable SIA COBOS Attending Clinician Unavailable SONIA MCKINNON Attending Clinician Unavailable Sonia Mckinnon MD Attending Clinician IHDE_G Admitting Clinician Unavailable Buck Powell Admitting Clinician Unavailable Payers Payer Name Policy Type Policy Number Effective Date Expiration Date S ource AETNA CHOICE POS [id number] 2018 00:00:00 II AETNA [id number] 2018 00:00:00 Problems Condition Condition Condition Status [...] advice and advice 00:00: g of this [place] for for note Medical contracept contracept might be Branch luis armando luis armando different management management from the original. 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 UTI UTI Disease Active 2013-08 Univers (urinary (urinary 0-29 ity of tract tract 00:00: [place] infection) infection) 00 Me dical Branch Hematuria Hematuria Disease Active 2013-08 Uni vers 0-29 ity of 00:00: [place] 00 Medical Branch Dysuria Dysuria Disease Active 2013-08 Univers 0-28 ity of 00:00: [place] 00 Medical Branch [id number] Ureterolit Problem Com mon hiasis [facility] [id number] Right Problem Common nephrolith [facility] iasis [facility] [id number] Renal Problem Common colic on [facility] left side [facility] Allergies, Adverse Reactions, Alerts Allergy Allergy Status Severity Reaction(s) Onset Inactive Treating Comm ents Source Name Type Date Date Clinician No Known DA Active U [facility] Allergie 03-18 [facility] [place] NO KNOWN Drug Active Univers ALLERGIE Class ity of S [place] Medical Jet Social History Social Habit Start Date Stop Date Quantity Comments Source History SDOH University o f Alcohol Frequency [place] M edical Branch History SDOH University o f Alcohol Std [place] Medical Drinks Branch History SDOH University o f Alcohol Binge [place] Medic al Branch History of [facility] - [facility] Use [facility] Sex Assigned At [facility] ASSERTION [facility] Exposure to 2022-01-05 2022-02-04 Not sure [facility] SARS-CoV-2 00:00:00 13:42:00 (event) Cigarette 2021-11-21 2021-11-21 [place] [facility] pack-years 00:00:00 00:00:00 Tobacco use and 2021-11-21 2021-11-21 Smokeless tobacco [facility] exposure 00:00:00 00:00:00 non-user Alcohol intake 2021-11-21 2021-11-21 Ex-drinker [place] [facility] 00:00:00 00:00:00 (finding) Alcohol Comment 2013-08-03 2013-08-03 socially Universit y of 00:00:00 00:00:00 [facility] Smoking Status Start Date Stop Date Source Never Smoker [facility] Medications Ordered Filled Start Stop [...] by Health PO) 11:26: mouth. 08 Acetaminoph 0 Yes 500mg Take 500 U T en (TYLENOL 3-24 mg by Health PO) 11:26: mouth. 08 Acetaminoph 2021-0 Yes 500mg Take 500 U T en (TYLENOL 3-24 mg by Health PO) 11:26: mouth. 08 cetirizine- 2020-0 2- No 1{tbl} Q.5D Take 1 U T [...] 12 day. hr tablet metroNIDAZO 2020-0 Yes [id number] 500mg Take 1 Univers LE 500 mg 6-05 tablet by ity o f tablet 00:00: mouth [place] 00 every 12 Medical (twelve) Branch hours. metroNIDAZO 2020-0 Yes [id number] 500mg Take 1 Univers LE 500 mg 6-05 tablet by ity o f tablet 00:00: mouth [place] 00 every 12 Medical (twelve) Branch hours. SUMATRIPTAN 2020-0 Yes Take by Uni vers SUCCINATE 6-03 mouth. ity of ORAL 12:00: [place] Medical [facility] SUMATRIPTAN 2020-0 Yes Take by Uni vers SUCCINATE 6-03 mouth. ity of ORAL 12:00: [place] 00 Medical Branch Miscellaneo 2013-0 Yes [id number] QHS X U nivers Medical 5-12 7days ity of Supply 00:00: [place] (PRO-CEPTIO 00 Medical N) [facility] Miscellaneo Yes [id number] QHS X U nivers us Medical 5-12 7days ity of Supply 00:00: [place] (PRO-CEPTIO 00 Medical N) [facility] escitalopra escitalopra No escitalopr [place] [...] DAY MIGRAINE MIGRAINE IF NEEDED FOR MIGRAINE Saxenda Saxenda No Saxenda Flomax Flomax No Flomax Ketorolac Ketorolac No Ketorolac Tromethamin Tromethamin Tromethami e e ne Adipex-P Adipex-P No Adipex-P lexapro lexapro No lexapro Tylenol # 3 Tylenol # 3 No Tylenol # 3 lexapro lexapro No lexapro Flomax Flomax No Flomax Ketorolac Ketorolac No Ketorolac Tromethamin Tromethamin Tromethami e e ne Tylenol # 3 Tylenol # 3 No Tylenol # 3 Saxenda Saxenda No Saxenda Adipex-P Adipex-P No Adipex-P Immunizations Ordered Filled Immunization Date Status Comments Sourc e Immunization Name Name [facility] 2017-03-27 Completed [facility] :00: [facility] TDAP 2017-03-27 Completed University :00: [facility] TDAP 2010-08-31 Completed University :00: [facility] TDAP 2010-08-31 Completed University :00:00 [facility] Rubella 2009-05-31 Completed [facility] 00:00: [facility] Rubella 2009-05-31 Completed [facility] 00:00:00 [facility] Vital Signs Vital Name Observation Time Observation Value Comments Source height 2022-07-30 08:15:00 67 [in_i] [facility] weight 2022-07-30 08:15:00 212 [lb_av] Common [facility] temperature 2022-07-30 08:15:00 97.3 [degF] Common [facility] bmi 2022-07-30 08:15:00 33.2 kg/m2 Common [facility] oximetry 2022-07-30 08:15:00 99 % [facility] respiratory rate 2022-07-30 08:15:00 18 /min Comm on [facility] blood pressure 2022-07-30 08:15:00 124 mm[Hg] Common [facility] - systolic [facility] blood pressure 2022-07-30 08:15:00 79 mm[Hg] Common [facility] - diastolic [facility] height 2022-07-16 08:30:00 67 [in_i] Common [facility] weight 2022-07-16 08:30:00 215.8 [lb_av] [facility] temperature 2022-07-16 08:30:00 97.6 [degF] Common [facility] bmi 2022-07-16 08:30:00 33.8 kg/m2 [facility] oximetry 2022-07-16 08:30:00 99 % [facility] respiratory rate 2022-07-16 08:30:00 18 /min Comm [facility] blood pressure 2022-07-16 08:30:00 123 mm[Hg] Common [facility] - systolic [facility] blood pressure 2022-07-16 08:30:00 70 mm[Hg] Common [facility] - diastolic [facility] BP Diastolic 2022-05-22 00:00:00 70 mm[Hg] [facility] Height 2022-05-22 00:00:00 68 [in_i] [facility] BMI (Body Mass 2022-05-22 00:00:00 31.9 kg/m2 [facility]) [facility] BP Systolic 2022-05-22 00:00:00 120 mm[Hg] [facility] Body Weight 2022-05-22 00:00:00 209.5 [lb_av] [facility] Systolic blood 2021-11-21 16:22:00 116 mm[Hg] [facility] Diastolic blood 2021-11-21 16:22:00 78 mm[Hg] [facility] Heart rate 2021-11-21 16:22:00 96 /[facility] 2021-11-21 16:22:00 36.67 [facility]ya [facility] Body height 2021-11-21 16:22:00 172.7 cm [facility] weight 2021-11-21 16:22:00 99.054 [facility] BMI 2021-11-21 16:22:00 33.20 kg/m2 [facility] Oxygen saturation in 2021-11-21 16:22:00 98 /min [facility] Arterial blood by Pulse oximetry BP Diastolic 2021-03-14 00:00:00 70 mm[Hg] [facility] Height 2021-03-14 00:00:00 68 [in_i] [facility] BMI (Body Mass 2021-03-14 00:00:00 33.2 [facility] BP Systolic 2021-03-14 00:00:00 122 mm[Hg] [facility] Body Weight 2021-03-14 00:00:00 218.2 [lb_av] [facility] Procedures Procedure Date / Time Performing Clinician Source Performed [id number] 2022-03-18 00:00:00 HARAD.01 [facility] [id number] 2022-03-18 00:00:00 HARAD.01 [facility] [id number] 2022-03-18 00:00:00 DINORA.01 [facility] AUTHORIZATION FOR 2021-12-04 05:01:00 Doctor Unassigned, No Univ [facility] RELEASE OF PHI Name Medical Branch Delivery [facility] Section [facility] Plan of Care Planned Activity Planned Date Details Comments Source Diagnostic Test 2022-05-22 iron + total [place] Pending 00:00:00 iron-binding Group capacity (TIBC), serum [code = iron + total iron-binding capacity (TIBC), serum] Diagnostic Test 2022-05-22 vitamin B12, serum [facility] Pending 00:00:00 [code = vitamin Group B12, serum] Diagnostic Test 2022-05-22 ferritin, serum or [facility] Pending 00:00:00 plasma [code = Group ferritin, serum or plasma] Diagnostic Test 2022-05-22 folate, serum [place] Pending 00:00:00 [code = folate, Group serum] Diagnostic Test 2022-05-22 retic count, blood [facility] Pending 00:00:00 [code = retic Group count, blood] Diagnostic Test 2022-05-22 CBC w/ auto diff [facility] Pending 00:00:00 [code = CBC w/ Group auto diff] Diagnostic Test 2022-05-22 TSH, serum or [place] Pending 00:00:00 plasma [code = Group TSH, serum or plasma] Diagnostic Test 2022-05-22 CMP, serum or [place] Pending 00:00:00 plasma [code = Group CMP, serum or plasma] Diagnostic Test 2022-05-22 lipid panel, serum [facility] Pending 00:00:00 [code = lipid Group panel, serum] Diagnostic Test 2022-05-22 HbA1c (hemoglobin [facility] Pending 00:00:00 A1c), blood [code Group = HbA1c (hemoglobin A1c), blood] Diagnostic Test 2022-05-22 prealbumin, serum [facility] Pending 00:00:00 [code = Group prealbumin, serum] Instructions [facility] Encounters Start End Encounter Admission Attending Care Care Encounter Source Date/Time Date/Time Type Type Clinicians Facility Department ID 2022-07-16 Outpatient [facility] [id number] Common 08:33:03 [address] [facility] 2021-10-03 Outpatient [facility] [id number] [place] 11:45:52 Health 2022-07-30 2022-07-30 OFFICE [facility] [id number] Co mmon 00:00:00 00:00:00 VISIT Spirit ESTAB PT - CHI LEVEL 4 [facility] 2022-07-16 2022-07-16 OFFICE STLMLC STLMLC [id number] Co mmon 00:00:00 00:00:00 VISIT NEW Spir it PT LEVEL 2 - CHI [facility] 2022-05-22 2022-05-22 [place] [id number] [place] 00:00:00 00:00:00 0922 Medical Group 2022-05-22 2022-05-22 Efrain MMG [place] - [id number] M atagor 00:00:00 00:00:00 Terry Pritchard MD: Medical Medica [address], [place] [address] , Ph. [phone] 2022-05-19 2022-05-19 Outpatient IHDE_G MMG [facility] [id number] [place] 00:00:00 00:00:00 09[address] [facility] 2022-03-18 2022-03-21 Inpatient NORMAN Wagner [facility] OBPP [id number] [facility] 13:40:00 16:05:00 [place], [id number] [facility] 2022-03-18 2022-03-21 Inpatient NORMAN Wagner [facility] [id number] [facility] 13:40:00 16:05:00 Mass, 02 [facility] 2022-02-12 2022-02-12 Telephone Myranda Pelaez 1.2.840.1 [id number] [place] 00:00:00 00:00:00 Myranda Pelaez [id number] Health [place] 9.2.7.2.686 [facility] [id number] 2022-02-11 2022-02-11 Telephone Olive Fagan 1.2.84 0.114 [id number] [place] 00:00:00 00:00:00 Olive Fagan [id number] Health [place] 9.2.7.2.686 [facility] [id number] 4 2022-01-30 2022-01-30 Telephone Olive Fagan [facility]TP 1.2.84 0.114 [id number] [place] 00:00:00 00:00:00 Olive Fagan [id number] Health ST[place] 9.2.7.2.686 [facility] [id number] 4 2022-01-22 2022-01-22 Outpatient NORMAN Wagner [facility] [id number] [facility] 13:30:00 13:30:00 Mass, 16 [facility] 2021-12-04 2021-12-04 Telephone Sia Cobos [facility] 1.2.840.11 [id number] [facility] 00:00:00 00:00:00 ANTONIA [id number] it y of [facility] 4.2.7.2.686 [facility] [id number] [facility] 134 Branch 2021-12-04 2021-12-04 Orders Doctor PRISCILLA 1.2.840.114 [id number] [facility] 00:00:00 00:00:00 Only Unassigned, MEEK 350.1.13.10 ity of [place] [facility] 4.2.7.2.686 [facility] [id number] [facility] 009 Branch 2021-11-21 2021-11-21 Consult GERALD Greene 1.2.840.114 [id number] [place] 11:00:00 12:46:23 Zayra LAWSON 350.1.13.58 H [facility] 9.2.7.2.686 [facility] [id number] 2021-07-31 2021-07-31 Outpatient IHDE_G MMG MMG [id number] [place] 00:00:00 00:00:00 1201 [facility] 2021-06-20 2021-06-20 Outpatient IHDE_G MMG MMG [id number] [place] 02:04:00 02:04:00 1021 [facility] 2021-05-16 2021-05-16 Outpatient IHDE_G MMG MMG [id number] [place] 02:08:00 02:08:00 0916 [facility] 2021-04-11 2021-04-11 Outpatient IHDE_G MMG [facility] [id number] [place] 01:21:00 01:21:00 0812 [facility] 2021-03-15 2021-03-15 Outpatient IHDE_G MMG MMG [id number] [place] 12:24:00 12:24:00 0716 [facility] 2021-03-14 2021-03-14 Efrain IHDE_G MMG [place] - [id number] [place] 00:00:00 00:00:00 Terry Becerra 07Radha Pritchard MD: Medical Medica [address] [place] [facility] [address], [place] [address] , Ph. [phone] 2021-03-11 2021-03-11 Outpatient GOOD ROWLAND [facility] [id number] Univers 10:00:00 10:00:00 GOOD YANG [facility] 2021-03-06 2021-03-06 Outpatient IHDE_G MMG G [id number] [place] 12:05:00 12:05:00 0707 [address] [facility] 2020-11-29 2020-11-29 Outpatient Javy SPENCER [facility] [id number] Univers 08:00:00 08:00:00 KUNAL [facility] 2020-09-13 2020-09-13 Outpatient R SIA COBOS [facility] [id number] Univers 15:00:00 15:00:00 [facility] 2020-05-25 2020-05-25 Outpatient R ADUM, [facility] [id number] Univers 15:30:00 15:30:00 [facility] 2020-05-23 2020-05-23 Outpatient R ADUM, [facility] [id number] Univers 11:00:00 11:00:00 [facility] 2020-05-15 2020-05-15 Outpatient R ADUM, [facility] [id number] Univers 09:30:00 09:30:00 [facility] 2020-02-17 2020-02-17 Outpatient R ADUM, [facility] [id number] Univers 09:00:00 09:00:00 SONIA schroeder [facility] 2020-02-13 2020-02-13 Outpatient R AD, [facility] [id number] Univers 10:00:00 10:00:00 SONIA schroeder [facility] 2020-02-08 2020-02-08 Outpatient R AD, [facility] [id number] Univers 13:00:00 13:00:00 SONIA [facility] 2020-02-03 2020-02-03 [facility] 1.2.840.114 [id number] 00:00:00 00:00:00 Management Sonia Suarez Nellie 350.1.13.10 [place] 4.2.7.2.686 Juanita [id number] [address] 2020-02-01 2020-02-01 Outpatient R AD, [facility] [id number] Univers 15:00:00 15:00:00 SONIA schroeder [facility] 2020-02-01 2020-02-01 [facility] 1.2.840.114 [id number] 11:20:04 12:15:55 Visit Sonia Suarez Nellie 350.1.13.10 [place] 4.2.7.2.686 Juanita [id number] [address] 2020-02-01 2020-02-01 [facility]patient [facility] [id number] Univers 11:00:00 11:00:00 SONIA [facility] Results Test Description Test Time Test Comments Results Result Comments Source SURGICAL 2022-04-08 16:34:00 Test Item Value Reference Range Interpretation Comme nts SURGICAL RUN DATE: (test 04/08/22 [facility] PAGE 1 RUN TIME: 1635 Specimen Inquiry RUN USER: INTERFACE code = PATIENT: NEREYDA MCGHEE ACCT #: [id number] LOC: VAN U #: [id number] AGE/SX: 32/F ROOM: [facility] RE03/18/22REG DR: Buck Powell : 89 BED: A DIS: 03/21/22 STATUS: DIS IN TLOC: SPEC #: [id number] RECD: STATUS: NERISSA RE #: [id number] JASEN: 03/18/[address] [facility] [address]: Buck Powell MD ENTERED: SP TYPE: SURGICAL OTHR DR: DOES_NOT KNOW ORDERED: ANATOMIC SPEC/3, SPEC TRACK, 60915/2, 04995/2, 83843/2, 81265 COPIES TO: DOES_NOT KNOW Buck Powell MD [facility] [id number] [place] [address] PROCEDURES: [id number] (03/19/22- 902) 63859 (03/19/22) 94935 (04/08-1626) 55074 (04/08/22) TISSUES: A. PLACENTA, THIRD TRIMESTER (28 [...] Specimen Inquiry RUN USER: INTERFACE SPEC #: [id number] PATIENT: NEREYDA FERRIS ANID #[id number] (Continued) FINAL DIAGNOSIS (Continued) C. FALLOPIAN [...] maternal surface. The placental disk is ovoid, dkewnasc63 x 14 x 2.3 cm, and weighs [...] labeled with patient's name and , designated [facility]" consists of a fimbriated fallopian tube [...] specimen is submittedrepresentatively in C1. (ARACELI 04/03/22) CON TINUED ON NEXT PAGE RUN DATE: 04/08/22 [facility] PAGE 3 RUN TIME: 1635 Specimen Inquiry RUN USER: INTERFACE SPEC #: [id number] PATIENT: NEREYDA FERRIS ANID #[id number] (Continued) GROSS DESCRIPTION (Continued ) Technical component performed at [id number] , [place] [address] Unless gross only, the diagnosis is based [...] Christopher Hobson 04/08/22 1634 END OF REPORT [id number] 06:52:00 Test Item Value Reference Range Interpretation Comments GLUBED (test code = GLUBED) 85 mg/dL 65-110 N [id number] 22:13:00 Test Item Value Reference Range Interpretation Comments GLUBED (test code = GLUBED) 136 mg/dL 65-110 H [id number] 17:05:00 Test Item Value Reference Range Interpretation Comments GLUBED (test code = GLUBED) 166 mg/dL 65-110 H [id number] 11:51:00 Test Item Value Reference Range Interpretation Comments GLUBED (test code = GLUBED) 108 mg/dL 65-110 N [id number] 06:41:00 Test Item Value Reference Range Interpretation Comments GLUBED (test code = GLUBED) 87 mg/dL 65-110 N [id number] 23:44:00 Test Item Value Reference Range Interpretation Comments GLUBED (test code = GLUBED) 170 mg/dL 65-110 H [id number] 14:36:00 Test Item Value Reference Range Interpretation Comments GLUBED (test code = GLUBED) 162 mg/dL 65-110 H CBC W/AUTO [id number] 09:41:00 Test Item Value Reference Range Interpretation [...] REQUIRED (test NORMAL NORMAL code = PLTMR) [id number] 09:39:00 Test Item Value Reference Range Interpretation Comments GLUBED (test code = GLUBED) 153 mg/dL 65-110 H [id number] 07:18:00 Test Item Value Reference Range Interpretation Comments GLUBED (test code = GLUBED) 152 mg/dL 65-110 H [id number] 02:30:00 Test Item Value Reference Range Interpretation Comments GLUBED (test code = GLUBED) 164 mg/dL 65-110 H - XR CHEST 2 [id number] 00:00:00 [facility] : 1990 Sex: F Patient Name: NEREYDA FERRIS Unit No: [id number] EXAMS: CPT CODE: [id number] XR CHEST 2 V [id number] PROCEDURE INFORMATION: Exam: XR Chest Exam date [...] GCD.CPS Orig Print D/T: S: 03/19/2022 (1154) [facility] NAME: NEREYDA FERRIS Radiology Department PHYS: APPLEAD.01 - Buck Powell [address] : 1990 AGE: 32 SEX: F [place], [place] [address] LOC: [place]20 A PHONE #:[phone] EXAM DATE: 03/19/2022 STATUS: ADM IN FAX #: [phone] RAD NO: Page 1 Signed [id number] 14:14:00 Test Item Value Reference Range Interpretation Comments GLUBED (test code = GLUBED) 80 mg/dL 65-110 N AG HEPATITIS B [id number] 13:55:00 Test Item Value Reference Range Interpretation Comments AG HEPATITIS B SURFACE (test code NONREACTIVE NONREACTIVE = HBSAG) AB HEPATITIS C [id number] 13:55:00 Test Item Value Reference Range Interpretation Comments AB HEPATITIS C (test code = NONREACTIVE NONREACTIVE HCVAB) SIGNAL TO CUTOFF (test code = 0.15 <0.80 N CUTOFF) AB [id number] 13:55:00 Test Item Value Reference Range Interpretation Comments AB TREPONEMA (test code = TREPAB) NONREACTIVE NONREACTIVE AB HIV 1 13:55:00 Test Item Value Reference Range Interpretation Comments AB HIV 1 2 (test NONREACTIVE NONREACTIVE Done by [facility] code = QET74CE) 4th Gen HIV Ag/Ab Combo Screen COVID 19 Asymptomatic IH [id number] 13:23:00 Test Item Value Reference Range Interpretation [...] of Accreditation. This test is only authori zecaroline for the duration of thedeclaration that circumstances e xist justifying theauthorizatio n of emergency use o f in vitro diagnostic test sfor detection and/o r diagnosis of CO VID-19 under Cbzygzp95 4(b)(1) of the Act, 21 U.S .C. 360bbb-3(b)(1), unless theauthorizatio n is terminated or r evoked sooner. URINALYSIS W/O [id number] 13:00:00 Test Item Value Reference Range Interpretation Comments UA GLUCOSE DIPSTICK (test code = NEGATIVE NEG DGLUU) UA KETONE DIPSTICK (test code = NEGATIVE NEG KETU) UA PROTEIN DIPSTICK (test code = 1+ NEG A PROU) IS NURSE PERFORMING TEST? NCBC W/AUTO [id number] 12:48:00 Test Item Value Reference Range Interpretation [...]
[2022-08-13] MEDS ORDERED: NA CHLORIDE 0.9% 1,000 ML ONE ×2 (09:28→11:12)
[2022-08-13] MEDS ORDERED: ONDANSETRON 4 MG/2 ML VIAL ONE (09:28)
[2022-08-13] MEDS ORDERED: MORPHINE 4 MG/ML SYR ONE ×2 (09:28→12:51)
[2022-08-13 09:39] LABS: Urine Blood 3+ (Negative); Urine Glucose Negative (Negative); Urine Protein 3+ (Negative); Urine Specific Gravity >=1.030 (1.005-1.030)
[2022-08-13 09:51] LABS: Urine Specific Gravity/Preg >1.030 (1.005-1.030)
[2022-08-13 09:54] LABS: Urine Mucus Slight /HPF (None Seen); Urine RBC >50 /HPF (None Seen)
[2022-08-13 10:07] LABS: Absolute Lymphocytes (CBC) 2.5 K/uL (0.7-4.9); Hematocrit 42.4 % (36.0-45.0); Lymphocytes % 15.1 % (15.3-44.8); MCV 93.5 fL (80-100); RBC Red Blood Cell Count 4.54 M/uL (3.86-4.86)
[2022-08-13] MEDS ORDERED: CEFTRIAXONE 1000 MG/VIAL ONE (10:18)
[2022-08-13 10:26] LABS: Albumin 3.9 g/dL (3.4-5.0); Bilirubin Total 0.4 mg/dL (0.2-1.0); Protein, Total 8.3 g/dL (6.4-8.2)
--- NOTE | 2022-08-13 10:48 | RAD REPORT ---
EXAM DESCRIPTION: CTAbdomen Pelvis W Contrast - 08/13/2022 10:20 am CLINICAL HISTORY: Abdominal pain. Flank pain, kidney stone suspected COMPARISON: Abdomen Pelvis W Contrast dated 07/08/2022; Abdomen Pelvis W Contrast dated 04/29/2021 TECHNIQUE: Biphasic CT imaging of the abdomen and pelvis was performed with 100 ml non-ionic IV cont rast. All CT scans are performed using dose optimization technique as appropriate and may include automated exposure control or mA/KV adjustment according to patient size. FINDINGS: The lung bases are clear. Mild diffuse fatty liver. No intra or extrahepatic biliary dilatation. No aggressive mass. The spleen, pancreas, adrenal glands are normal. Small stone is present in the upper pole calyx right kidney. No hydronephrosis. Left double-J stent is in place. No hydronephrosis affecting the left kidney. No calculus seen along the course of the stent. Tiny air bubble is seen in the urinary bladder. No bowel obstruction, free air, free fluid or abscess. Large fat containing umbilical hernia. The harriett endix is normal. Significant stool is present throughout the colon. No evidence of significant lympha denopathy. No suspicious bony findings. IMPRESSION: Left double-J stent is in place with proximal and distal aspects in appropriate position . No hydronephrosis or stone along the course of the stent seen. Small stone is seen in the right kidney without hydronephrosis. Fatty liver.
--- NOTE | 2022-08-13 11:27 | ER ---
Nurse's Notes [facility] Name: Rosalva De La Rosa Age: 32 yrs Sex: Female : 1990 Arrival Date: 08/13/2022 Time: 08:59 Bed 12 Private MD: Diagnosis: UTI/ Urinary tract infection, site not specified;Abdominal pain, Generalized;Vomiting Presentation: 08/13 09:07 Chief complaint: Patient states: surgery here yesterday with Dr. Gonzalez; dc home with hua T3, and castro .. has been in terrible pain and vomiting since yesterday evening after surgery.. nothing is helping with pain. Coronavirus screen: Vaccine status: Patient reports receiving the 2nd dose of the covid vaccine. Client denies travel out of the [place] in the last 14 days. Ebola Screen: Patient negative for fever greater than or equal to 101.5 degrees Fahrenheit, and additional compatible Ebola Virus Disease symptoms Patient denies exposure to infectious person. Patient denies travel to an Ebola-affected area in the 21 days before illness onset. Initial Sepsis Screen: Does the patient meet any 2 criteria? No. Patient's initial sepsis screen is negative. Does the patient have a suspected source of infection? No. Patient's initial sepsis screen is negative. Risk Assessment: Do you want to hurt yourself or someone else? Patient reports no desire to harm self or others. 09:07 Method Of Arrival: Wheelchair 09:07 Acuity: VELVET 3 14:05 Onset of symptoms was August 13, 2022. [facility] 14:05 Onset of symptoms was August 13, 2022. [facility] Triage Assessment: 09:08 General: Appears uncomfortable, obese, unkempt, Behavior is cooperative, drowsy, flat. ss Pain: Complains of pain in right sided abdomen pain and left kidney pain. GI: Reports nausea, vomiting. 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 - Social history:: Smoking status: Patient denies any tobacco usage or history of. - Family history:: not pertinent. Screenin:02 [facility] ED Fall Risk Assessment (Adult) History of falling in the last 3 months, rs5 including since admission No falls in past 3 months (0 pts) Confusion or Disorientation No (0 pts) Intoxicated or Sedated No (0 pts) Impaired Gait No (0 pts) Mobility Assist Device Used No (0 pt) Altered Elimination Yes (1 pt) Score/Fall Risk Level 0 - 2 = Low Risk Oriented to surroundings, Maintained a safe environment, Educated pt \T\ family on fall prevention, incl call for assistance when getting out of bed, Provided non-skid footwear, Hourly rounding (assess needs \T\ fall precautionary measures) done. Humpty Dumpty Scale Fall Assessment Tool (age< 18yrs) Age 13 years and above (1 pt) Gender Female (1 pt) Diagnosis Other diagnosis (1 pt) Cognitive Impairments Oriented to own ability (1 pt) Environmental Factors Response to Surgery/Sedation/Anesthesia Within 24 hours (3 pts) Fall Risk Score/ Level Low Fall Risk: </= 11 points Oriented to surroundings, Maintained a safe environment: Age specific bed with railing, Bed in low position\T\ wheels locked, Assess need for siderail use, Locks on, Rm \T\ paths clutter \T\ obstacle free, Proper lighting, Call light, personal item w/in reach, Alarms as needed, Educated pt \T\ family on fall prevention, incl. call for assistance when getting out of bed, Assessed \T\ reinforced patient's understanding of fall precautions, Provided non-skid footwear, Hourly rounding (assess needs \T\ fall precautionary measures). Abuse screen: Denies threats or abuse. Nutritional screening: No deficits noted. Tuberculosis screening: No symptoms or risk factors identified. Fall Risk No fall in past 12 months (0 pts). Assessment: 09:23 General: Appears distressed, uncomfortable, ill, Behavior is cooperative, restless. kr3 Pain: Complains of pain in abdomen. Neuro: Level of Consciousness is awake, alert, obeys commands, Oriented to person, place, time, situation. Cardiovascular: Patient's skin is warm and dry. Respiratory: Airway is patent Respiratory effort is even, unlabored, Respiratory pattern is regular, symmetrical. GI: Abdomen is distended. : No signs and/or symptoms were reported regarding the genitourinary system. EENT: No signs and/or symptoms were reported regarding the EENT system. Derm: No signs and/or symptoms reported regarding the dermatologic system. Musculoskeletal: Circulation, motion, and sensation intact. 10:30 Reassessment: No changes from previously documented assessment. Patient and/or family rs5 updated on plan of care and expected duration. Pain level reassessed. 11:40 Reassessment: Patient states feeling better. Patient states symptoms have improved. po kr3 challenge started, tolerated well. 13:32 Reassessment: Patient and/or family updated on plan of care and expected duration. Pain rs5 level reassessed. patients symptoms returned, pain in abdomen . 14:02 Reassessment: Patient and/or family updated on plan of care and expected duration. Pain rs5 level reassessed. Patient states symptoms have improved. Vital Signs: 09:07 BP 132 / 90; Pulse 71; Resp 18; Temp 98.0(O); Pulse Ox 96% ; Weight 96.16 kg; Height 5 ss ft. 8 in. (172.72 cm); Pain 10/10; 10:19 BP 136 / 85; Pulse 68; Resp 18; Pulse Ox 99% ; kr3 11:20 BP 116 / 72; Pulse 62; Resp 17; Pulse Ox 100% on R/A; kr3 13:32 BP 134 / 86; Pulse 64; Resp 18; Pulse Ox 99% on R/A; rs5 09:07 Body Mass Index 32.23 (96.16 kg, 172.72 cm) ED Course: 08:59 Patient arrived in ED. am2 09:08 Triage completed. 09:08 Arm band placed on right wrist. 09:13 Bob Chacko MD is Attending Physician. [facility] 09:15 Bed in low position. Call light in reach. Side rails up X 1. rs5 09:23 Nelly Doshi, SHAHRAM is Primary Nurse. kr3 10:22 CT Abd/Pelvis - IV Contrast Only In Process Unspecified. EDMS 10:22 Inserted saline lock: 22 gauge in left wrist, using aseptic technique. Blood collected. kr3 11:26 Nic Gonzalez MD is Referral Physician. delmi 14:04 No provider procedures requiring assistance completed. IV discontinued, intact, rs5 bleeding controlled, No redness/swelling at site. Pressure dressing applied. Administered Medications: 09:46 Drug: Zofran (Ondansetron) 4 mg Route: IVP; Site: left wrist; kr3 13:35 Follow up: Response: No adverse reaction rs5 09:48 Drug: morphine 4 mg Route: IVP; Infused Over: 4 mins; Site: left wrist; kr3 13:34 Follow up: Response: No adverse reaction; RASS: Drowsy (-1) rs5 10:04 Drug: NS 0.9% 1000 ml Route: IV; Rate: 1 bolus; Site: left wrist; kr3 13:35 Follow up: Response: No adverse reaction; IV Status: Completed infusion; IV Intake: rs5 1000ml 10:45 Drug: Rocephin (cefTRIAXone) 1 grams Route: IV; Rate: per protocol; Site: left wrist; kr3 11:15 Drug: NS 0.9% 1000 ml Route: IV; Rate: 1 bolus; Site: right wrist; kr3 11:30 Drug: Cipro (ciprofloxacin) 500 mg Route: PO; kr3 13:35 Follow up: Response: No adverse reaction rs5 12:47 Drug: Promethazine 12.5 mg Route: IM; Site: right deltoid; kr3 13:35 Follow up: Response: No adverse reaction rs5 13:10 Drug: morphine 4 mg Route: IVP; Infused Over: 4 mins; Site: right antecubital; kr3 13:35 Follow up: Response: No adverse reaction; RASS: Alert and Calm (0) rs5 13:32 Drug: Valium (diazepam) 5 mg Route: PO; rs5 14:05 Follow up: Response: No adverse reaction; RASS: Drowsy (-1) rs5 Medication: 14:05 VIS not applicable for this client. rs5 Intake: 13:35 IV: 1000ml; Total: 1000ml. rs5 Outcome: 11:27 Discharge ordered by . delmi 14:01 Patient left the ED. rs5 14:04 Discharged to home via wheelchair. rs5 14:04 Condition: stable 14:04 Discharge instructions given to patient, Instructed on discharge instructions, follow up and referral plans. medication usage, Demonstrated understanding of instructions, follow-up care, medications, Prescriptions given X 3. Signatures: Dispatcher [employer] EDIL Bob Chacko MD MD cha Smirch, Shelby, RN RN Shelbi Wills Kelley, RN RN kr3 Gary Carrillo rs5
--- NOTE | 2022-08-13 11:28 | EDPHYS ---
Physician Documentation [facility] Name: Rosalva De La Rosa Age: 32 yrs Sex: Female : 1990 Arrival Date: 08/13/2022 Time: 08:59 Bed 12 Private MD: ED Physician Bob Chacko HPI: 08/13 10:05 This 32 yrs old Female presents to ER via Wheelchair with complaints of delmi Nausea/Vomiting, Post Surgical Pain. 10:05 The patient presents to the emergency department with nausea, vomiting, that is delmi continuous. Onset: The symptoms/episode began/occurred last night. Possible causes: recent stone retrival, left flank pain. The symptoms are aggravated by movement, pressure, The symptoms are alleviated by nothing. remaining still. Associated signs and symptoms: Pertinent positives: abdominal pain, nausea, vomiting. Severity of symptoms: At their worst the symptoms were mild moderate in the emergency department the symptoms are unchanged are worse Pain is currently a . 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 - Social history:: Smoking status: Patient denies any tobacco usage or history of. - Family history:: not pertinent. ROS: 10:05 Constitutional: Negative for fever, chills, and weight loss, Eyes: Negative for injury, delmi pain, redness, and discharge, ENT: Negative for injury, pain, and discharge, Neck: Negative for injury, pain, and swelling, Cardiovascular: Negative for chest pain, palpitations, and edema, Respiratory: Negative for shortness of breath, cough, wheezing, and pleuritic chest pain, Back: Negative for injury and pain, : Negative for injury, bleeding, discharge, and swelling, MS/Extremity: Negative for injury and deformity, Skin: Negative for injury, rash, and discoloration, Neuro: Negative for headache, weakness, numbness, tingling, and seizure. 10:05 Abdomen/GI: Positive for abdominal pain, nausea and vomiting, of the posterior aspect of left lateral abdomen, anterior aspect of left lateral abdomen and left lower quadrant. Exam: 10:05 Constitutional: This is a well developed, well nourished patient who is awake, alert, delmi and in no acute distress. Head/Face: Normocephalic, atraumatic. Eyes: Pupils equal round and reactive to light, extra-ocular motions intact. Lids and lashes normal. Conjunctiva and sclera are non-icteric and not injected. Cornea within normal limits. Periorbital areas with no swelling, redness, or edema. ENT: Nares patent. No nasal discharge, no septal abnormalities noted. Tympanic membranes are normal and external auditory canals are clear. Oropharynx with no redness, swelling, or masses, exudates, or evidence of obstruction, uvula midline. Mucous membranes moist. Neck: Trachea midline, no thyromegaly or masses palpated, and no cervical lymphadenopathy. Supple, full range of motion without nuchal rigidity, or vertebral point tenderness. No Meningismus. Chest/axilla: Normal chest wall appearance and motion. Nontender with no deformity. No lesions are appreciated. Cardiovascular: Regular rate and rhythm with a normal S1 and S2. No gallops, murmurs, or rubs. Normal PMI, no JVD. No pulse deficits. Respiratory: Lungs have equal breath sounds bilaterally, clear to auscultation and percussion. No rales, rhonchi or wheezes noted. No increased work of breathing, no retractions or nasal flaring. Back: No spinal tenderness. No costovertebral tenderness. Full range of motion. Skin: Warm, dry with normal turgor. Normal color with no rashes, no lesions, and no evidence of cellulitis. MS/ Extremity: Pulses equal, no cyanosis. Neurovascular intact. Full, normal range of motion. Neuro: Awake and alert, GCS 15, oriented to person, place, time, and situation. Cranial nerves II-XII grossly intact. Motor strength 5/5 in all extremities. Sensory grossly intact. Cerebellar exam normal. Normal gait. 10:05 Abdomen/GI: Inspection: distension, that is mild, Bowel sounds: active, Palpation: moderate abdominal tenderness, in the suprapubic area, left upper quadrant and left lower quadrant, Liver: no appreciated palpable abnormalities, Hernia: not appreciated. Vital Signs: 09:07 BP 132 / 90; Pulse 71; Resp 18; Temp 98.0(O); Pulse Ox 96% ; Weight 96.16 kg; Height 5 ss ft. 8 in. (172.72 cm); Pain 10/10; 10:19 BP 136 / 85; Pulse 68; Resp 18; Pulse Ox 99% ; kr3 11:20 BP 116 / 72; Pulse 62; Resp 17; Pulse Ox 100% on R/A; kr3 13:32 BP 134 / 86; Pulse 64; Resp 18; Pulse Ox 99% on R/A; rs5 09:07 Body Mass Index 32.23 (96.16 kg, 172.72 cm) ss MDM: 09:14 Patient medically screened. [facility] 10:12 Differential diagnosis: Nonspecific abd pain, gastritis, pancreatitis, diverticulitis. delmi Data reviewed: vital signs, nurses notes, lab test result(s), radiologic studies, CT scan. Data interpreted: panel monitor: rate is 71 beats/min, rhythm is regular, Pulse oximetry: on room air is 96 %. Test interpretation: by ED physician or midlevel provider:. Counseling: I had a detailed discussion with the patient and/or guardian regarding: the historical points, exam findings, and any diagnostic results supporting the discharge/admit diagnosis, lab results, radiology results. 08/13 09:20 Order name: CBC with Diff; Complete Time: 10:54 [facility] 08/13 09:20 Order name: CMP; Complete Time: 10:54 [facility] 08/13 09:20 Order name: Lipase; Complete Time: 10:54 [facility] 08/13 09:20 Order name: Urine Microscopic Only; Complete Time: 10:04 [facility] 08/13 09:39 Order name: Urine Dipstick-Ancillary; Complete Time: 10:04 [facility] 08/13 09:41 Order name: Urine --Ancillary (enter results); Complete Time: 10:04 08/13 09:20 Order name: CT Abd/Pelvis - IV Contrast Only; Complete Time: 10:54 [facility] 08/13 09:20 Order name: IV Saline Lock; Complete Time: 10:03 [facility] 08/13 09:20 Order name: Labs collected and sent; Complete Time: 10:03 [facility] 08/13 09:20 Order name: Urine Dipstick-Ancillary (obtain specimen); Complete Time: 10:03 [facility] 08/13 09:20 Order name: Urine Test (obtain specimen); Complete Time: 10:03 [facility] 08/13 11:25 Order name: PO challenge; Complete Time: 11:39 delmi Administered Medications: 09:46 Drug: Zofran (Ondansetron) 4 mg Route: IVP; Site: left wrist; kr3 13:35 Follow up: Response: No adverse reaction rs5 09:48 Drug: morphine 4 mg Route: IVP; Infused Over: 4 mins; Site: left wrist; kr3 13:34 Follow up: Response: No adverse reaction; RASS: Drowsy (-1) rs5 10:04 Drug: NS 0.9% 1000 ml Route: IV; Rate: 1 bolus; Site: left wrist; kr3 13:35 Follow up: Response: No adverse reaction; IV Status: Completed infusion; IV Intake: rs5 1000ml 10:45 Drug: Rocephin (cefTRIAXone) 1 grams Route: IV; Rate: per protocol; Site: left wrist; kr3 11:15 Drug: NS 0.9% 1000 ml Route: IV; Rate: 1 bolus; Site: right wrist; kr3 11:30 Drug: Cipro (ciprofloxacin) 500 mg Route: PO; kr3 13:35 Follow up: Response: No adverse reaction rs5 12:47 Drug: Promethazine 12.5 mg Route: IM; Site: right deltoid; kr3 13:35 Follow up: Response: No adverse reaction rs5 13:10 Drug: morphine 4 mg Route: IVP; Infused Over: 4 mins; Site: right antecubital; kr3 13:35 Follow up: Response: No adverse reaction; RASS: Alert and Calm (0) rs5 13:32 Drug: Valium (diazepam) 5 mg Route: PO; rs5 14:05 Follow up: Response: No adverse reaction; RASS: Drowsy (-1) rs5 Disposition Summary: 08/13/22 11:27 Discharge Ordered Location: Home delmi Problem: new delmi Symptoms: have improved delmi Condition: Stable delmi Diagnosis - UTI/ Urinary tract infection, site not specified delmi - Abdominal pain, Generalized delmi - Vomiting delmi Followup: delmi - With: Private Physician - When: 2 - 3 days - Reason: Recheck today's complaints, Continuance of care, Re-evaluation by your physician Followup: delmi - With: Nic Gonzalez MD - When: 2 - 3 days - Reason: Recheck today's complaints, Continuance of care, Re-evaluation by your physician Discharge Instructions: - Discharge Summary Sheet delmi - Abdominal Pain, Adult [facility] - Dysuria delmi - Urinary Tract Infection, Adult [facility] - Kidney Stones delmi - Kidney Stones, [id number] delmi - Urinary Tract Infection, Adult, [id number] delmi - Abdominal Pain, Adult, [id number] [facility] - Rehydration, Adult [facility] - Vomiting, Adult [facility] Forms: - Medication Reconciliation Form [facility] - Thank You Letter [facility] - Antibiotic Education [facility] - Prescription Opioid Use [facility] Prescriptions: - Zofran 4 mg Oral Tablet - take 1 tablet by ORAL route every 12 hours As needed; 20 tablet; Refills: 0, [facility] Product Selection Permitted - Cipro 500 mg Oral Tablet - take 1 tablet by ORAL route every 12 hours for 7 days; 14 tablet; Refills: 0, [facility] Product Selection Permitted - promethazine 25 mg Oral Tablet - take 1 tablet by ORAL route every 6 hours As needed; 20 tablet; Refills: 0, [facility] Product Selection Permitted - Tylenol-Codeine #3 300 mg-30 mg Oral - take 2 tablet by ORAL route every 6 hours; 15 tablet; Refills: 0, Product [facility] Selection Permitted Signatures: Dispatcher [employer] Bob Figueroa MD MD cha Smirch, Shelby, RN RN ss Nelly Doshi RN RN kr3 Gary Carrillo rs5
[2022-08-13] MEDS ORDERED: CIPROFLOXACIN HCL 500 MG TAB ONE (11:34)
[2022-08-13] MEDS ORDERED: PROMETHAZINE INJ 25 MG/ML AMP ONE (12:37)
[2022-08-13] MEDS ORDERED: DIAZEPAM 5 MG TABLET ONE (13:30)
[2022-08-13 14:27] VITALS: TEMP 98
[2022-08-13 14:30] VITALS: BP 134/86; O2SAT 99
== END 2022-08-13 14:01 | disposition home or self-care (01) ==
LOC: ER 08:56
DX: N39.0 Urinary tract infection, site not specified (principal); R11.2 Nausea with vomiting, unspecified; Z87.442 Personal history of urinary calculi
CPT/HCPCS: 85025; 36415; 81025; 83690; 80053; 74177; Q9967; J2550; J7030 ×2; J2405; 81003; 81015

== ENCOUNTER 2023-02-02 13:45 | Emergency (ER) | payer OTHER ==
--- OUTSIDE RECORDS SUMMARY | 2023-02-02 13:49 | XMS REPORT | Continuity of Care Document ---
:1990 Author Organization [facility] t Address [address] [facility] [address] [place] [address] Care Team Providers Name Role Phone Unknown, Physician Primary Care Physician Unavailable Radha Goldberg MA Attending Clinician Unavailable JUWAN AMAYA Attending Clinician Unavailable Marita Willis MD Attending Clinician [phone] IHDE_G Attending Clinician Unavailable Buck Powell Attending Clinician Unavailable Myranda Pelaez RN Attending Clinician Unavailable Olive Fagan RN Attending Clinician Unavailable Sia Cobos MD Attending Clinician Doctor Unassigned, [place] Attending Clinician Unavailable Zayra Greene MD Attending Clinician GOOD YANG Attending Clinician Unavailable GOOD YANG Attending Clinician Unavailable KUNAL SPENCER Attending Clinician Unavailable SIA COBOS Attending Clinician Unavailable SONIA MCKINNON Attending Clinician Unavailable Sonia Mckinnon MD Attending Clinician JUWAN AMAYA Admitting Clinician Unavailable IHDE_G Admitting Clinician Unavailable Buck Powell Admitting Clinician Unavailable Payers Payer Name Policy Type Policy Number Effective Date Expiration Date Sadie kelsey [employer] CHOICE POS [id number] 2018 00:00:00 II [employer] [id number] 2018 00:00:00 Problems Condition Condition Condition Status Onset Resolution Last Treating Co mments Source Name Details Category Date Date Treatment Clinician Date K21.9 K21.9 Diagnosis Active 2022-10-19 Mem oria Active 10-02 06:38:00 l 10/02/2022 00:00: Jorge conner 00 [facility] Migraine Migraine Problem Active [place] 7-15 da 00:00: Medical 00 Group Obesity Obesity Disease Active Univers (BMI (BMI 6-03 ity of 30-39.9) 30-39.9) 00:00: [place] 00 Medical Branch Family Family Disease Active Univers history of history of 7 it y of colon colon 00:00: [place] cancer cancer 00 Medical Branch Enlarged Enlarged Disease Active Unive rs thyroid thyroid 7- ity of 00:00: [place] 00 Medical Branch General General Disease Active 2013-08 Overview: Univ ers counseling counseling 0-29 Formattin ity of and advice and advice 00:00: g of this [place] for for 00 note Medical contracept contracept might be Branch luis armando luis armando different management management from the original. 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 UTI UTI Disease Active 2013-08 Univers (urinary (urinary 0-29 ity of tract tract 00:00: [place] infection) infection) 00 Vt dical Branch Hematuria Hematuria Disease Active 2013-08 Uni vers 0-29 ity of 00:00: [place] 00 Medical Branch Dysuria Dysuria Disease Active 2013-08 Univers 0-28 ity of 00:00: [place] 00 Medical Branch [id number] Ureterolit Problem Com mon hiasis [facility] [id number] Renal Problem Common colic on Spirit left side [facility] Kidney Kidney Problem Active 2022-10-20 Clive esha stone stone 00:10:02 l (disorder) (disorder) He rmann Active Problem 10/20/2022 [facility] Umbilical Umbilical Problem Active 2022-10-20 Memoria hernia hernia 00:10:02 l (disorder) (disorder) He rmann Active Problem 10/20/2022 [facility] Allergies, Adverse Reactions, Alerts Allergy Allergy Status Severity Reaction(s) Onset Inactive Treating Comm ents Source Name Type Date Date Clinician No Known DA Active U [facility] Allergie 7-19 [facility] s 00:00: [facility] 00 l of [place] No Known No Known Active Memori a Medicati Medicati l on on [place] Allergie Allergie s s NO KNOWN Drug Active Univers ALLERGIE Class ity of S [facility] Social History Social Habit Start Date Stop Date Quantity Comments Source History of Tobacco Common Spirit - Use [facility] ASSERTION [facility] History SDOH University o f Alcohol Frequency [facility] ed[facility] Branch History SDOH University o f Alcohol Std Drinks [place] [facility] Eva History [facility] University o f Alcohol Binge [place] [facility] al [facility] Sexual [facility] Tobacco use and 2022-12-30 2022-12-30 Smokeless [facility] 00:00:00 00:00:00 tobacco non-user Hospital History of Social 2022-12-30 2022-12-[address] function 00:00:00 00:00:00 Hospital Exposure to 2022-01-05 2022-02-04 Not sure [facility] SARS-CoV-2 (event) 00:00:00 13:42:00 Cigarette 2021-11-21 2021-11-21 [facility] pack-years 00:00:00 00:00:00 Alcohol intake 2021-11-21 2021-11-21 Ex-drinker [facility] 00:00:00 00:00:00 (finding) Alcohol Comment 2013-08-03 2013-08-03 socially Universit y of 00:00:00 00:00:00 [facility] Sex Assigned At [birth year] [facility] 00:00:00 00:00:00 Hospital Smoking Status Start Date Stop Date Source Tobacco smoking status [facility] Medications Ordered Filled Start Stop Current Ordering Indication Dosage Frequency Signature Comments Components Source Medication Medication Date Date Medication? Clinician (SIG) Name Name acetaminoph Yes 500mg Take 500 M ethodi en 5-[address] (TYLENOL) 16:05: mouth. Hospit a 160 mg/5 mL 13 l (5 mL) suspension acetaminoph Yes TAKE 1 Clive esha en-codeine 2-08 TABLET BY l 300 mg-30 21:11: MOUTH Gabe mg oral 00 EVERY 6 tablet HOURS NEEDED FOR PAIN cyclobenzap Yes 10 mg = 1 M emoria rine 10 mg 2-08 tab, PO, l oral tablet 21:09: TID, PRN He rmann 00 for spasms, # 30 tab, 0 Refill(s) Tylenol 0 Yes PO, PRN, 0 Clive esha 2-08 Refill(s) l 21:09: [place] 00 SUMAtriptan 0 Yes 100 mg = 1 Memoria 100 mg oral 2-08 tab, PO, l tablet 21:09: ONCE, PRN Jorge n 00 Headache, # 18 tab, 0 Refill(s) Lexapro 10 Yes 10 mg = 1 Me moria mg oral 2-08 tab, PO, l tablet 21:08: Daily, # Gabe 00 30 tab, 0 Refill(s) Yes Take by [facility]-Min-Fe 3-24 mouth. [...] by Health PO) 11:26: mouth. 08 Acetaminoph 2022-0 Yes 500mg Take 500 U T en (TYLENOL 3-24 mg by Health PO) 11:26: mouth. 08 cetirizine- 2020-2021- No 1{tbl} Q.5D Take 1 U T pseudoephed 05-24 tablet by He alth rine 00:00: 04:59 mouth (ZyrTEC-D) 00 :00 twice a 5-120 MG 12 day. hr tablet cetirizine- 2020-2021- No 1{tbl} Q.5D Take 1 U T pseudoephed 05-24 tablet by He alth rine 00:00: 04:59 mouth (ZyrTEC-D) 00 :00 twice a 5-120 MG 12 day. hr tablet cetirizine- 2020-2021- No 1{tbl} Q.5D Take 1 U T pseudoephed 05-24 tablet by He alth rine 00:00: 04:59 mouth (ZyrTEC-D) 00 :00 twice a 5-120 MG 12 day. hr tablet cetirizine- 2021- No 1{tbl} Q.5D Take 1 U T pseudoephed 05-24 tablet by He alth rine 00:00: 04:59 mouth (ZyrTEC-D) 00 :00 twice a 5-120 MG 12 day. hr tablet metroNIDAZO 2020-0 Yes [id number] 500mg Take 1 Univers LE 500 mg 6-05 tablet by ity o f tablet 00:00: mouth [place] 00 every 12 Medical (twelve) Branch hours. metroNIDAZO 2020-0 Yes [id number] 500mg Take 1 Univers LE 500 mg 6-05 tablet by ity o f tablet 00:00: mouth [place] 00 every 12 Medical (twelve) Branch hours. SUMATRIPTAN 2020-0 Yes Take by Uni vers SUCCINATE 6-03 mouth. ity of ORAL 12:00: [place] 00 Medical Branch SUMATRIPTAN 2020-0 Yes Take by Uni vers SUCCINATE 6-03 mouth. ity of ORAL 12:00: [place] 00 Medical Branch Miscellaneo 2013-0 Yes [id number] QHS X U nivers Medical 5-12 7days ity of Supply 00:00: [place] (PRO-CEPTIO 00 Medical N) [facility] Miscellaneo 2013-0 Yes [id number] [facility] X U [facility] Medical 5-12 7days ity of Supply 00:00: [place] (PRO-CEPTIO 00 Medical N) [facility] Tylenol # 3 Tylenol # 3 No Tylenol # 3 lexapro lexapro No lexapro Flomax Flomax No Flomax Ketorolac Ketorolac No Ketorolac Tromethamin Tromethamin Tromethami e e ne Tylenol # 3 Tylenol # 3 No Tylenol # 3 Saxenda Saxenda No Saxenda Adipex-P Adipex-P No Adipex-P lexapro lexapro No lexapro Flomax Flomax No Flomax Ketorolac Ketorolac No Ketorolac Tromethamin Tromethamin Tromethami e e ne Tylenol # 3 Tylenol # 3 No Tylenol # 3 Saxenda Saxenda No Saxenda Adipex-P Adipex-P No Adipex-P escitalopra escitalopra No escitalopr [place] 10 [...] Adipex-P No Adipex-P lexapro lexapro No lexapro Immunizations Ordered Filled Immunization Date Status Comments [facility] e Immunization Name Name TDAP 2017-03-27 Completed University of 00:00:00 [facility] TDAP 2017-03-27 Completed University of 00:00:00 [facility] TDAP 2010-08-31 Completed University of 00:00:00 [facility] TDAP 2010-08-31 Completed University of 00:00:00 [facility] Rubella 2009-05-31 Completed [facility] 00:00:00 [facility] Rubella 2009-05-31 Completed [facility] 00:00:00 [facility] Vital Signs Vital Name Observation Time Observation Value Comments Source height 2022-07-30 08:15:00 67 [in_i] Common [facility] weight 2022-07-30 08:15:00 212 [lb_av] Common [facility] temperature 2022-07-30 08:15:00 97.3 [degF] Common [facility] bmi 2022-07-30 08:15:00 33.2 kg/m2 [facility] oximetry 2022-07-30 08:15:00 99 % [facility] respiratory rate 2022-07-30 08:15:00 18 /min [facility] blood pressure 2022-07-30 08:15:00 124 mm[Hg] [facility] - systolic [facility] blood pressure 2022-07-30 08:15:00 79 mm[Hg] Common [facility] - diastolic [facility] height 2022-07-16 08:30:00 67 [in_i] Common [facility] weight 2022-07-16 08:30:00 215.8 [lb_av] [facility] temperature 2022-07-16 08:30:00 97.6 [degF] Common [facility] bmi 2022-07-16 08:30:00 33.8 kg/m2 [facility] oximetry 2022-07-16 08:30:00 99 % [facility] respiratory rate 2022-07-16 08:30:00 18 /min [facility] blood pressure 2022-07-16 08:30:00 123 mm[Hg] Common [facility] - systolic [facility] blood pressure 2022-07-16 08:30:00 70 mm[Hg] Common [facility] - diastolic [facility] BP Diastolic 2022-05-22 00:00:00 70 mm[Hg] [facility] Height 2022-05-22 00:00:00 68 [in_i] [facility] BMI (Body Mass 2022-05-22 00:00:00 31.9 kg/m2 [facility] Index) Group BP Systolic 2022-05-22 00:00:00 [...] Healt h BMI 2021-11-21 16:22:00 33.20 [facility]m2 [facility] O[facility] saturation in 2021-11-21 16:22:00 98 /min [facility] Arterial blood by Pulse oximetry BP Diastolic 2021-03-14 00:00:00 70 mm[Hg] [facility] Height 2021-03-14 00:00:00 68 [in_i] [facility] BMI (Body Mass 2021-03-14 00:00:00 33.2 kg/m2 [facility] Index) Group BP Systolic 2021-03-14 00:00:00 122 mm[Hg] [facility] Body Weight 2021-03-14 00:00:00 218.2 [lb_av] [facility] Systolic (mm Hg) 2022-10-17 17:11:00 Clive hernandez Gabe Diastolic (mm Hg) 2022-10-17 17:11:00 Mem orial Gabe Height 2022-10-08 21:07:00 5 [ft_i] [facility] [place] Weight 2022-10-08 21:07:00 [facility] BMI Calculated 2022-10-08 21:07:00 Dalton Manzano Procedures Procedure Date / Time Performing Clinician Source Performed [id number] 2022-12-30 21:11:20 Marita Willis [facility] POC URINALYSIS DIPSTICK 2022-12-30 21:08:58 Marita Willis [facility] [id number] 2022-03-18 00:00:00 HARAD.01 [facility] [id number] 2022-03-18 00:00:00 HARAD.01 [facility] [id number] 2022-03-18 00:00:00 HARAD.01 [facility] AUTHORIZATION FOR 2021-12-04 05:01:00 Doctor Unassigned, No Univ [facility] RELEASE OF PHI Name Medical Branch Delivery [facility] Epidural anesthesia [facility] section [facility] kidney stone removal w/ [facility] stent placement Bilateral tubal ligation Jayden Bernal Plan of Care Planned Activity Planned Date Details Comments Source Future Scheduled Test 2023-01-27 [facility] 14:57:26 screening (procedure) [code = 803579629] Future Scheduled Test 2023-01-[address] [facility] 14:57:26 malignant neoplasm of cervix (procedure) [code = 851414805] Future Scheduled Test 2023-01-27 COVID-19 VACCINE (2 [facility] 14:57:26 - Booster for Eliu series) [code = COVID-19 VACCINE (2 - Booster for Eliu series)] Future Scheduled Test 2023-01-27 [facility] 14:57:26 [code = INFLUENZA VACCINE] Diagnostic Test 2022-05-22 iron + total [place] [facility] Pending 00:00:00 iron-binding Group capacity (TIBC), serum [code = iron + total iron-binding capacity (TIBC), serum] Diagnostic Test 2022-05-22 vitamin B12, serum [facility] Pending 00:00:00 [code = vitamin Group B12, serum] Diagnostic Test 2022-05-22 ferritin, serum or [facility] Pending 00:00:00 plasma [code = Group ferritin, serum or plasma] Diagnostic Test 2022-05-22 folate, serum [code [facility] Pending 00:00:00 = folate, serum] Group Diagnostic Test 2022-05-22 retic count, blood [facility] Pending 00:00:00 [code = retic Group count, blood] Diagnostic Test 2022-05-22 CBC w/ auto diff [facility] [facility] Pending 00:00:00 [code = CBC w/ auto Group diff] Diagnostic Test 2022-05-22 TSH, serum or [place] P[facility] 00:00:00 plasma [code = TSH, Group serum or plasma] Diagnostic Test 2022-05-22 CMP, serum or [place] [facility] Pending 00:00:00 plasma [code = CMP, Group serum or plasma] Diagnostic Test 2022-05-22 lipid panel, serum [facility] Pending 00:00:00 [code = lipid Group panel, serum] Diagnostic Test 2022-05-22 HbA1c (hemoglobin [facility] Pending 00:00:00 A1c), blood [code = Group HbA1c (hemoglobin A1c), blood] Diagnostic Test 2022-05-22 prealbumin, serum [place] Pending 00:00:00 [code = prealbumin, Group serum] Instructions [facility] Encounters Start End Encounter Admission Attending Care Care Encounter Source Date/Time Date/Time Type Type Clinicians Facility Department ID 2022-10-19 Outpatient [facility] [id number] [place] 06:39:00 [id number] [facility] 2022-10-15 Outpatient [facility] [id number] Common 13:02:01 [id number] [facility] 2022-07-16 Outpatient [facility] [id number] Common 08:33:03 73028 [facility] 2021-10-03 Outpatient [facility] [id number] [place] 11:45:52 [facility] 2023-01-27 2023-01-27 Telephone Eliezer Goldberg2.840.1 [id number] Methodi 00:00:00 00:00:[address] 3.430.2.7 Hospit a .3.200606 l .8 2023-01-21 2023-01-23 Inpatient SALUD AMAYA DESHAUN [id number] MH 05:36:00 14:43:00 [facility] 2022-12-30 2022-12-30 Office Vivian, 1.2.840.1 [id number] [id number] Methodi 15:00:00 16:13:01 Visit Marita 82611.1.[address] [facility] 3.430.2.7 Hosp irma .3.732990 l .8 2022-12-30 2022-12-30 Outpatient VIVIAN [facility] [id number] [place] 00:00:00 00:00:[address] MARITA [address] 2022-12-30 2022-12-30 Travel 1.2.840.1 1.2.300.179 [id number] Methodi 00:00:00 00:00:[address] 3.430.2.7 0.2.7.3.698 Ho spita .3.808564 084.8 l .8 2022-10-17 2022-10-17 Bedded Man [facility] [id number] [facility] 13:56:00 17:14:[address] 2022-10-17 2022-10-17 Outpatient SALUD AMAYA DESHAUN [id number] MH 07:56:00 11:14:00 [facility] 2022-08-13 2022-08-13 (TEL) STLMLC STLMLC [id number] Co mmon 00:00:00 00:00:00 [facility] - [facility] 2022-07-30 2022-07-30 OFFICE STLMLC STLMLC [id number] Co mmon 00:00:00 00:00:00 VISIT Spirit ESTAB PT - CHI LEVEL 4 [facility] 2022-07-16 2022-07-16 OFFICE STLMLC STLMLC [id number] Co mmon 00:00:00 00:00:00 VISIT NEW Spir it PT LEVEL 2 - [facility] 2022-05-22 2022-05-22 Outpatient IHDE_G MMG [facility] [id number] [place] 00:00:00 00:00:00 0922 [facility] 2022-05-22 2022-05-22 Efrain [facility] [place] - [id number] M atagor 00:00:00 00:00:00 Terry Pritchard MD: Medical Medica [address], [place] [address] , Ph. [phone] 2022-05-19 2022-05-19 Outpatient IHDE_G MMG [facility] [id number] [place] 00:00:00 00:00:00 0919 [facility] 2022-03-18 2022-03-21 Inpatient NORMAN Wagner [facility] OBPP [id number] [facility] 13:40:00 16:05:00 [place], [id number] [facility] 2022-03-18 2022-03-21 Inpatient NORMAN Wagner [facility] OBPP [id number] [facility] 13:40:00 16:05:00 [place], 02 [facility] [place] 2022-02-12 2022-02-12 Telephone Myranda Pelaez 1.2.840.1 14 [id number] [place] 00:00:00 00:00:00 Myranda Pelaez 350.1.13.[address] [facility] [id number] 4 2022-02-11 2022-02-11 Telephone Olive Fagan UTP 1.2.84 0.114 [id number] [place] 00:00:00 00:00:00 FaganNlyaOliveginny LAYTONAIRE 350.1.13.[address] [facility] [id number] 2022-01-30 2022-01-30 Telephone Olive Fagan UTP 1.2.84 0.114 [id number] [place] 00:00:00 00:00:00 FaganOlyrandolph SEBASTIANE 350.1.13.[address] [facility] [id number] 2022-01-22 2022-01-22 Outpatient NORMAN Wagner [facility] [id number] [facility] 13:30:00 13:30:00 [place], 16 [facility] 2021-12-04 2021-12-04 Telephone Sia Cobos [facility] 1.2.840.11 4 [id number] [facility] 00:00:00 00:00:00 ANTONIA 350.1.13.10 it y of WOMEN'S 4.2.7.2.686 [facility] [id number] [facility] 134 Branch 2021-12-04 2021-12-04 Orders Doctor PRISCILLA 1.2.840.114 [id number] [facility] 00:00:00 00:00:00 Only Unassigned, MEEK 350.1.13.[address] [facility] 4.2.7.2.686 Jer [id number] [facility] 009 Branch 2021-11-21 2021-11-21 Consult GERALD Greene 1.2.840.114 [id number] [place] 11:00:00 12:46:23 Zayra LAYTONMERVIN 350.1.13.58 H [facility] 9.2.7.2.[address] [facility] [id number] 2021-07-31 2021-07-31 Outpatient IHDE_G MMG MMG [id number] [place] 00:00:00 00:00:00 1201 [facility] 2021-06-20 2021-06-20 Outpatient IHDE_G MMG MMG [id number] [place] 02:04:00 02:04:00 1021 [facility] 2021-05-16 2021-05-16 Outpatient IHDE_G MMG MMG [id number] [place] 02:08:00 02:08:00 0916 [facility] 2021-04-11 2021-04-11 Outpatient IHDE_G MMG MMG [id number] [place] 01:21:00 01:21:00 0812 [facility] 2021-03-15 2021-03-15 Outpatient IHDE_G MMG MMG [id number] [place] 12:24:00 12:24:00 0716 [facility] 2021-03-14 2021-03-14 Efrain IHDE_[place] MMG [place] - [id number] [place] 00:00:00 00:00:00 Terry Pritchard MD: Medical Medica [address] [facility] [address], [place] [address] , Ph. [phone] 2021-03-11 2021-03-[address] [facility] [id number] Univers 10:00:00 10:00:00 GOOD YANG [facility] 2021-03-06 2021-03-06 Outpatient IHDE_G MMG [facility] [id number] [place] 12:05:00 12:05:00 0707 Medical [facility] 2020-11-29 2020-11-29 Outpatient R TJ, [facility] [id number] Univers 08:00:00 08:00:00 KUNAL [facility] 2020-09-13 2020-09-13 Outpatient R VANCE COBOSN [facility] [id number] Univers 15:00:00 15:00:00 [facility] 2020-05-25 2020-05-25 Outpatient R ADUM, [facility] [id number] Univers 15:30:00 15:30:00 [facility] 2020-05-23 2020-05-23 Outpatient R ADUM, [facility] [id number] Univers 11:00:00 11:00:00 [facility] 2020-05-15 2020-05-15 Outpatient R ADUM, [facility] [id number] Univers 09:30:00 09:30:00 [facility] 2020-02-17 2020-02-17 Outpatient R ADUM, [facility] [id number] Univers 09:00:00 09:00:00 [facility] 2020-02-13 2020-02-13 Outpatient R ADUM, [facility] [id number] Univers 10:00:00 10:00:00 [facility] 2020-02-08 2020-02-08 Outpatient R [facility], [facility] [id number] Univers 13:00:00 13:00:00 [facility] 2020-02-03 2020-02-03 Case [facility] 1.2.840.114 [id number] 00:00:00 00:00:00 Management Sonia Ballard 350.1.13.10 [place] 4.2.7.2.686 Professio [id number] [address] 2020-02-01 2020-02-01 Outpatient R [facility] [id number] Univers 15:00:00 15:00:00 [facility] 2020-02-01 2020-02-01 Office [facility] 1.2.840.114 [id number] 11:20:04 12:15:55 Visit Sonia Ballard 350.1.13.10 [place] 4.2.7.2.686 Profmelissaio [id number] [address] 2020-02-01 2020-02-01 Outpatient R [facility] [id number] Univers 11:00:00 11:00:00 [facility] Results Test Description Test Time Test Comments Results Result Comments Source POC BLADDER SCAN/PVR 2022-12-30 21:11:20 Test Item Value Reference Range Interpretation Comme nts Total volume (test code = 2336) 0 [facility] urinalysis [id number] 21:08:58 Test Item Value Reference Range Interpretation Comments Color urine, POC (test Yellow code = 2340842) Clarity urine, POC (test Clear code = 9439968) Glucose urine, POC (test Negative Negative code = 3883293) Bilirubin urine, POC Negative Negative (test code = 8702837) Ketones urine, POC (test Negative Negative code = 4316557) Specific gravity urine, >/=1.030 1.005-1.030 POC (test code = 1088433) Blood urine, POC (test Large Negative A code = 4181196) pH urine, POC (test code 5.5 See_Comment [A utomated message] = 8450800) The system Bill.Forward generated this result transmitted ref erence range: 5.0, 5.5 , 6.0, 6.5, 7.0, 7.5, 8.0, 8.5. The refere nce range was not u sed to interpret this result as normal/abnor mal. Protein urine, POC (test Negative Negative code = 6452612) Urobilinogen urine, POC <2.0 <=2.0 (test code = 9366496) Nitrite urine, POC (test Negative Negative code = 2924544) Leukocyte esterase Trace Negative A urine, POC (test code = 4065210) Lab Interpretation (test Abnormal code = 49108-3) [id number] 17:47:55 Test Item Value Reference Range Interpretation Comments RADRPT (test code PROCEDURE INFORMATION: Exam: = RADRPT) XR Chest Exam date and time: 10/17/2022 9:09 AM Age: 32 years old Clinical indication: Screening exam; Pre-operative exam; Additional info: Coughing/coughing TECHNIQUE: Imaging protocol: Radiologic exam of the chest. Views: 2 views. COMPARISON: No relevant prior studies available. FINDINGS: Lungs: No focal airspace disease or evidence of pulmonary edema. Pleural spaces: No pleural effusion. No pneumothorax. Heart/Mediastinum: Normal appearance of the cardiomediastinal silhouette. Bones/joints: No acute abnormality. IMPRESSION: No acute findings. Gilberto Holcomb MD On 10/17/2022 11:47:29; [id number] [id number] 17:04:00 Test Item Value Reference Range Interpretation Comments Vitamin B12 Lvl (test code = Vitamin 203 508-2186 B12 Lvl) [id number] 17:04:00 Test Item Value Reference Range Interpretation Comments Hgb A1C (test code = Hgb A1C) 5.8 [facility] HospitalLqirihuGIYODBGXI5569-40-78 17:04:00 Test Item Value Reference Range Interpretation Comments Trig (test code = Trig) 236 [facility]QzgyfeeGMHGLTODJ1182-43-91 17:04:00 Test Item Value Reference Range Interpretation Comments Chol (test code = Chol) 196 [facility] HospitalOjomhuoWDCWMAHDR1244-32-40 17:04:00 Test Item Value Reference Range Interpretation Comments HDL (test code = HDL) 59 [facility] HospitalXtbvsjmIHUFVTONI0527-54-18 17:04:00 Test Item Value Reference Range Interpretation Comments Chol/HDL Ratio (test code = Chol/HDL 3.32 1 3.90-5.80 Ratio) [facility] HospitalYigrzntATDWUHUMJ5615-61-61 17:04:00 Test Item Value Reference Range Interpretation Comments LDL (Calculated) (test code = LDL 90 (Calculated)) [place] [address]-02-17 17:04:00 Test Item Value Reference Range Interpretation Comments VLDL (test code = VLDL) 47 1 [place] [id number] 16:59:00 Test Item Value Reference Range Interpretation Comments Bili Direct (test code 0.2 See_Comment [Aut omated message] The = Bili Direct) system which generated this result tra nsmitted reference range : <=0.3. The reference r abbie was not used to int erpret this result as nirmal l/abnormal. [facility] HospitalNahfjukGCGEIZUZI1225-58-94 16:59:00 Test Item Value Reference Range Interpretation Comments Glucose Lvl (test code = Glucose Lvl) 92 70-99 [facility] HospitalAwstetnRGXMOUTYB9942-10-55 16:59:00 Test Item Value Reference Range Interpretation Comments BUN (test code = BUN) 12 7-22 [facility] HospitalKcklgskMJEJADGQR6390-54-35 16:59:00 Test Item Value Reference Range Interpretation Comments Creatinine Lvl (test code = Creatinine 0.52 0.50-1.40 Lvl) [facility] HospitalFhokcakOOPBOHPGX4129-87-54 16:59:00 Test Item Value Reference Range Interpretation Comments Sodium Lvl (test code = Sodium Lvl) 139 135-145 [facility] HospitalKccvvnzLUXADYLOP1535-13-85 16:59:00 Test Item Value Reference Range Interpretation Comments Potassium Lvl (test code = Potassium 3.8 3.5-5.1 Lvl) [facility] HospitalNyjpuyxNFMHTNQEJ3249-55-72 16:59:00 Test Item Value Reference Range Interpretation Comments Chloride Lvl (test code = Chloride Lvl) 107 95-109 [facility] HospitalLzefbobDSCCWCUIC3457-53-86 16:59:00 Test Item Value Reference Range Interpretation Comments CO2 (test code = CO2) 23 24-32 [place] [id number] 16:59:00 Test Item Value Reference Range Interpretation Comments Calcium Lvl (test code = Calcium Lvl) 8.8 8.5-10.5 [place] 963923-02-17 16:59:00 Test Item Value Reference Range Interpretation Comments Total Protein (test code = Total 7.6 6.4-8.4 Protein) [facility] HospitalEiaykdjYXKGKHAXH7080-92-29 16:59:00 Test Item Value Reference Range Interpretation Comments Albumin Lvl (test code = Albumin Lvl) 3.6 3.5-5.[address] [facility] HospitalFlsetitNJQZJRWYF6187-22-52 16:59:00 Test Item Value Reference Range Interpretation Comments ALT (test code = ALT) 29 See_Comment [Auto mated message] The system which ge nerated this result transmit nadia reference range : <=65. The reference range was not used to interpr et this result as nirmal l/abnormal. [facility] HospitalZhpfdaqTZAODPHEQ6128-15-27 16:59:00 Test Item Value Reference Range Interpretation Comments AST (test code = AST) 14 See_Comment [Auto mated message] The system which ge nerated this result transmit nadia reference range : <=37. The reference range was not used to interpr et this result as nirmal l/abnormal. [facility] TkicrdsHWNHFDMNZ3426-06-97 16:59:00 Test Item Value Reference Range Interpretation Comments Alk Phos (test code = Alk Phos) 53 39-[address] [facility] HospitalZlhxmdoBNTHPVPWX0740-73-21 16:59:00 Test Item Value Reference Range Interpretation Comments Bili Total (test code = Bili Total) 0.5 0.2-1.[address] [facility] HospitalFtsepobYTTVQAGTW4170-70-40 16:59:00 Test Item Value Reference Range Interpretation Comments AGAP (test code = AGAP) 12.8 10.0-20.[address] [facility] HospitalTdbkrkeQGMMBYEXF1941-60-95 16:59:00 Test Item Value Reference Range Interpretation Comments B/C Ratio (test code = B/C Ratio) 23 1 6-[address] [facility] HospitalVekqfgyJVDKHKJCL5739-45-21 16:59:00 Test Item Value Reference Range Interpretation Comments Globulin (test code = Globulin) 4.0 2.7-4.[address] [facility] [address] HospitalEwejtgsSYNSXLEAG0379-44-19 16:59:00 Test Item Value Reference Range Interpretation Comments A/G Ratio (test code = A/G Ratio) 0.9 1 0.7-1.[address] [facility] [address] HospitalRigmhsfONKXWTFIY4153-20-96 16:59:00 Test Item Value Reference Range Interpretation Comments eGFR (test code = eGFR) 128 [facility] HospitalUgdjiobEJKPFARDN8550-03-93 16:59:00 Test Item Value Reference Range Interpretation Comments Folate Lvl (test code = Folate Lvl) 16.4 [facility] HospitalJtcatwgIMYTQQKRS2319-83-32 16:59:00 Test Item Value Reference Range Interpretation Comments TSH (test code = TSH) 1.790 0.360-3.740 [facility] CenterCbpmwtgPAOBKEJPWG9829-46-27 16:59:00 Test Item Value Reference Range Interpretation Comments Segs (test code = Segs) 62.7 45.0-75.0 [place] 670733-02-17 16:59:00 Test Item Value Reference Range Interpretation Comments Lymphocytes (test code = Lymphocytes) 26.5 20.0-40.0 [place] 670733-02-17 16:59:00 Test Item Value Reference Range Interpretation Comments Monocytes (test code = Monocytes) 7.5 2.0-12.0 [place] 670733-02-17 16:59:00 Test Item Value Reference Range Interpretation Comments Eosinophils (test code = 2.8 See_Comment [A utomated message] The Eosinophils) system which ge nerated this result tra nsmitted reference range : <=4.0. The reference r abbie was not used to int erpret this result as normal/abnormal . [facility] CenterAnydeneCULMRRYZJT4008-69-24 16:59:00 Test Item Value Reference Range Interpretation Comments Basophils (test code = 0.5 See_Comment [Aut omated message] The Basophils) system which ge nerated this result tra nsmitted reference range : <=1.0. The reference r abbie was not used to int erpret this result as normal/abnormal . [facility] CenterWotnqwdVWPBAJAFKT4914-98-44 16:59:00 Test Item Value Reference Range Interpretation Comments Neutrophils # (test code = Neutrophils 5.3 1.5-8.1 #) [place] 670733-02-17 16:59:00 Test Item Value Reference Range Interpretation Comments Lymphocytes # (test code = Lymphocytes 2.3 1.0-5.5 #) [place] 670733-02-17 16:59:00 Test Item Value Reference Range Interpretation Comments Monocytes # (test code 0.6 See_Comment [Aut omated message] The = Monocytes #) system which generated this result tra nsmitted reference range : <=0.8. The reference r abbie was not used to int erpret this result as normal/abnormal . [facility] CenterLmmbcacGMVGHMSWZQ2459-35-23 16:59:00 Test Item Value Reference Range Interpretation Comments Eosinophils # (test code 0.2 See_Comment [A utomated message] The = Eosinophils #) system whic h generated this result tra nsmitted reference range : <=0.5. The reference r abbie was not used to int erpret this result as normal/abnormal . [facility] CenterUqdxhuhDYTOIWUVXB1991-86-68 16:59:00 Test Item Value Reference Range Interpretation Comments WBC (test code = WBC) 8.5 3.7-10.4 [place] 670733-02-17 16:59:00 Test Item Value Reference Range Interpretation Comments RBC (test code = RBC) 4.43 4.20-5.40 [facility] CenterFtqdejwUNAXWJGLOI0285-79-73 16:59:00 Test Item Value Reference Range Interpretation Comments Hgb (test code = Hgb) 13.9 12.0-16.0 [place] 670733-02-17 16:59:00 Test Item Value Reference Range Interpretation Comments Hct (test code = Hct) 41.0 36.0-48.0 [facility] CenterIttihphVGQKXYTBSD6014-24-64 16:59:00 Test Item Value Reference Range Interpretation Comments MCV (test code = MCV) 92.5 80.0-98.0 [facility] CenterDyrhfcaOTBVLUVSMH8597-27-80 16:59:00 Test Item Value Reference Range Interpretation Comments MCH (test code = MCH) 31.3 pg 27.0-31.0 [place] 670733-02-17 16:59:00 Test Item Value Reference Range Interpretation Comments MCHC (test code = MCHC) 33.9 32.0-36.0 [place] 670733-02-17 16:59:00 Test Item Value Reference Range Interpretation Comments RDW (test code = RDW) 13.8 11.5-14.5 [place] 670733-02-17 16:59:00 Test Item Value Reference Range Interpretation Comments Platelet (test code = Platelet) 203 133-450 [facility] CenterUldpmwrGPABUDADQF5153-77-60 16:59:00 Test Item Value Reference Range Interpretation Comments MPV (test code = MPV) 8.3 7.4-10.4 [facility] MhkrzsqNMPMAGAXCL7439-43-62 16:59:00 Test Item Value Reference Range Interpretation Comments PT (test code = PT) 13.3 s 12.0-14.7 [facility] XriuvbkHPNHBRHMVO4041-95-93 16:59:00 Test Item Value Reference Range Interpretation Comments INR (test code = INR) 1.01 1 0.85-1.17 [facility] CrtcfvoTXYCBYINWX2302-22-87 16:59:00 Test Item Value Reference Range Interpretation Comments PTT (test code = PTT) 25.4 s 22.9-35.8 [facility] AutdtfuIGGQLFLGNM5729-27-29 16:59:00 Test Item Value Reference Range Interpretation Comments HIV Ag/Ab 4th Gen Negative *NA*(10/17/22 (test code = HIV 10:59 AM) Ag/Ab 4th Gen) [facility] NyqryieZQWEDGKDE1808-26-03 15:44:00 Test Item Value Reference Range Interpretation Comments U Preg (test code = U Negative (10/17/22 9:44 Preg) AM) [facility] [id number] 15:44:00 Test Item Value Reference Range Interpretation Comments UA Color (test code = Yellow *NA*(10/17/22 UA Color) 9:44 AM) [facility] [id number] 15:44:00 Test Item Value Reference Range Interpretation Comments UA Turbidity (test code = Clear (10/17/22 9:44 UA Turbidity) AM) [facility] [id number] 15:44:00 Test Item Value Reference Range Interpretation Comments UA Spec Grav (test >=1.030 *ABN*(10/17/22 code = UA Spec Grav) 9:44 AM) [facility] [id number] 15:44:00 Test Item Value Reference Range Interpretation Comments UA pH (test code = UA pH) 6.0 1 5.0-8.0 [facility] [id number] 15:44:00 Test Item Value Reference Range Interpretation Comments UA Protein (test code Negative (10/17/22 9:44 = UA Protein) AM) [facility] [id number] 15:44:00 Test Item Value Reference Range Interpretation Comments UA Glucose (test code Negative (10/17/22 9:44 = UA Glucose) AM) [facility] AND [id number] 15:44:00 Test Item Value Reference Range Interpretation Comments UA Ketones (test code Negative *NA*(10/17/22 = UA Ketones) 9:44 AM) [facility] [id number] 15:44:00 Test Item Value Reference Range Interpretation Comments UA Bili (test code = Negative *NA*(10/17/22 UA Bili) 9:44 AM) [facility] AND [id number] 15:44:00 Test Item Value Reference Range Interpretation Comments UA Blood (test code = Moderate *ABN*(10/17/22 UA Blood) 9:44 AM) [facility] AND [id number] 15:44:00 Test Item Value Reference Range Interpretation Comments UA Urobilinogen (test code = UA 0.2 0.1-1.0 Urobilinogen) [facility] AND [id number] 15:44:00 Test Item Value Reference Range Interpretation Comments UA Nitrite (test code Negative (10/17/22 9:44 = UA Nitrite) AM) [facility] AND [id number] 15:44:00 Test Item Value Reference Range Interpretation Comments UA Leuk Est (test Negative (10/17/22 9:44 code = UA Leuk Est) AM) [facility] AND [id number] 15:44:00 Test Item Value Reference Range Interpretation Comments UA Sq Epi (test code = UA Sq Epi) Few /LPF [facility] AND [id number] 15:44:00 Test Item Value Reference Range Interpretation Comments UA WBC (test code = 3 See_Comment [Automa nadia message] The UA WBC) system which ge nerated this result transmit nadia reference range : <=5. The reference range was not used to interpr et this result as nirmal l/abnormal. [facility] AND [id number] 15:44:00 Test Item Value Reference Range Interpretation Comments UA RBC (test code = 11 See_Comment [Automa nadia message] The UA RBC) system which ge nerated this result transmit nadia reference range : <=2. The reference range was not used to interpr et this result as nirmal l/abnormal. [facility] [id number] 15:44:00 Test Item Value Reference Range Interpretation Comments UA Mucus (test code = UA Mucus) Few /LPF [facility] FbcagnmUFWJZBYC4141-74-21 16:34:00 Test Item Value Reference Range Interpretation Comments SURGICAL (test code = SR) R UN DATE: 04/08/22 [facility] PAGE 1 RUN TIME: 1635 Specimen Inquiry RUN USER: INTERFACE Clark ATIENT: NEREYDA FERRIS LOC: VAN U #: [id number] AGE/SX: 32/F ROOM: [facility] RE03/18/[facility] DR: Buck Powell : [birth year] BED: A DIS: 03/21/22 STATUS: DIS IN TLOC: SPEC #: [id number] RECD: 03/19/22 STATUS: NERISSA [place] #: [id number] JASEN: 03/18/[address] [facility] [address]: Buck Powell MD ENTERED: 03/19/22 SP TYPE: SURGICAL OTHR DR: DOES_NOT KNOW ORDERED: ANATOMIC SPEC/3, SPEC TRACK, 30535/2, 03910/2, 53411/2, 16301 COPIES TO: DOES_NOT KNOW Buck Powell MD [address] [facility] [id number] [place] [address] PROCEDURES: 70245 (03/19/22) 43502 (03/19/22) 86487 (04/08/22) 51215 (04/08/22) TISSUES: A. PLACENTA, THIRD TRIMESTER (28 + WEEKS) B. FALLOPIAN TUBE, RIGHT C. FALLOPIAN TUBE, LEFT FINAL DIAGNOSIS A. TWIN PLACENTA, DELIVERY: - Diamniotic dichorionic twin placenta present as two separate discs - Weight Placenta "A" 556 grams; Weight Placenta "B" 509 grams - Large for gestational age A. Placenta "A" - Third trimester villous development, at early term - Trivascular umbilical cord, no pathologic alteration - Chorioamnionic membranes, no pathologic alteration - Placental weight 556 g A. Placenta "B" - Third trimester villous development, at term - Trivascular umbilical cord, no pathologic alteration - Chorioamnionic membranes, no pathologic alteration - Placental weight 509 g B. FALLOPIAN TUBE, RIGHT, EXCISION: - Complete luminal cross-section present - Hemangioma, benign CONTINUED ON NEXT PAGE R UN DATE: 04/08/22 [facility] PAGE 2 RUN TIME: 1635 Specimen Inquiry RUN USER: INTERFACE S PEC #: [id number] PATIENT: NEREYDA FERRIS ANID #[id number] (Continued) FINAL DIAGNOSIS (Continued) C. FALLOPIAN TUBE, LEFT, EXCISION: - complete luminal cross-section present Note:A combined twin placenta weight of 1065 grams corresponds to above the 90th percentile forcombined twin placental weight at 37 weeks. GROSS DESCRIPTION A. Received in formalin is a twin placenta with the separate placental discs measuring 28 x22 x 2.3 cm in aggregate, 1065 grams in aggregate grossly thick shared membranes. There areno vascular anastomosis present. Twin A (1 clamp): The placental disk for twin A has a 31 cm in length x 1.2 cm in diameter with eccentricinsertion 5 cm from the placental edge, three vessel cord and has 4 coils per 10 cm ofcord. The membranes are ramirez and translucent with marginal insertion. The placental disc hasa blue surface and a complete maternal surface. The placental disk is ovoid, x 14 x 2.3 cm, and weighs 556 grams without the membranes and cord. The surface isblue with unremarkable vasculature. Serial sectioning of the disc shows ramirez-red beefy cutsurface. Twin B (2 clamps): The placental disk for twin B has a 39 cm in length x 1.1 cm in diameter, centrallyinserted 5 cm from the placental edge, three vessel cord with 5 coils per 10 cm of cord.The membranes are ramirez and translucent with marginal insertion ruptured at the placentaledge. The placental disc has a blue surface and a complete maternal surface. Theplacental disk is ovoid, measures 16 x 14 x 2.3 cm, and weighs 509 grams without themembranes and cord. The surface is blue with unremarkable vasculature. Serialsectioning of the disc shows ramirez-red beefy cut surface. Sections code: A1: Shared Membrane A2: Twin "A" Membrane and Cord A3-A4: Twin A Placenta Cross Section A5: Twin "B" Cord and Membrane A6-A7: Twin B Placenta Cross Section B. Received in formalin labeled with patient's name and , designated "Right FallopianTube" consists of a fimbriated fallopian tube measuring 4.3 cm in total length x 1.0 cm indiameter. The specimen is sectioned, revealing a pinpoint lumen. The specimen is submittedrepresentatively in B1. C. Received in formalin labeled with patient's name and , designated "Left FallopianTube" consists of a fimbriated fallopian tube measuring 4.3 cm in total length x 0.9 cm indiameter. The specimen is sectioned, revealing a pinpoint lumen. The specimen is submittedrepresentatively in C1. (ARACELI 04/03/22) CONTINUED ON NEXT PAGE R UN DATE: 04/08/22 [facility] PAGE 3 RUN TIME: 1635 Specimen Inquiry RUN USER: INTERFACE S PEC #: [id number] PATIENT: NEREYDA FERRIS ANID #[id number] (Continued) GROSS DESCRIPTION (Continued) Technical component performed at [id number] , [place] [address] Unless gross only, the diagnosis is based upon microscopic examination.Immunohistochemistr y: This test was developed and its performance characteristicsdetermined by this laboratory. It has not been approved nor does it need approval by [place] FDA. Appropriate positive and negative controls are reviewed and judged to beacceptable. This laboratory is certified under the Clinical Laboratory ImprovementAmendments (CLIA-88) as qualified to perform high complexity clinical laboratory testing. MICROSCOPIC DESCRIPTION The right fallopian tube has a 2 x 1 mm well circumscribed proliferation of bland spindledand rounded cells in a fibrous stroma around vascular channels. Immunohistochemistry wasperformed to clarify the diagnosis, and demonstrates CD31(+) staining along the channelsand negative staining for calretinin and CK AE1/3. The endothelial cells lining thechannels show minimal atypia, and abnormal anastomoses are not seen. Mitotic activity isabsent. The lesion is not infiltrative. These results confirm the diagnosis of benignvascular proliferation, hemangioma. CLINICAL INFORMATION IUP @ 37.0 WEEKS, REPEAT C/S, GDM- INSULIN, 2 CLAMPS ON BABY B Signed SIGNATURE ON FILE Christopher Hobson 04/08/22 1634 END OF REPORT [id number] 06:52:00 Test Item Value Reference Range Interpretation Comments GLUBED (test code = GLUBED) 85 mg/dL 65-110 N [id number] 22:13:00 Test Item Value Reference Range Interpretation Comments GLUBED (test code = GLUBED) 136 mg/dL 65-110 H [id number] 17:05:00 Test Item Value Reference Range Interpretation Comments GLUBED (test code = GLUBED) 166 mg/dL 65-110 H [id number] 11:51:00 Test Item Value Reference Range Interpretation Comments GLUBED (test code = GLUBED) 108 mg/dL 65-110 N [id number] 06:41:00 Test Item Value Reference Range Interpretation Comments GLUBED (test code = GLUBED) 87 mg/dL 65-110 N [id number] 23:44:00 Test Item Value Reference Range Interpretation Comments GLUBED (test code = GLUBED) 170 mg/dL 65-110 H [id number] 14:36:00 Test Item Value Reference Range Interpretation Comments GLUBED (test code = GLUBED) 162 mg/dL 65-110 H CBC W/AUTO [id number] 09:41:00 Test Item Value Reference Range Interpretation [...] REQUIRED (test NORMAL NORMAL code = PLTMR) [id number] 09:39:00 Test Item Value Reference Range Interpretation Comments GLUBED (test code = GLUBED) 153 mg/dL 65-110 H [id number] 07:18:00 Test Item Value Reference Range Interpretation Comments GLUBED (test code = GLUBED) 152 mg/dL 65-110 H [id number] 02:30:00 Test Item Value Reference Range Interpretation Comments GLUBED (test code = GLUBED) 164 mg/dL 65-110 H - XR CHEST 2 [id number] 00:00:00 [facility] [place] [facility] NEREYDA [facility]ERRIS SANDRINE : 1990 Sex: F Patient Name: NEREYDA FERRIS Unit No: [id number] EXAMS: CPT CODE: [id number] XR CHEST 2 V 94298 PROCEDURE INFORMATION: Exam: XR Chest Exam date [...] Orig Print D/T: S: 03/19/2022 (1154) [facility] NAME: NEREYDA FERRIS Radiology Department PHYS: APPLEAD.01 - Buck Powell [address] : 1990 AGE: 32 SEX: F [place], [place] [address] LOC: [id number].[id number] A PHONE #: [phone] EXAM DATE: 03/19/2022 STATUS: ADM IN FAX #: [phone] RAD NO: Page 1 Signed [id number] 14:14:00 Test Item Value Reference Range Interpretation Comments GLUBED (test code = GLUBED) 80 mg/dL 65-110 N AB HEPATITIS C [id number] 13:55:00 Test Item Value Reference Range Interpretation Comments AB HEPATITIS C (test code = NONREACTIVE NONREACTIVE HCVAB) SIGNAL TO CUTOFF (test code = 0.15 <0.80 N CUTOFF) AB [id number] 13:55:00 Test Item Value Reference Range Interpretation Comments AB TREPONEMA (test code = TREPAB) NONREACTIVE NONREACTIVE AB HIV 1 13:55:00 Test Item Value Reference Range Interpretation Comments AB HIV 1 2 (test NONREACTIVE NONREACTIVE Done by [facility] code = DHB37IN) 4th Gen HIV Ag/Ab Combo Screen AG HEPATITIS B [id number] 13:55:00 Test Item Value Reference Range Interpretation Comments AG HEPATITIS B SURFACE (test code NONREACTIVE NONREACTIVE = HBSAG) COVID 19 Asymptomatic IH [id number] 13:23:00 Test Item Value Reference Range Interpretation [...] and/o r diagnosis of CO VID-19 under Jtqlzej51 4(b)(1) of the Act, 21 U.S .C. 360bbb-3(b)(1), unless theauthorizatio n is terminated or r evoked sooner. URINALYSIS W/O [id number] 13:00:00 Test Item Value Reference Range Interpretation Comments UA GLUCOSE DIPSTICK (test code = NEGATIVE NEG DGLUU) UA KETONE DIPSTICK (test code = NEGATIVE NEG KETU) UA PROTEIN DIPSTICK (test code = 1+ NEG A PROU) IS NURSE PERFORMING TEST? NCBC W/AUTO [id number] 12:48:00 Test Item Value Reference Range Interpretation [...] REQUIRED (test NORMAL NORMAL code = PLTMR) Notes Date/Time Note Provider Source 2022-04-03 08:53:00-00:00 [id number] [facility] [address] [place], [place] [address] PATIENT NAME: NEREYDA FERRIS ADMIT DATE: 02/28 05/22 ACCOUNT NO: [id number] ROOM NO: 4620 AGE: 32 SEX: F ADMITTING PHYSICIAN: Buck Powell MD ATTENDING PHYSICIAN: Buck Powell MD Provider Query QUERY TEXT: Specificity General 360MD Query related questions should be directed to: Roby carson [facility] C[place] Query Help-line Please provide any known specificity for Anemia documented in the OB Admission / H and P 03/17/2022 (1 (Acute lood loss anemia, Chronic blood loss anem ia, Unspecified, or other mreo appropriate diagnois )? The patient's Clinical Indicators include: HEMATOCRIT (%) 28.LDROP FROM 37.3- LAB anemia, - OB Admission / H and P 03/17/2022 (1) HEMOGLOBIN (g/dL) 9.3L DROP FROM 12.1 - LAB Medication: VITAMIN 1 TAB (PREN-76) Start: 03/21/2022 08:33 )( Estimated blood loss (ml): 900 -OB Delivery N ote 03/18/2022 Options provided: -- Respond - Create new note now -- Dismiss - Not applicable / Not valid -- Dismiss - Clinically unable to determine / Un known -- Assign to another provider QUERY RESPONSE: The diagnosis is acute blood loss anemia related to delivery. Query created by: Edilberto Boyce on 2021 8:24 AM at 0853 PATIENT NAME: NEREYDA FERRIS [id number] 2022-03-21 19:09:00-00:00 [facility] ([facility] OB Disch REPORT#:[id number] REPORT STATUS: Signed DATE:03/21/22 TIME: 1908 PATIENT: NEREYDA FERRIS UNIT #: [id number] ROOM/BED: [address] : [birth year] AGE: 32 SEX: F ATTEND: Buck Powell MD ADM AUTHOR: Buck Powell MD * ALL edits or amendments must be made on the [employer] document * Subjective Subjective Admission EGA: Weeks: 37 Days: 0 Status/day: post operative (day 3) Free Text Subj Notes Free Text Subj Notes: doing well. able to be active with ambulation wi thout difficulty. Pain well controlled, tolerating po, voiding, + flatus. Objective General VS: Vital Signs Date Temp Pulse Resp B/P B/P Mean Pulse Ox FiO 2 03/21 97.7-98.3 91-106 18 128-138/86-90 Last Documented: Result Date Time B/P 128/86 03/21 0820 Temp 97.7 03/21 0820 Pulse 91 03/21 0820 Resp 18 03/21 0820 B/P Mean 95.0 03/20 1715 Pulse Ox 95 03/19 1700 PATIENT WEIGHT: Weight (lb): 251 Weight (oz): 8.76 Weight (kg): 114.100 Physical Exam Neuro: Exam: alert, oriented x3, normal speech Incision site: well approximated edges, dry, no drainage, no inflammation Fundus: firm, below the umbilicus, non-tender Lower extremities: Edema: 2+ pitting Results Findings/Data: Laboratory Tests: 03/21 03/20 03/20 03/20 03/20 0649 2211 1702 1147 0638 Chemistry POC Glucose (65 - 110 mg/dL) 85 136 H 166 H 108 87 03/19 2341 Chemistry POC Glucose (65 - 110 mg/dL) 170 H Discharge Summary General Problem List/A P: 1. Dichorionic diamniotic twin gestation Assessment: nml progress, gest diabet es, on insulin Date of admission: Date of admission: 03/18/22 Admission diagnosis: di di twins, GDM on insulin Hospital course: repeat admit Procedures: repeat CS delivery, bilateral salpin gectomy Discharge condition: stable Discharge to: Home/Self Care Discharge diagnosis: high ri sk repeat c/s, bilateral salpingectomy, di di twins, GDM on insulin Discharge management: less than 30 mins Baby A: status: live born Gender: female 1 minute: 8 5 minutes: 9 Anomalies: none Baby B: status: live born Gender: female 1 minute: 8 5 minutes: 9 Anomalies: none Plan: routine car e, BGs normalizing, will complete glucola at 6 wks, but no medications at this time. Vaginal packing at delivery: No Discharge Instructions Instructions: instr and warnings rev'd Diet: Regular Activity: Light Duty, No Driving, No [place] for 6 Wks Additional discharge routines: Add. instructions Additional instructions: Call for fever, increased pain, increased bleedi ng, or any concerning symptoms. Follow up in 6 weeks. Contraception discussed: salpingectomy performed . Discharge meds: Stop taking the following medications: ACETAMINOPHEN (TYLENOL) 500 MG TAB 500 MILLIGRAM ORAL DIRECTED. ASPIRIN (ASPIRIN) 81 MG TAB.CHEW 81 MILLIGRAM ORAL DAILY. INSULIN GLARGINE (LANTUS SOLOSTAR (15mL)) 100 UN IT/ML (3 ML) PEN.INJCTR 36 UNIT INSULIN ASPART (NovoLOG) 100 UNIT/ML VIAL 1 UNITS SUBCUTANEOUS DIRECTED. Continue taking these medications: PNV WITH FE FUMARATE/FA () 27 MG IRON-80 0 MCG TAB 1 TABLET ORAL DAILY. CETIRIZINE (ZyrTEC) 5 MG TAB 5 MILLIGRAM ORAL DAILY. IRON (IRON) 18 MG TAB 18 MILLIGRAM ORAL DAILY. FLUTICASONE PROPIONATE (FLONASE 50 MCG/ACT NASAL ) 50 MCG/ACTUATION SPRAY 1 SPRAY NASAL TWICE DAILY. Instructions: One spray in each nostril. ESCITALOPRAM (LEXAPRO) 10 MG TAB 10 MILLIGRAM ORAL DAILY. Start taking the following new medications: CEPHALEXIN (KEFLEX) 500 MG CAP 500 MILLIGRAM ORAL EVERY 12 HOURS. Qty = 12 No Refills IBUPROFEN (MOTRIN) 600 MG TAB 600 MILLIGRAM ORAL EVERY 6 HOURS NEEDED. as needed for PAIN SCALE 1-3 ( USE 1ST) Qty = 30 No Refills SENNA (SENOKOT) 8.6 MG TAB 2 TABLET ORAL AT BEDTIME NEEDED. as needed f or CONSTIPATION 3rd CHOICE Qty = 30 No Refills Prescriptions: e-prescribe Rx drug database reviewed: yes at 1912 RPT #:[id number] END OF REPORT 2022-03-20 17:21:00-00:00 [facility] OB Postpart Progr Note REPORT#:[id number] REPORT STATUS: Signed DATE:03/20/22 TIME: 1721 PATIENT: NEREYDA FERRIS UNIT #: [id number] ROOM/BED: [address] : 92 AGE: 32 SEX: F ATTEND: Buck Powell MD ADM AUTHOR: Buck Powell MD * ALL edits or amendments must be made on the [email or web address]/computer document * Subjective Subjective Admission EGA: Weeks: 37 Days: 0 Status/day: post operative (day 2) Free Text Subj Notes Free Text Subj Notes: ambulating freely, no SOB. working on breastfeed ing. normal lochia. voiding. Objective Nursing Documentation Review Nursing data: The data set between the solid lines has been im ported from nursing documentation. Any exceptions have been noted be low under Provider comments. Feeding preference: Post hemorrhage risk score: High Risk for Hemorrhage. Provider comments on imported nursing data: [] General VS: Vital Signs Date Temp Pulse Resp B/P B/P Mean Pulse Ox FiO2 03/20 98.0-98.1 92-112 18 110-135/76-90 Last Documented: Result Date Time B/P 110/76 03/20 0835 Temp 98.0 03/20 0835 Pulse 112 03/20 0835 Resp 18 03/20 0835 Pulse Ox 95 03/19 1700 B/P Mean 92.0 03/18 1945 PATIENT WEIGHT: Weight (lb): 251 Weight (oz): 8.76 Weight (kg): 114.100 Medications: Active Meds + DC'd Last 24 Hrs Acetaminophen (ACETAMINOPHEN 325 MG TAB) 650 MG Q6H PRN PRN PO Ibuprofen (IBUPROFEN 600 MG TAB) 600 MG Q6H PRN PRN PO Ephedrine Sulfate (ePHEDrine SULFATE 50 MG/ML 1M L AMP) 50 MG .STK-MED ONE ZCHARGE (DC) Lidocaine/Epinephrine (XYLOCAINE 2%-EPI 1:200,00 0 - 20 ML PF) 20 ML .STK-MED ONE ZCHARGE (DC) Terbutaline Sulfate (TERBUTALINE 1 MG/ML 1 ML AM P) 1 MG .STK-MED ONE ZCHARGE (DC) Cephalexin (KEFLEX 500 MG CAP) 500 MG Q12H PO Enoxaparin Sodium (LOVENOX SOD 40MG INJ) 40 MG D AILY 1600 SUBQ Escitalopram Oxalate (LEXAPRO 10MG TABLET) 10 MG DAILY PO Multivit/Folic Acid/Iron ( Michelle min Tablet) 1 TAB DAILY PO Oxycodone HCl (OXYIR 5MG TAB) 5 MG Q4H PRN PRN P O Oxycodone HCl (Oxycodone HCl 10 MG IR) 10 MG Q4H PRN PRN PO Ondansetron Base (ZOFRAN ODT 4MG) 4 MG Q6H PRN P RN PO Ondansetron HCl (ZOFRAN 2 MG/ML 4 MG SYR) 4 MG Q 6H PRN PRN IV Ibuprofen (IBUPROFEN 600 MG TAB) 600 MG Q6H PO ( DC) Cetirizine HCl (Cetirizine HCl) 10 MG BEDTIME PO Docusate Sodium (DOCUSATE SODIUM 100 MG CAP) 200 MG BEDTIME PO Fluticasone Propionate (FLONASE NASAL SPRAY 16GM ) 1 SPRAY BID NASAL (CKD ) Insulin Human Lispro (HumaLOG 3ML VIAL) SLIDING SCALE ASDIR SUBQ Acetaminophen (ACETAMINOPHEN 325 MG TAB) 650 MG Q6H PO (DC) Al Hydrox/Mg Hydrox/Simethicone (MYLANTA 30 ML S JAIL) 30 ML ASDIR PRN PO Dextrose/Lactated Ringer's (DEXTROSE 5% IN LACTA NADIA RINGERS 1000 ML) 1,000 ML ASDIR IV (DC) Diphtheria/Pertussis/Tetanus Vacc (ADACEL VACCIN E) 0.5 ML ASDIR IM Hydrocortisone (HYDROCORTISONE 1% TOP CREAM 30 G M) 1 APPL ASDIR PRN TOPICAL Hydrocortisone/Pramoxine (ANALPRAM HC 2.5% CRM S INGLES) 1 GM ASDIR PRN RECTAL (CKD) Hydroxyzine HCl (ATARAX) 25 MG Q6H PRN PRN PO Magnesium Hydroxide (MILK OF MAGNESIA 30 ML UD) 30 ML BID PRN PRN PO Measles/Mumps/Rubella Vaccine Live (M-M-R II VAC CINE W DILUENT) 1 VIAL BEFORE DISCHG PRN SUBQ Methylergonovine Maleate (METHERGINE 0.2 MG/ML 1 ML AMP) 0.2 MG ASDIR PRN IM Nalbuphine HCl (NALBUPHINE HCL 10 MG/ML 1 ML AMP ) 2 MG Q4H PRN PRN IV Nalbuphine HCl (NALBUPHINE HCL 10 MG/ML 1 ML AMP ) 2 MG Q4H PRN PRN IM Nalbuphine HCl (NALBUPHINE HCL 10 MG/ML 1 ML AMP ) 4 MG Q4H PRN PRN IV Nalbuphine HCl (NALBUPHINE HCL 10 MG/ML 1 ML AMP ) 4 MG Q4H PRN PRN IM Naloxone HCl (NALOXONE HCL 0.4 MG/ML 1 ML VIAL) 0.4 MG ANES ASDIR PRN IV Neomycin/Polymyxin/Bacitracin (TRIPLE ANTIBIOTIC 0.94 GM) 1 APPLIC BID PRN TOPICAL Polyethylene Glycol (POLYETHYLENE GLYCOL PKT) 17 GM DAILY PRN PRN PO Promethazine HCl (PROMETHAZINE HCL) 25 MG Q6H PA N PRN PO Senna (SENOKOT TAB) 2 TAB BEDTIME PRN PRN PO (CK D) Simethicone (SIMETHICONE 80 MG TAB) 80 MG PC HS PRN PRN PO Tranexamic Acid (Tranexamic Acid) 1,000 MG ASDIR PRN IV Sodium Chloride (SODIUM CHLORIDE 0.9% 100 ML AD D-Squires) 100 ML Physical Exam Neuro: Exam: alert, oriented x3, normal speech Abdomen: soft, no abnormal tenderness, no guardi ng, no rebound tenderness Incision site: well approximated edges, dry, no drainage, no inflammation Fundus: firm, below the umbilicus Lochia: normal Lower extremities: Edema: 2+ pitting Results Findings/data: Laboratory Tests: 03/20 03/20 03/20 03/19 1702 1147 0638 2341 Chemistry POC Glucose (65 - 110 mg/dL) 166 H 108 87 170 H Diagnosis, Assessment Plan Diagnosis, Assessment Plan Problem List/A P: 1. Dichorionic diamniotic twin gestation Assessment: nml progress, gest diabet es, on insulin Plan: routine car e, monitoring BGs, normal fasting, so will reassess based on AM fasting. at 1724 RPT #:[id number] END OF REPORT 2022-03-19 09:46:00-00:00 [facility] ([facility]) OB Postpart Progr Note REPORT#:[id number] REPORT STATUS: Signed DATE:03/19/22 TIME: 945 PATIENT: NEREYDA FERRIS UNIT #: [id number] ROOM/BED: [address] : 92 AGE: 32 SEX: F ATTEND: Buck Powell MD ADM AUTHOR: Buck Powell MD * ALL edits or amendments must be made on the [employer]/computer document * Subjective Subjective Admission EGA: Weeks: 37 Days: 0 Free Text Subj Notes Free Text Subj Notes: pain well controlled working on pumping. has fel t short of breath when trying to ambulate. No SOB at other times, no palpitati ons. normal lochia. CBC pending when initial evaluation performed. Objective Nursing Documentation Review Nursing data: The data set between the solid lines has been im ported from nursing documentation. Any exceptions have been noted be low under Provider comments. Feeding preference: Post hemorrhage risk score: High Risk for Hemorrhage. Provider comments on imported nursing data: [] General VS: Vital Signs Date Temp Pulse Resp B/P B/P Mean Pulse Ox FiO2 03/18-03/19 98.1-98.3 74-93 9-29 116-155/67-91 86.0-117.0 96-100 Last Documented: Result Date Time B/P 119/84 03/19 040 Temp 98.1 03/19 0402 Pulse 93 03/19 0402 Resp 18 03/19 0402 B/P Mean 92.0 03/18 194 Pulse Ox 97 03/18 194 PATIENT WEIGHT: Weight (lb): 251 Weight (oz): 8.76 Weight (kg): 114.100 Medications: Active Meds + DC'd Last 24 Hrs Acetaminophen (ACETAMINOPHEN 325 MG TAB) 650 MG Q6H PRN PRN PO Ibuprofen (IBUPROFEN 600 MG TAB) 600 MG Q6H PRN PRN PO Enoxaparin Sodium (LOVENOX SOD 40MG INJ) 40 MG D AILY 1600 SUBQ Escitalopram Oxalate (LEXAPRO 10MG TABLET) 10 MG DAILY PO Multivit/Folic Acid/Iron ( Michelle min Tablet) 1 TAB DAILY PO Oxycodone HCl (OXYIR 5MG TAB) 5 MG Q4H PRN PRN P O Oxycodone HCl (Oxycodone HCl 10 MG IR) 10 MG Q4H PRN PRN PO Ondansetron Base (ZOFRAN ODT 4MG) 4 MG Q6H PRN P RN PO Ondansetron HCl (ZOFRAN 2 MG/ML 4 MG SYR) 4 MG Q 6H PRN PRN IV Ibuprofen (IBUPROFEN 600 MG TAB) 600 MG Q6H PO Cetirizine HCl (Cetirizine HCl) 10 MG BEDTIME PO Docusate Sodium (DOCUSATE SODIUM 100 MG CAP) 200 MG BEDTIME PO Fluticasone Propionate (FLONASE NASAL SPRAY 16GM ) 1 SPRAY BID NASAL (CKD ) Insulin Human Lispro (HumaLOG 3ML VIAL) SLIDING SCALE ASDIR SUBQ Acetaminophen (ACETAMINOPHEN 325 MG TAB) 650 MG Q6H PO Al Hydrox/Mg Hydrox/Simethicone (MYLANTA 30 ML S JAIL) 30 ML ASDIR PRN PO Dextrose/Lactated Ringer's (DEXTROSE 5% IN LACTA NADIA RINGERS 1000 ML) 1,000 ML ASDIR IV Diphtheria/Pertussis/Tetanus Vacc (ADACEL VACCIN E) 0.5 ML ASDIR IM Hydrocortisone (HYDROCORTISONE 1% TOP CREAM 30 G M) 1 APPL ASDIR PRN TOPICAL Hydrocortisone/Pramoxine (ANALPRAM HC 2.5% CRM S INGLES) 1 GM ASDIR PRN RECTAL (CKD) Hydroxyzine HCl (ATARAX) 25 MG Q6H PRN PRN PO Magnesium Hydroxide (MILK OF MAGNESIA 30 ML UD) 30 ML BID PRN PRN PO Measles/Mumps/Rubella Vaccine Live (M-M-R II VAC CINE W DILUENT) 1 VIAL BEFORE DISCHG PRN SUBQ Methylergonovine Maleate (METHERGINE 0.2 MG/ML 1 ML AMP) 0.2 MG ASDIR PRN IM Nalbuphine HCl (NALBUPHINE HCL 10 MG/ML 1 ML AMP ) 2 MG Q4H PRN PRN IV Nalbuphine HCl (NALBUPHINE HCL 10 MG/ML 1 ML AMP ) 2 MG Q4H PRN PRN IM Nalbuphine HCl (NALBUPHINE HCL 10 MG/ML 1 ML AMP ) 4 MG Q4H PRN PRN IV Nalbuphine HCl (NALBUPHINE HCL 10 MG/ML 1 ML AMP ) 4 MG Q4H PRN PRN IM Naloxone HCl (NALOXONE HCL 0.4 MG/ML 1 ML VIAL) 0.4 MG ANES ASDIR PRN IV Neomycin/Polymyxin/Bacitracin (TRIPLE ANTIBIOTIC 0.94 GM) 1 APPLIC BID PRN TOPICAL Oxytocin (OXYTOCIN 30 UNITS/500 ML NORMAL SALINE ) 500 ML ASDIR IV (DC) Polyethylene Glycol (POLYETHYLENE GLYCOL PKT) 17 GM DAILY PRN PRN PO Promethazine HCl (PROMETHAZINE HCL) 25 MG Q6H PA N PRN PO Senna (SENOKOT TAB) 2 TAB BEDTIME PRN PRN PO (CK D) Simethicone (SIMETHICONE 80 MG TAB) 80 MG PC HS PRN PRN PO Tranexamic Acid (Tranexamic Acid) 1,000 MG ASDIR PRN IV Sodium Chloride (SODIUM CHLORIDE 0.9% 100 ML AD D-Squires) 100 ML Ketorolac Tromethamine (TORADOL 30 MG SYRINGE) 0 .STK-MED ONE .ROUTE (DC ) Hydroxyzine HCl (ATARAX) 25 MG PACU ASDIR PRN PA N IM (DC) Ketorolac Tromethamine (TORADOL 15 MG VIAL) 15 M G PACU Q6H PRN PRN IV ( DC) Meperidine HCl (MEPERIDINE HCL 25MG/ML SYR) 25 M G PACU Q5MIN PRN PRN IV (DC) Naloxone HCl (NALOXONE HCL 0.4 MG/ML 1 ML VIAL) 0.4 MG PACU ONCE PRN PRN IV (DC) Naloxone HCl (NALOXONE HCL 0.4 MG/ML 1 ML VIAL) 0.05 MG PACU ASDIR PRN PRN IV (DC) Ondansetron HCl (ZOFRAN 2 MG/ML 4 MG SYR) 4 MG P ACU ONCE PRN IV (DC) Promethazine HCl (PROMETHAZINE HCL 25 MG) 12.5 M G PACU ONCE PRN IM (DC) Bupivacaine HCl/Dextrose (MARCAINE SPINAL AMPUL) 0 .STK-MED ONE .ROUTE ( DC) Fentanyl Citrate (SUBLIMAZE 2 ML) 0 .STK-MED ONE .ROUTE (DC) Morphine Sulfate (Duramorph 150 MCG/0.3 mL) 0 .S TK-MED ONE .ROUTE (DC) Oxytocin (PITOCIN 10 UNITS/1ML INJ) 0 .STK-MED O NE .ROUTE (DC) Phenylephrine HCl (PHENYLEPHRINE HCL 10 MG/ML 1M L VIAL) 0 .STK-MED ONE .ROUTE (DC) Acetaminophen (TYLENOL EXTRA STRENGTH) 1,000 MG PREOP PO (DC) Carboprost Tromethamine (HEMABATE 250 MCG/ML AMP ) 250 MCG Q15M PRN PRN IM (DC) Cefazolin Sodium (ANCEF 1 GM VIAL) 2 GM PREOP IV (DC) Dextrose/Water (DEXTROSE 5% IN WATER 50 ML ADD- Squires) 100 ML Dextrose/Lactated Ringer's (DEXTROSE 5% IN LACTA NADIA RINGERS 1000 ML) 1,000 ML ASDIR IV (DC) Lidocaine HCl (LIDOCAINE HCL 1% INJ 5 ML PF VIAL ) 5 ML ONCE PRN IV (DC) Loperamide HCl (LOPERAMIDE HCL 2 MG CAP) 4 MG ON CE PRN PO (DC) Methylergonovine Maleate (METHERGINE 0.2 MG/ML 1 ML AMP) 0.2 MG ASDIR PRN IM (DC) Misoprostol (CYTOTEC 200MCG TAB) 1,000 MCG ASDIR PRN RECTAL (DC) Omeprazole/Sodium Bicarbonate (ZEGERID 20 MG CAP YOAV) 2 CAP PREOP PO (DC ) Ondansetron HCl (ZOFRAN 2 MG/ML 4 MG SYR) 4 MG P REOP IV (DC) Oxytocin (OXYTOCIN 30 UNITS/500 ML NORMAL SALINE ) 500 ML ASDIR IV (DC) Pharmacy Profile Note (EPIDURAL TRAY) 1 EA ONCE MISC (DC) Scopolamine (TRANSDERM-SCOP PATCH) 1 MG PREOP TR ANSDERM (DC) Tranexamic Acid (Tranexamic Acid) 1,000 MG ASDIR PRN IV (DC) Sodium Chloride (SODIUM CHLORIDE 0.9% 100 ML AD D-Squires) 100 ML Loperamide HCl (LOPERAMIDE HCL 2 MG CAP) 2 MG Q4 H PRN PRN PO (DC) Physical Exam Lungs: unlabored breathing Neuro: Exam: alert, oriented x3, normal speech Abdomen: soft, no abnormal tenderness, no guardi ng, no rebound tenderness Incision site: well approximated edges, dry, no drainage, no inflammation Fundus: firm, at the umbilicus Lochia: normal Lower extremities: Edema: 1+ pitting Results Findings/data: Laboratory Tests: 03/19 03/19 03/19 03/19 03/18 0936 0920 0715 0227 1411 Chemistry POC Glucose (65 - 110 mg/dL) 153 H 152 H 164 H 80 Hematology WBC (6.5 - 12.3 K/mm3) 7.5 RBC (3.51 - 4.69 M/mm3) 3.06 L Hgb (10.1 - 13.8 g/dL) 9.3 L Hct (32.5 - 41.8 %) 28.1 L MCV (84.6 - 96.6 fL) 91.8 MCH (27.3 - 33.9 pg) 30.4 MCHC (32.0 - 34.2 gm/dL) 33.1 RDW (12.2 - 16.3 %) 17.5 H Plt Count (134 - 363 K/mm3) 140 MPV (9.2 - 12.7 fL) 10.5 Neut % (Auto) (57.9 - 77.3 %) 75.0 Lymph % (Auto) (14.5 - 29.7 %) 15.0 [place] % (Auto) (3.6 - 10.2 %) 8.4 Eos % (Auto) (0.0 - 3.0 %) 1.2 Baso % (Auto) (0.1 - 0.9 %) 0.1 Neut # (Auto) (K/mm3) 5.6 Lymph # (Auto) (K/mm3) 1.1 [place] # (Auto) (K/mm3) 0.6 Eos # (Auto) (K/mm3) 0.09 Baso # (Auto) (K/mm3) 0.0 Diagnosis, Assessment Plan Diagnosis, Assessment Plan Problem List/A P: 1. Dichorionic diamniotic twin gestation Assessment: DAVEY, GDM Plan: Hgb not so low as to b e a likely source for her symptoms. WIll check CXR, consider CT PE. GDM: using sliding scale for now , may need to start metformin tonight if remains elevated. at 0950 RPT #:[id number] END OF REPORT 2022-03-18 17:46:00-00:00 [facility] ([facility]) OB Delivery Note REPORT#:[id number] REPORT STATUS: Signed DATE:03/18/22 TIME: 1746 PATIENT: NEREYDA FERRIS UNIT #: [id number] ROOM/BED: [address] : 92 AGE: 32 SEX: F ATTEND: Buck Powell MD ADM AUTHOR: Buck Powell MD * ALL edits or amendments must be made on the el [employer]/computer document * OB Delivery Nursing Documentation Review Nursing data: The data set between the solid lines has been im ported from nursing documentation. Any exceptions have been noted be low under Provider comments. _ ROM date: 03/18/22 ROM time: 1600 Membranes rupture method: AROM Amniotic fluid color: Clear Amniotic fluid amount: Steroids prior to arrival: Antibiotic prophylaxis given: Yes Post hemorrhage risk score: High Risk for Hemorrhage. Delivery date infant A: 03/18/22 Delivery time i nfant A: 1601 Birthweight (gm) A: 3360 Weight (lb) infant A: Weight (oz) A: Gender infant A: Female 1 minute infant A: 5 minutes infant A: 10 minutes A: Cord pH obtained A: Vacuum time A: Vacuum # pulls A: Vacuum # popoffs infant A: QBL at delivery: __ Provider comments on imported nursing data: [] B (add'l data): The data set between the solid lines has been im ported from nursing documentation. Any exceptions have been noted be low under Provider comments. ___ Delivery date infant B: 03/18/22 Delivery time i nfant B: 1603 Birthweight (gm) B: 3400 Weight (lb) infant B: Weight (oz) B: Gender B: Female 1 minute B: 5 minutes infant B: 10 minutes B: Cord pH obtained B: Vacuum time B: Vacuum # pulls B: Vacuum # popoffs B: ____ Provider comments on imported nursing data: [] Pre-delivery GBS status: GBS status: negative evaluation at delivery: NRP certified pe rsonnel Admission EGA: Weeks: 37 Days: 0 Blood Loss/Details Blood loss at delivery: <1K: no sx hypovol=no he m, no more than expected EBL at delivery (ml's): 900 Baby A Information Baby A information Delivery date: 03/18/22 Delivery time: 1601 status: live born Wt of baby (grams): 3360 Wt of baby (lbs/oz): Gender: female 1 minute: 8 5 minutes: 9 Presentation: vertex Anomalies: none Nuchal cord Baby A Nuchal cord: no Baby B Information Baby B information Delivery date: 03/18/22 Delivery time: 1603 status: live born Wt of baby (grams): 3400 Wt of baby (lbs/oz): 7 8 Gender: female 1 minute: 8 5 minutes: 9 Presentation: footling breech Anomalies: none Nuchal cord Baby B Nuchal cord: no Op/Inv Proc Note - Brief )(Start date: 03/18/2022 )(Start time: 1552 )( Procedure(s) performed: repeat low tr ansverse c/s, bilateral salpingectomy, moderate lysis of adhesions x 20 min )( Primary Surgeon: Randolph So )( Deckhand Crab Boat(s): Sadie Villegas )( Pre-procedure diagnosis: 37w di di twins, prior , undesired ferti lity )( Post-procedure diagnosis: 37w di di twins, prior , undesired ferti lity )( Technique/Procedure: Risks/benefits discussed of delivery- p t agreed to proceed. She was taken to the OR, epidural was placed, an d found to be adequate. 2 g ancef were given prior to the start of the procedure. She w as prepped and draped in the standard sterile fashion in supine position with a leftward tilt. A austin catheter was in place. A pfannenstiel incision w as performed with a scalpel, removing her prior scr, and the incision was dianne en down to the fascia. The fascia was entered sharply i n the midline, and the fascial incision was extended bilaterally with shay scissors. The rectus muscl es were dissected from the fascia superior to the fascial incision. The per itoneum was entered sharply, and stretch was used to expand the entry. The om entum was adhesed to the anterior peritoneum. This wa s dissected free on the left to allow visualization of the uterus. A bladder blade retractor was bernadine rekha. The hysterotomy was made in the lower uterine segment, and was extended u sing blunt cranio-caudal stretch. Membranes were ruptured with an Becky cl amp. Clear fluid was noted. The head was delivered, and the infant's body de livered easily with fundal pressure. The cord was doubly clamped an d cut after a 60 second delay, and the infant's nose and mouth were bulb suctioned. The was immediately vigorous. The was handed off to the paulina hernandez RN. Twin B was examined in the uterus, and found to be transverse. The infant was internally verted to footling breech, and the me mbranes were ruptured with an Becky with clear fluid noted. The feet were deliv ered, with gentle traction to the maternal feet allowing for delivery up to th e axilla. Each arm was swept over the chest and out of the hysterotomy, and t he head was flexed for gentle delivery from the hysterotomy. THe was im mediately vigorous. The cord was doubly clamped and cut after a 60 second del ay. The nose and mouth were bulb suctioned. The baby was handed off to the alverto moore RN. The placenta was expressed. The uterus was exteriorized, and cleared of clots and debris. Two layers of 0- vicryl was used in a running fashion to close the hysterotomy, with a layer of 0-monocryl for the serosa (the lower segment was thick and undeveloped). The bilateral ovaries an d tubes were examined, and found to be normal. The right tube was elevated, and the mesosalpinx entered bluntly with hemostats. The proximal tube was doubly ligated with plain gut. The tube was cut with metzenbaum scissors. Sequent ial hemostats were used across the mesosalpinx, and the tube was progressively removed using metzenbaum scissors as those pedicles were created. The tube and fimbria were complete ly removed. 2-0 vicryl Crow sutures were used on the pedicles. These were ex amined, and found to be hemostatic. The same procedu re was performed on the left, with good hemostasis. Both tubes were sent for pathology. The uterus was replaced. The gutters were clear ed of clots and debris. The uterus was re-examined, and remained hemostatic. The urine was clear in the austin. The peritoneum was closed with 2-0 vicryl in a running fashion. The rectus muscles were examined , and cautery used where needed for hemostasis. The fascia was closed with 0 PDS. The subcutaneous t issue was irrigated, and cautery used where needed for hemostasis. A runn ing suture of plain gut were used to re-approximate the subcutaneous fat. 4-0 monocryl was used for subcuticular closure. Dermabond was placed on to p. Pt tolerated the procedure well. Counts correct x 2. administrative sales assistant required as per standard of c are for assistance with retraction, visualization, blotting, cut ting suture, and application of fundal pressure. )( Estimated blood loss (ml): 900 )( Specimen removed/altered: placenta, bilateral fallopian tubes )( Complications: none Drain(s): none Tube(s): none Implant(s): none Fluids: 1500mL Urine output: 100 mL clear )( Finding(s): vigorous female x 2, A cephalic, B transv erse, internal version to footling breech. normal uterus, bilateral fallop alan tubes and ovaries. Condition: stable Delivery Delivery section indication: elective repeat Priority: scheduled : : declined Antibiotic prior to incision: 1 dose )(SCDs applied activated: Yes Uterine incision: low transverse Uterine scar: intact Consent: indication discussed, questions answer ed, pt consent to op delivery Mother's condition: mother stable 's condition: stable in room (x2) at 2156 RPT #:[id number] END OF REPORT 2022-03-17 09:06:00-00:00 [facility] ([facility]) OB Admission / H P REPORT#:[id number] REPORT STATUS: Signed DATE:03/17/22 TIME: 905 PATIENT: NEREYDA FERRIS UNIT #: [id number] ROOM/BED: : 92 AGE: 32 SEX: F ATTEND: Buck Powell MD ADM AUTHOR: Buck Powell MD * ALL edits or amendments must be made on the [employer]/computer document * OB History Nursing Documentation Review Nursing data: The data set between the solid lines has been im ported from nursing documentation. Any exceptions have been noted be low under Provider comments. Current data Steroids prior to arrival: ROM date: ROM time: EDC date: Gestational age (labor triage): Post hemorrhage risk score: Prior history : Para: Term: : Abortions spontaneous: Abortions induced: Living children: Ectopic: Stillbirths: Live births: deaths: Number of previous C/S: Reported maternal labs/data Blood type: Rh type: Rubella: Hepatitis B: HIV exposure test: VDRL: Group B beta strep: Rho(D) immune globulin this preg: Monitor mode - UA: Feeding preference: Provider comments on imported nursing data: [] Chief complaint: scheduled HPI: 32y at 37.0 03/18/22 with di di twins, GDM o n insulin, anemia, undesired fertility. On u/s 03/11/22: A 3.071kg 92%ile richa ch, B 3.774 >99%ile cephalic. Moris They're girls! Hgb/Hct/Plt: 12.8/37.7/270 Type/RH: Bpos IDC: negative Rubella: Immune HIV: negative HBsAg: negative TPPA: negative Urine culture/analysis: neg Pap: 10/2020 GC/CT: negative MS AFP: neg NIPT: neg x 2 Carrier screen: neg Anatomy u/s: MFM UT normal anatomy. Fundal place nta. 12/20/21 24w 52% 31% 01/17/22 28w EFW 76%, 79% 02/14/22 32w WFW 91%, 96% NESTOR nl 1hr GTT: 192 3hr GTT: 120/168/221/220 3rd trimester Hgb/Hct/Plt: 10.0/30.6/275 3rd trimester RPR: 3rd trimester HIV: GBS: neg NKDA Home meds: iron: PNV, lexapro 10mg, lantus 36 un its qhs, lispro 08/19/18 with meals. PMH: GDM, s/p covid 10/2020, s/p covid vaccine PSH: C/S Family Hx: DM Social Hx: No tobacco no, etoh, no illicits. Current : Best EDC: 04/08/22 Review of Systems : Reports: pelvic pain, . All systems rev neg: except as marked Objective General VS: PATIENT WEIGHT: Weight (lb): Weight (oz): Weight (kg): Physical Exam Neuro: Exam: alert, oriented x3, normal speech Abdomen: gravid, soft, no abnormal tenderness, n o guarding, no rebound tenderness Membranes: Membranes: Intact Lower extremities: Edema: 1+ pitting Diagnosis, Assessment Plan Diagnosis, Assessment Plan Problem List/A P: 1. Dichorionic diamniotic twin gestation Assessment/Impression: previous C/S, for repeat Plan: repeat delivery with bilateral sa lpingectomy. at 0912 RPT #:[id number] END OF REPORT
[2023-02-02] MEDS ORDERED: NA CHLORIDE 0.9% 1,000 ML ONE ×2 (14:27→18:33)
[2023-02-02] MEDS ORDERED: NA CHLORIDE 0.9% 250 ML ONE (14:27)
[2023-02-02] MEDS ORDERED: FENTANYL CITR 100 MCG/2 ML ONE ×3 (14:27→20:10)
[2023-02-02] MEDS ORDERED: PROMETHAZINE INJ 25 MG/ML AMP ONE (14:27)
[2023-02-02 14:31] LABS: Urine Bacteria <20 /HPF (<20); Urine Bilirubin NEGATIVE (Negative); Urine Blood 3+ (OVER) (Negative); Urine Clarity Turbid (Clear); Urine Color Yellow (Yellow); Urine Glucose NEGATIVE (Negative); Urine Mucus 1+ /HPF (None Seen); Urine Protein 1+ (Negative); Urine RBC >50 /HPF (None Seen); Urine Urobilinogen Normal (Normal); Urine pH 5.5 (5.0-7.0)
[2023-02-02 14:32] LABS: Absolute Lymphocytes (CBC) 2.4 K/uL (0.7-4.9); Lymphocytes % 26.9 % (15.3-44.8); MCV 92.4 fL (80-100); MPV 8.4 fL (7.6-11.3); RBC Red Blood Cell Count 4.87 M/uL (3.86-4.86)
[2023-02-02 14:41] LABS: Albumin 4.1 g/dL (3.4-5.0); Bilirubin Total 0.4 mg/dL (0.2-1.0); Protein, Total 8.9 g/dL (6.4-8.2)
[2023-02-02] MEDS ORDERED: ONDANSETRON 4 MG/2 ML VIAL ONE ×2 (15:03→20:10)
[2023-02-02] MEDS ORDERED: KETOROLAC 30 MG/ML INJ ONE (15:06)
--- NOTE | 2023-02-02 15:23 | RAD REPORT ---
EXAM DESCRIPTION: CT - Stone Protocol - 02/02/2023 3:12 pm CLINICAL HISTORY: Flank pain. FLANK PAIN COMPARISON: Abdomen Pelvis W/Wo Contrast dated 01/05/2023 TECHNIQUE: Axial images were obtained without oral or IV contrast. Lack of contrast limits solid org an and vascular assessment. The [id number] spans the entirety of the system partially obscuring uppermost abdomen and lung bases. Coronal reformatted images were obtained and reviewed. All CT scans are performed using dose optimization technique as appropriate and may include automated exposure control or mA/KV adjustment according to patient size. FINDINGS: The lower lung bar are clear. Postsurgical changes about the stomach. Imaged portions of the liver and spleen show no suspicious findings on non-contrast imaging. The panc reas and adrenal glands are normal. No pathologic lymphadenopathy in the abdomen or pelvis. 8 mm stone is present proximal right ureter resulting in moderate right hydronephrosis. Punctate calc ulus inferior calyx right kidney. No bowel obstruction, free air, free fluid or abscess. Normal appendix noted. No significant bony abnormality. IMPRESSION: 8 mm stone proximal right ureter resulting in moderate right hydronephrosis.
[2023-02-02] MEDS ORDERED: TAMSULOSIN 0.4 MG SR CAP ONE (17:09)
[2023-02-02] MEDS ORDERED: HYDROMORPHONE HCL 1 MG/ML INJ ONE (17:09)
--- NOTE | 2023-02-02 18:02 | ER ---
Nurse's Notes [facility] Name: Rosalva De La Rosa Age: 32 yrs Sex: Female : 1990 Arrival Date: 02/02/2023 Time: 13:45 Bed 19 Private MD: Diagnosis: Hydronephrosis with renal and ureteral calculous obstruction-8mm proximal right ureter ;Intractable pain Presentation: 02/02 13:51 Chief complaint: Nausea and right flank pain since this morning, vomit x 1. Pt is 2 mb9 weeks s/p gastric sleeve. Coronavirus screen: At this time, the client does not indicate any symptoms associated with coronavirus-19. Ebola Screen: No symptoms or risks identified at this time. Initial Sepsis Screen: Does the patient meet any 2 criteria? No. Patient's initial sepsis screen is negative. Does the patient have a suspected source of infection? No. Patient's initial sepsis screen is negative. Risk Assessment: Do you want to hurt yourself or someone else? Patient reports no desire to harm self or others. Onset of symptoms was February 02, 2023. 13:51 Method Of Arrival: Ambulatory mb9 13:51 Acuity: VELVET 3 mb9 Historical: - Allergies: 13:52 No Known Allergies; mb9 - Home Meds: 13:52 T3 [Active]; mb9 - PMHx: 13:52 Kidney stone; Migraine; tubal; mb9 - PSHx: 13:52 section; mb9 - Immunization history:: Adult Immunizations up to date. - Social history:: Smoking status: Patient denies any tobacco usage or history of. Screenin:10 [facility] ED Fall Risk Assessment (Adult) History of falling in the last 3 months, jb4 including since admission No falls in past 3 months (0 pts) Confusion or Disorientation No (0 pts) Score/Fall Risk Level 0 - 2 = Low Risk. Abuse screen: Denies threats or abuse. Nutritional screening: No deficits noted. Tuberculosis screening: No symptoms or risk factors identified. Assessment: 15:00 General: Appears uncomfortable. Pain: Complains of pain in right mid back. Neuro: Level sg5 of Consciousness is awake, alert, obeys commands, Oriented to person, place, time, situation, Appropriate for age. Cardiovascular: Capillary refill < 3 seconds Patient's skin is warm and dry. Respiratory: Airway is patent Trachea midline Respiratory effort is even, unlabored, Respiratory pattern is regular, symmetrical. GI: Bowel sounds present X 4 quads. Abd is soft and non tender X 4 quads. Guarding noted in right mid back. 19:09 Reassessment: Pt resting in bed. Awakens to verbal stimuli, appears lethargic. Is not jb4 reporting any pain at this time. 20:10 Reassessment: Patient appears in no apparent distress at this time. Patient and/or jb4 family updated on plan of care and expected duration. Pain level reassessed. Patient is alert, oriented x 3, equal unlabored respirations, skin warm/dry/pink. Pt reports an increase in pain, see MAR. Vital Signs: 13:51 BP 133 / 103; Pulse 89; Resp 16; Temp 98.7; Pulse Ox 100% on R/A; Weight 94.35 kg; mb9 Height 5 ft. 6 in. ; Pain 10/10; 14:00 BP 131 / 96; Pulse 67; Resp 18; Pulse Ox 95% on R/A; Pain 10/10; sg5 14:30 BP 139 / 106; Pulse 85; Resp 18; Pulse Ox 96% on R/A; Pain 8/10; sg5 15:00 BP 125 / 87; Pulse 97; Resp 18; Pulse Ox 95% on R/A; Pain 8/10; sg5 15:30 BP 143 / 95; Pulse 68; Resp 18; Pulse Ox 96% on R/A; Pain 9/10; sg5 16:00 BP 143 / 96; Pulse 77; Resp 18; Pulse Ox 95% on R/A; Pain 9/10; sg5 16:30 BP 153 / 96; Pulse 69; Resp 18; Pulse Ox 94% on R/A; Pain 8/10; sg5 17:00 BP 154 / 102; Pulse 68; Resp 18; Pulse Ox 99% on R/A; Pain 8/10; sg5 17:30 BP 150 / 91; Pulse 63; Resp 18; Pulse Ox 96% on R/A; Pain 8/10; sg5 19:09 BP 137 / 100; Pulse 60; Resp 16; Pulse Ox 100% on R/A; jb4 20:10 BP 154 / 94; Pulse 57; Resp 16; Pulse Ox 97% on R/A; jb4 13:51 Body Mass Index 33.57 (94.35 kg, 167.64 cm) mb9 13:51 Pain Scale: Adult mb9 14:00 Pain Scale: Adult sg5 14:30 Pain Scale: Adult sg5 15:00 Pain Scale: Adult sg5 15:30 Pain Scale: Adult sg5 16:00 Pain Scale: Adult sg5 16:30 Pain Scale: Adult sg5 17:00 Pain Scale: Adult sg5 17:30 Pain Scale: Adult sg5 ED Course: 13:48 Patient arrived in ED. mr 13:52 Triage completed. mb9 13:52 Arm band placed on. mb9 14:06 Venita Calles FNP-C is PHCP. snw 14:06 Ru Del Angel MD is Attending Physician. snw 14:13 CBC with Diff Sent. sg5 14:13 CMP Sent. sg5 14:13 Urine W/Microscopic (UAM) Sent. sg5 14:13 PREGU Sent. sg5 14:15 Inserted saline lock: 22 gauge in right antecubital area, using aseptic technique. sg5 14:28 CBC with Diff Sent. sg5 14:53 Khadijah Krishnan, SHAHRAM is Primary Nurse. sg5 15:13 CT Stone Protocol In Process Unspecified. EDMS 16:53 initiated transfer to [facility]. bd 20:10 Patient has correct armband on for positive identification. Bed in low position. Call jb4 light in reach. Side rails up X 1. Client placed on continuous cardiac and pulse oximetry monitoring. NIBP monitoring applied. 20:10 No provider procedures requiring assistance completed. Patient transferred, IV remains jb4 in place. Administered Medications: 14:20 Drug: Promethazine IVP 25 mg Route: IVP; Site: right forearm; sg5 14:54 Follow up: Response: No adverse reaction mb9 14:20 Drug: NS 0.9% IV 250 ml Route: IV; Rate: bolus; Site: right forearm; sg5 14:28 Drug: NS 0.9% IV 1000 ml Route: IV; Rate: 1 bolus; Site: right forearm; sg5 14:28 Drug: fentaNYL (PF) IVP 25 mcg Route: IVP; Site: right forearm; sg5 14:55 Follow up: Response: No adverse reaction mb9 14:57 Drug: Ondansetron IVP 4 mg Route: IVP; Site: right wrist; sg5 15:00 Drug: Ketorolac IVP 15 mg Route: IVP; Site: right wrist; sg5 16:03 Drug: fentaNYL (PF) IVP 25 mcg Route: IVP; Site: right wrist; sg5 17:06 Drug: HYDROmorphone IM 1 mg Route: IM; Site: right gluteus; sg5 17:06 Drug: Flomax PO 0.4 mg Route: PO; sg5 18:32 Drug: NS 0.9% IV 1000 ml Route: IV; Rate: 125 ml/hr; Site: right wrist; sg5 20:09 Follow up: Response: No adverse reaction; IV Status: Infusion continued upon transfer jb4 20:09 Drug: fentaNYL (PF) IVP 100 mcg Route: IVP; Site: right wrist; jb4 20:09 Follow up: Response: Medication administered at discharge. jb4 20:09 Drug: Ondansetron IVP 4 mg Route: IVP; Site: right wrist; jb4 20:09 Follow up: Response: Medication administered at discharge. jb4 Outcome: 18:01 ER care complete, transfer ordered by MD. bentley 20:10 Transferred by ground EMS to [facility], Transfer form completed. X-rays jb4 sent w/ patient. 20:10 Condition: stable 20:10 Discharge instructions given to patient, family, Instructed on the need for transfer, Demonstrated understanding of instructions. 20:11 Patient left the ED. jb4 Signatures: Dispatcher [employer] EDMS Mine Love Shelly, TOOL PUSHER-C TOOL PUSHER-Csnw Sury Vines James RN RN jb4 Sury Joy, RN RN mb9 Khadijah Krishnan RN RN sg5
--- NOTE | 2023-02-02 18:02 | EDPHYS ---
Physician Documentation [facility] Name: Rosalva De La Rosa Age: 32 yrs Sex: Female : 1990 Arrival Date: 02/02/2023 Time: 13:45 Bed 19 Private MD: ED Physician Ru Del Angel HPI: 02/02 14:15 This 32 yrs old Female presents to ER via Ambulatory with complaints of snw Possible Kidney Stone. 14:15 The patient complains of pain in the right mid back. The pain does not radiate. Onset: snw The symptoms/episode began/occurred acutely. Severity of pain: At its worst the pain was severe. The patient has experienced similar episodes in the past, multiple times. The patient has been recently seen by a physician:. Historical: - Allergies: 13:52 No Known Allergies; mb9 - Home Meds: 13:52 T3 [Active]; mb9 - PMHx: 13:52 Kidney stone; Migraine; tubal; mb9 - PSHx: 13:52 section; mb9 - Immunization history:: Adult Immunizations up to date. - Social history:: Smoking status: Patient denies any tobacco usage or history of. ROS: 14:14 Constitutional: Negative for fever, chills, and weight loss, Eyes: Negative for injury, snw pain, redness, and discharge, ENT: Negative for injury, pain, and discharge, Neck: Negative for injury, pain, and swelling, Cardiovascular: Negative for chest pain, palpitations, and edema, Respiratory: Negative for shortness of breath, cough, wheezing, and pleuritic chest pain, Abdomen/GI: Negative for abdominal pain, vomiting, diarrhea, and constipation, Positive for nausea : Negative for injury, bleeding, discharge, and swelling, Skin: Negative for injury, rash, and discoloration, Neuro: Negative for headache, weakness, numbness, tingling, and seizure, Psych: Negative for depression, anxiety, suicide ideation, homicidal ideation, and hallucinations. 14:14 Back: Positive for flank pain, on the right. Exam: 14:13 Head/Face: Normocephalic, atraumatic. Eyes: Pupils equal round and reactive to light, snw extra-ocular motions intact. Lids and lashes normal. Conjunctiva and sclera are non-icteric and not injected. Cornea within normal limits. Periorbital areas with no swelling, redness, or edema. ENT: Nares patent. No nasal discharge, no septal abnormalities noted. Tympanic membranes are normal and external auditory canals are clear. Oropharynx with no redness, swelling, or masses, exudates, or evidence of obstruction, uvula midline. Mucous membranes moist. Neck: Trachea midline, no thyromegaly or masses palpated, and no cervical lymphadenopathy. Supple, full range of motion without nuchal rigidity, or vertebral point tenderness. No Meningismus. Chest/axilla: Normal chest wall appearance and motion. Nontender with no deformity. No lesions are appreciated. Cardiovascular: Regular rate and rhythm with a normal S1 and S2. No gallops, murmurs, or rubs. Normal PMI, no JVD. No pulse deficits. Respiratory: Lungs have equal breath sounds bilaterally, clear to auscultation and percussion. No rales, rhonchi or wheezes noted. No increased work of breathing, no retractions or nasal flaring. Abdomen/GI: Soft, non-tender, with normal bowel sounds. No distension or tympany. No guarding or rebound. No evidence of tenderness throughout. Back: No spinal tenderness. + costovertebral tenderness. Full range of motion. Skin: Warm, dry with normal turgor. Normal color with no rashes, no lesions, and no evidence of cellulitis. MS/ Extremity: Pulses equal, no cyanosis. Neurovascular intact. Full, normal range of motion. Neuro: Awake and alert, GCS 15, oriented to person, place, time, and situation. Cranial nerves II-XII grossly intact. Motor strength 5/5 in all extremities. Sensory grossly intact. Cerebellar exam normal. Normal gait. Psych: Awake, alert, with orientation to person, place and time. Behavior, mood, and affect are within normal limits. 14:13 Constitutional: The patient appears alert, awake, in obvious pain, uncomfortable. Vital Signs: 13:51 BP 133 / 103; Pulse 89; Resp 16; Temp 98.7; Pulse Ox 100% on R/A; Weight 94.35 kg; mb9 Height 5 ft. 6 in. ; Pain 10/10; 14:00 BP 131 / 96; Pulse 67; Resp 18; Pulse Ox 95% on R/A; Pain 10/10; sg5 14:30 BP 139 / 106; Pulse 85; Resp 18; Pulse Ox 96% on R/A; Pain 8/10; sg5 15:00 BP 125 / 87; Pulse 97; Resp 18; Pulse Ox 95% on R/A; Pain 8/10; sg5 15:30 BP 143 / 95; Pulse 68; Resp 18; Pulse Ox 96% on R/A; Pain 9/10; sg5 16:00 BP 143 / 96; Pulse 77; Resp 18; Pulse Ox 95% on R/A; Pain 9/10; sg5 16:30 BP 153 / 96; Pulse 69; Resp 18; Pulse Ox 94% on R/A; Pain 8/10; sg5 17:00 BP 154 / 102; Pulse 68; Resp 18; Pulse Ox 99% on R/A; Pain 8/10; sg5 17:30 BP 150 / 91; Pulse 63; Resp 18; Pulse Ox 96% on R/A; Pain 8/10; sg5 19:09 BP 137 / 100; Pulse 60; Resp 16; Pulse Ox 100% on R/A; jb4 20:10 BP 154 / 94; Pulse 57; Resp 16; Pulse Ox 97% on R/A; jb4 13:51 Body Mass Index 33.57 (94.35 kg, 167.64 cm) mb9 13:51 Pain Scale: Adult mb9 14:00 Pain Scale: Adult sg5 14:30 Pain Scale: Adult sg5 15:00 Pain Scale: Adult sg5 15:30 Pain Scale: Adult sg5 16:00 Pain Scale: Adult sg5 16:30 Pain Scale: Adult sg5 17:00 Pain Scale: Adult sg5 17:30 Pain Scale: Adult sg5 MDM: 14:19 Patient medically screened. snw 16:53 Differential diagnosis: nephrolithiasis, pyelonephritis, UTI. Data reviewed: vital snw signs, nurses notes. I considered the following discharge prescriptions or medication management in the emergency department Medications were administered in the Emergency Department. See MAR. Counseling: I had a detailed discussion with the patient and/or guardian regarding: the historical points, exam findings, and any diagnostic results supporting the discharge/admit diagnosis, the presence of at least one elevated blood pressure reading (>120/80) during this emergency department visit, lab results, radiology results, the need to transfer to another facility, [facility] does not immediately have the required specialist. Response to treatment: intractable nausea, pain. Will give dilaudid and flomax now. [facility], Jo Willis MD. Special discussion: Based on the patient's Hx, exam, and Dx evaluation, there is no indication for emergent surgery or inpatient Tx. It is understood by the patient/guardian that if the Sx's persist or worsen they need to return immediately for re-evaluation. 17:57 Management of patient was discussed with the following: Dr. Su, Hospitalist at [facility] pt in transfer. Dr. Willis will consult. 02/02 14:06 Order name: Urine W/Microscopic (UAM); Complete Time: 14:33 snw 02/02 14:11 Order name: CBC with Diff; Complete Time: 14:34 snw 02/02 14:11 Order name: CMP; Complete Time: 14:45 snw 02/02 14:11 Order name: PREGU; Complete Time: 14:33 snw 02/02 14:35 Order name: Urine Culture EDMS 02/02 14:46 Order name: CT Stone Protocol; Complete Time: 15:25 snw 02/02 14:11 Order name: Labs collected and sent; Complete Time: 14:13 snw Administered Medications: 14:20 Drug: Promethazine IVP 25 mg Route: IVP; Site: right forearm; sg5 14:54 Follow up: Response: No adverse reaction mb9 14:20 Drug: NS 0.9% IV 250 ml Route: IV; Rate: bolus; Site: right forearm; sg5 14:28 Drug: NS 0.9% IV 1000 ml Route: IV; Rate: 1 bolus; Site: right forearm; sg5 14:28 Drug: fentaNYL (PF) IVP 25 mcg Route: IVP; Site: right forearm; sg5 14:55 Follow up: Response: No adverse reaction mb9 14:57 Drug: Ondansetron IVP 4 mg Route: IVP; Site: right wrist; sg5 15:00 Drug: Ketorolac IVP 15 mg Route: IVP; Site: right wrist; sg5 16:03 Drug: fentaNYL (PF) IVP 25 mcg Route: IVP; Site: right wrist; sg5 17:06 Drug: HYDROmorphone IM 1 mg Route: IM; Site: right gluteus; sg5 17:06 Drug: Flomax PO 0.4 mg Route: PO; sg5 18:32 Drug: NS 0.9% IV 1000 ml Route: IV; Rate: 125 ml/hr; Site: right wrist; sg5 20:09 Follow up: Response: No adverse reaction; IV Status: Infusion continued upon transfer jb4 20:09 Drug: fentaNYL (PF) IVP 100 mcg Route: IVP; Site: right wrist; jb4 20:09 Follow up: Response: Medication administered at discharge. jb4 20:09 Drug: Ondansetron IVP 4 mg Route: IVP; Site: right wrist; jb4 20:09 Follow up: Response: Medication administered at discharge. jb4 Disposition Summary: 02/02/23 18:01 Transfer Ordered Transfer Location: [facility] snw Reason: Specialty snw Condition: Stable snw Problem: an acute exacerbation snw Symptoms: are unchanged snw Accepting Physician: Dr. Su(02/02/23 20:11) jb4 Diagnosis - Hydronephrosis with renal and ureteral calculous obstruction - 8mm proximal right snw ureter - Intractable pain snw Forms: - Medication Reconciliation Form snw - SBAR form snw Addendum: 02/05/2023 15:58 Co-signature as Attending Physician, Ru Del Angel MD I reviewed the patient's care r t provided by the Advanced Practice Provider and agree with the diagnosis and treatment plan. Signatures: Dispatcher [employer] EDVenita Moss, CITY ROUTEMAN-C CITY ROUTEMAN-Csnw Isrrael Kiran RN RN jb4 Sury Joy RN RN mb9 uR Del Angel MD MD rt Khadijah Krishnan RN RN sg5 Corrections: (The following items were deleted from the chart) 02/02 17:59 17:57 Management of patient was discussed with the following: Dr. Su, Hospitalist at [facility]. Dr. Willis will consult. [facility] 20:11 18:01 Dr. Su [facility] jb4
[2023-02-02 20:49] VITALS: TEMP 98.7
[2023-02-02 21:11] VITALS: BP 154/94; O2SAT 97
== END 2023-02-02 20:11 | disposition short-term general hospital (02) ==
LOC: ER 13:45
DX: N13.2 Hydronephrosis with renal and ureteral calculous obstruction (principal); Z87.442 Personal history of urinary calculi
CPT/HCPCS: 87088; 85025; 81001; 87086; 36415; 81025; 87077; 87186; 80053; 76377; 74176; 96372; 99285; J2550; J3010 ×3; J1170; J2405 ×2; J7050; J7030 ×2

== ENCOUNTER 2023-02-05 17:58 | Emergency (ER) | payer OTHER ==
--- OUTSIDE RECORDS SUMMARY | 2023-02-05 18:03 | XMS REPORT | Continuity of Care Document ---
:1990 Author Organization [facility] t Address 1200 [facility] [address] [place] [id number] Care Team Providers Name Role Phone Lizbeth Abdullahi MD Primary Care Physician [phone] Radha Goldberg MA Attending Clinician Unavailable Kelly Toney Attending Clinician Unavailable Marita Willis MD Attending Clinician [phone] Davis Rebolledo MD Attending Clinician Kinga Tomas MD Attending Clinician Jay Robins MD Attending Clinician Brigida Dobbins CRNA Attending Clinician JUWAN AMAYA Attending Clinician Unavailable IHDE_G Attending Clinician Unavailable Buck Powell Attending Clinician Unavailable Benigno RN, Myranda Attending Clinician Unavailable Rylan OMALLEY, Olive Attending Clinician Unavailable Sia Cobos MD Attending Clinician Doctor Unassigned, [place] Attending Clinician Unavailable Zayra Greene MD Attending Clinician GOOD YANG Attending Clinician Unavailable GOOD YANG Attending Clinician Unavailable KUNAL SPENCER Attending Clinician Unavailable SIA COBOS Attending Clinician Unavailable SONIA MCKINNON Attending Clinician Unavailable Sonia Mckinnon MD Attending Clinician KIMANI DAVIS Admitting Clinician Unavailable JUWAN AMAYA Admitting Clinician Unavailable IHDE_G Admitting Clinician Unavailable Buck Powell Admitting Clinician Unavailable Payers Payer Name Policy Type Policy Number Effective Date Expiration Date S low AET[employer] CHOICE POS [id number] 2018 00:00:00 II AETNA [id number] 2018 00:00:00 Problems Condition Condition Condition Status Onset Resolution Last Treating Co mments Source Name Details Category Date Date Treatment Clinician Date Kidney Kidney Disease Active Methodi stones stones 02-05 st 00:00: Hospita 00 l Flank pain Flank pain Disease Active M ethodi 02-02 st 00:00: Hospita 00 l K21.9 K21.9 Diagnosis Active 2022-10-19 Mem oria Active 10-02 06:38:00 l 10/02/2022 00:00: Jroge conner 00 [facility] Migraine Migraine Problem Active [place] [facility] 7-15 da 00:00: Medical 00 Group Obesity Obesity Disease Active Univers (BMI (BMI 6-03 ity of 30-39.9) 30-39.9) 00:00: [place] [address] Medical Branch Family Family Disease Active Univers history of history of 7-28 it y of colon colon 00:00: [place] cancer cancer 00 Medical Branch Enlarged Enlarged Disease Active Unive rs thyroid thyroid 7-28 ity of 00:00: [place] 00 Medical Branch General General Disease Active 2013-08 Overview: Univ ers counseling counseling 0-29 Formattin ity of and advice and advice 00:00: g of this [place] for for 00 note Medical contracept contracept might be Branch luis armando luis armando different management management from the original. 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 UTI UTI Disease Active 2013-08 Univers (urinary (urinary 0-29 ity of tract tract 00:00: [place] infection) infection) 00 Me dical Branch Hematuria Hematuria Disease Active 2013-08 Uni vers 0-29 ity of 00:00: [place] 00 Medical Branch Dysuria Dysuria Disease Active 2013-08 Univers 0-28 ity of 00:00: [place] 00 Medical Branch [id number] Ureterolit Problem Com mon hiasis [facility] [id number] Renal Problem Common colic on Spirit left side - [facility] Umbilical Umbilical Problem Active 2022-10-20 Memoria hernia hernia 00:10:02 l (disorder) (disorder) He rmann Active Problem 10/20/2022 [facility] Allergies, Adverse Reactions, Alerts Allergy Allergy Status Severity Reaction(s) Onset Inactive Treating Comm ents Source Name Type Date Date Clinician Morphine Propensi Active Other (See Chest Me thodi ty to Comments) 02-[address] adverse 00:00: Hospita reaction 00 l s to drug No Known DA Active U [facility] Allergie 03-18 Woman's s 00:00: Hospita 00 l of [place] No Known No Known Active Memori a Medicati Medicati l on on [place] Allergie Allergie s s NO KNOWN Drug Active Univers ALLERGIE Class ity of S [facility] Social History Social Habit Start Date Stop Date Quantity Comments Source History of Tobacco Common [facility] - [facility] ASSERTION [facility] History SDOH University o f Alcohol Frequency [place] M edical Branch History [facility] University o f Alcohol Std Drinks [place] Medical Custar History [facility] University o f Alcohol Binge [place] Medic al Branch Gender identity [facility] Sexual orientation [facility] History of Social 2023-02-04 2023-02-[address] function 00:00:00 00:00:00 Hospital Tobacco use and 2022-12-30 2022-12-30 Smokeless [facility] exposure 00:00:00 00:00:00 tobacco non-user Hospital Exposure to 2022-01-05 2022-02-04 Not sure [facility] SARS-CoV-2 (event) 00:00:00 13:42:00 Cigarette 2021-11-21 2021-11-21 [facility] pack-years 00:00:00 00:00:00 Alcohol intake 2021-11-21 2021-11-[address] Ex-dr[address] [facility] 00:00:00 00:00:00 (finding) Alcohol Comment 2013-08-03 2013-08-03 socially Universit y of 00:00:00 00:00:00 [facility] Sex Assigned At [birth year] [facility] 00:00:00 00:00:00 Hospital Smoking Status Start Date Stop Date Source Never smoked tobacco [facility] Medications Ordered Filled Start Stop Current Ordering Indication Dosage Frequency Signature Comments Components Source Medication Medication Date Date Medication? Clinician (SIG) Name Name SUMAtriptan 2022-0 Yes 50mg Take 1 Meth melva (IMITREX) 6-08 tablet (50 st 50 MG 13:43: mg total) Hospita tablet 01 by mouth l once as needed for migraine. May repeat in 2 hours if unresolved . Do not exceed 200 mg in 24 hours. escitalopra 2022-0 Yes 10mg QD Take 1 Meth melva m (LEXAPRO) 6-08 tablet (10 st 10 MG 13:43: mg total) Hospita tablet 01 by mouth l daily. acetaminoph 2022-0 Yes 500mg Take 500 M ethodi en 6-[address] (TYLENOL) 13:43: mouth. Hospit a 160 mg/5 mL 28 l (5 mL) suspension oxyBUTYnin 2022-0 Yes 5mg Q.[id number] Take 1 Methodi (DITROPAN) -07 [id number] tablet (5 st 5 MG tablet 00:00: 3D mg total) H ospita 00 by mouth 3 l (three) times a day as needed for bladder spasms. sennosides- 2022-0 Yes 1{tbl} Q24H Take 1 Me thodi docusate 6-[address] sodium 00:00: mouth Hospita (Senna with 00 daily as l Docusate needed for Sodium) constipati 8.6-50 mg on. per tablet ciprofloxac 2022-0 Yes 500mg Q.5D Take 1 Met hodi in (Cipro) 6-[address] 500 MG 00:00: (500 mg Hospita tablet 00 total) by l mouth 2 (two) times a day. tamsulosin 3-0 Yes .4mg QD Take 1 Metho di (Flomax) 6-[address] 0.4 mg 00:00: (0.4 mg Hospita capsule 00 total) by l mouth daily. ondansetron 3-0 Yes 4mg Q24H Take 1 Meth melva ODT 6-07 tablet (4 st (ZOFRAN-ODT 00:00: mg total) H ospita ) 4 MG 00 by mouth l disintegrat daily as ing tablet needed for nausea or vomiting. HYDROcodone 3-0 2023- Yes [id number] 1{tbl} Q6H Take 1 Methodi -acetaminop 02-04-[address] hen ([place]) 00:00: 04:59 mouth Hosp irma 5-325 mg 00 :00 every 6 l per tablet (six) hours as needed for moderate pain for up to 5 days .acute pain. Max Daily Amount: 4 tablets phenazopyri 2023-0 2023- Yes 100mg Q.[id number] Take 1 Methodi dine 02-04 06-[id number] (PYRIDIUM) 00:00: 04:59 3D (100 mg Hos minnie 100 MG 00 :00 total) by l tablet mouth 3 (three) times a day as needed for bladder spasms (Burning in urine) for up to 2 days. acetaminoph 3-0 Yes 500mg Take 500 M ethodi en 5-[address] (TYLENOL) 16:05: mouth. Hospit a 160 mg/5 mL 13 l (5 mL) suspension acetaminoph 2023-0 Yes TAKE 1 Clive esha en-codeine 2-08 TABLET BY l 300 mg-30 21:11: MOUTH Gabe mg oral 00 EVERY 6 tablet HOURS NEEDED FOR PAIN cyclobenzap 3-0 Yes 10 mg = 1 M emoria rine 10 mg 2-08 tab, PO, l oral tablet 21:09: TID, PRN He rmann 00 for spasms, # 30 tab, 0 Refill(s) Tylenol 2023-0 Yes PO, PRN, 0 Clive esha 2-08 Refill(s) l 21:09: [place] 00 SUMAtriptan 2023-0 Yes 100 mg = 1 Memoria 100 mg oral 2-08 tab, PO, l tablet 21:09: ONCE, PRN Jorge n 00 Headache, # 18 tab, 0 Refill(s) Lexapro 10 Yes 10 mg = 1 Me moria mg oral 2-08 tab, PO, l tablet 21:08: Daily, # [place] 00 30 tab, 0 Refill(s) Yes Take by [facility] MV-Min-Fe 3-24 mouth. Health Fum-FA-DHA 11:26: ( 1 23 PO) Yes Take by [facility] MV-Min-Fe 3-24 mouth. Health Fum-FA-DHA 11:26: ( 1 23 PO) Yes Take by [facility] MV-Min-Fe 3-24 mouth. Health Fum-FA-DHA 11:26: ( 09 22 PO) Yes Take by [facility] MV-Min-Fe 3-24 mouth. Health Fum-FA-DHA 11:26: ( 09 22 PO) Acetaminoph 2021-0 Yes 500mg Take 500 U [...] U T pseudoephed 05-24 tablet by Shantanu alth rine 00:00: 04:59 mouth (ZyrTEC-D) 00 :00 twice a 5-120 MG 12 day. hr tablet metroNIDAZO 2020-0 Yes [id number] 500mg Take 1 Univers LE 500 mg 6-05 tablet by ity o f tablet 00:00: mouth [place] 00 every 12 Medical (twelve) Branch hours. metroNIDAZO 2020-0 Yes [id number] 500mg Take 1 Univers LE 500 mg 6-05 tablet by ity o f tablet 00:00: mouth [place] every 12 Medical (twelve) Branch hours. SUMATRIPTAN 2020-0 Yes Take by Uni vers SUCCINATE 6-03 mouth. ity of ORAL 12:00: [place] Medical Branch SUMATRIPTAN 2020-0 Yes Take by Uni vers SUCCINATE 6-03 mouth. ity of ORAL 12:00: [place] 00 Medical Branch Miscellaneo 2014-0 Yes [id number] QHS X U nivers Medical 5-12 7days ity of Supply 00:00: [place] (PRO-CEPTIO 00 Medical N) [facility] Branch Miscellaneo 2014-0 Yes [id number] [facility] 5-12 7days ity of Supply 00:00: [place] (PRO-CEPTIO 00 Medical N) [facility] Branch Saxenda Saxenda No Saxenda Flomax Flomax No [...] Status Comments Sourc e Immunization Name Name [facility] 2017-03-27 Completed University of 00:00:00 [facility] 2017-03-27 Completed University of 00:00:00 [facility] 2010-08-31 Completed University of 00:00:00 [facility] 2010-08-31 Completed University of 00:00:00 [facility] Rubella 2009-05-31 Completed University of 00:00:00 [facility] 2009-05-31 Completed University of 00:00:00 [facility] Vital Signs Vital Name Observation Time Observation Value Comments Source height 2022-07-30 08:15:00 67 [in_i] [facility] weight 2022-07-30 08:15:00 212 [lb_av] [facility] temperature 2022-07-30 08:15:00 97.3 [degF] [facility] bmi 2022-07-30 08:15:00 33.2 kg/m2 [facility] oximetry 2022-07-30 08:15:00 99 % [facility] respiratory rate 2022-07-30 08:15:00 18 /min Comm on [facility] blood pressure 2022-07-30 08:15:00 124 mm[Hg] Common [facility] - systolic [facility] blood pressure 2022-07-30 08:15:00 79 mm[Hg] Common [facility] - diastolic [facility] height 2022-07-16 08:30:00 67 [in_i] [facility] weight 2022-07-16 08:30:00 215.8 [lb_av] [facility] temperature 2022-07-16 08:30:00 97.6 [degF] [facility] bmi 2022-07-16 08:30:00 33.8 kg/m2 [facility] oximetry 2022-07-16 08:30:00 99 % [facility] respiratory rate 2022-07-16 08:30:00 18 /min Comm on [facility] blood pressure 2022-07-16 08:30:00 123 mm[Hg] Common [facility] - systolic [facility] blood pressure 2022-07-16 08:30:00 70 mm[Hg] Common [facility] - diastolic [facility] BP Diastolic 2022-05-22 00:00:00 70 mm[Hg] [facility] Height 2022-05-22 00:00:00 68 [in_i] [facility] BMI (Body Mass 2022-05-22 00:00:00 31.9 kg/m2 [facility] heading and priming tool setter Medical Index) Group BP Systolic 2022-05-22 00:00:00 [...] Oxygen saturation in 2021-11-21 16:22:00 98 /min [facility] Arterial blood by Pulse oximetry BP Diastolic 2021-03-14 00:00:00 70 mm[Hg] [facility] Height 2021-03-14 00:00:00 68 [in_i] [facility] BMI (Body Mass 2021-03-14 00:00:00 33.2 kg/m2 [facility] heading and priming tool setter Medical Index) Group BP Systolic 2021-03-14 00:00:00 122 mm[Hg] [facility] Body Weight 2021-03-14 00:00:00 218.2 [lb_av] [facility] Systolic blood 2023-02-04 12:41:29 111 mm[Hg] [facility] pressure Diastolic blood 2023-02-04 12:41:29 72 mm[Hg] [facility] pressure Heart rate 2023-02-04 12:41:29 79 /min [facility] Body temperature 2023-02-04 12:41:29 36.11 Mireya [facility] Respiratory rate 2023-02-04 12:41:29 19 /min [facility] Oxygen saturation in 2023-02-04 12:41:29 94 /min [facility] Arterial blood by Pulse oximetry Body weight 2023-02-04 11:00:00 95.1 kg [facility] BMI 2023-02-04 11:00:00 33.84 kg/m2 [facility] Body height 2023-02-03 02:54:59 167.6 cm [facility] Systolic (mm Hg) 2022-10-17 17:11:00 [facility] Diastolic (mm Hg) 2022-10-17 17:11:00 [facility] orial [place] Height 2022-10-08 21:07:00 5 [ft_i] [facility] Gabe Weight 2022-10-08 21:07:00 [facility] BMI Calculated 2022-10-08 21:07:00 [facility] Procedures Procedure Date / Time Performing Clinician Source Performed CBC WITH PLATELET AND 2023-02-04 09:06[facility] COMPREHENSIVE METABOLIC 2023-02-04 09:06:00 [facility] PAN[facility] [place] MAGNESIUM LEVEL 2023-02-04 09:06:00 Marita Willis Ho spital [place]he[place] PHOSPHORUS LEVEL 2023-02-04 09:06:00 Marita Willis ospital [place] ESTIMATED GFR 2023-02-04 09:06:00 Marita Willis spital Menghe[place] OR FL < 1 HOUR 2023-02-03 16:38:00 Marita Willis spital [place] GA AN ELECTIVE 2023-02-03 15:53:00 Brigida Dobbins spital SUPRAGLOTTIC AIRWAY CYSTO STENT INSERTION 2023-02-03 15:45:00 Lazaro [facility] POC , URINE 2023-02-03 14:55:[address] [facility] [place] URINE CULTURE 2023-02-03 06:52:00 Davis Rebolledo светланаtal ABO AND RH CONFIRMATION 2023-02-03 06:32:00 [facility] BY PROTOCOL URINALYSIS SCREEN AND 2023-02-03 06:28:00 [facility] MICROSCOPY, WITH REFLEX TO CULTURE CBC WITH PLATELET AND 2023-02-03 05:49:00 Lazaro [facility] [place] [facility] DIFFERENTIAL [facility] COMPREHENSIVE METABOLIC 2023-02-03 05:49:00 [facility] PANEL [place]he[place] MAGNESIUM LEVEL 2023-02-03 05:49:00 Marita Willis spital [place] PHOSPHORUS LEVEL 2023-02-03 05:49:00 Marita Willis ospital Mengheang ESTIMATED GFR 2023-02-03 05:49:00 Davis Rebolledo spital PROTHROMBIN TIME WITH 2023-02-03 05:48:00 [facility] AND SCREEN 2023-02-03 05:48:00 [facility], AEROBIC & 2023-02-03 04:43:00 Davis Rebolledo [facility] ANAEROBIC [id number] 2022-12-30 21:11:20 [facility] POC URINALYSIS DIPSTICK 2022-12-30 21:08:58 Marita Willis [facility] [id number] 2022-03-18 00:00:00 HARAD.01 [facility] [id number] 2022-03-18 00:00:00 HARAD.01 [facility] [id number] 2022-03-18 00:00:00 HARAD.01 [facility] AUTHORIZATION FOR 2021-12-04 05:01:00 Doctor Unassigned, No [facility] RELEASE OF PHI Name Medical Branch Delivery [place] [facility] Section [facility] [place] [facility] Epidural anesthesia [facility] section [facility] kidney stone removal w/ [facility] stent placement Bilateral tubal ligation Jayden Bernal Plan of Care Planned Activity Planned Date Details Comments Source Future Scheduled Test 2023-02-05 Hepatitis C [facility] 14:17:00 screening (procedure) [code = 376308284] Future Scheduled Test 2023-02-05 Screening for [facility] 14:17:00 malignant neoplasm of cervix (procedure) [code = 596478839] Future Scheduled Test 2023-02-05 COVID-19 VACCINE (2 [facility] 14:17:00 - Booster for Eliu series) [code = COVID-19 VACCINE (2 - Booster for Eliu series)] Future Scheduled Test 2023-02-05 INFLUENZA VACCINE [facility] 14:17:00 [code = INFLUENZA VACCINE] Future Scheduled Test 2023-01-27 INFLUENZA VACCINE [facility] 14:57:26 [code = INFLUENZA VACCINE] Future Scheduled Test 2023-01-27 Hepatitis C [facility] 14:57:26 screening (procedure) [code = 829355974] Future Scheduled Test 2023-01-27 Screening for [facility] 14:57:26 malignant neoplasm of cervix (procedure) [code = 950225887] Future Scheduled Test 2023-01-27 COVID-19 VACCINE (2 [facility] 14:57:26 - Booster for Eliu series) [code = COVID-19 VACCINE (2 - Booster for Eliu series)] Diagnostic Test 2022-05-22 iron + total [place] Me dical Pending 00:00:00 iron-binding Group capacity (TIBC), serum [code = iron + total iron-binding capacity (TIBC), serum] Diagnostic Test 2022-05-22 vitamin B12, serum [place] heading and priming tool setter Medical Pending 00:00:00 [code = vitamin Group B12, serum] Diagnostic Test 2022-05-22 ferritin, serum or [place] heading and priming tool setter Medical Pending 00:00:00 plasma [code = Group ferritin, serum or plasma] Diagnostic Test 2022-05-22 folate, serum [code [place] [facility] Pending 00:00:00 = folate, serum] Group Diagnostic Test 2022-05-22 retic count, blood [place] heading and priming tool setter Medical Pending 00:00:00 [code = retic Group count, blood] Diagnostic Test 2022-05-22 CBC w/ auto diff [place] [facility] Pending 00:00:00 [code = CBC w/ auto Group diff] Diagnostic Test 2022-05-22 TSH, serum or [place] [facility] Pending 00:00:00 plasma [code = TSH, Group serum or plasma] Diagnostic Test 2022-05-22 CMP, serum or [place] [facility] ed[facility] Pending 00:00:00 plasma [code = CMP, Group serum or plasma] Diagnostic Test 2022-05-22 lipid panel, serum [place] heading and priming tool setter Medical Pending 00:00:00 [code = lipid Group panel, serum] Diagnostic Test 2022-05-22 HbA1c (hemoglobin [place] [facility] Pending 00:00:00 A1c), blood [code = Group HbA1c (hemoglobin A1c), blood] Diagnostic Test 2022-05-22 prealbumin, serum [place] [facility] Pending 00:00:00 [code = prealbumin, Group serum] Future Appointment 2023-02-17 Marita Willis MD, Met [facility] 09:00:00 [id number] [facility]; [address], [place] [address] Future Appointment 2023-02-17 Marita Willis MD, [facility] 09:00:00 [id number] [facility]; [address], [place] [address] Procedure 2023-02-17 CYSTOSCOPY,URETEROS [facility] 14:00:00 COPY WITH THULIUM LASER W/WO STENT Instructions Miriam talbot Group Encounters Start End Encounter Admission Attending Care Care Encounter Source Date/Time Date/Time Type Type Clinicians Facility Department ID 2022-10-19 Outpatient [facility] [id number] [place] 06:39:00 [id number] [facility] 2022-10-15 Outpatient [facility] [id number] Common 13:02:[id number] [facility] 2022-07-16 Outpatient [facility] [id number] Common 08:33:[id number] [facility] 2021-10-03 Outpatient [facility] [id number] [place] 11:45:52 [facility] 2023-02-05 2023-02-05 Prep for Yusuf 1.2.840.1 [id number] Methodi 00:00:00 00:00:00 Surgery Radha 67546.1.[address] 3.430.2.7 Hospit a .3.302345 l .8 2023-02-05 2023-02-05 Patient Toney, 1.2.840.1 [id number] Methodi 00:00:00 00:00:00 Outreach Kelly 89342.1.1 979 s t 3.430.2.7 Hospit a .3.107221 l .8 2023-02-05 2023-02-05 Telephone Lazaro 1.2.840.1 [id number] Methodi 00:00:00 00:00:[address] [facility] 3.430.2.7 Hosp irma .3.296949 l .8 2023-02-02 2023-02-04 Hospital Davis Rebolledo 1.2.840.1 [id number] Methodi 21:20:00 13:43:00 Encounter Kinga Tomas 13911.1.[address] 3.430.2.7 Hospit a .3.144606 l .8 2023-02-02 2023-02-04 Outpatient [facility] [id number] 00:00:00 00:00:[address] KINGA [address] 2023-02-03 2023-02-03 Surgery Lazaro 1.2.840.1 [id number] Methodi 10:45:00 11:45:[address] [facility] 3.430.2.7 Hosp irma .3.327707 l .8 2023-02-03 2023-02-03 Anesthesia Jay Robins 1.2.840.1 [id number] [id number] Methodi 10:40:00 11:34:00 Event Brigida Dobbins 67577.1.[address] 3.430.2.7 Hospit a .3.203023 l .8 2023-01-27 2023-01-27 Telephone Yusuf 1.2.840.1 [id number] Methodi 00:00:00 00:00:[address] 3.430.2.7 Hospit a .3.664642 l .8 2023-01-27 2023-01-27 Telephone Yusuf 1.2.840.1 [id number] 21 [id number] Methodi 00:00:00 00:00:[address] 3.430.2.7 Hospit a .3.562052 l .8 2023-01-21 2023-01-23 Inpatient AMAYA, ELVIA DESHAUN [id number] 05:36:00 14:43:[address] [facility] [address] [facility]ospita l 2022-12-30 2022-12-30 Office Lazaro 1.2.840.1 [id number] [id number] Methodi 15:00:00 16:13:01 Visit Marita 34504.1.1 588 [facility] 3.430.2.7 Hosp irma .3.026265 l .8 2022-12-30 2022-12-30 Office Lazaro 1.2.840.1 [id number] [id number] Methodi 15:00:00 16:13:01 Visit Marita 15333.1.[address] [facility] 3.430.2.7 Hosp irma .3.401301 l .8 2022-12-30 2022-12-30 Travel 1.2.840.1 1.2.536.575 [id number] Methodi 00:00:00 00:00:[address] 3.430.2.7 0.2.7.3.698 Ho spita .3.347711 084.8 l .8 2022-12-30 2022-12-30 Travel 1.2.840.1 1.2.091.942 [id number] Methodi 00:00:00 00:00:[address] 3.430.2.7 0.2.7.3.698 Ho spita .3.208495 084.8 l .8 2022-10-17 2022-10-17 Bedded [facility] [id number] [facility] 13:56:00 17:14:00 Outpatient Gabe 00 l [facility] 2022-10-17 2022-10-17 Outpatient SALUD AMAYA DESHAUN [id number] 07:56:00 11:14:00 [facility] 2022-08-13 2022-08-13 (TEL) STLMLC STLMLC [id number] Co mmon 00:00:00 00:00:00 [facility] 2022-07-30 2022-07-30 OFFICE STLMLC STLMLC [id number] Co mmon 00:00:00 00:00:00 VISIT Spirit ESTAB PT - [facility]I LEVEL 4 [facility] 2022-07-16 2022-07-16 OFFICE STLMLC STLMLC [id number] Co mmon 00:00:00 00:00:00 VISIT NEW Spir it PT LEVEL 2 - [facility] 2022-05-22 2022-05-22 Outpatient IHDE_G MMG MMG [id number] [place] 00:00:00 00:00:00 0922 [facility] 2022-05-22 2022-05-22 Efrain [facility] [place] - [id number] M atagor 00:00:00 00:00:00 Terry Pritchard MD: Medical Medica [address], [place] [address] , Ph. [phone] 2022-05-19 2022-05-19 Outpatient IHDE_G RICK [facility] [id number] [facility] 00:00:00 00:00:00 0919 [facility] 2022-03-18 2022-03-21 Inpatient NORMAN Wagner [facility] [id number] [facility] 13:40:00 16:05:00 [place], [id number] [facility] 2022-03-18 2022-03-21 Inpatient NORMAN Wagner [facility] [id number] [facility] 13:40:00 16:05:00 [place], 02 [facility] 2022-02-12 2022-02-12 Telephone Myranda Pelaez UTP 1.2.840.1 14 [id number] [place] 00:00:00 00:00:00 Myranda Pelaez 350.1.13.58 Health STATION 9.2.7.2.686 [facility] [id number] 2022-02-11 2022-02-11 Telephone FaganOly luisa UTP 1.2.84 0.114 [id number] [place] 00:00:00 00:00:00 FaganOlive luisE 350.1.13.58 Health STATION 9.2.7.2.686 [facility] [id number] 2022-01-30 2022-01-30 Telephone Olive Fagan UTP 1.2.84 0.114 [id number] [place] 00:00:00 00:00:00 FaganOlive luisE 350.1.13.58 Health STATION 9.2.7.2.686 [facility] [id number] 2022-01-22 2022-01-22 Outpatient NORMAN Wagner [facility] [id number] [facility] 13:30:00 13:30:00 Mass, 16 [facility] 2021-12-04 2021-12-04 Telephone Sia Cobos [facility] 1.2.840.11 4 [id number] [facility] 00:00:00 00:00:00 ANTONIA 350.1.13.10 it y of WOMEN'S 4.2.7.2.686 [facility] [id number] [facility] 134 Branch 2021-12-04 2021-12-04 Orders Doctor PRISCILLA 1.2.840.114 [id number] Univers 00:00:00 00:00:00 Only Unassigned, MEEK 350.1.13.10 ity of [place] [facility] 4.2.7.2.686 Jer [id number] [facility] 009 Branch 2021-11-21 2021-11-21 Consult GERALD Greene 1.2.840.114 [id number] [place] 11:00:00 12:46:23 Zayra LAWSON 350.1.13.58 H [facility] 9.2.7.2.686 [facility] [id number] 2021-07-31 2021-07-31 Outpatient IHDE_G MMG G [id number] [place] 00:00:00 00:00:00 [facility] 2021-06-20 2021-06-20 Outpatient IHDE_G MMG MMG [id number] 021 [place] 02:04:00 02:04:00 [facility] 2021-05-16 2021-05-16 Outpatient IHDE_G MMG MMG [id number] 021 [place] 02:08:00 02:08:00 [facility] 2021-04-11 2021-04-11 Outpatient IHDE_G MMG MMG [id number] 021 [place] 01:21:00 01:21:00 [facility] 2021-03-15 2021-03-15 Outpatient IHDE_G MMG MMG [id number] 021 [place] 12:24:00 12:24:00 [facility] 2021-03-14 2021-03-14 Efrain IHDE_[place] MMG [place] - [id number] [place] 00:00:00 00:00:00 Terry Becerra 07Radha Pritchard MD: Medical Medica l [address] [facility] [address], [place] [address] , Ph. [phone] 2021-03-11 2021-03-11 Outpatient R GOOD YANG [facility] [id number] Univers 10:00:00 10:00:00 GOOD YANG [facility] 2021-03-06 2021-03-06 Outpatient IHDE_G MMG [facility] [id number] 021 [place] 12:05:00 12:05:00 0707 aleyda [facility] 2020-11-29 2020-11-29 Outpatient R TJ, [facility] [id number] Univers 08:00:00 08:00:00 KUNAL [facility] 2020-09-13 2020-09-13 Outpatient R PATRICK SIA [facility] [id number] Univers 15:00:00 15:00:00 [facility] 2020-05-25 2020-05-25 Outpatient R ADUM, [facility] [id number] Univers 15:30:00 15:30:00 [facility] 2020-05-23 2020-05-23 Outpatient R ADUM, [facility] [id number] Univers 11:00:00 11:00:00 [facility] 2020-05-15 2020-05-15 Outpatient R ADUM, [facility] [id number] Univers 09:30:00 09:30:00 [facility] 2020-02-17 2020-02-17 Outpatient R ADUM, [facility] [id number] Univers 09:00:00 09:00:00 [facility] 2020-02-13 2020-02-13 Outpatient R ADUM, [facility] [id number] Univers 10:00:00 10:00:00 [facility] 2020-02-08 2020-02-08 Outpatient R ADUM, [facility] [id number] Univers 13:00:00 13:00:00 [facility] 2020-02-03 2020-02-03 Case [facility] 1.2.840.114 [id number] 00:00:00 00:00:00 Management Sonia Ballard 350.1.13.10 [place] 4.2.7.2.686 Profmelissaio [id number] [address] 2020-02-01 2020-02-01 Outpatient R [facility] [id number] Univers 15:00:00 15:00:00 [facility] 2020-02-01 2020-02-01 Office [facility] 1.2.840.114 [id number] 11:20:04 12:15:55 Visit Sonia Ballard 350.1.13.10 [place] 4.2.7.2.686 Profmelissaio [id number] [address] 2020-02-01 2020-02-01 Outpatient R [facility] [id number] Univers 11:00:00 11:00:00 [facility] Results Test Description Test Time Test Comments Results Result Comments Source Urine culture 2023-02-04 13:37:00 Test Item Value Reference Range Interpretation Comme nts Urine culture isolate Mixed mary <=10-3 Specimen InformationSpecimen (test code = 95615-8) col/cc Source : UrineSpecimen Site: Clean catch [facility] , eycyo5860-91-04 14:55:38 Test Item Value Reference Range Interpretation Comments test urine, POC (test Negative code = 4070380) Internal QC (test code = 257) QC acceptable [facility] BLADDER SCAN/[id number] 21:11:20 Test Item Value Reference Range Interpretation Comments Total volume (test code = 2336) 0 [facility] BLADDER SCAN/[id number] 21:11:20 Test Item Value Reference Range Interpretation Comments Total volume (test code = 2336) 0 [facility] urinalysis cavojoea2835-67-95 21:08:58 Test Item Value Reference Range Interpretation Comments Color urine, POC (test Yellow code = 7551759) Clarity urine, POC (test Clear code = 3207412) Glucose urine, POC (test Negative Negative code = 3266089) Bilirubin urine, POC Negative Negative (test code = 4055982) Ketones urine, POC (test Negative Negative code = 4789947) Specific gravity urine, >/=1.030 1.005-1.030 POC (test code = 2976153) Blood urine, POC (test Large Negative A code = 9879139) pH urine, POC (test code 5.5 See_Comment [A utomated message] = 6486702) The system [employer] [place] generated this result transmitted ref erence range: 5.0, 5.5 , 6.0, 6.5, 7.0, 7.5, 8.0, 8.5. The refere nce range was not u sed to interpret this result as normal/abnor mal. Protein urine, POC (test Negative Negative code = 6538597) Urobilinogen urine, POC <2.0 <=2.0 (test code = 8514638) Nitrite urine, POC (test Negative Negative code = 2233796) Leukocyte esterase Trace Negative A urine, POC (test code = 7336192) Lab Interpretation (test Abnormal code = 32640-4) [facility] urinalysis tyqktzmb9175-18-17 21:08:58 Test Item Value Reference Range Interpretation Comments Color urine, POC (test Yellow code = 7188392) Clarity urine, POC (test Clear code = 7990892) Glucose urine, POC (test Negative Negative code = 6995945) Bilirubin urine, POC Negative Negative (test code = 6258304) Ketones urine, POC (test Negative Negative code = 6208276) Specific gravity urine, >/=1.030 1.005-1.030 POC (test code = 8308140) Blood urine, POC (test Large Negative A code = 9243516) pH urine, POC (test code 5.5 See_Comment [A utomated message] = 0187949) The system [employer] [place] generated this result transmitted ref erence range: 5.0, 5.5 , 6.0, 6.5, 7.0, 7.5, 8.0, 8.5. The refere nce range was not u sed to interpret this result as normal/abnor mal. Protein urine, POC (test Negative Negative code = 6650170) Urobilinogen urine, POC <2.0 <=2.0 (test code = 0060067) Nitrite urine, POC (test Negative Negative code = 4954634) Leukocyte esterase Trace Negative A urine, POC (test code = 3759951) Lab Interpretation (test Abnormal code = 41149-5) Alfonso MtzDqpwappkZFBBHC7270-36-39 17:47:55 Test Item Value Reference Range Interpretation [...] findings. Gilberto Holcomb MD On 10/17/2022 11:47:29; [id number] [facility]McypoydBEDZVHKWV7309-74-06 17:04:00 Test Item Value Reference Range Interpretation Comments Vitamin B12 Lvl (test code = Vitamin [phone] B12 Lvl) [facility] SystemSfohehsNUBSXGYRU0016-06-94 17:04:00 Test Item Value Reference Range Interpretation Comments Hgb A1C (test code = Hgb A1C) 5.8 [facility] SystemOzzquigQHLMLLIPZ5529-15-17 17:04:00 Test Item Value Reference Range Interpretation Comments Trig (test code = Trig) 236 [facility] SystemKmpmafiQSEFMBNYT7913-05-46 17:04:00 Test Item Value Reference Range Interpretation Comments Chol (test code = Chol) 196 [place] 537113-02-17 17:04:00 Test Item Value Reference Range Interpretation Comments HDL (test code = HDL) 59 [facility] SystemRejmgmuVXNSRDZBA8767-28-53 17:04:00 Test Item Value Reference Range Interpretation Comments Chol/HDL Ratio (test code = Chol/HDL 3.32 1 3.90-5.80 Ratio) [place] 537113-02-17 17:04:00 Test Item Value Reference Range Interpretation Comments LDL (Calculated) (test code = LDL 90 (Calculated)) [facility] SystemTqtotbaCFQIKIYZI7305-83-00 17:04:00 Test Item Value Reference Range Interpretation Comments VLDL (test code = VLDL) 47 1 [facility] SystemAlwvuruQEOSZKISM8932-90-22 16:59:00 Test Item Value Reference Range Interpretation Comments Bili Direct (test code 0.2 See_Comment [Aut omated message] The = Bili Direct) system which generated this result tra nsmitted reference range : <=0.3. The reference r abbie was not used to int erpret this result as nirmal l/abnormal. [facility] SystemYblzpxdFDDXHPEGI8623-71-27 16:59:00 Test Item Value Reference Range Interpretation Comments Glucose Lvl (test code = Glucose Lvl) 92 70-99 [place] [address]-02-17 16:59:00 Test Item Value Reference Range Interpretation Comments BUN (test code = BUN) 12 7-22 [facility] SystemAozmqmqGBADCWFBP2755-28-60 16:59:00 Test Item Value Reference Range Interpretation Comments Creatinine Lvl (test code = Creatinine 0.52 0.50-1.40 Lvl) [facility] SystemXhnbivyMUPYQEPDS6315-10-64 16:59:00 Test Item Value Reference Range Interpretation Comments Sodium Lvl (test code = Sodium Lvl) 139 135-145 [facility] SystemMhprsqvHEVZOWTDR3070-71-43 16:59:00 Test Item Value Reference Range Interpretation Comments Potassium Lvl (test code = Potassium 3.8 3.5-5.1 Lvl) [facility] SystemZrxiwzgGGYCCYKYV2464-73-12 16:59:00 Test Item Value Reference Range Interpretation Comments Chloride Lvl (test code = Chloride Lvl) 107 95-109 [facility] SystemZhotrguHDGVNVAQX9754-80-55 16:59:00 Test Item Value Reference Range Interpretation Comments CO2 (test code = CO2) 23 24-32 [facility] SystemYbjqgxgGGPWLLTTX8355-43-75 16:59:00 Test Item Value Reference Range Interpretation Comments Calcium Lvl (test code = Calcium Lvl) 8.8 8.5-10.5 [facility] SystemImgnmshHSLRQOMRK6573-05-81 16:59:00 Test Item Value Reference Range Interpretation Comments Total Protein (test code = Total 7.6 6.4-8.4 Protein) [facility] SystemExyoonvGLNLLRUNC1214-49-09 16:59:00 Test Item Value Reference Range Interpretation Comments Albumin Lvl (test code = Albumin Lvl) 3.6 3.5-5.0 [place] 537113-02-17 16:59:00 Test Item Value Reference Range Interpretation Comments ALT (test code = ALT) 29 See_Comment [Auto mated message] The system which ge nerated this result transmit nadia reference range : <=65. The reference range was not used to interpr et this result as nirmal l/abnormal. [facility] LzwyowrKSWVKPZQZ8927-85-70 16:59:00 Test Item Value Reference Range Interpretation Comments AST (test code = AST) 14 See_Comment [Auto mated message] The system which ge nerated this result transmit nadia reference range : <=37. The reference range was not used to interpr et this result as nirmal l/abnormal. [employer] PharmaceuticalsRvcpxsjWWKIXWEHG7040-09-92 16:59:00 Test Item Value Reference Range Interpretation Comments Alk Phos (test code = Alk Phos) 53 39-136 [facility] EpgnckqPVSRRYBQW0093-31-91 16:59:00 Test Item Value Reference Range Interpretation Comments Bili Total (test code = Bili Total) 0.5 0.2-1.3 [facility] AfztvcdTUHEIFJKI6011-30-86 16:59:00 Test Item Value Reference Range Interpretation Comments AGAP (test code = AGAP) 12.8 10.0-20.0 [employer] PharmaceuticalsYqqsbivJWWGNYRCG3677-34-57 16:59:00 Test Item Value Reference Range Interpretation Comments B/C Ratio (test code = B/C Ratio) 23 1 6-25 [facility] AisblopMXORLMBNH9630-09-94 16:59:00 Test Item Value Reference Range Interpretation Comments Globulin (test code = Globulin) 4.0 2.7-4.2 [facility] FixgvulQZEZXXLPU0167-98-32 16:59:00 Test Item Value Reference Range Interpretation Comments A/G Ratio (test code = A/G Ratio) 0.9 1 0.7-1.6 [facility] DwgvcnpWVAJIVAWU1488-86-24 16:59:00 Test Item Value Reference Range Interpretation Comments eGFR (test code = eGFR) 128 [facility] XvqsedbFCJPOZCYR3912-97-24 16:59:00 Test Item Value Reference Range Interpretation Comments Folate Lvl (test code = Folate Lvl) 16.4 [facility] WhiuyrhEKYMQGNVG5230-34-07 16:59:00 Test Item Value Reference Range Interpretation Comments TSH (test code = TSH) 1.790 0.360-3.740 [place] [address]-02-17 16:59:00 Test Item Value Reference Range Interpretation Comments Segs (test code = Segs) 62.7 45.0-75.0 [place] [address]-02-17 16:59:00 Test Item Value Reference Range Interpretation Comments Lymphocytes (test code = Lymphocytes) 26.5 20.0-40.0 [place] [address]-02-17 16:59:00 Test Item Value Reference Range Interpretation Comments Monocytes (test code = Monocytes) 7.5 2.0-12.0 [place] [address]-02-17 16:59:00 Test Item Value Reference Range Interpretation Comments Eosinophils (test code = 2.8 See_Comment [A utomated message] The Eosinophils) system which ge nerated this result tra nsmitted reference range : <=4.0. The reference r abbie was not used to int erpret this result as normal/abnormal . [place] [address]-02-17 16:59:00 Test Item Value Reference Range Interpretation Comments Basophils (test code = 0.5 See_Comment [Aut omated message] The Basophils) system which ge nerated this result tra nsmitted reference range : <=1.0. The reference r abbie was not used to int erpret this result as normal/abnormal . [place] [address]-02-17 16:59:00 Test Item Value Reference Range Interpretation Comments Neutrophils # (test code = Neutrophils 5.3 1.5-8.1 #) [place] [address]-02-17 16:59:00 Test Item Value Reference Range Interpretation Comments Lymphocytes # (test code = Lymphocytes 2.3 1.0-5.5 #) [place] [address]-02-17 16:59:00 Test Item Value Reference Range Interpretation Comments Monocytes # (test code 0.6 See_Comment [Aut omated message] The = Monocytes #) system which generated this result tra nsmitted reference range : <=0.8. The reference r abbie was not used to int erpret this result as normal/abnormal . [place] [address]-02-17 16:59:00 Test Item Value Reference Range Interpretation Comments Eosinophils # (test code 0.2 See_Comment [A utomated message] The = Eosinophils #) system whic h generated this result tra nsmitted reference range : <=0.5. The reference r abbie was not used to int erpret this result as normal/abnormal . [facility]LtmnxlwOEKANNKXWL1415-29-07 16:59:00 Test Item Value Reference Range Interpretation Comments WBC (test code = WBC) 8.5 3.7-10.4 [place] 023133-02-17 16:59:00 Test Item Value Reference Range Interpretation Comments RBC (test code = RBC) 4.43 4.20-5.40 [place] 023133-02-17 16:59:00 Test Item Value Reference Range Interpretation Comments Hgb (test code = Hgb) 13.9 12.0-16.0 [place] [address]-02-17 16:59:00 Test Item Value Reference Range Interpretation Comments Hct (test code = Hct) 41.0 36.0-48.0 [place] 023133-02-17 16:59:00 Test Item Value Reference Range Interpretation Comments MCV (test code = MCV) 92.5 80.0-98.0 [place] [address]-02-17 16:59:00 Test Item Value Reference Range Interpretation Comments MCH (test code = MCH) 31.3 pg 27.0-31.0 [facility] SouthCcoxvhtVPWWIRKPZD3182-74-39 16:59:00 Test Item Value Reference Range Interpretation Comments MCHC (test code = MCHC) 33.9 32.0-36.0 [place] 023133-02-17 16:59:00 Test Item Value Reference Range Interpretation Comments RDW (test code = RDW) 13.8 11.5-14.5 [place] [address]-02-17 16:59:00 Test Item Value Reference Range Interpretation Comments Platelet (test code = Platelet) 203 133-450 [facility] SouthKmwwuvoVJBQBSAYOL1940-55-06 16:59:00 Test Item Value Reference Range Interpretation Comments MPV (test code = MPV) 8.3 7.4-10.4 [place] [address]-02-17 16:59:00 Test Item Value Reference Range Interpretation Comments PT (test code = PT) 13.3 s 12.0-14.7 [facility] SouthKuqsflrISRTOABLAO1739-42-89 16:59:00 Test Item Value Reference Range Interpretation Comments INR (test code = INR) 1.01 1 0.85-1.17 [facility] TdwmnknMKWIWNZJBC9358-03-47 16:59:00 Test Item Value Reference Range Interpretation Comments PTT (test code = PTT) 25.4 s 22.9-35.8 [facility] YxnnzliMYXWYDLIGV7294-94-77 16:59:00 Test Item Value Reference Range Interpretation Comments HIV Ag/Ab 4th Gen Negative *NA*(10/17/22 (test code = HIV 10:59 AM) Ag/Ab 4th Gen) [facility] OyblmuvKHYLLQVSN6874-59-53 15:44:00 Test Item Value Reference Range Interpretation Comments U Preg (test code = U Negative (10/17/22 9:44 Preg) AM) [facility] GURPY4838-34-02 15:44:00 Test Item Value Reference Range Interpretation Comments UA Color (test code = Yellow *NA*(10/17/22 UA Color) 9:44 AM) [facility] JCZQI4109-20-60 15:44:00 Test Item Value Reference Range Interpretation Comments UA Turbidity (test code = Clear (10/17/22 9:44 UA Turbidity) AM) [facility] ZTXMR8684-70-32 15:44:00 Test Item Value Reference Range Interpretation Comments UA Spec Grav (test >=1.030 *ABN*(10/17/22 code = UA Spec Grav) 9:44 AM) [facility] HJDFD5497-74-42 15:44:00 Test Item Value Reference Range Interpretation Comments UA pH (test code = UA pH) 6.0 1 5.0-8.0 [facility] INQZB6568-88-50 15:44:00 Test Item Value Reference Range Interpretation Comments UA Protein (test code Negative (10/17/22 9:44 = UA Protein) AM) [facility] LTFXE5607-35-83 15:44:00 Test Item Value Reference Range Interpretation Comments UA Glucose (test code Negative (10/17/22 9:44 = UA Glucose) AM) [facility] [id number] 15:44:00 Test Item Value Reference Range Interpretation Comments UA Ketones (test code Negative *NA*(10/17/22 = UA Ketones) 9:44 AM) [facility] [id number] 15:44:00 Test Item Value Reference Range Interpretation Comments UA Bili (test code = Negative *NA*(10/17/22 UA Bili) 9:44 AM) [facility] MVPKC9926-12-00 15:44:00 Test Item Value Reference Range Interpretation Comments UA Blood (test code = Moderate *ABN*(10/17/22 UA Blood) 9:44 AM) [facility] [id number] 15:44:00 Test Item Value Reference Range Interpretation Comments UA Urobilinogen (test code = UA 0.2 0.1-1.0 Urobilinogen) [facility] [id number] 15:44:00 Test Item Value Reference Range Interpretation Comments UA Nitrite (test code Negative (10/17/22 9:44 = UA Nitrite) AM) [facility] [id number] 15:44:00 Test Item Value Reference Range Interpretation Comments UA Leuk Est (test Negative (10/17/22 9:44 code = UA Leuk Est) AM) [facility] [id number] 15:44:00 Test Item Value Reference Range Interpretation Comments UA Sq Epi (test code = UA Sq Epi) Few /LPF [facility] [id number] 15:44:00 Test Item Value Reference Range Interpretation Comments UA WBC (test code = 3 See_Comment [Automa nadia message] The UA WBC) system which ge nerated this result transmit nadia reference range : <=5. The reference range was not used to interpr et this result as nirmal l/abnormal. [facility] [id number] 15:44:00 Test Item Value Reference Range Interpretation Comments UA RBC (test code = 11 See_Comment [Automa nadia message] The UA RBC) system which ge nerated this result transmit nadia reference range : <=2. The reference range was not used to interpr et this result as nirmal l/abnormal. [facility] [id number] 15:44:00 Test Item Value Reference Range Interpretation Comments UA Mucus (test code = UA Mucus) Few /LPF [facility] DyuuvyzOVIWSTBK5347-28-68 16:34:00 Test Item Value Reference Range Interpretation Comments SURGICAL (test code = SR) R UN DATE: 04/08/22 [facility] PAGE 1 RUN TIME: 1635 Specimen Inquiry RUN USER: INTERFACE P ATIENT: NEREYDA FERRIS LOC: VAN U #: [id number] AGE/SX: 32/F ROOM: [facility] RE03/18/22REG DR: Buck Powell : [birth year] BED: A DIS: 03/21/22 STATUS: DIS IN TLOC: SPEC #: [id number] RECD: 03/19/22 STATUS: SOUT RERom #: [id number] JASEN: 03/18/22-16[address] [facility] [address]: Buck Powell MD ENTERED: 03/19/22 SP TYPE: SURGICAL OTHR DR: DOES_NOT KNOW ORDERED: ANATOMIC SPEC/3, SPEC TRACK, 25766/2, 16143/2, 77693/2, 32546 COPIES TO: DOES_NOT KNOW Buck Powell MD 1 [facility] # [id number] [place], [place] [id number] PROCEDURES: 70462 (03/19/22-902) 08127 (03/19/22-902) 30954 (04/08/22-1626) 55145 (04/08/22-1626) TISSUES: A. PLACENTA, THIRD TRIMESTER (28 + [...] Inquiry RUN USER: INTERFACE S PEC #: [id number] PATIENT: NEREYDA FERRIS ANID #[id number] (Continued) FINAL DIAGNOSIS (Continued) C. FALLOPIAN TUBE, [...] maternal surface. The placental disk is ovoid, mtlbacje97 x 14 x 2.3 cm, and weighs [...] Inquiry RUN USER: INTERFACE S PEC #: [id number] PATIENT: NEREYDA FERRIS ANID #[id number] (Continued) GROSS DESCRIPTION (Continued) Technical component performed at [facility],[address], [place] [address] Unless gross only, the diagnosis is based [...] Signed SIGNATURE ON FILE Christopher Hobson 04/08/22 3384 END OF REPORT [id number] 06:52:00 Test Item Value Reference Range Interpretation Comments GLUBED (test code = GLUBED) 85 mg/dL 65-110 N [id number] 22:13:00 Test Item Value Reference Range Interpretation Comments GLUBED (test code = GLUBED) 136 mg/dL 65-110 H [id number] 17:05:00 Test Item Value Reference Range Interpretation Comments GLUBED (test code = GLUBED) 166 mg/dL 65-110 H [id number] 11:51:00 Test Item Value Reference Range Interpretation Comments GLUBED (test code = GLUBED) 108 mg/dL 65-110 N BZEHHR4249-03-69 06:41:00 Test Item Value Reference Range Interpretation Comments GLUBED (test code = GLUBED) 87 mg/dL 65-110 N UOZVFO7544-57-11 23:44:00 Test Item Value Reference Range Interpretation Comments GLUBED (test code = GLUBED) 170 mg/dL 65-110 H [id number] 14:36:00 Test Item Value Reference Range Interpretation Comments GLUBED (test code = GLUBED) 162 mg/dL 65-110 H CBC W/AUTO [id number] 09:41:00 Test Item Value Reference Range Interpretation [...] REQUIRED (test NORMAL NORMAL code = PLTMR) [id number] 09:39:00 Test Item Value Reference Range Interpretation Comments GLUBED (test code = GLUBED) 153 mg/dL 65-110 H [id number] 07:18:00 Test Item Value Reference Range Interpretation Comments GLUBED (test code = GLUBED) 152 mg/dL 65-110 H [id number] 02:30:00 Test Item Value Reference Range Interpretation Comments GLUBED (test code = GLUBED) 164 mg/dL 65-110 H - XR CHEST 2 [id number] 00:00:00 [facility] SANDRINE : 1990 Sex: F Patient Name: NEREYDA FERRISVENICE Unit No: [id number] EXAMS: CPT CODE: [id number] XR CHEST 2 V 25127 PROCEDURE INFORMATION: Exam: XR Chest Exam date [...] So MD Technologist: MARITA SEPULVEDA(R) Trnscrbd D/ (6003) GCD.CPS Orig Print D/T: S: 03/19/2022 (1537) [facility] NAME: NEREYDA FERRIS Radiology Department PHYS: DINORA.01 - Buck Powell [address] : 1990 AGE: 32 SEX: F [place], [place] [address] LOC: F.4620 A PHONE #: [phone] EXAM DATE: 03/19/2022 STATUS: ADM IN FAX #: [phone] RAD NO: Page 1 Signed [id number] 14:14:00 Test Item Value Reference Range Interpretation Comments GLUBED (test code = GLUBED) 80 mg/dL 65-110 N AG HEPATITIS B [id number] 13:55:00 Test Item Value Reference Range Interpretation Comments AG HEPATITIS B SURFACE (test code NONREACTIVE NONREACTIVE = HBSAG) AB HEPATITIS C [id number] 13:55:00 Test Item Value Reference Range Interpretation Comments AB HEPATITIS C (test code = NONREACTIVE NONREACTIVE HCVAB) SIGNAL TO CUTOFF (test code = 0.15 <0.80 N CUTOFF) AB [id number] 13:55:00 Test Item Value Reference Range Interpretation Comments AB TREPONEMA (test code = TREPAB) NONREACTIVE NONREACTIVE AB HIV 1 13:55:00 Test Item Value Reference Range Interpretation Comments AB HIV 1 2 (test NONREACTIVE NONREACTIVE Done by [facility] code = [id number]) 4th Gen HIV Ag/Ab Combo Screen COVID 19 Asymptomatic IH [id number] 13:23:00 Test Item Value Reference Range Interpretation [...] of Accreditation. This test is only authori jessee for the duration of thedeclaration that circumstances e xist justifying theauthorizatio n of emergency use o f in vitro diagnostic test sfor detection and/o r diagnosis of CO VID-19 under Osnjogy45 4(b)(1) of the Act, 21 U.S .C. 360bbb-3(b)(1), unless theauthorizatio n is terminated or r evoked sooner. URINALYSIS W/O [id number] 13:00:00 Test Item Value Reference Range Interpretation Comments UA GLUCOSE DIPSTICK (test code = NEGATIVE NEG DGLUU) UA KETONE DIPSTICK (test code = NEGATIVE NEG KETU) UA PROTEIN DIPSTICK (test code = 1+ NEG A PROU) IS NURSE PERFORMING TEST? NCBC W/AUTO [id number] 12:48:00 Test Item Value Reference Range Interpretation [...] Notes Date/Time Note Provider Source 2022-04-03 08:53:00-00:00 [id number] [facility] [address] [place], [place] [address] PATIENT NAME: NEREYDA FERRIS ADMIT DATE: 02/28 05/22 ACCOUNT NO: [id number] ROOM NO: [facility] AGE: 32 SEX: F ADMITTING PHYSICIAN: Buck Powell MD ATTENDING PHYSICIAN: Buck Powell MD Provider Query QUERY TEXT: Specificity General 360MD Query related questions should be directed to: Roby carson [facility] Coding Query Help-line Please provide any known [...] AM at 0853 PATIENT NAME: NEREYDA FERRIS ACCOUNT #: [id number] 2022-03-21 19:09:00-00:00 [facility] OB Disch REPORT#:[id number] REPORT STATUS: Signed DATE:03/21/22 TIME: 1908 PATIENT: NEREYDA FERRIS UNIT #: [id number] [address] AGE: 32 SEX: F ATTEND: Buck Powell MD ADM AUTHOR: Buck Powell MD * ALL edits or amendments must be made on the el [employer]/computer document * Subjective Subjective Admission EGA: Weeks: 37 Days: 0 Status/day: post operative (day 3) Free Text Subj Notes Free Text Subj Notes: doing well. able to be active with ambulation wi thout difficulty. Pain well controlled, tolerating po, voiding, + flatus. Objective General VS: Vital Signs Date Temp Pulse Resp B/P B/P Mean Pulse Ox FiO2 03/21 97.7-98.3 91-106 18 128-138/86-90 Last Documented: [...] Regular Activity: Light Duty, No Driving, No Harvest for 6 Wks Additional discharge routines: Add. [...] e-prescribe Rx drug database reviewed: yes at Counts include 234 beds at the [facility] RPT #:[id number] END OF REPORT 2022-03-20 17:21:00-00:00 [facility] OB Postpart Progr Note REPORT#:[id number] REPORT STATUS: Signed DATE:03/20/22 TIME: 172 PATIENT: NEREYDA FERRIS UNIT #: [id number] ROOM/BED: [address] : 92 AGE: 32 SEX: F ATTEND: Buck Powell MD ADM AUTHOR: Buck Powell * ALL edits or amendments must be made on the [employer] document * Subjective Subjective Admission EGA: Weeks: [...] Resp B/P B/P Mean Pulse Ox FiO2 07/21 98.0-98.1 92-112 18 110-135/76-90 Last Documented: Result [...] Cetirizine HCl (Cetirizine HCl) 10 MG BEDTIME P O Docusate Sodium (DOCUSATE SODIUM 100 MG CAP) 200 MG BEDTIME PO Fluticasone Propionate (FLONASE NASAL SPRAY 16GM ) 1 SPRAY BID NASAL (CKD ) Insulin Human Lispro (HumaLOG 3ML VIAL) SLIDING SCALE ASDIR SUBQ Acetaminophen (ACETAMINOPHEN 325 MG TAB) 650 MG Q6H PO (DC) Al Hydrox/Mg Hydrox/Simethicone (MYLANTA 30 ML S MCC) 30 ML ASDIR PRN PO Dextrose/Lactated Ringer's [...] Promethazine HCl (PROMETHAZINE HCL) 25 MG Q6H GA N PRN PO Senna (SENOKOT TAB) 2 TAB BEDTIME PRN PRN PO (CK D) Simethicone (SIMETHICONE 80 MG TAB) 80 MG PC HS PRN PRN PO Tranexamic Acid (Tranexamic Acid) 1,000 MG ASDIR PRN IV Sodium Chloride (SODIUM CHLORIDE 0.9% 100 ML AD D-Dawson) 100 ML Physical Exam Neuro: Exam: alert, [...] based on AM fasting. at 1724 RPT #:[id number] END OF REPORT 2022-03-19 09:46:00-00:00 [facility] OB Postpart Progr Note REPORT#:[id number] REPORT STATUS: Signed DATE:03/19/22 TIME: 945 PATIENT: NEREYDA FERRIS UNIT #: [id number] ROOM/BED: [address] : 92 AGE: 32 SEX: F ATTEND: Buck Powell MD ADM AUTHOR: Buck Powell MD * ALL edits or amendments must be made on the el [employer]/computer document * Subjective Subjective Admission EGA: Weeks: [...] Mean Pulse Ox FiO2 03/18-03/19 98.1-98.3 74-93 9- 116-155/67-91 86.0-117.0 96-100 Last Documented: Result Date Time B/P 119/84 03/19 040 Temp 98.1 03/19 0402 Pulse 93 03/19 0402 Resp 18 03/19 0402 B/P Mean 92.0 03/18 1945 Pulse Ox 97 03/18 1945 PATIENT WEIGHT: Weight (lb): 251 [...] Al Hydrox/Mg Hydrox/Simethicone (MYLANTA 30 ML S MCC) 30 ML ASDIR PRN PO Dextrose/Lactated Ringer's [...] Promethazine HCl (PROMETHAZINE HCL) 25 MG Q6H GA N PRN PO Senna (SENOKOT TAB) 2 TAB BEDTIME PRN PRN PO (CK D) Simethicone (SIMETHICONE 80 MG TAB) 80 MG PC HS PRN PRN PO Tranexamic Acid (Tranexamic Acid) 1,000 MG ASDIR PRN IV Sodium Chloride (SODIUM CHLORIDE 0.9% 100 ML AD D-Dawson) 100 ML Ketorolac Tromethamine (TORADOL 30 MG SYRINGE) 0 .STK-MED ONE .ROUTE (DC ) Hydroxyzine HCl (ATARAX) 25 MG PACU ASDIR PRN GA N IM (DC) Ketorolac Tromethamine (TORADOL 15 [...] (DEXTROSE 5% IN WATER 50 ML ADD- Dawson) 100 ML Dextrose/Lactated Ringer's (DEXTROSE 5% IN [...] Chloride (SODIUM CHLORIDE 0.9% 100 ML AD D-Dawson) 100 ML Loperamide HCl (LOPERAMIDE HCL 2 [...] % (Auto) (14.5 - 29.7 %) 15.0 Marinette % (Auto) (3.6 - 10.2 %) 8.4 Eos % (Auto) (0.0 - 3.0 %) 1.2 Baso % (Auto) (0.1 - 0.9 %) 0.1 Neut # (Auto) (K/mm3) 5.6 Lymph # (Auto) (K/mm3) 1.1 [place]ette # (Auto) (K/mm3) 0.6 Eos # (Auto) [...] tonight if remains elevated. at 0950 RPT #:[id number] END OF REPORT 2022-03-18 17:46:00-00:00 [facility] OB Delivery Note REPORT#:[id number] REPORT STATUS: Signed DATE:03/18/22 TIME: 174 PATIENT: NEREYDA FERRIS UNIT #: [id number] ROOM/BED: [address] : 92 AGE: 32 SEX: F ATTEND: Buck Powell MD ADM AUTHOR: Buck Powell MD * ALL edits or amendments must be made on the el [employer]/computer document * OB Delivery Nursing Documentation Review [...] 3360 Weight (lb) infant A: Weight (oz) infant A: Gender infant A: Female 1 minute A: 5 minutes infant A: 10 minutes A: Cord pH obtained A: Vacuum time infant A: Vacuum # pulls A: Vacuum # popoffs infant A: QBL at delivery: __ Provider comments on imported nursing data: [] Infant B (add'l data): The data set between the solid lines has been im ported from nursing documentation. Any exceptions have been noted be low under Provider comments. ___ Delivery date infant B: 03/18/22 Delivery time i nfant B: 1603 Birthweight (gm) infant B: 3400 Weight (lb) infant B: Weight (oz) infant B: Gender infant B: Female 1 minute infant B: 5 minutes infant B: 10 minutes infant B: Cord pH obtained B: Vacuum time B: Vacuum # pulls infant B: Vacuum # popoffs infant B: ____ Provider comments on imported nursing data: [] Pre-delivery GBS status: GBS status: negative evaluation at delivery: [facility] EGA: Weeks: 37 Days: 0 Blood [...] (grams): 3400 Wt of baby (lbs/oz): 7 / 8 Gender: female 1 minute: 8 5 minutes: 9 Presentation: footling breech Anomalies: none Nuchal cord Baby B Nuchal cord: no Op/Inv Proc Note - Brief )(Start date: 03/18/2022 )(Start time: 1552 )( Procedure(s) performed: repeat low tr ansverse c/s, bilateral salpingectomy, moderate lysis of adhesions x 20 min )( Primary Surgeon: Randolph So )( Edging Supervisor(s): Sadie Villegas )( Pre-procedure diagnosis: 37w di [...] after a 60 second delay, and the 's nose and mouth were bulb suctioned. The infant was immediately vigorous. The infant was handed off to the paulina hernandez RN. Twin B was examined in the uterus, and found to be transverse. The was internally verted to footling breech, and [...] for gentle delivery from the hysterotomy. THe infant was im mediately vigorous. The cord was [...] the procedure well. Counts correct x 2. child center assistant required as per standard of c are for assistance with retraction, visualization, blotting, cut ting suture, and application of fundal pressure. )( Estimated blood loss (ml): 900 )( Specimen removed/altered: placenta, bilateral fallopian tubes )( Complications: none Drain(s): none Tube(s): none Implant(s): none Fluids: 1500mL Urine output: 100 mL clear )( Finding(s): vigorous female infant x 2, A cephalic, B transv erse, internal version to footling breech. normal uterus, bilateral fallop alan tubes and ovaries. Condition: stable Delivery Delivery section indication: elective repeat Priority: scheduled : : declined Antibiotic prior to incision: 1 dose )(SCDs applied activated: Yes Uterine incision: low transverse Uterine scar: intact Consent: indication discussed, questio ns answered, pt consent to op delivery Mother's condition: mother stable 's condition: infant stable in room (x2) at 2156 RPT #:[id number] END OF REPORT 2022-03-17 09:06:00-00:[address] [facility] [facility] OB Admission / H P REPORT#:[id number] REPORT STATUS: Signed DATE:03/17/22 TIME: 905 PATIENT: NEREYDA FERRIS UNIT #: [id number] ROOM/BED: : 92 AGE: 32 SEX: F ATTEND: Buck Powell MD ADM AUTHOR: Buck Powell MD * ALL edits or amendments must be made on the el [employer]/computer document * OB History Nursing Documentation Review [...] with bilateral sa lpingectomy. at 0912 RPT #:[id number] END OF REPORT
[2023-02-05] MEDS ORDERED: NA CHLORIDE 0.9% 1,000 ML ONE ×2 (18:31→19:38)
[2023-02-05] MEDS ORDERED: HYDROMORPHONE HCL 1 MG/ML INJ ONE ×2 (18:31→19:38)
[2023-02-05] MEDS ORDERED: FAMOTIDINE 20 MG/2 ML VIAL IV ONE (18:31)
[2023-02-05] MEDS ORDERED: ONDANSETRON 4 MG/2 ML VIAL ONE (18:31)
[2023-02-05 18:36] LABS: Hematocrit 44.2 % (36.0-45.0); Lymphocytes % 16.4 % (15.3-44.8); MCV 91.8 fL (80-100); MPV 8.3 fL (7.6-11.3); RBC Red Blood Cell Count 4.82 M/uL (3.86-4.86)
[2023-02-05 18:50] LABS: Bilirubin Total 0.4 mg/dL (0.2-1.0); Potassium 3.7 mEq/L (3.5-5.1); Protein, Total 8.7 g/dL (6.4-8.2)
--- NOTE | 2023-02-05 19:03 | RAD REPORT ---
EXAM DESCRIPTION: CT - Stone Protocol - 02/05/2023 6:46 pm CLINICAL HISTORY: Flank pain. FLANK PAIN COMPARISON: Stone Protocol dated 02/02/2023 TECHNIQUE: Axial images were obtained without oral or IV contrast. Lack of contrast limits solid org an and vascular assessment. The [id number] spans the entirety of the system partially obscuring uppermost abdomen and lung bases. Coronal reformatted images were obtained and reviewed. All CT scans are performed using dose optimization technique as appropriate and may include automated exposure control or mA/KV adjustment according to patient size. FINDINGS: The lower lung bar are clear. Postsurgical changes about the stomach. Imaged portions of the liver and spleen show no suspicious findings on non-contrast imaging. The panc reas and adrenal glands are normal. No pathologic lymphadenopathy in the abdomen or pelvis. Right double-J stent is in place. Proximal and distal aspects are expected position. Mild right hydro nephrosis. 6 mm calculus is seen along the course of the stent proximal right ureter. No left-sided G U tract stone or hydronephrosis. No bowel obstruction, free air, free fluid or abscess. Normal appendix noted. No significant bony abnormality. IMPRESSION: Right double-J stent is in place with mild right hydronephrosis. 6 mm calculus is presen t along course of the stent proximal right ureter.
[2023-02-05] MEDS ORDERED: KETOROLAC 30 MG/ML INJ ONE (20:15)
[2023-02-05 20:48] LABS: Specific Gravity 1.028 (1.005-1.030); Urine Bacteria <20 /HPF (<20); Urine Bilirubin 2+ (Negative); Urine Blood 3+ (OVER) (Negative); Urine Clarity Extremely Turbid (Clear); Urine Color Dark-Orange (Yellow); Urine Glucose NEGATIVE (Negative); Urine Mucus 4+ /HPF (None Seen); Urine Protein 3+ (Negative); Urine RBC >50 /HPF (None Seen); Urine Urobilinogen 3+ (Normal); Urine WBC Clump Rare /HPF (None Seen)
--- NOTE | 2023-02-05 22:13 | ER ---
Nurse's Notes [facility] Name: Rosalva De La Rosa Age: 32 yrs Sex: Female : 1990 Arrival Date: 02/05/2023 Time: 17:58 Bed 8 Private MD: Diagnosis: Nausea with vomiting, unspecified;Acute pain, not elsewhere classified;Other specified disorders of kidney and ureter Presentation: 02/05 18:01 Chief complaint: Patient states: Pt reports right sided flank pain that has been cm10 getting worse. Patient had a stent put in 2 days ago for a kidney stone. Patient also has vomiting. Coronavirus screen: Vaccine status: Patient reports receiving the 1st dose of the Covid vaccine. At this time, the client does not indicate any symptoms associated with coronavirus-19. Ebola Screen: No symptoms or risks identified at this time. Initial Sepsis Screen: Does the patient meet any 2 criteria? No. Patient's initial sepsis screen is negative. Does the patient have a suspected source of infection? No. Patient's initial sepsis screen is negative. Risk Assessment: Do you want to hurt yourself or someone else? Patient reports no desire to harm self or others. Onset of symptoms was February 01, 2023. 18:01 Method Of Arrival: Wheelchair cm10 18:01 Acuity: VELVET 3 cm10 Triage Assessment: 18:05 General: Appears in no apparent distress. distressed, Behavior is calm, cooperative, cm10 appropriate for age. Pain: Complains of pain in back Pain currently is 10 out of 10 on a pain scale. GI: Reports lower abdominal pain, vomiting. :. 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 - Social history:: Smoking status: Patient denies any tobacco usage or history of. Screenin:26 [facility] ED Fall Risk Assessment (Adult) History of falling in the last 3 months, ko1 including since admission No falls in past 3 months (0 pts) Confusion or Disorientation Intoxicated or Sedated No (0 pts) Impaired Gait No (0 pts) Mobility Assist Device Used No (0 pt) Altered Elimination No (0 pt) Score/Fall Risk Level 0 - 2 = Low Risk Oriented to surroundings, Maintained a safe environment, Educated pt \T\ family on fall prevention, incl call for assistance when getting out of bed, Assessed \T\ reinforced patient's understanding of fall precautions, Provided non-skid footwear, Hourly rounding (assess needs \T\ fall precautionary measures) done, Used ambulatory aids as needed (educated on \T\ assisted with), Used gait belt as appropriate. Abuse screen: Denies threats or abuse. Denies injuries from another. Nutritional screening: No deficits noted. Tuberculosis screening: No symptoms or risk factors identified. Assessment: 18:26 Neuro: No deficits noted. Cardiovascular: No deficits noted. Respiratory: No deficits ko1 noted. GI: Bowel sounds present X 4 quads. Abd is soft X 4 quads. : No deficits noted. EENT: No deficits noted. Derm: No deficits noted. Musculoskeletal: No deficits noted. Vital Signs: 18:01 BP 145 / 104; Pulse 102; Resp 18; Temp 98.6; Pulse Ox 98% ; Weight 94.35 kg; Height 5 cm10 ft. 6 in. ; Pain 10/10; 18:30 BP 143 / 104; Pulse 65; Resp 18; Pulse Ox 98% ; ko1 19:20 BP 149 / 109; Pulse 68; Resp 18; Pulse Ox 97% ; sg5 19:22 Pain 8/10; sg5 22:12 BP 122 / 84; Pulse 59; Resp 19; Pulse Ox 97% on R/A; kd3 22:50 BP 116 / 78; Pulse 71; Resp 19; Pulse Ox 99% ; kd3 18:01 Body Mass Index 33.57 (94.35 kg, 167.64 cm) cm10 18:01 Pain Scale: Adult cm10 19:22 Pain Scale: Adult sg5 ED Course: 17:59 Patient arrived in ED. rg4 18:01 Bob Menchaca PA is PHCP. cp 18:01 Primo Flores DO is Attending Physician. cp 18:04 Triage completed. cm10 18:06 Arm band placed on Patient placed in an exam room, on a stretcher. cm10 18:10 Inserted saline lock: 22 gauge in right forearm, using aseptic technique. Blood ss collected. 18:21 Lisa George, RN is Primary Nurse. ko1 18:26 Patient has correct armband on for positive identification. Bed in low position. Call ko1 light in reach. Side rails up X 1. Pulse ox on. NIBP on. Door closed. Noise minimized. 18:48 CT Stone Protocol In Process Unspecified. EDMS 22:51 No provider procedures requiring assistance completed. IV discontinued, intact, kd3 bleeding controlled, No redness/swelling at site. Pressure dressing applied. Administered Medications: 18:28 Drug: Ondansetron IVP 4 mg Route: IVP; Site: right forearm; ko1 18:28 Drug: Famotidine IVP 20 mg Route: IVP; Site: right forearm; ko1 22:52 Follow up: Response: No adverse reaction kd3 18:28 Drug: NS 0.9% IV 1000 ml Route: IV; Rate: 1 bolus; Site: right forearm; ko1 19:46 Follow up: IV Status: Completed infusion; IV Intake: 1000ml sg5 18:29 Drug: HYDROmorphone IVP 1 mg Route: IVP; Site: right forearm; ko1 22:52 Follow up: Response: No adverse reaction; Pain is decreased kd3 19:45 Drug: HYDROmorphone IVP 1 mg Route: IVP; Site: right wrist; sg5 22:52 Follow up: Response: No adverse reaction; Pain is decreased kd3 19:45 Drug: NS 0.9% IV 1000 ml Route: IV; Rate: 1 bolus; Site: left wrist; sg5 22:52 Follow up: IV Status: Completed infusion kd3 20:17 Drug: Ketorolac IVP 15 mg Route: IVP; Site: right wrist; sg5 22:52 Follow up: Response: No adverse reaction; Pain is decreased kd3 22:50 Drug: Lortab PO Liquid 15 ml Route: PO; kd3 22:52 Follow up: Response: No adverse reaction kd3 22:57 Drug: Promethazine IM 25 mg Route: IM; Site: right deltoid; kd3 Medication: 22:12 VIS not applicable for this client. kd3 Intake: 19:46 IV: 1000ml; Total: 1000ml. sg5 Outcome: 22:12 Discharge ordered by . cp 22:19 Discharge ordered by . cp 22:51 Discharged to home ambulatory. kd3 22:51 Condition: stable 22:51 Discharge instructions given to patient, family, Instructed on discharge instructions, follow up and referral plans. medication usage, Demonstrated understanding of instructions, follow-up care, medications, Prescriptions given X 2. 22:58 Patient left the ED. kd3 Signatures: Dispatcher [employer] EDMS Eva Vieyra, RN RN ss Bob Menchaca PA PA cp Garcia, Rubi rg4 Carmella Heredia RN RN kd3 Lisa George RN RN Khadijah Hough RN RN sg5 Ana Willis RN RN cm10 Corrections: (The following items were deleted from the chart) 22:51 22:50 BP 116 / 78; Pulse 19bpm; Resp 19bpm; Pulse Ox 99%; kd3 kd3
--- NOTE | 2023-02-05 22:13 | EDPHYS ---
Physician Documentation [facility] Name: Rosalva De La Rosa Age: 32 yrs Sex: Female : 1990 Arrival Date: 02/05/2023 Time: 17:58 Bed 8 Private MD: ED Physician Primo Flores HPI: 02/05 18:20 This 32 yrs old Female presents to ER via Wheelchair with complaints of cp Abdominal Pain, Low Back Pain, Vomiting. 18:20 The patient complains of pain in the right flank. The pain radiates to the abdomen. cp 18:20 Onset: The symptoms/episode began/occurred last week, and became worse today. cp Associated signs and symptoms: Pertinent positives: diarrhea, nausea, vomiting, Pertinent negatives: fever. Severity of pain: in the emergency department the pain is unchanged despite home interventions. Patient reports having right ureter stent placed for 6 mm stone this past Thursday by DR Willis in [facility]. Has been unable to take prescribed pain meds due to vomiting today. 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 - Social history:: Smoking status: Patient denies any tobacco usage or history of. ROS: 18:25 Constitutional: Positive for poor PO intake, Negative for chills, fever. cp 18:25 Eyes: Negative for injury, pain, redness, and discharge. cp 18:25 Cardiovascular: Negative for chest pain, edema, palpitations. 18:25 Respiratory: Negative for cough, shortness of breath, wheezing. 18:25 Abdomen/GI: Positive for abdominal pain, nausea and vomiting, Negative for diarrhea, constipation, hematemesis. 18:25 Back: Positive for flank pain, on the right. 18:25 Neuro: Negative for altered mental status, headache, weakness. cp 18:25 All other systems are negative. cp Exam: 18:30 Constitutional: The patient appears in no acute distress, alert, awake, non-toxic, well cp developed, well nourished, in obvious pain, uncomfortable. 18:30 Head/Face: Normocephalic, atraumatic. cp 18:30 Eyes: Periorbital structures: appear normal, Conjunctiva: normal, Sclera: no appreciated abnormality, Lids and lashes: appear normal, bilaterally. 18:30 ENT: External ear(s): are unremarkable, Nose: is normal, Mouth: Lips: normal, Oral mucosa: normal, Posterior pharynx: is normal, airway is patent, no erythema, no exudate. 18:30 Chest/axilla: Inspection: normal, Palpation: is normal, no crepitus, no tenderness. 18:30 Cardiovascular: Rate: tachycardic, Rhythm: regular. 18:30 Respiratory: the patient does not display signs of respiratory distress, Respirations: labored breathing, is not present, Breath sounds: are clear throughout, no decreased breath sounds, no stridor, no wheezing. 18:30 Abdomen/GI: Inspection: abdomen appears normal, Bowel sounds: active, all quadrants, cp Palpation: soft, in all quadrants, severe abdominal tenderness, in the posterior aspect of right lateral abdomen, anterior aspect of right lateral abdomen, right upper quadrant and right lower quadrant, voluntary guarding, is elicited in the posterior aspect of right lateral abdomen, anterior aspect of right lateral abdomen, right upper quadrant and right lower quadrant. 18:30 Neuro: Orientation: to person, place \T\ time. Mentation: is normal, Motor: is normal, cp moves all fours, strength is normal. Vital Signs: 18:01 BP 145 / 104; Pulse 102; Resp 18; Temp 98.6; Pulse Ox 98% ; Weight 94.35 kg; Height 5 cm10 ft. 6 in. ; Pain 10/10; 18:30 BP 143 / 104; Pulse 65; Resp 18; Pulse Ox 98% ; ko1 19:20 BP 149 / 109; Pulse 68; Resp 18; Pulse Ox 97% ; sg5 19:22 Pain 8/10; sg5 22:12 BP 122 / 84; Pulse 59; Resp 19; Pulse Ox 97% on R/A; kd3 22:50 BP 116 / 78; Pulse 71; Resp 19; Pulse Ox 99% ; kd3 18:01 Body Mass Index 33.57 (94.35 kg, 167.64 cm) cm10 18:01 Pain Scale: Adult cm10 19:22 Pain Scale: Adult sg5 MDM: 18:11 Patient medically screened. cp 19:00 Differential diagnosis: nephrolithiasis, pyelonephritis, UTI, sepsis. cp 21:10 ED course: consult with DR Willis who will not accept transfer at this time. cp Recommends fluids, nausea medication. 21:45 ED course: spoke with DR Willis again concerning patient. Reports no urological cp procedure to due at this time. Declines consult for transfer. Will possibly move scheduled procedure to next week. 22:20 Data reviewed: vital signs, nurses notes, lab test result(s), radiologic studies, CT cp scan. 22:20 Consideration of Admission/Observation Escalation of care including cp admission/observation considered. ED course: VSS. Pain and nausea markedly improved. Vomiting resolved. Spoke with DR Willis who will have office contact patient and possibly move lithotripsy procedure to next week. . 02/05 18:16 Order name: CBC with Diff; Complete Time: 19:10 ss 02/05 19:10 Interpretation: Normal except: WBC 12.10; NEUT A 9.0. cp 02/05 18:16 Order name: CMP; Complete Time: 19:10 ss 02/05 18:16 Order name: Lipase; Complete Time: 19:10 ss 02/05 18:19 Order name: Urinalysis W/Microscopic; Complete Time: 21:04 cp 02/05 20:50 Order name: Urine Culture EDHI 02/05 18:19 Order name: CT Stone Protocol; Complete Time: 19:10 cp 08 18:16 Order name: IV Saline Lock; Complete Time: 18:16 ss 08 18:16 Order name: Labs collected and sent; Complete Time: 18:16 ss 02/05 19:18 Order name: PO challenge; Complete Time: 22:52 cp 02/05 21:25 Order name: PO challenge; Complete Time: 22:50 cp Administered Medications: 18:28 Drug: Ondansetron IVP 4 mg Route: IVP; Site: right forearm; ko1 18:28 Drug: Famotidine IVP 20 mg Route: IVP; Site: right forearm; ko1 22:52 Follow up: Response: No adverse reaction kd3 18:28 Drug: NS 0.9% IV 1000 ml Route: IV; Rate: 1 bolus; Site: right forearm; ko1 19:46 Follow up: IV Status: Completed infusion; IV Intake: 1000ml sg5 18:29 Drug: HYDROmorphone IVP 1 mg Route: IVP; Site: right forearm; ko1 22:52 Follow up: Response: No adverse reaction; Pain is decreased kd3 19:45 Drug: HYDROmorphone IVP 1 mg Route: IVP; Site: right wrist; sg5 22:52 Follow up: Response: No adverse reaction; Pain is decreased kd3 19:45 Drug: NS 0.9% IV 1000 ml Route: IV; Rate: 1 bolus; Site: left wrist; sg5 22:52 Follow up: IV Status: Completed infusion kd3 20:17 Drug: Ketorolac IVP 15 mg Route: IVP; Site: right wrist; sg5 22:52 Follow up: Response: No adverse reaction; Pain is decreased kd3 22:50 Drug: Lortab PO Liquid 15 ml Route: PO; kd3 22:52 Follow up: Response: No adverse reaction kd3 22:57 Drug: Promethazine IM 25 mg Route: IM; Site: right deltoid; kd3 Disposition: 02/06 09:18 Co-signature as Attending Physician, Primo HOPE was immediately available on-site ms3 in the Emergency Department for consultation in the care of the patient. Disposition Summary: 02/05/23 22:19 Discharge Ordered Location: Home(02/05/23 22:19) cp Problem: new(02/05/23 22:19) cp Symptoms: have improved(02/05/23 22:19) cp Condition: Stable(02/05/23 22:19) cp Diagnosis - Nausea with vomiting, unspecified cp - Acute pain, not elsewhere classified cp - Other specified disorders of kidney and ureter cp Followup: cp - With: Private Physician - When: 2 - 3 days - Reason: Recheck today's complaints Discharge Instructions: - Discharge Summary Sheet cp - Flank Pain, Adult cp - Nausea and Vomiting, Adult cp Forms: - Medication Reconciliation Form cp - Thank You Letter cp - Antibiotic Education cp - Prescription Opioid Use cp Prescriptions: - promethazine 25 mg Rectal suppository - insert 1 suppository by RECTAL route every 4 to 6 hours as needed for nausea cp and vomiting; 20 suppository; Refills: 0, Product Selection Permitted - ondansetron 8 mg Oral tablet,disintegrating - take 1 tablet by ORAL route every 12 hours; 20 tablet; Refills: 0, Product cp Selection Permitted Signatures: Dispatcher [employer] EDMS Eva Vieyra, RN RN ss Bob Menchaca PA PA cp Primo Flores, DO SIMONS ms3 Carmella Heredia, RN RN kd3 Lisa George RN RN ko1 Khadijah Krishnan RN RN sg5 Ana Willis RN RN cm10 Corrections: (The following items were deleted from the chart) 02/05 22:14 22:12 Home cp cp 22:14 22:12 new cp cp 22:14 22:12 have improved cp cp 22:14 22:12 Stable cp cp 22:14 22:12 Threatened cp cp 02/06 22:45 02/05 18:20 Patient reports having right ureter stent placed for 6 mm stone this past cp Thursday by DR Willis in [facility]. cp 02/06 22:50 02/05 21:20 ED course: consult with DR Willis who will not accept transfer at this cp time. cp
[2023-02-05] MEDS ORDERED: HYDROCOD 2.5mg-ACETAMIN 108mg/5mL Soln ONE (22:52)
[2023-02-05] MEDS ORDERED: PROMETHAZINE INJ 25 MG/ML AMP ONE (23:03)
[2023-02-05 23:11] VITALS: TEMP 98.6
[2023-02-05 23:22] VITALS: BP 116/78; O2SAT 99
== END 2023-02-05 22:58 | disposition home or self-care (01) ==
LOC: ER 17:58
DX: R11.2 Nausea with vomiting, unspecified (principal); R52 Pain, unspecified; N28.89 Other specified disorders of kidney and ureter; Z87.442 Personal history of urinary calculi; Z98.890 Other specified postprocedural states
CPT/HCPCS: 87088; 85025; 81001; 87086; 36415; 83690; 80053; 76377; 74176; 96372; 99285; J2550; J1170 ×2; J2405; J7030 ×2

== ENCOUNTER 2023-02-06 14:53 | Emergency (ER) | payer OTHER ==
--- OUTSIDE RECORDS SUMMARY | 2023-02-06 14:59 | XMS REPORT | Continuity of Care Document ---
:1990 Author Organization [facility] t Address [address] [facility] [address] [place] [address] Care Team Providers Name Role Phone Unknown, Physician Primary Care Physician Unavailable Radha Goldberg MA Attending Clinician Unavailable Kelly Toney Attending Clinician Unavailable Lazaro VERA, Marita Travis Attending Clinician [phone] Davis Harman MD Attending Clinician Kinga Tomas MD Attending Clinician Jay Robins MD Attending Clinician Brigida Dobbins CRNA Attending Clinician JUWAN AMAYA Attending Clinician Unavailable IHDE_G Attending Clinician Unavailable Buck Powell Attending Clinician Unavailable Benigno OMALLEY, Myranda Attending Clinician Unavailable Olive Fagan RN Attending Clinician Unavailable Sia Cobos MD Attending Clinician Doctor Unassigned, [place] Attending Clinician Unavailable Zayra Greene MD Attending Clinician GOOD YANG Attending Clinician Unavailable GOOD YANG Attending Clinician Unavailable KUNAL SPENCER Attending Clinician Unavailable SIA COBOS Attending Clinician Unavailable SONIA MCKINNON Attending Clinician Unavailable Sonia Mckinnon MD Attending Clinician DAVIS HARMAN Admitting Clinician Unavailable JUWAN AMAYA Admitting Clinician Unavailable IHDE_G Admitting Clinician Unavailable Buck Powell Admitting Clinician Unavailable Payers Payer Name Policy Type Policy Number Effective Date Expiration Date S ourangie [employer]ETNA CHOICE POS [id number] 2018 00:00:00 II AETNA [id number] 2018 00:00:00 Problems Condition Condition Condition Status Onset Resolution Last Treating Co mments Source Name Details Category Date Date Treatment Clinician Date Kidney Kidney Disease Active Methodi stones stones 02-05 00:00: Hospita 00 l Flank pain Flank pain Disease Active M ethodi 02-02 st 00:00: Hospita 00 l K21.9 K21.9 Diagnosis Active 2022-10-19 Mem oria Active 10-02 06:38:00 l 10/02/2022 00:00: Jorge GAN [facility] Migraine Migraine Problem Active [place] 7-15 da 00:00: Medical 00 Group Obesity Obesity Disease Active Univers (BMI (BMI 6-03 ity of 30-39.9) 30-39.9) 00:00: [place] 00 Medical Branch Family Family Disease Active Univers history of history of 7-28 it y of colon colon 00:00: [place] cancer cancer 00 Medical Branch Enlarged Enlarged Disease Active Unive rs thyroid thyroid 7-28 ity of 00:00: 00 Medical Branch General General Disease Active 2013-08 Overview: Univ ers counseling counseling 0-29 Formattin ity of and advice and advice 00:00: g of this [place] for for 00 note Medical contracept contracept might be Branch luis armando luis armando different management management from the original. 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 left side [facility] Umbilical Umbilical Problem Active 2022-10-20 Memoria hernia hernia 00:10:02 l (disorder) (disorder) He rmann Active Problem 10/20/2022 [facility] Allergies, Adverse Reactions, Alerts Allergy Allergy Status [...] Active Univers ALLERGIE Class ity of S [facility] No Known No Known Active Memori a Medicati Medicati l on on Gabe Allergie Allergie s s Social History Social Habit Start Date Stop Date Quantity Comments Source History of Tobacco Common Spirit - Use [facility] ASSERTION [place] [facility] History SDIN University o f Alcohol Frequency [facility] edical Branch History [facility] University o f Alcohol Std Drinks [facility] History [facility] o f Alcohol Binge [facility] al Branch Gender identity [facility] Sexual orientation [facility] History of Social 2023-02-04 2023-02-[address] function 00:00:00 00:00:00 Hospital Tobacco use and 2022-12-30 2022-12-30 Smokeless [facility] exposure 00:00:00 00:00:00 tobacco non-user Hospital Exposure to 2022-01-05 2022-02-04 Not sure [facility] SARS-CoV-2 (event) 00:00:00 13:42:00 Cigarette 2021-11-21 2021-11-21 [facility] pack-years 00:00:00 00:00:00 Alcohol intake 2021-11-21 2021-11-21 Ex-drinker [facility] 00:00:00 00:00:00 (finding) Alcohol Comment 2013-08-03 2013-08-03 socially Universit y of 00:00:00 00:00:00 [facility] Sex Ass[birth year] At [birth year] [facility] 00:00:[facility] 00:[facility]:00 Hospital Smoking Status Start Date Stop Date Source Never smoked tobacco [facility] Medications Ordered Filled Start Stop Current Ordering Indication Dosage Frequency Signature Comments Components Source Medication Medication Date Date Medication? Clinician (SIG) Name Name SUMAtriptan 2023-0 Yes 50mg Take 1 Meth melva (IMITREX) 6-08 tablet (50 st 50 MG 13:43: mg total) Hospita tablet 01 by mouth l once as needed for migraine. May repeat in 2 hours if unresolved . Do not exceed 200 mg in 24 hours. escitalopra 2023-0 Yes 10mg QD Take 1 Meth melva m (LEXAPRO) 6-08 tablet (10 st 10 MG 13:43: mg total) Hospita tablet 01 by mouth l daily. SUMAtriptan 2023-0 Yes 50mg Take 1 Meth melva (IMITREX) 6-08 tablet (50 st 50 MG 13:43: mg total) Hospita tablet 01 by mouth l once as needed for migraine. May repeat in 2 hours if unresolved . Do not exceed 200 mg in 24 hours. escitalopra 2023-0 Yes 10mg QD Take 1 Meth melva m (LEXAPRO) 6-08 tablet (10 st 10 MG 13:43: mg total) Hospita tablet 01 by mouth l daily. acetaminoph 2023-0 Yes 500mg Take 500 M ethodi en 6-[address] (TYLENOL) 13:43: mouth. Hospit a 160 mg/5 mL 28 l (5 mL) suspension acetaminoph 2023-0 Yes 500mg Take 500 M ethodi en 6-[address] (TYLENOL) 13:43: mouth. Hospit a 160 mg/5 mL 28 l (5 mL) suspension oxyBUTYnin 2023-0 Yes 5mg Q.[id number] Take 1 Methodi (DITROPAN) 6-07 [id number] tablet (5 st 5 MG tablet 00:00: 3D mg total) H ospita 00 by mouth 3 l (three) times a day as needed for bladder spasms. sennosides- 2023-0 Yes 1{tbl} Q24H Take 1 Me thodi docusate 6-[address] sodium 00:00: mouth Hospita (Senna with 00 daily as l Docusate needed for Sodium) constipati 8.6-50 mg on. per tablet ciprofloxac 2023-0 Yes 500mg Q.5D Take 1 Met hodi in (Cipro) 6-[address] 500 MG 00:00: (500 mg Hospita tablet 00 total) by l mouth 2 (two) times a day. tamsulosin 2023-0 Yes .4mg QD Take 1 Metho di (Flomax) 6-[address] 0.4 mg 00:00: (0.4 mg Hospita capsule 00 total) by l mouth daily. ondansetron 2023-0 Yes 4mg Q24H Take 1 Meth melva ODT 6-07 tablet (4 st (ZOFRAN-ODT 00:00: mg total) H ospita ) 4 MG 00 by mouth l disintegrat daily as ing tablet needed for nausea or vomiting. oxyBUTYnin 2023-0 Yes 5mg Q.[id number] Take 1 Methodi (DITROPAN) 6-07 [id number] tablet (5 st 5 MG tablet 00:00: 3D mg total) H ospita 00 by mouth 3 l (three) times a day as needed for bladder spasms. sennosides- 2023-0 Yes 1{tbl} Q24H Take 1 Me thodi docusate 6-[address] sodium 00:00: mouth Hospita (Senna with 00 daily as l Docusate needed for Sodium) constipati 8.6-50 mg on. per tablet ciprofloxac 2023-0 Yes 500mg Q.5D Take 1 Met hodi in (Cipro) 6-[address] 500 MG 00:00: (500 mg Hospita tablet 00 total) by l mouth 2 (two) times a day. tamsulosin 2023-0 Yes .4mg QD Take 1 Metho di (Flomax) 6-[address] 0.4 mg 00:00: (0.4 mg Hospita capsule 00 total) by l mouth daily. ondansetron 2023-0 Yes 4mg Q24H Take 1 Meth melva ODT 6-07 tablet (4 st (ZOFRAN-ODT 00:00: mg total) H ospita ) 4 MG 00 by mouth l disintegrat daily as ing tablet needed for nausea or vomiting. HYDROcodone 2022-0 2022- Yes [id number] 1{tbl} Q6H Take 1 Methodi -acetaminop 6-03 05-[address] hen (LegCyte) 00:00: 04:59 mouth Hosp irma 5-325 mg 00 :00 every 6 l per tablet (six) hours as needed for moderate pain for up to 5 days .acute pain. Max Daily Amount: 4 tablets HYDROcodone 2022-0 2022- Yes [id number] 1{tbl} Q6H Take 1 Methodi -acetaminop 6-03 05- tablet by st hen (LegCyte) 00:00: 04:59 mouth Hosp irma 5-325 mg 00 :00 every 6 l per tablet (six) hours as needed for moderate pain for up to 5 days .acute pain. Max Daily Amount: 4 tablets phenazopyri 2022-0 2022- Yes 100mg Q.[id number] Take 1 Methodi dine 02-04- [id number] tablet st (PYRIDIUM) 00:00: 04:59 3D (100 mg Hos minnie 100 MG 00 :00 total) by l tablet mouth 3 (three) times a day as needed for bladder spasms (Burning in urine) for up to 2 days. phenazopyri 2022-0 2022- Yes 100mg Q.[id number] Take 1 Methodi dine 02-[id number] (PYRIDIUM) 00:00: 04:59 3D (100 mg Hos minnie 100 MG 00 :00 total) by l tablet mouth 3 (three) times a day as needed for bladder spasms (Burning in urine) for up to 2 days. acetaminoph 0 Yes 500mg Take 500 M ethodi en 5-[address] (TYLENOL) 16:05: mouth. Hospit a 160 mg/5 mL 13 l (5 mL) suspension acetaminoph 2022-0 Yes TAKE 1 Clive esha en-codeine 2-08 TABLET BY l 300 mg-30 21:11: MOUTH Gabe mg oral 00 EVERY 6 tablet HOURS NEEDED FOR PAIN cyclobenzap Yes 10 mg = 1 M emoria rine 10 mg 2-08 tab, PO, l oral tablet 21:09: TID, PRN rmann 00 for spasms, # 30 tab, 0 Refill(s) Tylenol 0 Yes PO, PRN, 0 Clive esha 2-08 Refill(s) l 21:09: [place] 00 SUMAtriptan Yes 100 mg = 1 Memoria 100 [...] 12 day. hr tablet metroNIDAZO 2020-0 Yes [id number] 500mg Take 1 Univers LE 500 mg 6-05 tablet by ity o f tablet 00:00: mouth [place] 00 every 12 Medical (twelve) Branch hours. metroNIDAZO 2020-0 Yes [id number] 500mg Take 1 Univers LE 500 mg 6-05 tablet by ity o f tablet 00:00: mouth [place] 00 every 12 Medical (twelve) Branch hours. SUMATRIPTAN 2020-0 Yes Take by Uni vers SUCCINATE 6-03 mouth. ity of ORAL 12:00: [place] 00 Medical Branch SUMATRIPTAN 2020-0 Yes Take by Uni vers SUCCINATE 6-03 mouth. ity of ORAL 12:00: [place] 00 Medical Branch Miscellaneo 2014-0 Yes [id number] QHS X U nivers Medical 5-12 7days ity of Supply 00:00: [place] (PRO-CEPTIO 00 Medical N) [facility] Miscellaneo 2014-0 Yes [id number] QHS X U nivers Medical 5-12 7days ity of Supply 00:00: [place] (PRO-CEPTIO 00 Medical N) [facility] Branch escitalopra escitalopra No escitalopr [place] [...] Status Comments Sourc e Immunization Name Name [facility] 2017-03-27 Completed University of 00:00:00 [facility] 2017-03-27 Completed University 00:00:00 [facility] TDAP 2010-08-31 Completed University 00:00:00 [facility] TDAP 2010-08-31 Completed University 00:00:00 [facility] Rubella 2009-05-31 Completed University 00:00:00 [facility] 2009-05-31 Completed [facility] 00:00:00 [facility] Vital Signs Vital Name Observation Time Observation Value Comments Source height 2022-07-30 08:15:00 67 [in_i] Common [facility] weight 2022-07-30 08:15:00 212 [lb_av] [facility] temperature 2022-07-30 08:15:00 97.3 [degF] [facility] bmi 2022-07-30 08:15:00 33.2 kg/m2 [facility] oximetry 2022-07-30 08:15:00 99 % [facility] respiratory rate 2022-07-30 08:15:00 18 /min Comm on [facility] blood pressure 2022-07-30 08:15:00 124 mm[Hg] [facility] systolic [facility] blood pressure 2022-07-30 08:15:00 79 mm[Hg] [facility] - diastolic [facility] bmi 2022-07-16 08:30:00 33.8 kg/m2 [facility] oximetry 2022-07-16 08:30:00 99 % [facility] respiratory rate 2022-07-16 08:30:00 18 /min Comm on [facility] blood pressure 2022-07-16 08:30:00 123 mm[Hg] Common [facility] - systolic [facility] blood pressure 2022-07-16 08:30:00 70 mm[Hg] [facility] - diastolic [facility] height 2022-07-16 08:30:00 67 [in_i] [facility] weight 2022-07-16 08:30:00 215.8 [lb_av] [facility] temperature 2022-07-16 08:30:00 97.6 [degF] [facility] BP Diastolic 2022-05-22 00:00:00 70 mm[Hg] [facility] Height 2022-05-22 00:00:00 68 [in_i] [facility] [place] [facility] BMI (Body Mass 2022-05-22 00:00:00 31.9 kg/m2 [facility] Medical Index) Group BP Systolic 2022-05-22 00:00:00 [...] Body height 2021-11-21 16:22:00 172.7 [facility] Body weight 2021-11-21 16:22:00 99.054 [facility] BMI 2021-11-21 16:22:00 33.20 kg/m2 [facility] Oxygen saturation in 2021-11-21 16:22:00 98 /min [facility] Arterial blood by Pulse oximetry BP Diastolic 2021-03-14 00:00:00 70 mm[Hg] [facility] Height 2021-03-14 00:00:00 68 [in_i] [facility] BMI (Body Mass 2021-03-14 00:00:00 33.2 kg/m2 [facility] Medical Index) Group BP Systolic 2021-03-14 00:00:00 122 mm[Hg] [facility] Body Weight 2021-03-14 00:00:00 218.2 [lb_av] [facility] Systolic blood 2023-02-06 17:52:53 140 mm[Hg] [facility] pressure Diastolic blood 2023-02-06 17:52:53 95 mm[Hg] [facility] pressure Heart rate 2023-02-06 17:52:53 88 /min [facility] Body temperature 2023-02-06 17:52:53 36.78 Mireya [facility] Respiratory rate 2023-02-06 17:52:53 20 /min [facility] Oxygen saturation in 2023-02-06 17:52:53 97 /min [facility] Arterial blood by Pulse oximetry Body height 2023-02-06 17:46:00 167.6 cm [facility] Body weight 2023-02-06 17:46:00 94.802 kg [facility] BMI 2023-02-06 17:46:00 33.73 kg/m2 [facility] Systolic blood 2023-02-04 12:41:29 111 mm[Hg] [facility] pressure Diastolic blood 2023-02-04 12:41:29 72 mm[Hg] [facility] pressure Heart rate 2023-02-04 12:41:29 79 /min [facility] Body temperature 2023-02-04 12:41:29 36.11 Mireya [facility] Respiratory rate 2023-02-04 12:41:29 19 /min [facility] Oxygen saturation in 2023-02-04 12:41:29 94 /min [facility] Arterial blood by Pulse oximetry Body weight 2023-02-04 11:00:00 95.1 kg [facility] BMI 2023-02-04 11:00:00 33.84 kg/m2 [facility] Body height 2023-02-03 02:54:59 167.6 cm [facility] Systolic (mm Hg) 2022-10-17 17:11:00 [facility] Diastolic (mm Hg) 2022-10-17 17:11:00 [facility] Height 2022-10-08 21:07:00 5 [ft_i] [facility] Weight 2022-10-08 21:07:00 [facility] BMI Calculated 2022-10-08 21:07:00 Dalton Manzano Procedures Procedure Date / Time Performing Clinician Source Performed CBC WITH PLATELET AND 2023-02-04 09:06:00 Marita iWllis [facility] DIFFERENTIAL [facility] COMPREHENSIVE METABOLIC 2023-02-04 09:06:00 Marita Willis [facility] PANEL Menea MAGNESIUM LEVEL 2023-02-04 09:06:00 Marita Willis [facility] PHOSPHORUS LEVEL 2023-02-04 09:06:00 Marita Willis H ospital [facility] ESTIMATED GFR 2023-02-04 09:06:00 Marita Willis spital [place] < 1 HOUR 2023-02-03 16:38:00 Marita Willis spital [place] RI AN ELECTIVE 2023-02-03 15:53:00 Brigida Dobbins spital SUPRAGLOTTIC AIRWAY CYSTO STENT INSERTION 2023-02-03 15:45:00 [facility] , URINE 2023-02-03 14[facility]55:38 [facility] 2023-02-03 06:52:00 Davis Harman spital ABO AND RH CONFIRMATION 2023-02-03 06:32:00 [facility] [place] [facility] BY PROTOCOL URINALYSIS SCREEN AND 2023-02-03 06:28:00 [facility] MICROSCOPY, WITH REFLEX TO CULTURE CBC WITH PLATELET AND 2023-02-03 05:49:00 [facility] DIFFERENTIAL [facility] COMPREHENSIVE METABOLIC 2023-02-03 05:49:00 [facility]EL [facility] MAGNESIUM LEVEL 2023-02-03 05:49:00 [facility] PHOS[facility] 2023-02-03 05:49:00 Marita Willis ospital [place]ene[place] ESTIMATED GFR 2023-02-03 05:49:00 Davis Harman spital PROTHROMBIN TIME WITH 2023-02-03 05:48:00 [facility] INR TYPE AND SCREEN 2023-02-03 05:48:00 Davis Harman spital BLOOD CULTURE, AEROBIC & 2023-02-03 04:43:00 [facility] ANA[facility]IC [id number] 2022-12-30 21:11:20 Marita Willis spital [place] POC URINALYSIS DIPSTICK 2022-12-30 21:08:58 Lazaro [facility] Meng[facility]ang [id number] 2022-03-18 00:00:00 HARAD.01 [facility] [id number] 2022-03-18 00:00:00 HARAD.01 [facility] [id number] 2022-03-18 00:00:00 HARAD.01 [facility] AUTHORIZATION FOR 2021-12-04 05:01:00 Doctor Unassigned, No Univ [facility] RELEASE OF PHI Name Medical Branch Delivery [facility] Epidural anesthesia [facility] section [facility] Jorge conner kidney [facility] Bilateral tubal ligation Jayden Bernal Plan of Care Planned Activity Planned Date Details Comments Source Future Scheduled Test 2023-02-06 Hepatitis C Method [facility] 12:50:36 screening (procedure) [code = 699042798] Future Scheduled Test 2023-02-06 [facility] 12:50:36 malignant neoplasm of cervix (procedure) [code = 073869244] Future Scheduled Test 2023-02-06 COVID-19 VACCINE ([address] [place] [address] 12:50:36 - Booster for Eliu series) [code = COVID-19 VACCINE (2 - Booster for Eliu series)] Future Scheduled Test 2023-02-06 INFLUENZA VACCINE [facility] 12:50:36 [code = INFLUENZA VACCINE] Future Scheduled Test 2023-02-05 Hepatitis C Method [facility] 14:17:00 screening (procedure) [code = 517781907] Future Scheduled Test 2023-02-05 [facility] 14:17:00 malignant neoplasm of cervix (procedure) [code = 222304799] Future Scheduled Test 2023-02-05 COVID-19 VACCINE ([address] [place] [address] 14:17:00 - Booster for Eliu series) [code = COVID-19 VACCINE (2 - Booster for Eliu series)] Future Scheduled Test 2023-02-05 INFLUENZA VACCINE [facility] 14:17:00 [code = INFLUENZA VACCINE] Future Scheduled Test 2023-01-27 Hepatitis C Method [facility] 14:57:26 screening (procedure) [code = 521560214] Future Scheduled Test 2023-01-27 [facility] 14:57:26 malignant neoplasm of cervix (procedure) [code = 428849187] Future Scheduled Test 2023-01-27 COVID-19 VACCINE ([address] [place] [address] 14:57:26 - Booster for Eliu series) [code = COVID-19 VACCINE (2 - Booster for Eliu series)] Future Scheduled Test 2023-01-27 INFLUENZA VACCINE [facility] 14:57:26 [code = INFLUENZA VACCINE] Diagnostic Test 2022-05-22 iron + total [place] [facility] Pending 00:00:00 iron-binding Group capacity (TIBC), serum [code = iron + total iron-binding capacity (TIBC), serum] Diagnostic Test 2022-05-22 vitamin B12, serum [place] 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 Medical Pending 00:00:00 [code = vitamin Group B12, serum] Diagnostic Test 2022-05-22 ferritin, serum or [place] 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 Medical Pending 00:00:00 plasma [code = Group ferritin, serum or plasma] Diagnostic Test 2022-05-22 folate, serum [code [facility] Pending 00:00:00 = folate, serum] Group Diagnostic Test 2022-05-22 retic count, blood [facility] 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 Medical Pending 00:00:00 [code = retic Group count, blood] Diagnostic Test 2022-05-22 CBC w/ auto diff [place] [facility] Pending 00:00:00 [code = CBC w/ auto Group diff] Diagnostic Test 2022-05-22 TSH, serum or [place] [facility] Pending 00:00:00 plasma [code = TSH, Group serum or plasma] Diagnostic Test 2022-05-22 CMP, serum or [place] [facility] Pending 00:00:00 plasma [code = CMP, Group serum or plasma] Diagnostic Test 2022-05-22 lipid panel, serum [facility] 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 Medical Pending 00:00:00 [code = lipid Group panel, serum] Diagnostic Test 2022-05-22 HbA1c (hemoglobin [facility] Pending 00:00:00 A1c), blood [code = Group HbA1c (hemoglobin A1c), blood] Diagnostic Test 2022-05-22 prealbumin, serum [facility] Pending 00:00:00 [code = prealbumin, Group serum] Future Appointment 2023-02-17 Marita Willis MD, Met [facility] 09:00:[address] [place] [address]; Suite [facility], [place] [address] Future Appointment 2023-02-09 Marita Willis MD, Met [facility] 13:30:[address] [place] [address]; [place] [address], [place] [address] Future Appointment 2023-02-17 Marita Willis MD, Met [facility] 09:00:00 [address] [facility]; [address], [place] [address] Future Appointment 2023-02-09 Marita Willis MD, Met [facility] 13:30:00 [address] [facility]; [address], [place] [address] Future Appointment 2023-02-09 Karli [facility] 13:30:00 RADIOLOGY TRANSCRIPTIONIST, [address] [place] [address]; [address], [place] [address] Procedure 2023-02-17 [facility] 14:[facility] COPY WITH THULIUM LASER W/WO STENT Procedure 2023-02-09 [facility] 18:30:00 COPY WITH THULIUM LASER W/WO STENT Instructions Miriam talbot Group Encounters Start End Encounter Admission Attending Care Care Encounter Source Date/Time Date/Time Type Type Clinicians Facility Department ID 2022-10-19 Outpatient [facility] [id number] [place] 06:39:00 [id number] [facility] 2022-10-15 [facility] [id number] Common 13:02:01 [id number] [facility] 2022-07-16 [facility] [id number] Common 08:33:03 [id number] [facility] 2021-10-03 Outpatient [facility] [id number] [place] 11:45:52 [facility] 2023-02-06 2023-02-06 Emergency 1.2.840.1 [id number] Methodi 14:12:00 14:13:[id number] 3.430.2.7 Hospit a .3.978273 l .8 2023-02-06 2023-02-06 Emergency [facility] [id number] [place] [address] 00:00:00 00:00:[address] 2023-02-05 2023-02-05 Prep for Goldberg, 1.2.840.1 [id number] Methodi 00:00:00 00:00:00 Surgery Radha [id number] 3.430.2.7 Hospit a .3.686147 l .8 2023-02-05 2023-02-05 Patient Feng, 1.2.840.1 [id number] Methodi 00:00:00 00:00:00 Outreach Kelly [id number] 979 s t 3.430.2.7 Hospit a .3.284497 l .8 2023-02-05 2023-02-05 Telephone Lazaro, 1.2.840.1 [id number] Methodi 00:00:00 00:00:[address] [facility] 3.430.2.7 Hosp irma .3.824050 l .8 2023-02-05 2023-02-05 Prep for Goldberg, 1.2.840.1 [id number] Methodi 00:00:00 00:00:00 Surgery Radha [id number] 3.430.2.7 Hospit a .3.690453 l .8 2023-02-05 2023-02-05 Patient Feng, 1.2.840.1 [id number] Methodi 00:00:00 00:00:00 Outreach Klely 88626.1.1 979 s t 3.430.2.7 Hospit a .3.392946 l .8 2023-02-05 2023-02-05 Telephone Lazaro, 1.2.840.1 [id number] Methodi 00:00:00 00:00:[address] [facility]7 Hosp irma .3.676686 l .8 2023-02-02 2023-02-04 Hospital Davis Harman 1.2.840.1 [id number] Methodi 21:20:00 13:43:00 Encounter Kinga Tomas 62120.1.[address] 3.430.2.7 Hospit a .3.999055 l .8 2023-02-02 2023-02-04 Hospital RAFA, 1.2.840.1 [id number] [place] 00:00:00 00:00:00 Encounter KINGA 17562.1.1 [address] .3.282665 .8 2023-02-03 2023-02-03 Surgery Lazaro, 1.2.840.1 [id number] 2099 [id number] Methodi 10:45:00 11:45:[address] [facility] 3.430.2.7 Hosp irma .3.355450 l .8 2023-02-03 2023-02-03 Surgery Lazaro, 1.2.840.1 [id number] 2099 [id number] Methodi 10:45:00 11:45:[address] [facility] 3.430.2.7 Hosp irma .3.401421 l .8 2023-02-03 2023-02-03 Anesthesia Jay Robins 1.2.840.1 [id number] 2099 [id number] Methodi 10:40:00 11:34:00 Event MuKarin hernandezfany 06457.1.[address] 3.430.2.7 Hospit a .3.350479 l .8 2023-02-03 2023-02-03 Anesthesia Jay Robins 1.2.840.1 [id number] 2099 [id number] Methodi 10:40:00 11:34:00 Event MuKarin hernandezfany 83095.1.[address] 3.430.2.7 Hospit a .3.394508 l .8 2023-01-27 2023-01-27 Telephone Yusuf 1.2.840.1 [id number] 21 [id number] Methodi 00:00:00 00:00:[address] 3.430.2.7 Hospit a .3.841655 l .8 2023-01-27 2023-01-27 Telephone Yusuf 1.2.840.1 [id number] 21 [id number] Methodi 00:00:00 00:00:[address] 3.430.2.7 Hospit a .3.839996 l .8 2023-01-21 2023-01-23 Inpatient SALUD AMAYA DESHAUN 7501 MH 05:36:00 14:43:00 [facility] 2022-12-30 2022-12-30 Office Lazaro, 1.2.840.1 [id number] 2099 [id number] Methodi 15:00:00 16:13:01 Visit Marita 94921.1.1 5[address] [place] 3.430.2.7 Hosp irma .3.904167 l .8 2022-12-30 2022-12-30 Office Lazaro, 1.2.840.1 [id number] 2099 [id number] Methodi 15:00:00 16:13:01 Visit Marita 25690.1.1 588 [place] 3.430.2.7 Hosp irma .3.425099 l .8 2022-12-30 2022-12-30 Travel 1.2.840.1 1.2.256.793 1639 [id number] Methodi 00:00:00 00:00:[address] 3.430.2.7 0.2.7.3.698 Ho spita .3.240798 084.8 l .8 2022-12-30 2022-12-30 Travel 1.2.840.1 1.2.162.387 8865 [id number] Methodi 00:00:00 00:00:[address] 3.430.2.7 0.2.7.3.698 Ho spita .3.101978 084.8 l .8 2022-10-17 2022-10-17 Bedded [facility] [id number] Memoria 13:56:00 17:14:00 Outpatient [place] 00 [facility] 2022-10-17 2022-10-17 Outpatient SALUD AMAYA DESHAUN 7500 MH 07:56:00 11:14:00 [facility] 2022-08-13 2022-08-13 (TEL) STLMLC STLMLC [id number] Co mmon 00:00:00 00:00:00 [facility] 2022-07-30 2022-07-30 OFFICE STLMLC STLMLC [id number] Co mmon 00:00:00 00:00:00 VISIT Spirit ESTAB PT - CHI LEVEL 4 [facility] 2022-07-16 2022-07-16 OFFICE STLMLC STLMLC [id number] Co mmon 00:00:00 00:00:00 VISIT NEW Spir it PT LEVEL 2 - CHI [facility] 2022-05-22 2022-05-22 [place]HDE[place] [id number] 022 [place] 00:00:00 00:00:00 0922 Medical Group 2022-05-22 2022-05-22 Efrain MMG [place] - [id number] [facility] 00:00:00 Terry Pritchard MD: Medical [facility] [address], [place] [address] , Ph. [phone] 2022-05-19 2022-05-19 [place]DE[place] [id number] 022 [place] 00:00:00 00:00:00 [address] [facility] 2022-03-18 2022-03-21 Inpatient NORMAN Wagner [facility] OBPP [id number] [facility] 13:40:00 16:05:00 Judah, 365085 [facility] 2022-03-18 2022-03-21 Inpatient Bernard [facility] OBPP [id number] [facility] 13:40:00 16:05:00 Mass, 02 [facility] 2022-02-12 2022-02-12 Telephone Myranda Pelaez UTP 1.2.840.1 14 [id number] [place] 00:00:00 00:00:00 Myranda Pelaez 350.1.13.58 Health [facility] 9.2.7.2.686 [facility] [id number] 4 2022-02-11 2022-02-11 Telephone Olive Fagan 1.2.84 0.114 [id number] [place] 00:00:00 00:00:00 Olive Fagan 350.1.13.58 Health STATION 9.2.7.2.686 BUILDING [id number] 4 2022-01-30 2022-01-30 Telephone Olive Fagan UTP 1.2.84 0.114 [id number] [place] 00:00:00 00:00:00 Olive Fagan 350.1.13.58 Health STATION 9.2.7.2.686 [facility] [id number] 4 2022-01-22 2022-01-22 Outpatient NORMAN Wagner [facility] [id number] [facility] 13:30:00 13:30:00 Mass, [address] [facility] 2021-12-04 2021-12-04 Telephone Sia Cobos [facility] 1.2.840.11 4 [id number] [facility] 00:00:00 00:00:00 ANTONIA 350.1.13.10 it y of WOMENS 4.2.7.2.686 [facility] [id number] [facility] [address] 2021-12-04 2021-12-04 Orders Doctor PRISCILLA 1.2.840.114 [id number] [facility] 00:00:00 00:00:00 Only Unassigned, MEEK 350.1.13.10 ity of [place] [facility] 4.2.7.2.686 [facility] [id number] [facility] [address] 2021-11-21 2021-11-21 Consult GERALD Greene 1.2.840.114 [id number] 1793 [place] 11:00:00 12:46:23 Zayra LAWSON 350.1.13.58 H [facility] MEDICAL 9.2.7.2.686 [facility] [id number] 8 2021-07-31 2021-07-31 Outpatient IHDE_G MMG MMG [id number] 021 [place] 00:00:00 00:00:00 1201 da [facility] 2021-06-20 2021-06-20 Outpatient IHDE_G MMG MMG [id number] 021 [place] 02:04:00 02:04:00 1021 [facility] 2021-05-16 2021-05-16 Outpatient IHDE_G MMG MMG [id number] 021 [place] 02:08:00 02:08:00 0916 [facility] 2021-04-11 2021-04-11 Outpatient IHDE_G MMG MMG [id number] 021 [place] 01:21:00 01:21:00 0812 [facility] 2021-03-15 2021-03-15 Outpatient IHDE_G MMG MMG [id number] 021 [place] 12:24:00 12:24:00 0716 [facility] 2021-03-14 2021-03-14 Efrain IHDE_[place] - [address] [place] 00:00:00 00:00:00 Terry Pritchard MD: [facility] [address], [place] [address] , Ph. [phone] 2021-03-11 2021-03-11 Outpatient [place] [facility] [id number] Univers 10:00:00 10:00:00 GOOD YANG sami [facility] 2021-03-06 2021-03-06 Outpatient IHDE_G MMG MMG [id number] 021 [place] 12:05:00 12:05:00 0707 Medical Group 2020-11-29 2020-11-29 Outpatient Javy SPENCER [facility] [id number] Univers 08:00:00 08:00:00 KUNAL [facility] 2020-09-13 2020-09-13 Outpatient SIA MORALES [facility] [id number] Univers 15:00:00 15:00:00 [facility] 2020-05-25 2020-05-25 Outpatient R COMFORT [facility] [id number] Univers 15:30:00 15:30:00 SONIA [facility] 2020-05-23 2020-05-23 Outpatient R COMFORT [facility] [id number] Univers 11:00:00 11:00:00 SONIA schroeder [facility] 2020-05-15 2020-05-15 Outpatient R COMFORT [facility] [id number] Univers 09:30:00 09:30:00 SONIA [facility] 2020-02-17 2020-02-17 Outpatient R AD, [facility] [id number] Univers 09:00[facility]00 [facility] 2020-02-13 Outpatient R ADUM, [facility] [id number] Univers 10:00:00 10:00:00 [facility] 2020-02-08 2020-02-08 Outpatient R AD, [facility] [id number] Univers 13:00:00 13:00:00 [facility] 2020-02-03 2020-02-03 [facility] 1.2.840.114 [id number] 00:00:00 00:00:00 Management Sonia Ballard 350.1.13.10 [place] 4.2.7.2.686 Professio [id number] 2020-02-01 2020-02-01 Outpatient R AD, [facility] [id number] Univers 15:00:00 [facility]:00[facility]01 2020-02-01 [facility] 1.2.840.114 [id number] 11:20:04 12:15:55 Visit Sonia Ballard 350.1.13.10 [place] 4.2.7.2.686 Professio [id number] [address] 2020-02-01 2020-02-01 Outpatient R AD, [facility] [id number] Univers 11:00:00 [facility]:00[facility]00 [facility] Results Test Description Test Time Test Comments Results Result Comments Source Urine culture 2023-02-04 13:37:00 Test Item Value Reference Range Interpretation Comme nts Urine culture isolate Mixed mary <=10-3 Specimen InformationSpecimen (test code = 50855-9) col/cc Source : UrineSpecimen [id number] 13:37:00 Test Item Value Reference Range Interpretation Comments Urine culture Mixed mary Specimen isolate (test <=10-3 col/cc InformationSp ecimen code = 52617-6) Source: Urin eSpecimen Site: Clean cat ch [facility] , [id number] 14:55:38 Test Item Value Reference Range Interpretation Comments test urine, POC (test Negative code = 7838324) Internal QC (test code = 257) QC acceptable [facility] , [id number] 14:55:38 Test Item Value Reference Range Interpretation Comments test urine, POC (test Negative code = 6548027) Internal QC (test code = 257) QC acceptable [facility] BLADDER SCAN/[id number] 21:11:20 Test Item Value Reference Range Interpretation Comments Total volume (test code = 2336) 0 [facility] BLADDER SCAN/[id number] 21:11:20 Test Item Value Reference Range Interpretation Comments Total volume (test code = 2336) 0 [facility] BLADDER SCAN/[id number] 21:11:20 Test Item Value Reference Range Interpretation Comments Total volume (test code = 2336) 0 [facility] urinalysis [id number] 21:08:58 Test Item Value Reference Range Interpretation Comments Color urine, POC (test Yellow code = 9835593) Clarity urine, POC (test Clear code = 7231026) Glucose urine, POC (test Negative Negative code = 1563708) Bilirubin urine, POC Negative Negative (test code = 6056966) Ketones urine, POC (test Negative Negative code = 5035392) Specific gravity urine, >/=1.030 1.005-1.030 POC (test code = 4104995) Blood urine, POC (test Large Negative A code = 0813358) pH urine, POC (test code 5.5 See_Comment [A utomated message] = 5707014) The system Us[employer] generated this result transmitted ref erence range: 5.0, 5.5 , 6.0, 6.5, 7.0, 7.5, 8.0, 8.5. The refere nce range was not u sed to interpret this result as normal/abnor mal. Protein urine, POC (test Negative Negative code = 8822981) Urobilinogen urine, POC <2.0 <=2.0 (test code = 7948692) Nitrite urine, POC (test Negative Negative code = 3931525) Leukocyte esterase Trace Negative A urine, POC (test code = 7404686) Lab Interpretation (test Abnormal code = 88872-5) [facility] urinalysis [id number] 21:08:58 Test Item Value Reference Range Interpretation Comments Color urine, POC (test Yellow code = 9059646) Clarity urine, POC (test Clear code = 0783181) Glucose urine, POC (test Negative Negative code = 0609119) Bilirubin urine, POC Negative Negative (test code = 8729920) Ketones urine, POC (test Negative Negative code = 6954808) Specific gravity urine, >/=1.030 1.005-1.030 POC (test code = 9922885) Blood urine, POC (test Large Negative A code = 2946332) pH urine, POC (test code 5.5 See_Comment [A utomated message] = 6076407) The system Us[employer] generated this result transmitted ref erence range: 5.0, 5.5 , 6.0, 6.5, 7.0, 7.5, 8.0, 8.5. The refere nce range was not u sed to interpret this result as normal/abnor mal. Protein urine, POC (test Negative Negative code = 0995297) Urobilinogen urine, POC <2.0 <=2.0 (test code = 8082576) Nitrite urine, POC (test Negative Negative code = 2317830) Leukocyte esterase Trace Negative A urine, POC (test code = 9298243) Lab Interpretation (test Abnormal code = 06737-4) [facility] urinalysis [id number] 21:08:58 Test Item Value Reference Range Interpretation Comments Color urine, POC (test Yellow code = 8070018) Clarity urine, POC (test Clear code = 8592434) Glucose urine, POC (test Negative Negative code = 6280969) Bilirubin urine, POC Negative Negative (test code = 3486773) Ketones urine, POC (test Negative Negative code = 9601361) Specific gravity urine, >/=1.030 1.005-1.030 POC (test code = 3360960) Blood urine, POC (test Large Negative A code = 5734162) pH urine, POC (test code 5.5 See_Comment [A utomated message] = 7581309) The system Usarium generated this result transmitted ref erence range: 5.0, 5.5 , 6.0, 6.5, 7.0, 7.5, 8.0, 8.5. The refere nce range was not u sed to interpret this result as normal/abnor mal. Protein urine, POC (test Negative Negative code = 4431376) Urobilinogen urine, POC <2.0 <=2.0 (test code = 5780752) Nitrite urine, POC (test Negative Negative code = 6804201) Leukocyte esterase Trace Negative A urine, POC (test code = 2753369) Lab Interpretation (test Abnormal code = 37173-1) [facility]iq[facility]RSQFI6271-67-39 17:47:55 Test Item Value Reference Range Interpretation [...] findings. Gilberto Holcomb MD On 10/17/2022 11:47:29; [id number] [facility]ghapZUPOAPSAR8145-47-48 17:04:00 Test Item Value Reference Range Interpretation Comments Vitamin B12 Lvl (test code = Vitamin 008 408-9649 B12 Lvl) [facility] CampusExhnkhcNXNMCUHUH3783-01-98 17:04:00 Test Item Value Reference Range Interpretation Comments Hgb A1C (test code = Hgb A1C) 5.8 [facility]ArgtqkkSNTXTYAQV4088-28-41 17:04:00 Test Item Value Reference Range Interpretation Comments Trig (test code = Trig) 236 [facility] CampusTixuiuwAMLBGOPCJ6500-33-89 17:04:00 Test Item Value Reference Range Interpretation Comments Chol (test code = Chol) 196 [facility] CampusMuzjodmQIMSIRYWG1385-61-60 17:04:00 Test Item Value Reference Range Interpretation Comments HDL (test code = HDL) 59 [place] [address]-02-17 17:04:00 Test Item Value Reference Range Interpretation Comments Chol/HDL Ratio (test code = Chol/HDL 3.32 1 3.90-5.80 Ratio) [place] [address]-02-17 17:04:00 Test Item Value Reference Range Interpretation Comments LDL (Calculated) (test code = LDL 90 (Calculated)) [place] [address]-02-17 17:04:00 Test Item Value Reference Range Interpretation Comments VLDL (test code = VLDL) 47 1 [place] [address]-02-17 16:59:00 Test Item Value Reference Range Interpretation Comments Bili Direct (test code 0.2 See_Comment [Aut omated message] The = Bili Direct) system which generated this result tra nsmitted reference range : <=0.3. The reference r abbie was not used to int erpret this result as nirmal l/abnormal. [place] 822063-02-17 16:59:00 Test Item Value Reference Range Interpretation Comments Glucose Lvl (test code = Glucose Lvl) 92 70-99 [place] [address]-02-17 16:59:00 Test Item Value Reference Range Interpretation Comments BUN (test code = BUN) 12 7-22 [place] [address]-02-17 16:59:00 Test Item Value Reference Range Interpretation Comments Creatinine Lvl (test code = Creatinine 0.52 0.50-1.40 Lvl) [facility]UqzzfoiBBMWXDEGX6696-08-32 16:59:00 Test Item Value Reference Range Interpretation Comments Sodium Lvl (test code = Sodium Lvl) 139 135-145 [place] 822063-02-17 16:59:00 Test Item Value Reference Range Interpretation Comments Potassium Lvl (test code = Potassium 3.8 3.5-5.1 Lvl) [place] [address]-02-17 16:59:00 Test Item Value Reference Range Interpretation Comments Chloride Lvl (test code = Chloride Lvl) 107 95-109 [place] [address]-02-17 16:59:00 Test Item Value Reference Range Interpretation Comments CO2 (test code = CO2) 23 24-32 [place] [address]-02-17 16:59:00 Test Item Value Reference Range Interpretation Comments Calcium Lvl (test code = Calcium Lvl) 8.8 8.5-10.5 [facility]ZgzmmdcFPVGDTWHL3559-26-41 16:59:00 Test Item Value Reference Range Interpretation Comments Total Protein (test code = Total 7.6 6.4-8.4 Protein) [facility] HospitalWeqrmjiUTCNJLWDR2284-12-51 16:59:00 Test Item Value Reference Range Interpretation Comments Albumin Lvl (test code = Albumin Lvl) 3.6 3.5-5.0 [facility] HospitalVvzfmeoNMNMPSPLF9208-93-75 16:59:00 Test Item Value Reference Range Interpretation Comments ALT (test code = ALT) 29 See_Comment [Auto mated message] The system which ge nerated this result transmit nadia reference range : <=65. The reference range was not used to interpr et this result as nirmal l/abnormal. [facility] HospitalQemsavxVCERXGEYV7529-42-03 16:59:00 Test Item Value Reference Range Interpretation Comments AST (test code = AST) 14 See_Comment [Auto mated message] The system which ge nerated this result transmit nadia reference range : <=37. The reference range was not used to interpr et this result as nirmal l/abnormal. [facility] HospitalQcjvpqdTJFTUZCZE2932-96-77 16:59:00 Test Item Value Reference Range Interpretation Comments Alk Phos (test code = Alk Phos) 53 39-136 [facility] HospitalTdlkgnqDWGDQZAIY2633-69-16 16:59:00 Test Item Value Reference Range Interpretation Comments Bili Total (test code = Bili Total) 0.5 0.2-1.3 [facility] HospitalChsqipvXOYFIDFBW9505-93-94 16:59:00 Test Item Value Reference Range Interpretation Comments AGAP (test code = AGAP) 12.8 10.0-20.0 [facility] HospitalKxsbiopAGGQXLWEP9036-99-64 16:59:00 Test Item Value Reference Range Interpretation Comments B/C Ratio (test code = B/C Ratio) 23 1 6-25 [facility] HospitalCwgmpbdJKNPPCUWV3234-58-78 16:59:00 Test Item Value Reference Range Interpretation Comments Globulin (test code = Globulin) 4.0 2.7-4.2 [facility] HospitalUaqihtyBRMSDZVGL9582-85-12 16:59:00 Test Item Value Reference Range Interpretation Comments A/G Ratio (test code = A/G Ratio) 0.9 1 0.7-1.6 [place] 822063-02-17 16:59:00 Test Item Value Reference Range Interpretation Comments eGFR (test code = eGFR) 128 [facility] CampusLfickhiSLCDAKREV7596-96-53 16:59:00 Test Item Value Reference Range Interpretation Comments Folate Lvl (test code = Folate Lvl) 16.4 [facility] CampusZottxccDTLDKGNGE0693-48-24 16:59:00 Test Item Value Reference Range Interpretation Comments TSH (test code = TSH) 1.790 0.360-3.740 [facility]CsfaprxIWZDDNUQLC1626-11-93 16:59:00 Test Item Value Reference Range Interpretation Comments Segs (test code = Segs) 62.7 45.0-75.0 [place] 343093-02-17 16:59:00 Test Item Value Reference Range Interpretation Comments Lymphocytes (test code = Lymphocytes) 26.5 20.0-40.0 [facility] HospitalHcmlazhECMYZKKSUK6469-99-24 16:59:00 Test Item Value Reference Range Interpretation Comments Monocytes (test code = Monocytes) 7.5 2.0-12.0 [facility] HospitalJamtfnrERLVLTVGDA0353-35-76 16:59:00 Test Item Value Reference Range Interpretation Comments Eosinophils (test code = 2.8 See_Comment [A utomated message] The Eosinophils) system which ge nerated this result tra nsmitted reference range : <=4.0. The reference r abbie was not used to int erpret this result as normal/abnormal . [facility] HospitalJwlkccqLFPDHAICZJ5522-16-54 16:59:00 Test Item Value Reference Range Interpretation Comments Basophils (test code = 0.5 See_Comment [Aut omated message] The Basophils) system which ge nerated this result tra nsmitted reference range : <=1.0. The reference r abbie was not used to int erpret this result as normal/abnormal . [place] 343093-02-17 16:59:00 Test Item Value Reference Range Interpretation Comments Neutrophils # (test code = Neutrophils 5.3 1.5-8.1 #) [place] 343093-02-17 16:59:00 Test Item Value Reference Range Interpretation Comments Lymphocytes # (test code = Lymphocytes 2.3 1.0-5.5 #) [place] 343093-02-17 16:59:00 Test Item Value Reference Range Interpretation Comments Monocytes # (test code 0.6 See_Comment [Aut omated message] The = Monocytes #) system which generated this result tra nsmitted reference range : <=0.8. The reference r abbie was not used to int erpret this result as normal/abnormal . [facility] HospitalNbndouaJZLWBVCAQG2931-10-55 16:59:00 Test Item Value Reference Range Interpretation Comments Eosinophils # (test code 0.2 See_Comment [A utomated message] The = Eosinophils #) system whic h generated this result tra nsmitted reference range : <=0.5. The reference r abbie was not used to int erpret this result as normal/abnormal . [facility] HospitalIiygumeEPYDKIVIFN8394-43-22 16:59:00 Test Item Value Reference Range Interpretation Comments WBC (test code = WBC) 8.5 3.7-10.4 [facility] HospitalZfvuvrlDLBVNQZDBZ2378-38-23 16:59:00 Test Item Value Reference Range Interpretation Comments RBC (test code = RBC) 4.43 4.20-5.40 [facility] HospitalDjtmrqqOEXTUXBZKJ4558-95-39 16:59:00 Test Item Value Reference Range Interpretation Comments Hgb (test code = Hgb) 13.9 12.0-16.0 [facility] HospitalQvxqutoHLSHKOIWIH5642-44-95 16:59:00 Test Item Value Reference Range Interpretation Comments Hct (test code = Hct) 41.0 36.0-48.0 [place] 343093-02-17 16:59:00 Test Item Value Reference Range Interpretation Comments MCV (test code = MCV) 92.5 80.0-98.0 [place] 343093-02-17 16:59:00 Test Item Value Reference Range Interpretation Comments MCH (test code = MCH) 31.3 pg 27.0-31.0 [place] 343093-02-17 16:59:00 Test Item Value Reference Range Interpretation Comments MCHC (test code = MCHC) 33.9 32.0-36.0 [place] 343093-02-17 16:59:00 Test Item Value Reference Range Interpretation Comments RDW (test code = RDW) 13.8 11.5-14.5 [place] 343093-02-17 16:59:00 Test Item Value Reference Range Interpretation Comments Platelet (test code = Platelet) 203 133-450 [facility] OxnoeisPFDNIPOCOD0005-25-96 16:59:00 Test Item Value Reference Range Interpretation Comments MPV (test code = MPV) 8.3 7.4-10.4 [facility] MkrcvlhILBVAOCNYY8107-79-59 16:59:00 Test Item Value Reference Range Interpretation Comments PT (test code = PT) 13.3 s 12.0-14.7 Memorial RnycpjsXWWPFHCZQW7297-02-68 16:59:00 Test Item Value Reference Range Interpretation Comments INR (test code = INR) 1.01 1 0.85-1.17 [facility] OhlxzywBPRUFLZKCA7935-01-93 16:59:00 Test Item Value Reference Range Interpretation Comments PTT (test code = PTT) 25.4 s 22.9-35.8 [facility] MjlolvzATWFBBNUOK7363-68-01 16:59:00 Test Item Value Reference Range Interpretation Comments HIV Ag/Ab 4th Gen Negative *NA*(10/17/22 (test code = HIV 10:59 AM) Ag/Ab 4th Gen) [facility] OdctgkzEABJRIUDC6327-93-46 15:44:00 Test Item Value Reference Range Interpretation Comments U Preg (test code = U Negative (10/17/22 9:44 Preg) AM) [facility] VQEYK5686-56-58 15:44:00 Test Item Value Reference Range Interpretation Comments UA Color (test code = Yellow *NA*(10/17/22 UA Color) 9:44 AM) [facility] QUGHU8034-29-62 15:44:00 Test Item Value Reference Range Interpretation Comments UA Turbidity (test code = Clear (10/17/22 9:44 UA Turbidity) AM) [facility] PNAQA3679-56-25 15:44:00 Test Item Value Reference Range Interpretation Comments UA Spec Grav (test >=1.030 *ABN*(10/17/22 code = UA Spec Grav) 9:44 AM) [facility] VXEWN9134-80-50 15:44:00 Test Item Value Reference Range Interpretation Comments UA pH (test code = UA pH) 6.0 1 5.0-8.0 [facility] ORYOB5336-18-73 15:44:00 Test Item Value Reference Range Interpretation Comments UA Protein (test code Negative (10/17/22 9:44 = UA Protein) AM) [facility] CRYWP9259-99-95 15:44:00 Test Item Value Reference Range Interpretation Comments UA Glucose (test code Negative (10/17/22 9:44 = UA Glucose) AM) [facility] UIANQ3254-25-40 15:44:00 Test Item Value Reference Range Interpretation Comments UA Ketones (test code Negative *NA*(10/17/22 = UA Ketones) 9:44 AM) [facility] [id number] 15:44:00 Test Item Value Reference Range Interpretation Comments UA Bili (test code = Negative *NA*(10/17/22 UA Bili) 9:44 AM) [facility] [id number] 15:44:00 Test Item Value Reference Range Interpretation Comments UA Blood (test code = Moderate *ABN*(10/17/22 UA Blood) 9:44 AM) [facility] AND [id number] 15:44:00 Test Item Value Reference Range Interpretation Comments UA Urobilinogen (test code = UA 0.2 0.1-1.0 Urobilinogen) [facility] [id number] 15:44:00 Test Item Value Reference Range Interpretation Comments UA Nitrite (test code Negative (10/17/22 9:44 = UA Nitrite) AM) [facility] [id number] 15:44:00 Test Item Value Reference Range Interpretation Comments UA Leuk Est (test Negative (10/17/22 9:44 code = UA Leuk Est) AM) [facility] AND [id number] 15:44:00 Test Item Value Reference Range Interpretation Comments UA Sq Epi (test code = UA Sq Epi) Few /LPF [facility] [id number] 15:44:00 Test Item Value Reference Range Interpretation Comments UA WBC (test code = 3 See_Comment [Automa nadia message] The UA WBC) system which ge nerated this result transmit nadia reference range : <=5. The reference range was not used to interpr et this result as nirmal l/abnormal. [facility] [id number] 15:44:00 Test Item Value Reference Range Interpretation Comments UA RBC (test code = 11 See_Comment [Automa nadia message] The UA RBC) system which ge nerated this result transmit nadia reference range : <=2. The reference range was not used to interpr et this result as nirmal l/abnormal. [facility] GabeURINE AND [id number] 15:44:00 Test Item Value Reference Range Interpretation Comments UA Mucus (test code = UA Mucus) Few /LPF [facility] [id number] 16:34:00 Test Item Value Reference Range Interpretation Comments SURGICAL (test code = SR) R UN DATE: 04/08/22 [facility] PAGE 1 RUN TIME: 1635 Specimen Inquiry RUN USER: INTERFACE P ATIENT: NEREYDA FERRIS LOC: VAN U #: [id number] AGE/SX: 32/F ROOM: [facility] RE03/18/22REG DR: Buck Powell : [birth year] BED: A DIS: 03/21/22 STATUS: DIS IN TLOC: SPEC #: [id number] RECD: 03/19/22 STATUS: NERISSA SANFORD #: [id number] JASEN: 03/18/22 [facility] DR: Buck Powell MD ENTERED: 03/19/22 SP TYPE: SURGICAL OTHR DR: DOES_NOT KNOW ORDERED: ANATOMIC SPEC/3, SPEC TRACK, 23103/2, 90703/2, 63739/2, 89887 COPIES TO: DOES_NOT KNOW Buck Powell MD [address] [facility] # [id number] [place] [address] PROCEDURES: 97633 (03/19/22) 03825 (03/19/22) 08503 (04/08/22) 44047 (04/08/22) TISSUES: A. PLACENTA, THIRD TRIMESTER (28 [...] Inquiry RUN USER: INTERFACE S PEC #: [id number] PATIENT: NEREYDA FERRIS ANID #[id number] (Continued) FINAL DIAGNOSIS (Continued) C. FALLOPIAN TUBE, [...] maternal surface. The placental disk is ovoid, ozdoxotn06 x 14 x 2.3 cm, and weighs [...] 1635 Specimen Inquiry RUN USER: INTERFACE S [facility] #: [id number] PATIENT: NEREYDA FERRIS ANID #[id number] (Continued) GROSS DESCRIPTION (Continued) Technical component performed at [id number] , [place] [address] Unless gross only, the diagnosis is based [...] Signed SIGNATURE ON FILE Christopher Hobson 04/08/22 5384 END OF REPORT [id number] 06:52:00 Test Item Value Reference Range Interpretation Comments GLUBED (test code = GLUBED) 85 mg/dL 65-110 N [id number] 22:13:00 Test Item Value Reference Range Interpretation Comments GLUBED (test code = GLUBED) 136 mg/dL 65-110 H [id number] 17:05:00 Test Item Value Reference Range Interpretation Comments GLUBED (test code = GLUBED) 166 mg/dL 65-110 H [id number] 11:51:00 Test Item Value Reference Range Interpretation Comments GLUBED (test code = GLUBED) 108 mg/dL 65-110 N [id number] 06:41:00 Test Item Value Reference Range Interpretation Comments GLUBED (test code = GLUBED) 87 mg/dL 65-110 N [id number] 23:44:00 Test Item Value Reference Range Interpretation Comments GLUBED (test code = GLUBED) 170 mg/dL 65-110 H [id number] 14:36:00 Test Item Value Reference Range Interpretation Comments GLUBED (test code = GLUBED) 162 mg/dL 65-110 H CBC W/AUTO [id number] 09:41:00 Test Item Value Reference Range Interpretation [...] REQUIRED (test NORMAL NORMAL code = PLTMR) [id number] 09:39:00 Test Item Value Reference Range Interpretation Comments GLUBED (test code = GLUBED) 153 mg/dL 65-110 H [id number] 07:18:00 Test Item Value Reference Range Interpretation Comments GLUBED (test code = GLUBED) 152 mg/dL 65-110 H [id number] 02:30:00 Test Item Value Reference Range Interpretation Comments GLUBED (test code = GLUBED) 164 mg/dL 65-110 H - XR CHEST 2 [id number] 00:00:00 [facility] : 1990 Sex: F Patient Name: NEREYDA FERRIS Unit No: [id number] EXAMS: CPT CODE: [id number] XR CHEST 2 V 44381 PROCEDURE INFORMATION: Exam: XR Chest Exam date [...] Orig Print D/T: S: 03/19/2022 (1154) [facility] NAME: NEREYDA FERRIS Radiology Department PHYS: [id number].[email or web address] - Buck Powell [address] : 1990 AGE: 32 SEX: F [place], [place] [address] LOC: F.4620 A PHONE #: [phone] EXAM DATE: 03/19/2022 STATUS: ADM IN FAX #: [phone] RAD NO: Page 1 Signed [id number] 14:14:00 Test Item Value Reference Range Interpretation Comments GLUBED (test code = GLUBED) 80 mg/dL 65-110 N AG HEPATITIS B [id number] 13:55:00 Test Item Value Reference Range Interpretation Comments AG HEPATITIS B SURFACE (test code NONREACTIVE NONREACTIVE = HBSAG) AB HEPATITIS C [id number] 13:55:00 Test Item Value Reference Range Interpretation Comments AB HEPATITIS C (test code = NONREACTIVE NONREACTIVE HCVAB) SIGNAL TO CUTOFF (test code = 0.15 <0.80 N CUTOFF) AB [id number] 13:55:00 Test Item Value Reference Range Interpretation Comments AB TREPONEMA (test code = TREPAB) NONREACTIVE NONREACTIVE AB HIV 1 13:55:00 Test Item Value Reference Range Interpretation Comments AB HIV 1 2 (test NONREACTIVE NONREACTIVE Done by [place]! [place] code = TLN93XC) 4th Gen HIV Ag/Ab Combo Screen COVID 19 Asymptomatic IH [id number] 13:23:00 Test Item Value Reference Range Interpretation [...] and/o r diagnosis of CO VID-19 under Yecnzqn58 4(b)(1) of the Act, 21 U.S .C. 360bbb-3(b)(1), unless theauthorizatio n is terminated or r evoked sooner. URINALYSIS W/O [id number] 13:00:00 Test Item Value Reference Range Interpretation Comments UA GLUCOSE DIPSTICK (test code = NEGATIVE NEG DGLUU) UA KETONE DIPSTICK (test code = NEGATIVE NEG KETU) UA PROTEIN DIPSTICK (test code = 1+ NEG A PROU) IS NURSE PERFORMING TEST? NCBC W/AUTO [id number] 12:48:00 Test Item Value Reference Range Interpretation [...] Notes Date/Time Note Provider Source 2022-04-03 08:53:00-00:00 [id number] [facility] [address] [place], [place] [address] PATIENT NAME: NEREYDA FERRIS ADMIT DATE: 02/28 05/22 ACCOUNT NO: [id number] ROOM NO: F.4620 AGE: 32 SEX: F ADMITTING PHYSICIAN: Buck Powell MD ATTENDING PHYSICIAN: Buck Powell MD Provider Query QUERY TEXT: Specificity General 360MD Query related questions should be directed to: Roby carson [facility] Coding Query Help-line Please provide any known [...] AM at 0853 PATIENT NAME: NEREYDA FERRIS [id number] 2022-03-21 19:09:00-00:00 [facility] OB Disch REPORT#:[id number] REPORT STATUS: Signed DATE:03/21/22 TIME: 1908 PATIENT: NEREYDA FERRIS UNIT #: [id number] ROOM/BED: [address] : [birth year] AGE: 32 SEX: F ATTEND: Buck Powell MD ADM AUTHOR: Buck Powell MD * ALL edits or amendments must be made on the [employer] document * Subjective Subjective Admission EGA: Weeks: [...] Regular Activity: Light Duty, No Driving, No [place] for 6 Wks Additional discharge routines: Add. [...] drug database reviewed: yes at 1912 RPT #:[id number] END OF REPORT 2022-03-20 17:21:00-00:00 [facility] ([facility]) OB Postpart Progr Note REPORT#:[id number] REPORT STATUS: Signed DATE:03/20/22 TIME: 172 PATIENT: NEREYDA FERRIS UNIT #: [id number] ROOM/BED: [address] : [birth year] AGE: 32 SEX: F ATTEND: Buck Powell MD ADM AUTHOR: Buck Powell MD * ALL edits or amendments must be made on the [employer]/computer document * Subjective Subjective Admission EGA: Weeks: [...] Al Hydrox/Mg Hydrox/Simethicone (MYLANTA 30 ML S [facility]) 30 ML ASDIR PRN PO Dextrose/Lactated Ringer's [...] Promethazine HCl (PROMETHAZINE HCL) 25 MG Q6H RI N PRN PO Senna (SENOKOT TAB) 2 TAB BEDTIME PRN PRN PO (CK D) Simethicone (SIMETHICONE 80 MG TAB) 80 MG PC HS PRN PRN PO Tranexamic Acid (Tranexamic Acid) 1,000 MG ASDIR PRN IV Sodium Chloride (SODIUM CHLORIDE 0.9% 100 ML AD D-[place]) 100 ML Physical Exam Neuro: Exam: alert, [...] based on AM fasting. at 1724 RPT #:[id number] END OF REPORT 2022-03-19 09:46:00-00:[address] [facility]) OB Postpart Progr Note REPORT#:[id number] REPORT STATUS: Signed DATE:03/19/22 TIME: 945 PATIENT: NEREYDA FERRIS UNIT #: [id number] ROOM/BED: [facility]20-A : 92 AGE: 32 SEX: F ATTEND: Buck Powell MD ADM AUTHOR: Buck Powell * ALL edits or amendments must be made on the [employer]/computer document * Subjective Subjective Admission EGA: Weeks: [...] B/P B/P Mean Pulse Ox FiO 2 03/18-03/19 98.1-98.3 74-93 9-29 116-155/67-91 86.0-117.0 96-100 [...] Al Hydrox/Mg Hydrox/Simethicone (MYLANTA 30 ML S [facility]) 30 ML ASDIR PRN PO Dextrose/Lactated Ringer's [...] Promethazine HCl (PROMETHAZINE HCL) 25 MG Q6H RI N PRN PO Senna (SENOKOT TAB) 2 TAB BEDTIME PRN PRN PO (CK D) Simethicone (SIMETHICONE 80 MG TAB) 80 MG PC HS PRN PRN PO Tranexamic Acid (Tranexamic Acid) 1,000 MG ASDIR PRN IV Sodium Chloride (SODIUM CHLORIDE 0.9% 100 ML AD D-[place]) 100 ML Ketorolac Tromethamine (TORADOL 30 MG SYRINGE) 0 .STK-MED ONE .ROUTE (DC ) Hydroxyzine HCl (ATARAX) 25 MG PACU ASDIR PRN RI N IM (DC) Ketorolac Tromethamine (TORADOL 15 [...] (DEXTROSE 5% IN WATER 50 ML ADD- [place]) 100 ML Dextrose/Lactated Ringer's (DEXTROSE 5% IN [...] Chloride (SODIUM CHLORIDE 0.9% 100 ML AD D[facility]) 100 ML Loperamide HCl (LOPERAMIDE HCL 2 [...] % (Auto) (14.5 - 29.7 %) 15.0 [place] % (Auto) (3.6 - 10.2 %) 8.4 Eos % (Auto) (0.0 - 3.0 %) 1.2 Baso % (Auto) (0.1 - 0.9 %) 0.1 Neut # (Auto) (K/mm3) 5.6 Lymph # (Auto) (K/mm3) 1.1 [place] # (Auto) (K/mm3) 0.6 Eos # (Auto) [...] tonight if remains elevated. at 0950 RPT #:[id number] END OF REPORT 2022-03-18 17:46:00-00:00 [facility] OB Delivery Note REPORT#:[id number] REPORT STATUS: Signed DATE:03/18/22 TIME: 1745 PATIENT: NEREYDA FERRIS UNIT #: [id number] ROOM/BED: [address] : 92 AGE: 32 SEX: F ATTEND: Buck Powell MD ADM AUTHOR: Buck Powell MD * ALL edits or amendments must be made on the el [employer]/computer document * OB Delivery Nursing Documentation Review [...] 1601 Birthweight (gm) A: 3360 Weight (lb) A: Weight (oz) infant A: Gender infant A: Female 1 minute infant A: 5 minutes A: 10 minutes infant A: Cord pH obtained infant A: Vacuum time A: Vacuum # pulls A: Vacuum # popoffs A: QBL at delivery: __ Provider comments [...] infant B: Weight (oz) infant B: Gender B: Female 1 minute infant B: 5 minutes B: 10 minutes infant B: Cord pH obtained infant B: Vacuum time infant B: Vacuum # pulls infant B: Vacuum # popoffs infant B: ____ Provider comments on imported nursing data: [] Pre-delivery GBS status: GBS status: negative Hatley evaluation at delivery: NRP certified pe rsonnel Admission EGA: Weeks: 37 Days: 0 Blood Loss/Details Blood loss at delivery: <1K: no sx hypovol=no he m, no more than expected EBL at delivery (ml's): 900 Baby A Information Baby A information Delivery date: 03/18/22 Delivery time: 160 status: live born Wt of baby (grams): 3360 Wt of baby (lbs/oz): Gender: female 1 minute: 8 5 minutes: 9 Presentation: vertex Anomalies: none Nuchal cord Baby A Nuchal cord: no Baby B Information Baby B information Delivery date: 03/18/22 Delivery time: 160 status: live born Wt of baby (grams): 3400 Wt of baby (lbs/oz): 8 Gender: female 1 minute: 8 5 minutes: 9 Presentation: footling breech Anomalies: none Nuchal cord Baby B Nuchal cord: no Op/Inv Proc Note - Brief )(Start date: 03/18/2022 )(Start time: 1552 )( Procedure(s) performed: repeat low tr ansverse c/s, bilateral salpingectomy, moderate lysis of adhesions x 20 min )( Primary Surgeon: Randolph So )( Sales Training Coordinator(s): Sadie Villegas )( Pre-procedure diagnosis: 37w di [...] noted. The head was delivered, and the 's body de livered easily with fundal pressure. [...] the procedure well. Counts correct x 2. spa assistant manager required as per standard of c are [...] to op delivery Mother's condition: mother stable Infant's condition: infant stable in room (x2) at 2156 RPT #:[id number] END OF REPORT 2022-03-17 09:06:00-00:[address] [facility] ([facility]) OB Admission / H P REPORT#:[id number] REPORT STATUS: Signed DATE:03/17/22 TIME: 905 PATIENT: NEREYDA FERRIS UNIT #: [id number] ROOM/BED: : 92 AGE: 32 SEX: F [...] with bilateral sa lpingectomy. at 0912 RPT #:[id number] END OF REPORT
--- NOTE | 2023-02-06 15:06 | ER ---
Nurse's Notes [facility] Name: Rosalva De La Rosa Age: 32 yrs Sex: Female : 1990 Arrival Date: 02/06/2023 Time: 14:53 Bed Waiting Private MD: Diagnosis: ED Course: 02/06 14:56 Patient arrived in ED. im 14:56 Primo Flores DO is Attending Physician. ms3 Administered Medications: No medications were administered Outcome: 15:06 Patient left the ED. ld1 Signatures: Primo Flores DO DO ms3 Maday Flores RN RN ld1 Suzanne Nolen im
== END 2023-02-06 15:06 | disposition left against medical advice (07) ==
LOC: ER 14:53
DX: Z02.9 Encounter for administrative examinations, unspecified (principal)